=== PATIENT | male | born 2000 | race Two or more races ===

== ENCOUNTER 2023-05-09 08:25 | Emergency (ER) | payer OTHER, SELFPAY ==
[2023-05-09 08:31] VITALS: BP 172/80; PULSE 111; RESP 18; TEMP 36.6; O2SAT 99; BMI 26.9
--- NOTE | 2023-05-09 09:16 | ED_ITS ---
HPI - Epistaxis General Chief Complaint: Epistaxis Stated Complaint: FOREIGN OBJECT IN THROAT Time Seen by Provider: 05/09/23 08:55 Mode of arrival: walk-in History of Present Illness HPI Narrative: As the patient presenting to us with throat discomfort, the patient mentioned that he recently has been recovering from a flu symptoms, and he did have some epistaxis yesterday but today he was feeling some discomfort in his throat, the patient denies any difficulty swallowing or difficulty breathing No nausea no vomiting no other concerns Related Data Previous Rx's Medication Instructions Recorded amoxicillin 875 mg-potassium 1 tab PO Q12H #14 tabs 05/09/23 clavulanate 125 mg tablet prednisone 50 mg tablet 50 mg PO DAILY 5 days #5 tabs 05/09/23 Allergies Allergy/AdvReac Type Severity Reaction Status Date / Time nkda AdvReac Intermediate Uncoded 05/09/23 08:30 Review of Systems ROS Status of ROS 10 or more systems reviewed and unremark able except as noted in history and below PFSH PFSH Social History Smoking status: Never smoker Exam Narrative Exam Narrative: Nurses notes and vital signs reviewed and patient is not hypoxic. General: Well-appearing and in no apparent distress. Skin: Warm, dry, no pallor noted. No rash. Head: Normocephalic, atraumatic. Neck: Supple, non-tender. Eye: Pupils are equal, round and EOMI. No scleral icterus. Ears, Nose, Mouth, and Throat: TM are clear, no nasal mucosal hypertrophy. The patient have no active posterior bleeding at the moment or any blood clot that I can see but he did had the right tonsil is hypertrophied and the upper part of it is freely moving, there was no exudate that I could see, and the upper part is just moving freely to the front of the back, no compromise of the airway Cardiovascular: Regular Rate and Rhythm without murmur, gallop or rub. Respiratory: No accessory muscle use or respiratory distress. Lungs are clear to auscultation, no wheezing, rales or rhonchi Chest Wall: no tenderness Back: No midline thoracic or lumbar vertebral tenderness. No CVA tenderness Musculoskeletal: normal ROM, no calf or popliteal tenderness, no lower extremity edema/swelling GI: Abdomen is soft, non-distended. Normal bowel sounds. No masses appreciated. No tenderness to palpation. No rebound, guarding, or rigidity noted. Neurological: A&O x4. No cranial nerve dysfunction observed. No truncal ataxia. Moves all extremities. Sensation intact. Psychiatric: Cooperative and interactive. Normal mood and affect. Constitutional Vital Signs, click to edit/add: Last Vital Signs Temp 97.9 F 05/09/23 08:31 Pulse 111 H 05/09/23 08:31 Resp 18 05/09/23 08:31 BP 172/80 H 05/09/23 08:31 Pulse Ox 99 05/09/23 08:31 Course Vital Signs Vital signs: Vital Signs Temperature 97.9 F 05/09/23 08:31 Pulse Rate 111 H 05/09/23 08:31 Respiratory Rate 18 05/09/23 08:31 Blood Pressure 172/80 H 05/09/23 08:31 Pulse Oximetry 99 05/09/23 08:31 Temperature 97.9 F 05/09/23 08:31 Pulse Rate 111 H 05/09/23 08:31 Respiratory Rate 18 05/09/23 08:31 Blood Pressure 172/80 H 05/09/23 08:31 Pulse Oximetry 99 05/09/23 08:31 MDM - Epistaxis MDM Narrative Medical decision making narrative: Upon evaluation and while I am evaluating the patient his feeling was better after I pushed freely moving parts backward, Right now with this atypical tonsillitis the patient had a strep swab but he also was covered with Augmentin and prednisone to help with this increase in size to decrease for possible infection underlying The patient was referred to the ENT as outpatient he was instructed about the importance of follow-up and avoiding any supine sleeping at the moment he can sleep on his side to avoid any symptoms ,the patient also was instructed by drinking cold liquid that helped this swelling shrink it was noted that it does not have any narrow neck and it has a wide neck The patient is to follow up with primary care physician in next 2-3 days or to return to the emergency department should any of the signs or symptoms worsen or new symptoms develop. The patient agrees with the following Diagnosis and Treatment plan and the patient will be discharged home. Discharge Plan Discharge Chief Complaint: Epistaxis Clinical Impression: Tonsillar mass, Acute tonsillitis Patient Disposition: Home, Self-Care Time of Disposition Decision: 09:14 Condition: Good Prescriptions / Home Meds: New amoxicillin-pot clavulanate 875-125 mg tablet 1 tab PO Q12H Qty: 14 0RF prednisone 50 mg tablet 50 mg PO DAILY 5 Days Qty: 5 0RF Instructions: Tonsillitis (ED) Stand Alone Forms: Portal Instructions Referrals: [facility] [Primary Care Provider] - 1 week Daniella Linton MD [Physician] - As soon as possible
[2023-05-09 09:44] LABS: Internal Control Within Normal Limits; Strep A Antigen Screen Negative
== END 2023-05-09 09:36 | disposition home or self-care (01) ==
PROVIDERS: Emergency Provider Emergency Medicine
DX: J03.90 Acute tonsillitis, unspecified (principal); J35.8 Other chronic diseases of tonsils and adenoids
CPT/HCPCS: 87070; 87880; 99283

== ENCOUNTER 2023-05-14 16:02 | Emergency (ER) | payer OTHER, SELFPAY ==
[2023-05-14 16:08] VITALS: BP 110/83; PULSE 111; RESP 18; TEMP 37.2; O2SAT 98; BMI 33.8
--- OUTSIDE RECORDS SUMMARY | 2023-05-14 16:11 | XMS_ITS | CCD ---
Author Name Unknown Address [address] [facility] [address] [place] [address] Organization [facility] Care Team Providers Care Education Trainer Name Role Phone KIMBERLYN MELCHOR Consulting Unavailable [facility] Primary Care Unavaila ble HARJINDER, DR JIM De Dios Attending Unavailable HARJINDER, DR JIM De Dios Admitting Unavailable Benjamin, Alexis Consulting Unavailable HARJINDER, DR JIM De Dios Admitting Unavailable [facility] Unavaila ble HARJINDER, DR JIM De Dios Attending Unavailable HARJINDER, DR JIM De Dios Consulting Unavailable KASIA, NICOLASA Admitting Unavailable KASIA, NICOLASA Attending Unavailable KASIA, NICOLASA Consulting Unavailable [facility] Unavaila ble PAY, DR EDWARDS Attending Unavailable PAY, DR EDWARDS Consulting Unavailable [facility] Unavaila ble PAY, DR EDWARDS Admitting Unavailable Michelle, Chrissie Consulting Unavailable Problems Active Problems Problem Classification Problem Date Documented Da te Episodic/Chronic Chronic obstructive pulmonary disease and bronchiectasis (1 source) Bronchitis, not specified as acute or chronic; Translations: [BRONCHITIS NOT SPEC ACUTE/CHRON] Onset: 04-28-2021 Episodic Fluid and electrolyte disorders (1 source) Dehydration; Translations: [DEHYDRATION] Onset: 04-29-2021 Episodic Other connective tissue disease (1 source) Rhabdomyolysis; Translations: [RHABDOMYOLYSIS] Onset: 04-29-2021 Episodic Unclassified (3 sources) COUGH, UNSPECIFIED; Translations: [COUGH, UNSPECIFIED] Onset: 04-29-2021 Unclassified (2 sources) CONTACT W/AND (SUSP) EXPOS COVID-19; Translations: [CONTACT W/AND (SUSP) EXPOS COVID-19] Onset: 04-21-2021 Viral infection (1 source) COVID-19; Translations: [COVID-19] Onset: 04-29-2021 Past or Other Problems Problem Classification Problem Date Documented Da te Episodic/Chronic Abdominal pain (4 sources) Unspecified abdominal pain; Translations: [UNSPECIFIED ABDOMINAL PAIN] Onset: 10-11-2020 Episodic Spondylosis; intervertebral disc disorders; other back problems (1 source) Low back pain; Translations: [LOW BACK PAIN] Onset: 10-15-2020 Episodic Unclassified (1 source) COUGH, UNSPECIFIED; Translations: [COUGH, UNSPECIFIED] Onset: 04-25-2021 Unclassified (1 source) CONTACT W/AND (SUSP) EXPOS COVID-19; Translations: [CONTACT W/AND (SUSP) EXPOS COVID-19] Onset: 04-17-2021 Results Test Name Value Interpretation Reference Range Facility Coding Summary.on 05-06-2021 Coding Summary. [id number] h0bWw+PGhlYWQ+LO5WBNV bX58jzXZocW6RH6fTBQ7M HEPMFONFIN9WEH5ggPX1I IgrI9FndrBw UwhqnKMgMH52CLz9OBI1a HugUKgjcK0esIDgV4d2Xv BeFV64iM40BPogUIGgUvO 3LjZpbjsgbWFy Z8toDwQezIRqPkx+PHRhY mxlIHdpZHRoPScxMDAlJy NrtVfgAW8tVj6uJCRhVTM vbGxhcHNlOiBj l3qjPHXtWCmgLY0cfWxrF 4YriSP7UYGsq6j0Bu70nX I+HTKePFL5lOskUVtzo81 1LqOsz5tyHXL9 gVQxAVisNWT4C95uh0G3B IWeOPHuFGF1sKC5kX2agF hbobndV3JesWBeLlN7FUZ 6qNYbyF7hzDbj pyukhT3nTpu+D31VFL0XI KREBM3AZgk2X0FrYbjxxH I+BB00PIBkMO83xHYzgSQ th8zpaOe1YoIi OZXeWHI5aWnkTLmvc0WtX SYgD58piYMhn1M6PUCnhZ bklEDjOkAksXW8iH6uJQi iqoiek1ubziul Otklz6yaez77hY59Q50eF VhlPCTeCQW9NIVhNEBzcI unij4xpU3pBf9+LIjnw8j iq6eguPw3RlJm EGBoxwRjnDmiLUM8e8UfT z42G3RzsWjvt6ZsLkg8nj 87hPBgf9W3bUZ2KPavPAA mhZ5mVEzfEqF3 JIOdSaGjsA85eONpBQsmG p5kxBbvdAryMF3nJGOurn ulKBQheD2cHIVvgGRqkVi vEZ3bEPCkcdpw h172MhAxQFK9LAZnpHMnD 6FljS7gBkAgKUTdTAOgW7 NloVGwCEjeW558HLfeYgG 7VYJyupZkQ0Ar CIZpnIuqNdL8h3G3Eu7Ue 4AmzzkvVHM6JIwaGQLjKj R8AqZlCsZ2T1AqOxq3GUV xxMewXT5cN3Do LVGvvclictulwWT3QUDoW WVedD20cXFtBNyuWl3qy6 M6f239NRVcVFLvpM97Qe7 udDogMTBwdCBU xX9djjihf2cyqqesPpEfE ZJiFDf7FIi5ETIgjYmuVk PlJOI0MeY8FQN5cLSgbH9 gfDjykvdfhU7z Oyc+T11rdS1xRZP8IRU7d pjlEBFxuaEaLH21FI48Y3 RyPjwvdGFibGU+PGRpdiB ffMcwSE5pKoDm v6nrs0EsREysU4IcEWJiP WyqQdr4MYVpAWT9pKB4cY 9oFGYiFYawl9L1xFN8L7X tvnEwwc3tf9wm EVNzTMmqQ03grMQhw5S5U OHokXL5XGYmkXpbGnRpzZ 93Oyc+YYAubAruf6NqGrx lz9xbw0atpZm3 FxWoVPEwksFojUcvHJC2o 3ZnZk65R98cNYinSPYzAL MvYSDrCBLmwLxmks5peE3 wIi8+PGNvbCB3 iKZ4lL5eEAQoMqG8QZpkT 032VoJcsAEuUezhp3dwz7 qekHv6PtQeRPMmtxUdkXy yQBE0o5LbSy43 V14vQSqiCKSoMLTeQTSfD ZUwrDwpiw0dtS9jAn1+PC 3jx9nhol41xF50lGW+PHR qUUR0sUlbZPyj IBQquM1xSCboTaS1NCTqB uCewJ34gSKgAAuoHd5ckH zyvQqxBU8jBLFjomktl61 4RjDcx9kfOLBs vSRvKEkkZWH8S62ja2W6W FQbZQQzZTM9cPH9hU6heE lnbjogbGVmdDsgdmVydGl eJJesPTvwA068 IHRvcDsnPlBhdGllbnQgT sXtTVx3B6LsEru4SXCqvV lhMZ3gvXTgHJhxWo0rpBv mrZacJT9pRCPw jbyso091TrBkm7vdJCOta YZeLRxqZCZ1S64al5U7II UwXTQdUWQ3aQF3yS3fkHj nbjogbGVmdDsg bpQeuPcmPPhzJFupS485X HRvcDsnPkJpcnRoIERhdG F0TY44FL74cZWxx1I0kST 2H5MwAXQybqok cltzeVB0VRXzEQOdfD48J q3koSclRb0dIQFsKOB7PO NiwATuM9XbiI5yOiHfPKV cNCPqG4GwbYKz RAkgQ756YNnuAaB9IKWpq nTmE2HgTJDjzQfyTnY0v6 L2Kk8XA5S7SY67YT01pER or1V4hZA9C4Ty GSLqvtcmsdgloQR0GGAwH LGajO35Mz3zfJezPw9rUZ KnUVV9ZICndYNmT9LvgU9 yOiAjMDAwMDAw I8BikIRfCLptF750XYjhY eW7YXXwolJhS0OiXMMyxC lxOrJ1j3P2Cl2FRRv7RX0 9RH56zPFpx1M6 mDG4G0HgRKNbzwkqyuuus YU6HKGfAUOtmU58Yu3chZ jvXv9hLPQwEPT7CZNjpVT fM5JitI2wHpVw LRZuOUNcE4YvySEsULxfA 289MSlwQwJ7HUXnfpWoJ7 AwEBWblOjzTaK3k9V7Iq3 DZSZgDQ30VLZ6 kRK2VB78CD68Z3IzYvaxx GFibGU+PHRhYmxlIHdpZH RoPScxMDAlJyBzdHlsZT0 oMm7xKYYgLBXn vVarpFRhJlTvv3xfQYRpE LlaGJ1ofJdwI1OumMA5TB Oqk2h7Yt57X44kP3MnvUA +PWEfuSG4lGR6 dR1qGtQyZmH8MFzuY241I fCdxWGkSfrbl7jba7eahV p8DfW1CJKtvpKvhPjjSVT 1a3OwJh11W78w IHdpZHRoPSIxNSUiIHZhb Iiizs5tgY8kOi4+PGNvbC Y4oXF8eG3nKgXoZqF9ICl jF056EcAndDTj Hetin4qll3whwHi7BaHlB GUytlVmwNzxDPZ6u9CjWz 69S4IauHbuh4HxBos1md6 3dICat2K7cYV9 N2BvMQMkodypiXKryFpbC I0jIIUttqnqJPRnkV9mEK DaN5u7GbQyTsP2UKvzC2M vfyY6DDQigGVx PRpiZPT9M93qv7F6CIVdO IZmXEW3vPL5zI7kmLikrg ogbGVmdDsgdmVydGljYWw lYPtpL441RCIm aFbzQHEssL9kQPHqzITnm FrpYS7sPACchnvdVgXVSR 5PJvyrEk9LWCYCRLmWCC1 7WQ04gMMtj0S0 bTN8V1TxNRWnrwuwkulzw OF8YCGqYWJglU57pIRdVO prOc8mf2D1o710LSGiYIW krS00Mu9wyFor ACKxdTYTsM6oodlan2pmr ogxAcWrZJToUWb3TNi9IL HuhMlsFsEbRZM8KnB7DSF 4jTAgaW5zwZoq ryhlxR8bImc+MDYvMDUvM jAwMzwvdGQ+KHFjGSC2qF teMSnoHIXwiC2rVYObP0f 1ZdRvStC2NQxs A4TbRSRurrkzCy41aN5zY gNoCpB1CGlaO8GevkF2WX NikIMlTGzpOCW5E75jn3H 9YRDzZROxFRY9 sZD4oU2nlYvmatwkoLBpb DsgdmVydGljYWwtYWxpZ2 80OMXeiUpoGpO4QGldVZS lYC87MG09wBHb o0D5bMU4R0FiSFMucehyb jrmpBX0XXIfCJFadO19rI FwFZsgYv6dw0J2p099XVO xSUWqvC34Tk0v cTuaNWJfjDVVaN5nwyqgf 6elvdfcDeLmKUCfCNe5AA a7XEBujRstXeQyMTG5EhV 8UJU3lRHsxX2b hCodcaurgH8wVjz+TWFsZ TwvdGQ+DOWxAXE6gMuqFF tzKYQxxB0cZXPbO1q4TkR zXiL6VWsyV1Tg EFBhrnpaHm66iO1zCmDsM pX6EAlhF4WunrC0USYwiT KtIJamFDF7Z50nc6S0NLS qVWXaTZG6yUT8 nV2gmHtecevcjQMwfWpck iGkiBpzFMhnACfoT613IG VjeLlvTgrqiWW6oVVmpHf vdGQ+KF91qa87 M9ViCfxkZna7BKRwENZ6d QM2bS4dSMKeJNpra4U8dM B8R9UyxuSyev1ok1xeJSK pLPhbQ32bxBGa u0K3WOYglAB6MGTacOboI pUezG61Puk+PGNvbGdyb3 BqCcpuk0pwu2nwjMo8JwS wJSIgdmFsaWdu PYF3j3KqKp39U97eJKzkQ HRoPSIzMCUiIHZhbGlnbj 1xjU3sBj0+YLKfcAZ7nBE 7nH0wRcMjTyF2 ZUzyY819FoWyrJQnXqpnp 1nyk2lzxDe1KuZzFXEbio QilChjTUH8x2JrSe12F4F gwMiwj8SdZgi9 hm76xKBty9G9oNC0K8DrA KVghrvxpMKndCjyYQ1wMZ OjrqzbXCLnuP4rKYIeD4t 5JeJhDnI2IIli H9OxgaI9LEGnmFZfJKTwq EFDzM8eynbjp7ydyeibVy DaBRRhXFy5RGo2UGPwlJm eCzCoBCP9OmP0 OHH8oDDmmQ6jyVsbynqip G9wOyc+HAt6z3fxbHAeNZ 2mrVN2MU98HJ41uURyq5S 4sJX6M6MzFVFe hikczkzdeQX4RNQjSTTrb P63Aa1hcEerQv7iGANsPY F3LGQxyOTsQ7SiyQ0eSaR yIYFdXNCaB2So yRDfDEsoJ928POwgYyI7B AVhsiBrF5RmNYDsoQdgFg N0u4D6Ug9ETK94GL27BX1 0rQCem5W5oYS9 V7IjDARajnmmlocmaIO3G CBxQSEbwG70Mb3agMuiVx 1uXNYtFVO9ZDJyrHDeY3S uqX1mWePyASOv NVBsE1KzdMBuRRzmJ890C CvqSmL8KKXkjaAkT5DjXC UjmCivKpQ2u1A5Sv6ESq4 1II74LN55gNHf p0V0bDP1E4VeVNDuruait jlabCB8XIEbDHXooD00Ha 5ncCwpPa3xCAKmLXF4LZS vmOQeA1TeiR7r JbMoKFMuSPOuU3UjbMYyD FvfP922ETzwLhK4RTGvov LaK6ItUNBzpDmiQmH9d1Z 1Kx6HCMjycfj4 G4EuFbbhmIZ+KO83LQCgX Q41oJXgeKSti9iyrRb2Cw DxDGPwNCY0qVfyJOqgo3D mDKTrB69qqHAk c2U6 (more content not included)... Normal [facility] .Manual Abson 05-01-2021 Basophils/Leukocytes Manual cnt (Bld) [Pure # fraction] 0.0 E9/L Normal 0.0-0.2 [facility] Comment on above: Performed By: #### 2 872045, 8057432, 2383407, 7505957 #### [facility] [address] [place] [address] Eosinophils/Leukocyte s Manual cnt (Bld) [Pure # fraction] 0.1 E9/L Normal 0.0-0.5 [facility] Comment on above: Performed By: #### 2 210373, 8116953, 8833541, 4434356 #### [facility] [address] [place] [address] Lymphocytes/Leukocyte s Manual cnt (Bld) [Pure # fraction] 5.2 E9/L High 1.0-4.0 [facility] Comment on above: Performed By: #### 2 907942, 5824284, 8974199, 6105912 #### [facility] [address] [place] [address] Monocytes/Leukocytes Manual cnt (Bld) [Pure # fraction] 1.3 E9/L High 0.2-1.0 [facility] Comment on above: Performed By: #### 2 486512, 9537269, 0863860, 4267747 #### [facility] [address] [place] [address] Neutrophils/Leukocyte s Auto (Bld) [Pure # fraction] 7.4 E9/L Normal 2.0-7.5 [facility] Comment on above: Performed By: #### 2 283013, 1849993, 1065732, 7838963 #### [facility] [address] [place] [address] CBC w/ Auto Diffon Erythrocyte distribution width (RBC) [Ratio] 13.6 % Normal 10.9-14.2 [facility] Comment on above: Performed By: #### 2 288555, 8565487, 2846411, 7378445 #### [facility] [address] [place] [address] Hematocrit (Bld) [Volume fraction] 42.7 % Normal 37.7-49.0 [facility] Comment on above: Performed By: #### 2 651565, 6230383, 5310679, 7929452 #### [facility] [address] [place] [address] Hemoglobin (Bld) [Mass/Vol] 14.6 g/dL Normal 13.5-17.5 [facility] Comment on above: Performed By: #### 2 424355, 9651285, 1977367, 4346553 #### [facility] [address] [place] [address] MCH (RBC) [Entitic mass] 27.5 pg Normal 27.0-34.0 [facility] Comment on above: Performed By: #### 2 049227, 1075763, 7351102, 5809074 #### [facility] [address] [place] [address] MCHC (RBC) [Mass/Vol] 34.2 g/dL Normal 31.4-36.0 [facility] Comment on above: Performed By: #### 2 707520, 9145808, 3188195, 3676910 #### [facility] [address] [place] [address] MCV (RBC) [Entitic vol] 80.4 fL Normal 80.0-100.0 [facility] Comment on above: Performed By: #### 2 534272, 7142082, 3871403, 8003318 #### [facility] [address] [place] [address] Platelet mean volume (Bld) [Entitic vol] 7.0 fL Normal 6.4-10.8 [facility] Comment on above: Performed By: #### 2 667551, 7725518, 6352225, 6916601 #### [facility] [address] [place] [address] Platelets (Bld) [#/Vol] 371.0 E9/L Normal 150.0-500.0 [facility] Comment on above: Performed By: #### 2 523179, 0383561, 1998588, 9840693 #### [facility] [address] [place] [address] RBC (Bld) [#/Vol] 5.3 E12/L Normal 4.3-5.9 [facility] Comment on above: Performed By: #### 2 451959, 8849217, 8251982, 4891156 #### [facility] [address] [place] [address] WBC corrected for nucl RBC Auto (Bld) [#/Vol] 14.5 E9/L High 4.0-11.0 [facility] Comment on above: Performed By: #### 2 914572, 1511690, 1607392, 4914802 #### [facility] [address] [place] [address] CMPon 05-01-2021 Albumin/Globulin (S) [Mass conc ratio] 1.1 Normal 1.1-2.2 [facility] Comment on above: Performed By: #### 2 894273, 1545720, 3636215, 1313432 #### [facility] [address] [place] [address] Globulin (S) [Mass/Vol] 2.9 g/dL Normal 1.4-4.0 [facility] Comment on above: Performed By: #### 2 901443, 6978316, 2979538, 0233174 #### [facility] [address] [place] [address] Urea nitrogen/Creatinine [Mass ratio] 26 No Units High 10-20 [facility] Comment on above: Performed By: #### 2 680209, 9957604, 5524148, 3197324 #### [facility] [address] [place] [address] Albumin [Mass/Vol] 3.1 g/dL Low 3.3-5.0 [facility] Comment on above: Performed By: #### 2 582353, 4648591, 6088865, 6468540 #### [facility] [address] [place] [address] ALP [Catalytic activity/Vol] 88 Int._Unit/L Normal 21-98 [facility] Comment on above: Performed By: #### 2 578938, 7145562, 2758095, 9426683 #### [facility] [address] [place] [address] ALT No additional P-5'-P [Catalytic activity/Vol] 173 Int._Unit/L High 6-46 [facility] Comment on above: Performed By: #### 2 015360, 5817598, 9313830, 7147078 #### [facility] [address] [place] [address] Anion gap [Moles/Vol] 10 mmol/L Normal 6-16 [facility] Comment on above: Performed By: #### 2 249607, 7816508, 1975367, 4900494 #### [facility] [address] [place] [address] AST [Catalytic activity/Vol] 52 Int._Unit/L High 5-43 [facility] Comment on above: Performed By: #### 2 786853, 4521688, 3094312, 0799799 #### [facility] [address] [place] [address] Bilirubin [Mass/Vol] 0.4 mg/dL Normal 0.0-1.1 [facility] Comment on above: Performed By: #### 2 577906, 8441235, 2359786, 2687421 #### [facility] [address] [place] [address] Calcium [Mass/Vol] 8.4 mg/dL Low 8.9-11.1 [facility] Comment on above: Performed By: #### 2 094437, 3016550, 8018932, 7183700 #### [facility] [address] [place] [address] Chloride [Moles/Vol] 104 mmol/L Normal 101-111 [facility] Comment on above: Performed By: #### 2 855976, 2982621, 1431073, 2666761 #### [facility] [address] [place] [address] CO2 [Moles/Vol] 27 mmol/L Normal 21-31 [facility] Comment on above: Performed By: #### 2 513251, 2405287, 5019638, 3803013 #### [facility] [address] [place] [address] Creatinine [Mass/Vol] 0.7 mg/dL Normal 0.5-1.3 [facility] Comment on above: Performed By: #### 2 356884, 3342470, 5360615, 6301422 #### [facility] [address] [place] [address] Glucose [Mass/Vol] 127 mg/dL Normal 55-199 [facility] Comment on above: Result Comment: If t his glucose result represents a fasting glucose, interpretation should refer to the following reference range: 55-99 mg/dL Performed By: #### 2 991067, 8629393, 3239123, 3371499 #### [facility] [address] [place] [address] Potassium [Moles/Vol] 3.9 mmol/L Normal 3.5-5.3 [facility] Comment on above: Performed By: #### 2 094032, 3226514, 0473041, 2804642 #### [facility] [address] [place] [address] Protein [Mass/Vol] 6.0 g/dL Normal 6.0-7.8 [facility] Comment on above: Performed By: #### 2 288286, 8031053, 0932688, 4423929 #### [facility] [address] [place] [address] Sodium [Moles/Vol] 137 mmol/L Normal 135-145 [facility] Comment on above: Performed By: #### 2 452239, 9668312, 3368512, 8487836 #### [facility] [address] [place] [address] Urea nitrogen [Mass/Vol] 18 mg/dL Normal 5-21 [facility] Comment on above: Performed By: #### 2 459478, 3171042, 7525243, 0514362 #### [facility] [address] [place] [address] CRPon 05-01-2021 CRP [Mass/Vol] 1.3 mg/dL Normal <=1.9 [facility] Comment on above: Performed By: #### 2 746438, 9789725, 5603370, 0659294 #### [facility] [address] [place] [address] D-Dimeron 05-01-2021 Fibrin D-dimer FEU (PPP) [Mass/Vol] 403 [id number] Normal 215-500 [facility] Comment on above: Result Comment: This assay is intended for use as an aid in the diagnosis of DVT or PE. These conditions cannot be excluded with certainty solely on the basis of a D-dimer concentration being within the reference range This D-Dimer assay may be used in conjunction with a non-high clinical pretest probability assessment to exclude deep-vein thrombosis(DVT). For exclusion of venous thrombosis or pulmonary embolism the analyte D-Dimer should not be used as an aid in patients with: Therapeutic dose anticoagulant therapy for >24 hours Fibrinolytic therapy within previous 7 days Trauma or surgery within previous 4 weeks Disseminated malignacies Aortic aneurysm Sepsis, severe infections, pneumonia, severe skin infections Liver cirrhosis Performed By: #### 2 393787, 9447810, 2877978, 6698688 #### [facility] [address] [place] [address] Discharge Instructionson Discharge Instructions [id number]# 1.00CD:127 Normal [facility] Ferritinon 05-01-2021 Ferritin [Mass/Vol] 304 ng/mL Normal 24-336 [facility] Comment on above: Result Comment: NORM ALS MEN <30 YRS 16-132 ng/mL MEN >30 YRS 8-338 ng/mL WOMEN (PREMEN) 6-104 ng/mL WOMEN (POSTMEN) 12-210 ng/mL Performed By: #### 2 920176, 2002535, 4166273, 8404986 #### [facility] [address] [place] [address] Inpatient Clinical Summaryon 05-01-2021 Inpatient Clinical Summary [address] [address] Clinical Summary Person Information: Name: NAIDA CM Age: 20 Years : 2000 Sex: Male PCP: JAMES SUH CNP Marital Status: Single Phone: [phone] Race: White Ethnicity: Non- or Language: Greenlandic Visit Id: Visit Reason: Cough; Weakness or fatigue; Shortness of breath; acute respiratory failure with hypoxia due to COVID Speciality: Acuity: Enc Type: Inpatient Med Service: Medical Arrival: 04/26/2021 14:37:56 Discharge: Dispo Type: Admitted as IP to this Hosp Address: [address] [place] [id number] Provider Notes: Diagnosis: 1:Acute hypoxemic respiratory failure due to COVID-19; 2:Elevated transaminase level; 3:Weakness; 4:Dehydration; 5:Asthma; 6:Obesity; 7:DVT prophylaxis Problems No Problems Documented Smoking Status: Never Smoker Functional Status: Sensory Deficits: History of Falls: Mobility Assistance Prior to Admission: Independent ADLs: Independent Current Level of Assistance for Self-Care/Mobility: Cognitive Status: Oriented x 3 Allergies No Known Allergies Measurements: Height: 170.18 cm Weight: 100.2 kg Blood Pressure: 108 mmHg / 72 mmHg BMI: 34.84 kg/m2 Procedures No Procedures Documented Immunizations influenza virus vaccine, inactivated (Not Given) Final Med List: acetaminophen (acetaminophen 325 mg Tab) 2 Tablets By Mouth every 6 hours as needed Pain. albuterol (albuterol 0.083% Inh Rebeca 3 mL) 0.083% - 3mL dosing units Inhalation every 4 hours as needed as needed for wheezing for 30 Days. Refills: 0. albuterol (albuterol HFA 90 mcg/inh MDI) 2 Puffs Inhalation every 2 hours as needed Shortness of breath or wheezing for 30 Days. Refills: 2. dexamethasone (dexamethasone 4 mg Tab) 1 Tablets By Mouth every day for 4 Days. Refills: 0. guaifenesin (Mucinex 600 mg Tab-ER) 1 Tablets By Mouth 2 times a day for 5 Days. Refills: 0. Misc Prescription (Nebulizer) 0. 1 machine w/ approp. tubing/mask. Refills: 0. Care Team Members: Attending Physician: Volodymyr AMARO DO Consulting Physician: Referring Physician: Follow up: With: Address: When: JAMES SUH [address] [place] [address] 05/08/2021 1:15 PM Comments: Appointment will be with Jessica Leach, as James Suh is on maternity leave. Patient Education Information: Dehydration, Adult, Brrj-pb-Mqom; COVID-19: How to Protect Yourself and Others - CDC; COVID-19 Frequently Asked Questions; COVID-19 Albuterol (Eqv-Proventil HFA), dexamethasone 4 mg Tab, Mucinex Normal [facility] Inpatient Patient Summaryon 05-01-2021 Inpatient Patient Summary [address] [address] Patient Discharge Instructions PERSON INFORMATION Name: NAIDA CM Date of : 2000 Current Date: 05/01/2021 11:49:52 PHYSICIANS Admitting Physician: Volodymyr AMARO DO Primary Care Physician: JAMES SUH CNP PCP Phone Number: Comment: Discharge Diagnosis: 1:Acute hypoxemic respiratory failure due to COVID-19; 2:Elevated transaminase level; 3:Weakness; 4:Dehydration; 5:Asthma; 6:Obesity; 7:DVT prophylaxis Condition at Discharge: Improved NAIDA CM has been given the following list of follow-up instructions, prescriptions, and patient education materials: PATIENT FOLLOW-UP INFORMATION Diet: Regular Discharge Activity: Ambulate as tolerated, Activity as tolerated Discharge Restrictions: No restrictions Wound Care Instructions: Remove Your Dressing In Days Call Your Doctor For: IF UNABLE TO CONTACT YOUR PHYSICIAN AND YOU FEEL IT IS AN EMERGENCY, GO TO THE NEAREST EMERGENCY ROOM OR CALL 911 Home Treatment: Devices/Equipment: Special Services: Additional Instructions: Quarantine for a total of 10 days Continue all medications as written for Stay well-hydrated with water Continue to use incentive spirometry as instructed until you are back to your respiratory baseline Primary Care Physician to provide the following pending test results: Blood culture, Sputum culture Follow up: With: Address: When: JAMES SUH [address] [place] [address] 05/08/2021 1:15 PM Comments: Appointment will be with Jessica Leach, as James Vikash is on maternity leave. In the event that this physician does not participate in your insurance network, please consult with your insurance company to find a nearby participating provider. Comment: I NAIDA CM, have received the attached patient education materials/instruction s and have verbalized understanding: Patient Signature Date Clinican/Nurse Signature Date HERE ARE THE MEDICATION CHANGES THAT OCCURRED DURING YOUR HOSPITAL STAY New Medications Printed Prescriptions dexamethasone (dexamethasone 4 mg Tab) 1 Tablets By Mouth every day for 4 Days. Refills: 0. Last Dose: ____Next Dose: ____ guaifenesin (Mucinex 600 mg Tab-ER) 1 Tablets By Mouth 2 times a day for 5 Days. Refills: 0. Last Dose: ____Next Dose: ____ Misc Prescription (Nebulizer) 0. 1 machine w/ approp. tubing/mask. Refills: 0. Last Dose: ____Next Dose: ____ Other Medications acetaminophen (acetaminophen 325 mg Tab) 2 Tablets By Mouth every 6 hours as needed Pain. Last Dose: ____Next Dose: ____ Medications to Continue Taking That Have Changed Printed Prescriptions START: albuterol (albuterol 0.083% Inh Rebeca 3 mL) 0.083% - 3mL dosing units Inhalation every 4 hours as needed as needed for wheezing for 30 Days. Refills: 0. Last Dose: ____Next Dose: ____ START: albuterol (albuterol HFA 90 mcg/inh MDI) 2 Puffs Inhalation every 2 hours as needed Shortness of breath or wheezing for 30 Days. Refills: 2. Last Dose: ____Next Dose: ____ STOP: albuterol 2.5 Milligram Inhalation every 4 hours as needed as needed for shortness of breath or wheezing. STOP: albuterol 2.5 Milligram Nebulized inhalation (aerosol) every 4 hours as needed as needed for shortness of breath or wheezing. Comment: MEDICATION LIST PROVIDED FOR YOU IS A LIST OF YOUR CURRENT MEDICATIONS. PLEASE CARRY THIS WITH YOU AT ALL TIMES. acetaminophen (acetaminophen 325 mg Tab) 2 Tablets By Mouth every 6 hours as needed Pain. albuterol (albuterol 0.083% Inh Rebeca 3 mL) 0.083% - 3mL dosing units Inhalation every 4 hours as needed as needed for wheezing for 30 Days. Refills: 0. albuterol (albuterol HFA 90 mcg/inh MDI) 2 Puffs Inhalation every 2 hours as needed Shortness of breath or wheezing for 30 Days. Refills: 2. dexamethasone (dexamethasone 4 mg Tab) 1 Tablets By Mouth every day for 4 Days. Refills: 0. guaifenesin (Mucinex 600 mg Tab-ER) 1 Tablets By Mouth 2 times a day for 5 Days. Refills: 0. Misc Prescription (Nebulizer) 0. 1 machine w/ approp. tubing/mask. Refills: 0. Pharmacy Information: Other: [facility] [place] Comment: PATIENT EDUCATION INFORMATION Instructions: Dehydration, Adult Dehydration is when there is not enough fluid or water in your body. This happens when you lose more fluids than you take in. Dehydration can range from mild to very bad. It should be treated right away to keep it from getting very bad. Symptoms of mild dehydration may include: ? Thirst. ? Dry lips. ? Slightly dry mouth. ? (more content not included)... Normal [facility] Interdisciplinary Note - Vic e Manageron 05-01-2021 Interdisciplinary Note - Repairer Controller Tester CRM spoke with patient in room. Patient is alert and oriented and participates in discharge planning. No family in room. Patient white board updated, and CRM contact information provided. Patient is in isolation for COVID. Discussed CRM spoke with Steph WONG who saw patient earlier today and will stay today and shaq Albert tomorrow then dc home. Patient is on room air and desat study was negative. Patient aware will not need oxygen at discharge. he denies any questions and declines Par med visit. CRM has called to room and mother of patient on phone and states she was called and told patient will dc today. CRM called JUDITH Choi and verified and she now says will dc today after Remdesivir dose given. Patient and his mother updated. Normal [facility] Comment on above: Result Comment: Elec tronically Signed By: Med KIM, Yisel\.br\Date and Time Signed: 05/01/21 10:41 EST LDHon 05-01-2021 LDH [Catalytic activity/Vol] 195 Int._Unit/L Normal 93-218 [facility] Comment on above: Performed By: #### 2 990650, 4284072, 2592046, 9323731 #### [facility] [address] [place] [address] Manual Diffon 05-01-2021 Band form neutrophils/100 WBC (Bld) 6 % Normal 0-10 [facility] Comment on above: Order Comment: Order Added by Discern Expert. Performed By: #### 2 055534, 8813034, 1893620, 8757437 #### [facility] [address] [place] [address] Basophils/100 WBC (Bld) 0 % Normal 0-2 [facility] Comment on above: Order Comment: Order Added by Discern Expert. Performed By: #### 2 730494, 8120928, 8525538, 7236624 #### [facility] [address] [place] [address] Eosinophils/100 WBC (Bld) 1 % Normal 0-8 [facility] Comment on above: Order Comment: Order Added by Discern Expert. Performed By: #### 2 359099, 0688905, 9478070, 3312987 #### [facility] [address] [place] [address] Lymphocytes/100 WBC (Bld) 31 % Normal 14-50 [facility] Comment on above: Order Comment: Order Added by Discern Expert. Performed By: #### 2 255759, 4934878, 6881050, 6502346 #### [facility] [address] [place] [address] Metamyelocytes/Leukoc ytes Manual cnt (Bld) [Pure # fraction] 1 % High <=0 [facility] Comment on above: Order Comment: Order Added by Discern Expert. Performed By: #### 2 282641, 7321347, 8948786, 4914266 #### [facility] [address] [place] [address] Monocytes/100 WBC (Bld) 9 % Normal 4-14 [facility] Comment on above: Order Comment: Order Added by Discern Expert. Performed By: #### 2 980526, 3020611, 0925624, 5795120 #### [facility] [address] [place] [address] Myelocytes/100 WBC (Bld) 2 % High <=0 [facility] Comment on above: Order Comment: Order Added by Discern Expert. Performed By: #### 2 438779, 7697960, 8259165, 7201862 #### [facility] [address] [place] [address] Segmented neutrophils/100 WBC (Bld) 45 % Normal 36-75 [facility] Comment on above: Order Comment: Order Added by Discern Expert. Performed By: #### 2 187405, 4671818, 2476226, 8599662 #### [facility] [address] [place] [address] Variant lymphocytes LM Ql (Bld) 5 % Invalid Interpretation Code [facility] Comment on above: Order Comment: Order Added by Discern Expert. Performed By: #### 2 344569, 4328374, 4561455, 2753005 #### [facility] [address] [place] [address] Monitor Recordon 05-01-2021 Monitor Record [id number]# 1.00CD:127 Normal [facility] Monitor Record [id number]# 1.00CD:127 Normal [facility] Monitor Record [id number]# 1.00CD:127 Normal [facility] Monitor Record [id number]# 1.00CD:127 Normal [facility] Monitor Record [id number]# 1.00CD:127 Normal [facility] Progress Note-Physicianon Progress Note-Physician Subjective Patient an 20y M with a past medical history significant for asthma who presented to the ED on 04/27 for worsening SOB over the past week or so. Pt reports that about 10 days ago he was evaluated at [facility] for muscle aches, chills, headache, cough, and anosmia. He tested positive for COVID-19 at that time. He was given a pulse oximeter and sent home. Since then he has experienced worsening symptoms and developed SOB over the past week. On presentation to the ED he was found to be hypoxemic. He was admitted to [facility] for further management of his symptoms. Pulmonary was consulted to help manage his COVID symptoms. Pt currently complains of SOB which he states feels about the same as yesterday. He also complains of feeling fatigued. He denies any other complaints at this time. Of note, pt has a documented history of asthma as a child but reports that he does not use an inhaler. He denies any smoking or drug history. He reports that he is unvaccinated. Hospital course: 04/27: Admitted for acute hypoxemic respiratory failure 2/2 COVID PNA 04/28: No acute events o/n. Currently on 3L NC. Pt reports that he feels fatigued. He states his cough is nonproductive. I educated him on COVID. I also recommended to him that he self-prone as much as he can tolerate as well as get OOB. 04/29: No change in breathing status, unclear if proning. Oxygenation stable on 3L NC 04/30: No acute events overnight, oxygenation improving is currently on room air Objective Vitals & Measurements T: 36.6 ?C(Oral) TMIN: 36.6 ?C(Oral) TMAX: 36.8 ?C(Oral) HR: 86(Monitored) RR: 17 BP: 109/76 SpO2: 96% WT: 98.7 kg Intake & Output This visit (24 hour periods starting at 07:00 EST) 04/30/21 * 04/29/21 04/28/21 Total Summary Intake mL 1.5 1,431.5 251.5 Output mL -- 3,500 550 Fluid Balance 1.5 -2,068.5 -298.5 Intake (3) Oral Intake mL -- 1,430 -- Sodium Chloride 0.9%, remdesivir mL -- -- 250 dexamethasone mL 1.5 1.5 1.5 Total 1.5 1,431.5 251.5 Output (1) Urine Voided mL -- 3,500 550 Total -- 3,500 550 Counts (0) * This column has not completed the indicated time period. Physical Exam General: alert, no acute distress Skin: warm, dry Head: no trauma, normocephalic Neck: Trachea midline, no adenopathy Eye: normal conjunctiva, sclera clear ENMT: oral mucosa moist, yes Cardiovascular: regular rate and rhythm, normal Respiratory: respirations non labored. Diminished bilaterally. No wheezing, rhonchi, or crackles. Chest wall: no deformity. Gastrointestinal: soft, non distended, no tenderness Extremities: no edema, no wound Neurological: awake, alert, oriented, speech normal Psychiatric: cooperative, affect appropriate for age Lab Results WBC: 11.8 E9/L High (04/30/21 08:04:00) RBC: 5.2 E12/L (04/30/21 08:04:00) HGB: 14 gm/dL (04/30/21 08:04:00) Hct: 41.5 % (04/30/21 08:04:00) MCV: 79.6 fL Low (04/30/21 08:04:00) MCH: 26.9 pg Low (04/30/21 08:04:00) MCHC: 33.8 gm/dL (04/30/21 08:04:00) RDW: 13.6 % (04/30/21 08:04:00) Platelet: 343 E9/L (04/30/21 08:04:00) MPV: 6.8 fL (04/30/21 08:04:00) D-Dimer: 381 ng/mL FEU (04/30/21 08:04:00) Glucose Lvl: 164 mg/dL (04/30/21 08:04:00) BUN: 18 mg/dL (04/30/21 08:04:00) Creatinine: 0.6 mg/dL (04/30/21 08:04:00) eGFR: >60 (04/30/21 08:04:00) eGFR AA: >60 (04/30/21 08:04:00) BUN/Creat Ratio: 30 High (04/30/21 08:04:00) Sodium Lvl: 136 mmol/L (04/30/21 08:04:00) Potassium Lvl: 3.8 mmol/L (04/30/21 08:04:00) Chloride: 101 mmol/L (04/30/21 08:04:00) CO2: 25 mmol/L (04/30/21 08:04:00) AGAP: 14 mEq/L (04/30/21 08:04:00) Calcium Lvl: 8.2 mg/dL Low (04/30/21 08:04:00) Alk Phos: 78 Int._Unit/L (04/30/21 08:04:00) ALT: 161 Int._Unit/L High (04/30/21 08:04:00) AST: 50 Int._Unit/L High (04/30/21 08:04:00) Total Protein: 5.8 gm/dL Low (04/30/21 08:04:00) Albumin Lvl: 3 gm/dL Low (04/30/21 08:04:00) Globulin: 2.8 gm/dL (04/30/21 08:04:00) A/G Ratio: 1.1 (04/30/21 08:04:00) Bili Total: 0.5 mg/dL (04/30/21 08:04:00) CRP: 1.3 mg/dL (04/30/21 08:04:00) LDH: 190 Int._Unit/L (04/30/21 08:04:00) Ferritin Lvl: 283 ng/mL (04/30/21 08:04:00) Assessment/Plan 1. Acute hypoxemic respiratory failure due to COVID-19 (U07.1: COVID-19) 2/2 COVID PNA Unvaccinated H/o Asthma Plan: - COVID precautions - Serial COVID labs - Currently on 3L NC - Titrate O2 for sats 88-92% - Continue remdesivir x5d, dexamethasone x10d - Continue bronchodilators PRN - Encourage positional therapy and IS 04/29: -Will add Mucinex and flutter valve to assist with expectoration, does have significantly diminished breath sounds -Re-encouraged positional therapy and ambulation as tolerated 04/30: Maintain Covid precautions Serial inflammatory markers Appears to be tolerating remdesivir, dexamethasone, Mucinex -Currently is on room air and saturating mid to high 90s Please complete desaturation study in a. (more content not included)... Normal [facility] Comment on above: Result Comment: Elec tronically Signed By: Rozina ROWE, Isabel X\.br\Date and Time Signed: 04/30/21 23:56 EST eGFRon 05-01-2021 GFR/1.73 sq M.predicted among blacks MDRD (S/P/Bld) [Vol rate/Area] mL/min/{1.73_m2} Normal >=59 [facility] Comment on above: Order Comment: Order added by Discern Expert. Result Comment: eGFR is race adjusted. AA=. Performed By: #### 2 518299, 6147840, 4885216, 9735223 #### [facility] [address] [place] [address] GFR/1.73 sq M.predicted among non-blacks MDRD (S/P/Bld) [Vol rate/Area] mL/min/{1.73_m2} Normal >=59 [facility] Comment on above: Order Comment: Order added by Discern Expert. Result Comment: Ornament Setter jaspreet kidney disease could be indicated at eGFR's of less than 60 mL/min/1.73m2. Kidney failure is indicated at less than 15 mL/min/1.73m2. Performed By: #### 2 687145, 5894517, 3762818, 2471648 #### [facility] [address] [place] [address] CBC w/Indiceson 04-30-2021 Erythrocyte distribution width (RBC) [Ratio] 13.6 % Normal 10.9-14.2 [facility] Comment on above: Performed By: #### 2 024754, 5491837, 4340494, 4713779 #### [facility] [address] [place] [address] Hematocrit (Bld) [Volume fraction] 41.5 % Normal 37.7-49.0 [facility] Comment on above: Performed By: #### 2 792124, 7991718, 6233839, 0350751 #### [facility] [address] [place] [address] Hemoglobin (Bld) [Mass/Vol] 14.0 g/dL Normal 13.5-17.5 [facility] Comment on above: Performed By: #### 2 674070, 8072013, 6420144, 3879387 #### [facility] [address] [place] [address] MCH (RBC) [Entitic mass] 26.9 pg Low 27.0-34.0 [facility] Comment on above: Performed By: #### 2 760213, 4094524, 7463367, 1954185 #### [facility] [address] [place] [address] MCHC (RBC) [Mass/Vol] 33.8 g/dL Normal 31.4-36.0 [facility] Comment on above: Performed By: #### 2 028619, 9299230, 9354611, 0830346 #### [facility] [address] [place] [address] MCV (RBC) [Entitic vol] 79.6 fL Low 80.0-100.0 [facility] Comment on above: Performed By: #### 2 234045, 3580404, 0175467, 2896777 #### [facility] [address] [place] [address] Platelet mean volume (Bld) [Entitic vol] 6.8 fL Normal 6.4-10.8 [facility] Comment on above: Performed By: #### 2 737032, 9172069, 5210386, 7857199 #### [facility] [address] [place] [address] Platelets (Bld) [#/Vol] 343.0 E9/L Normal 150.0-500.0 [facility] Comment on above: Performed By: #### 2 117175, 9202870, 3906255, 5176003 #### [facility] [address] [place] [address] RBC (Bld) [#/Vol] 5.2 E12/L Normal 4.3-5.9 [facility] Comment on above: Performed By: #### 2 637963, 0359237, 8185827, 6107356 #### [facility] [address] [place] [address] WBC corrected for nucl RBC Auto (Bld) [#/Vol] 11.8 E9/L High 4.0-11.0 [facility] Comment on above: Performed By: #### 2 443893, 1722593, 1289521, 7986671 #### [facility] [address] [place] [address] CMPon 04-30-2021 Albumin [Mass/Vol] 3.0 g/dL Low 3.3-5.0 [facility] Comment on above: Performed By: #### 2 374124, 8039928, 98700624, 2841349, 8943276, 9043172, 1271532, 9497304, 6243416212, 23668217, 03524187, 25927085 #### [facility] [address] [place] [address] Albumin/Globulin (S) [Mass conc ratio] 1.1 Normal 1.1-2.2 [facility] Comment on above: Performed By: #### 2 344185, 4932903, 74959339, 3258505, 5584833, 5987050, 3710532, 8932302, 8896059438, 66266943, 30011295, 98382270 #### [facility] [address] [place] [address] ALP [Catalytic activity/Vol] 78 Int._Unit/L Normal 21-98 [facility] Comment on above: Performed By: #### 2 454237, 2381504, 75288411, 6453309, 2506390, 5611939, 1672670, 5381384, 2779474183, 09822852, 07283491, 90898926 #### [facility] [address] [place] [address] ALT No additional P-5'-P [Catalytic activity/Vol] 161 Int._Unit/L High 6-46 [facility] Comment on above: Performed By: #### 2 346396, 1656236, 46672428, 4395495, 9158999, 5579373, 9615646, 2845073, 6686931027, 27846286, 99385001, 86080397 #### [facility] [address] [place] [address] Anion gap [Moles/Vol] 14 mmol/L Normal 6-16 [facility] Comment on above: Performed By: #### 2 323005, 9110316, 81734936, 9517720, 8226820, 8657884, 0135012, 5389951, 3751330009, 74125767, 91070380, 47702010 #### [facility] [address] [place] [address] AST [Catalytic activity/Vol] 50 Int._Unit/L [facility] 5-43 [facility] Comment on above: Performed By: #### 2 460241, 4007439, 08576918, 1207163, 6242756, 0097901, 1721453, 1837674, 3447716798, 14860592, 76360767, 75995629 #### [facility] [address] [place] [address] Bilirubin [Mass/Vol] 0.5 mg/dL Normal 0.0-1.1 [facility] Comment on above: Performed By: #### 2 504102, 9070708, 31713092, 8154469, 8841457, 5175635, 8084228, 0084769, 7150337583, 17482748, 28775130, 84607534 #### [facility] [address] [place] [address] Calcium [Mass/Vol] 8.2 mg/dL Low 8.9-11.1 [facility] Comment on above: Performed By: #### 2 870537, 7687721, 77832794, 9836406, 2168352, 9609706, 5190079, 7880206, 0334285588, 65459101, 26512708, 01410725 #### [facility] [address] [place] [address] Chloride [Moles/Vol] 101 mmol/L Normal 101-111 [facility] Comment on above: Performed By: #### 2 186197, 5537855, 50074530, 2643327, 1333105, 1388214, 3846801, 0284391, 0606528441, 59214549, 24182473, 54604195 #### [facility] [address] [place] [address] CO2 [Moles/Vol] 25 mmol/L Normal 21-31 [facility] Comment on above: Performed By: #### 2 133681, 9619577, 69957298, 3750330, 5294057, 6861065, 1427120, 4946612, 9745705935, 00262789, 75539284, 35317494 #### [facility] [address] [place] [address] Creatinine [Mass/Vol] 0.6 mg/dL Normal 0.5-1.3 [facility] Comment on above: Performed By: #### 2 646002, 2748006, 09950340, 7608977, 1398086, 4766488, 7895536, 5766171, 6554047237, 90456883, 98121728, 38010716 #### [facility] [address] [place] [address] Globulin (S) [Mass/Vol] 2.8 g/dL Normal 1.4-4.0 [facility] Comment on above: Performed By: #### 2 394398, 3282317, 58317745, 1810950, 2544097, 6701944, 0303594, 1159139, 2647076811, 15081385, 00345388, 65202989 #### [facility] [address] [place] [address] Glucose [Mass/Vol] 164 mg/dL Normal 55-199 [facility] Comment on above: Result Comment: If t his glucose result represents a fasting glucose, interpretation should refer to the following reference range: 55-99 mg/dL Performed By: #### 2 361336, 3186174, 02512125, 4923687, 8751354, 2091819, 6139012, 7205687, 4968291229, 97905621, 27825763, 65627011 #### [facility] [address] [place] [address] Potassium [Moles/Vol] 3.8 mmol/L Normal 3.5-5.3 [facility] Comment on above: Performed By: #### 2 011819, 0894581, 78582237, 6405001, 1404254, 8868575, 0030706, 7257409, 0127428612, 59462564, 75367486, 67223360 #### [facility] [address] [place] [address] Protein [Mass/Vol] 5.8 g/dL Low 6.0-7.8 [facility] Comment on above: Performed By: #### 2 324744, 9840213, 85812718, 7727709, 7273169, 8517159, 4318752, 6843249, 5428821346, 99946359, 49997768, 77849950 #### [facility] [address] [place] [address] Sodium [Moles/Vol] 136 mmol/L Normal 135-145 [facility] Comment on above: Performed By: #### 2 788956, 4943874, 30004258, 7716842, 9457479, 9851695, 5461716, 1442801, 4716302978, 50031218, 65675644, 89064008 #### [facility] [address] [place] [address] Urea nitrogen [Mass/Vol] 18 mg/dL Normal 5-21 [facility] Comment on above: Performed By: #### 2 141523, 8676100, 95893400, 5193381, 8485088, 8231138, 0837101, 5139073, 0431217873, 55874340, 09389979, 82703139 #### [facility] [address] [place] [address] Urea nitrogen/Creatinine [Mass ratio] 30 No Units High 10-20 [facility] Comment on above: Performed By: #### 2 510278, 3684674, 24104790, 5478631, 1839585, 3322672, 8393929, 5454535, 8702114754, 97543666, 25158741, 96041021 #### [facility] [address] [place] [address] CRPon 04-30-2021 CRP [Mass/Vol] 1.3 mg/dL Normal <=1.9 [facility] Comment on above: Performed By: #### 2 600350, 9828282, 1768468, 6386863 #### [facility] [address] [place] [address] Consultation Noteon 04-30-20 21 Consultation Note Chief Complaint sob, weakness History of Present Illness Patient an 20y M with a past medical history significant for asthma who presented to the ED on 04/27 for worsening SOB over the past week or so. Pt reports that about 10 days ago he was evaluated at [facility] for muscle aches, chills, headache, cough, and anosmia. He tested positive for COVID-19 at that time. He was given a pulse oximeter and sent home. Since then he has experienced worsening symptoms and developed SOB over the past week. On presentation to the ED he was found to be hypoxemic. He was admitted to [facility] for further management of his symptoms. Pulmonary was consulted to help manage his COVID symptoms. Pt currently complains of SOB which he states feels about the same as yesterday. He also complains of feeling fatigued. He denies any other complaints at this time. Of note, pt has a documented history of asthma as a child but reports that he does not use an inhaler. He denies any smoking or drug history. He reports that he is unvaccinated. Hospital course: 04/27: Admitted for acute hypoxemic respiratory failure 2/2 COVID PNA 04/28: No acute events o/n. Currently on 3L NC. Pt reports that he feels fatigued. He states his cough is nonproductive. I educated him on COVID. I also recommended to him that he self-prone as much as he can tolerate as well as get OOB. Review of Systems 12 point review of systems performed with patient, pertinent positives and negatives stated in HPI. Physical Exam Vitals & Measurements T: 36.4 ?C(Oral) TMIN: 36.3 ?C(Oral) TMAX: 36.8 ?C(Oral) HR: 78(Monitored) RR: 20 BP: 122/83 SpO2: 96% WT: 99.2 kg WT: 99.2 kg General: alert, no acute distress Skin: warm, dry Head: no trauma, normocephalic Neck: Trachea midline, no adenopathy Eye: normal conjunctiva, sclera clear ENMT: oral mucosa moist, yes Cardiovascular: regular rate and rhythm, normal Respiratory: respirations non labored. Diminished bilaterally. No wheezing, rhonchi, or crackles. Chest wall: no deformity. Gastrointestinal: soft, non distended, no tenderness Extremities: no edema, no wound Neurological: awake, alert, oriented, speech normal Psychiatric: cooperative, affect appropriate for age Assessment/Plan 1. Acute hypoxemic respiratory failure due to COVID-19 (U07.1: COVID-19) 2/2 COVID PNA Unvaccinated H/o Asthma Plan: - COVID precautions - Serial COVID labs - Currently on 3L NC - Titrate O2 for sats 88-92% - Continue remdesivir x5d, dexamethasone x10d - Continue bronchodilators PRN - Encourage positional therapy and IS 2. Asthma (J45.909: Unspecified asthma, uncomplicated) As above 6. DVT prophylaxis (Z29.9: Encounter for prophylactic measures, unspecified) Lovenox 40mg qd Problem List/Past Medical History Ongoing No qualifying data Historical No qualifying data Medications Inpatient acetaminophen 325 mg Tab, 650 mg= 2 tab(s), Oral, q6hr, PRN albuterol HFA 90 mcg/inh MDI, 180 mcg= 2 puff(s), Inhalation, q4hr, PRN albuterol HFA 90 mcg/inh MDI, 180 mcg= 2 puff(s), Inhalation, q2hr, PRN dexamethasone 4 mg/mL Inj 1 mL, 6 mg= 1.5 mL, IV Push, Daily enoxaparin 40 mg/0.4 mL SC Rebeca, 40 mg= 0.4 mL, SubCutaneous, Daily influenza virus vaccine IM Rebeca FT Rule, 0.5 mL, IntraMuscular, Once ondansetron 4 mg/2 mL Inj, 4 mg= 2 mL, IV Push, q6hr, PRN remdesivir additive + Sodium Chloride 0.9% intravenous solution 250 mL Sodium Chloride 0.9% IV Rebeca 1000 mL 1,000 mL, 1000 mL, IV Sodium Chloride 0.9% IV Rebeca 1000 mL 1,000 mL, 1000 mL, IV Home No active home medications Allergies No Known Allergies Social History Alcohol - Denies Alcohol Use, 04/26/2021 Substance Abuse - Denies Substance Abuse, 04/26/2021 Tobacco - Denies Tobacco Use, 04/26/2021 I have seen and examined the patient with the nurse practitioner and agree with the documentation and plan. Normal [facility] Comment on above: Result Comment: Elec tronically Signed By: Rozina ROWE, Isabel Hughes\.br\Date and Time Signed: 04/29/21 23:30 EST D-Dimeron 04-30-2021 Fibrin D-dimer FEU (PPP) [Mass/Vol] 381 [id number] Normal 215-500 [facility] Comment on above: Result Comment: This assay is intended for use as an aid in the diagnosis of DVT or PE. These conditions cannot be excluded with certainty solely on the basis of a D-dimer concentration being within the reference range This D-Dimer assay may be used in conjunction with a non-high clinical pretest probability assessment to exclude deep-vein thrombosis(DVT). For exclusion of venous thrombosis or pulmonary embolism the analyte D-Dimer should not be used as an aid in patients with: Therapeutic dose anticoagulant therapy for >24 hours Fibrinolytic therapy within previous 7 days Trauma or surgery within previous 4 weeks Disseminated malignacies Aortic aneurysm Sepsis, severe infections, pneumonia, severe skin infections Liver cirrhosis Performed By: #### 2 541985, 5647927, 1334775, 8257425 #### [facility] [address] [place] [address] Ferritinon 04-30-2021 Ferritin [Mass/Vol] 283 ng/mL Normal 24-336 [facility] Comment on above: Result Comment: NORM ALS MEN <30 YRS 16-132 ng/mL MEN >30 YRS 8-338 ng/mL WOMEN (PREMEN) 6-104 ng/mL WOMEN (POSTMEN) 12-210 ng/mL Performed By: #### 2 607721, 2959476, 8609020, 5963719 #### [facility] [address] [place] [address] Interdisciplinary Note - Vic e Manageron 04-30-2021 Interdisciplinary Note - Repairer Controller Tester CRM spoke with patient in room. Patient is alert and oriented and participates in discharge planning. No family in room. Patient white board updated, and CRM contact information provided. Patient is in isolation for COVID. Discussed CRM spoke with [facility] who saw patient earlier today and possible discharge home tomorrow. patient is on room air today. Patient denies any needs at discharge and he will update his mother. Normal [facility] Comment on above: Result Comment: Elec tronically Signed By: Med KIM, Yisel\.br\Date and Time Signed: 04/30/21 13:10 EST LDHon 04-30-2021 LDH [Catalytic activity/Vol] 190 Int._Unit/L Normal 93-218 [facility] Comment on above: Performed By: #### 2 869105, 0648724, 1239559, 8666899 #### [facility] [address] [place] [address] Monitor Recordon 04-30-2021 Monitor Record [id number]# 1.00CD:127 Normal [facility] Monitor Record [id number]# 1.00CD:127 Normal [facility] Progress Note-Physicianon Progress Note-Physician Assessment/Plan PLAN: 1. Acute hypoxemic respiratory failure due to COVID-19 (U07.1: COVID-19) -Symptoms started 9 days ago. Covid + at [facility] at that time. -SPO2 74% at home. 86% on arrival to ED. -Unvaccinated. -ABGs show PaO2 73mmHg. Requires Oxygen 2l/min per cannula to maintain SPO2 >88%. -Sputum, blood cultures pending. -Dexamethasone, Remdesvir. -Chest x-ray shows: bilateral pulm infiltrates -Procal negative -Trend inflamm markers. -Add Barcitanib if worsens. -Breathing tx, flutter, IS., self pronation. -Consult pulm- appreciated agree with plan -Jump in LFTs today. will monitor. if continues to increase may need to dc or change med dosing. 2. Asthma (J45.909: Unspecified asthma, uncomplicated) -Pt with hx asthma does not appear to be exacerbation. -See #1 3. Weakness (R53.1: Weakness) -Secondary to #1,4 -Associated with lightheadedness. -UA negative. 4. Dehydration (E86.0: Dehydration) -Poor oral intake has anosmia and ageusia -IVF 5. Obesity (E66.9: Obesity, unspecified) -BMI 37.33 -We will benefits counselor on diet, exercise, weight loss and lifestyle modifications 6. DVT prophylaxis (Z29.9: Encounter for prophylactic measures, unspecified) Lovenox sq Subjective Feeling a little better today. Has been able to roll side to side in bed and get up intermittently without feeling like he is suffocating . Still on oxygen. Did sleep intermittently last night. Intermittent cough still. Appetite still poor. Objective Vitals & Measurements T: 36.6 ?C(Oral) TMIN: 36.3 ?C(Oral) TMAX: 36.9 ?C(Oral) HR: 70(Monitored) RR: 18 BP: 117/73 SpO2: 98% WT: 99.7 kg Intake & Output This visit (24 hour periods starting at 07:00 EST) 12/21/21 * 04/28/21 04/27/21 Total Summary Intake mL 1.5 251.5 1,129.5 Output mL 850 550 1,600 Fluid Balance -848.5 -298.5 -470.5 Intake (4) Generic Diluent, magnesium sulfate mL -- -- 50 Oral Intake mL -- -- 1,078 Sodium Chloride 0.9%, remdesivir mL -- 250 -- dexamethasone mL 1.5 1.5 1.5 Total 1.5 251.5 1,129.5 Output (1) Urine Voided mL 850 550 1,600 Total 850 550 1,600 Counts (0) * This column has not completed the indicated time period. Physical Exam General: Awakens easily to name oriented, No acute distress. Eye: Pupils are equal, round and reactive to light. HENT: Normocephalic, Normal hearing, No pharyngeal erythema. dry oral mucosa Neck: Supple, Non-tender, No lymphadenopathy. Respiratory: Tachypneic. Shallow respirations with speech. Intermittent cough. Diminished throughout. No rales or rhonchi noted. SPO2 drops into high 80s with any speech. Cardiovascular: Tachy rate, Regular rhythm, Good pulses equal in all extremities, Normal peripheral perfusion, No edema. Gastrointestinal: Soft, Non-tender, Non-distended, Normal bowel sounds. Musculoskeletal Normal range of motion. Normal strength. Integumentary: Warm, Dry, Intact. Neurologic: Alert, Oriented, No focal deficits. Psychiatric: Cooperative, Appropriate mood & affect, Normal judgment. Lab Results WBC: 11.2 E9/L High (04/29/21 06:07:00) RBC: 5.4 E12/L (04/29/21 06:07:00) HGB: 14.7 gm/dL (04/29/21 06:07:00) Hct: 43.8 % (04/29/21 06:07:00) MCV: 81.3 fL (04/29/21 06:07:00) MCH: 27.3 pg (04/29/21 06:07:00) MCHC: 33.5 gm/dL (04/29/21 06:07:00) RDW: 13.9 % (04/29/21 06:07:00) Platelet: 369 E9/L (04/29/21 06:07:00) MPV: 7.1 fL (04/29/21 06:07:00) D-Dimer: 407 ng/mL FEU (04/29/21 06:07:00) Glucose Lvl: 106 mg/dL (04/29/21 06:07:00) BUN: 21 mg/dL (04/29/21 06:07:00) Creatinine: 0.8 mg/dL (04/29/21 06:07:00) eGFR: >60 (04/29/21 06:07:00) eGFR AA: >60 (04/29/21 06:07:00) BUN/Creat Ratio: 26 High (04/29/21 06:07:00) Sodium Lvl: 139 mmol/L (04/29/21 06:07:00) Potassium Lvl: 4.2 mmol/L (04/29/21 06:07:00) Chloride: 103 mmol/L (04/29/21 06:07:00) CO2: 29 mmol/L (04/29/21 06:07:00) AGAP: 11 mEq/L (04/29/21 06:07:00) Calcium Lvl: 8.5 mg/dL Low (04/29/21 06:07:00) Alk Phos: 72 Int._Unit/L (04/29/21 06:07:00) ALT: 185 Int._Unit/L High (04/29/21 06:07:00) AST: 92 Int._Unit/L High (04/29/21 06:07:00) Total Protein: 6.3 gm/dL (04/29/21 06:07:00) Albumin Lvl: 3.1 gm/dL Low (04/29/21 06:07:00) Globulin: 3.2 gm/dL (04/29/21 06:07:00) A/G Ratio: 1 Low (04/29/21 06:07:00) Bili Total: 0.5 mg/dL (04/29/21 06:07:00) CRP: 2.7 mg/dL High (04/29/21 06:07:00) LDH: 261 Int._Unit/L High (04/29/21 06:07:00) Glucose Cap: 130 mg/dL High (04/28/21 16:06:00) POC Device SN: [id number] (04/28/21 16:06:00) POC User ID: [id number] (04/28/21 16:06:00) POC Username: RONNIE VELASCO (04/28/21 16:06:00) Problem List/Past Medical History Ongoing No qualifying data Historical No qualifying data Medications Inpatient acetaminophen 325 mg Tab, 650 mg= 2 tab(s), Oral, q6hr, PRN albuterol HFA 90 mcg/inh MDI, 180 mcg= 2 puff(s), Inhalation, q4hr, PRN albuterol HFA 90 mcg/inh MDI, 180 m (more content not included)... Normal [facility] Comment on above: Result Comment: Elec tronically Signed By: Tamara GRAY\.br\Date and Time Signed: 04/29/21 10:52 EST\.br\Electronically Co-Signed By: Adalberto NICHOLAS MD\.br\Date and Time Co-Signed: 04/30/21 07:41 EST eGFRon 04-30-2021 GFR/1.73 sq M.predicted among blacks MDRD (S/P/Bld) [Vol rate/Area] mL/min/{1.73_m2} Normal >=59 [facility] Comment on above: Order Comment: Order added by Discern Expert. Result Comment: eGFR is race adjusted. AA=. Performed By: #### 2 [id number], 7089709, 22645757, 7385885, 4907252, 8634048, 2665570, 8352971, [id number], 93011358, 36509720, 91665239 #### [facility] [address] [place] [address] GFR/1.73 sq M.predicted among non-blacks MDRD (S/P/Bld) [Vol rate/Area] mL/min/{1.73_m2} Normal >=59 [facility] Comment on above: Order Comment: Order added by Discern Expert. Result Comment: Ornament Setter jaspreet kidney disease could be indicated at eGFR's of less than 60 mL/min/1.73m2. Kidney failure is indicated at less than 15 mL/min/1.73m2. Performed By: #### 2 592744, 1819995, 15032132, 7719093, 6279763, 6356917, 0554050, 2233461, [id number], 09203805, 81946950, 01189468 #### [facility] [address] [place] [address] CBC w/Indiceson 04-29-2021 Erythrocyte distribution width (RBC) [Ratio] 13.9 % Normal 10.9-14.2 [facility] Comment on above: Performed By: #### 2 583369, 8850223, 2675106, 4773143 #### [facility] [address] [place] [address] Hematocrit (Bld) [Volume fraction] 43.8 % Normal 37.7-49.0 [facility] Comment on above: Performed By: #### 2 621910, 8945328, 7212754, 9154735 #### [facility] [address] [place] [address] Hemoglobin (Bld) [Mass/Vol] 14.7 g/dL Normal 13.5-17.5 [facility] Comment on above: Performed By: #### 2 032182, 1548330, 4546902, 2817020 #### [facility] [address] [place] [address] MCH (RBC) [Entitic mass] 27.3 pg Normal 27.0-34.0 [facility] Comment on above: Performed By: #### 2 827785, 7551413, 3186713, 6454344 #### [facility] [address] [place] [address] MCHC (RBC) [Mass/Vol] 33.5 g/dL Normal 31.4-36.0 [facility] Comment on above: Performed By: #### 2 775199, 1105543, 7427778, 3448163 #### [facility] [address] [place] [address] MCV (RBC) [Entitic vol] 81.3 fL Normal 80.0-100.0 [facility] Comment on above: Performed By: #### 2 677459, 2332821, 0844966, 0287408 #### [facility] [address] [place] [address] Platelet mean volume (Bld) [Entitic vol] 7.1 fL Normal 6.4-10.8 [facility] Comment on above: Performed By: #### 2 090171, 1472125, 6151430, 7164565 #### [facility] [address] [place] [address] Platelets (Bld) [#/Vol] 369.0 E9/L Normal 150.0-500.0 [facility] Comment on above: Performed By: #### 2 485868, 1198193, 1820593, 2758101 #### [facility] [address] [place] [address] RBC (Bld) [#/Vol] 5.4 E12/L Normal 4.3-5.9 [facility] Comment on above: Performed By: #### 2 693023, 1488340, 2633984, 2572269 #### [facility] [address] [place] [address] WBC corrected for nucl RBC Auto (Bld) [#/Vol] 11.2 E9/L High 4.0-11.0 [facility] Comment on above: Performed By: #### 2 116395, 9537224, 9408213, 0031251 #### [facility] [address] [place] [address] CMPon 04-29-2021 Albumin [Mass/Vol] 3.1 g/dL Low 3.3-5.0 [facility] Comment on above: Performed By: #### 2 361660, 8682048, 3745066, 5175034 #### [facility] [address] [place] [address] Albumin/Globulin (S) [Mass conc ratio] 1.0 Low 1.1-2.2 [facility] Comment on above: Performed By: #### 2 370953, 3029197, 0723056, 4745227 #### [facility] [address] [place] [address] ALP [Catalytic activity/Vol] 72 Int._Unit/L Normal 21-98 [facility] Comment on above: Performed By: #### 2 987806, 0757862, 6853682, 9167186 #### [facility] [address] [place] [address] ALT No additional P-5'-P [Catalytic activity/Vol] 185 Int._Unit/L High 6-46 [facility] Comment on above: Performed By: #### 2 343915, 5346406, 9810344, 0264942 #### [facility] [address] [place] [address] Anion gap [Moles/Vol] 11 mmol/L Normal 6-16 [facility] Comment on above: Performed By: #### 2 118291, 1513867, 6529557, 1263692 #### [facility] [address] [place] [address] AST [Catalytic activity/Vol] 92 Int._Unit/L [facility] 5-43 [facility] Comment on above: Performed By: #### 2 189877, 3201108, 3467816, 8302568 #### [facility] [address] [place] [address] Bilirubin [Mass/Vol] 0.5 mg/dL Normal 0.0-1.1 [facility] Comment on above: Performed By: #### 2 676271, 9228902, 3077981, 7719972 #### [facility] [address] [place] [address] Calcium [Mass/Vol] 8.5 mg/dL Low 8.9-11.1 [facility] Comment on above: Performed By: #### 2 402236, 5528537, 2885238, 8204776 #### [facility] [address] [place] [address] Chloride [Moles/Vol] 103 mmol/L Normal 101-111 [facility] Comment on above: Performed By: #### 2 266613, 0181033, 0386824, 3629982 #### [facility] [address] [place] [address] CO2 [Moles/Vol] 29 mmol/L Normal 21-31 [facility] Comment on above: Performed By: #### 2 742717, 6697107, 7065916, 7933533 #### [facility] [address] [place] [address] Creatinine [Mass/Vol] 0.8 mg/dL Normal 0.5-1.3 [facility] Comment on above: Performed By: #### 2 206151, 5884717, 8101950, 5582944 #### [facility] [address] [place] [address] Globulin (S) [Mass/Vol] 3.2 g/dL Normal 1.4-4.0 [facility] Comment on above: Performed By: #### 2 047792, 8799154, 8430749, 7507870 #### [facility] [address] [place] [address] Glucose [Mass/Vol] 106 mg/dL Normal 55-199 [facility] Comment on above: Result Comment: If t his glucose result represents a fasting glucose, interpretation should refer to the following reference range: 55-99 mg/dL Performed By: #### 2 463271, 4737325, 5861970, 2670187 #### [facility] [address] [place] [address] Potassium [Moles/Vol] 4.2 mmol/L Normal 3.5-5.3 [facility] Comment on above: Performed By: #### 2 004753, 3366348, 6773460, 7928048 #### [facility] [address] [place] [address] Protein [Mass/Vol] 6.3 g/dL Normal 6.0-7.8 [facility] Comment on above: Performed By: #### 2 076970, 3720368, 6027048, 7655934 #### [facility] [address] [place] [address] Sodium [Moles/Vol] 139 mmol/L Normal 135-145 [facility] Comment on above: Performed By: #### 2 123530, 5366772, 4468881, 8755709 #### [facility] [address] [place] [address] Urea nitrogen [Mass/Vol] 21 mg/dL Normal 5-21 [facility] Comment on above: Performed By: #### 2 462416, 5521162, 6696032, 4109214 #### [facility] [address] [place] [address] Urea nitrogen/Creatinine [Mass ratio] 26 No Units High 10-20 [facility] Comment on above: Performed By: #### 2 813726, 2065440, 8300534, 9787100 #### [facility] [address] [place] [address] CRPon 04-29-2021 CRP [Mass/Vol] 2.7 mg/dL High <=1.9 [facility] Comment on above: Performed By: #### 2 263437, 3797062, 3693655, 1059127 #### [facility] [address] [place] [address] Coding Queryon 04-29-2021 Coding Query - From: Kurt KIM, Va To: Tamara GRAY; Sent: 04/28/2021 08:35:34 EST ! Subject: Coding Query Due Date/Time: 04/29/2021 08:35:00 EST Documentation in the medical record indicates this patient has been admitted with or diagnosed as having:Per H&P pneumonia due to coronavirus disease 2019 The following is also documented in the medical record: Assessment/Plan 1. Acute hypoxemic respiratory failure due to COVID-19, (U07.1: COVID-19)Pneumonia due to COVID-19 virus Pneumonia due to coronavirus disease 2019 (J12.82: Pneumonia due to coronavirus disease 2019) See above 04/26 chest xray-IMPRESSION: MILD TO MODERATE PULMONARY INFILTRATES LIKELY BRONCHOPNEUMONIA. Throughout the course of the admission, documentation of this diagnosis has discontinued. Based on your medical judgment, please clarify the diagnosis and document any applicable treatment plan. The diagnosis: [___]Is a current diagnosis [___]Is a suspected diagnosis [___]Has been ruled out [___]Has been resolved [___]Per incident response consultant/other treating provider documentation [___]Other: Treatment plan: Present on Admission [___]Yes[___]No[___]C linically unable to determine[___]Documen tation insufficient to determine Additional comments: In responding to this request, please exercise your independent professional judgement. The fact that a question is asked does not imply that any particular answer is desired or expected. Thank you! Va [phone] From: Tamara GRAY To: Va Hicks RN; Sent: 04/29/2021 12:17:32 EST Subject: RE: Coding Query Procal negative -- covid viral pneu not bacterial. so ruled out. From: Tamara GRAY To: Va Hicks RN; Sent: 04/29/2021 12:17:47 EST Subject: RE: Coding Query Normal [facility] D-Dimeron 04-29-2021 Fibrin D-dimer FEU (PPP) [Mass/Vol] 407 [id number] Normal 215-500 [facility] Comment on above: Result Comment: This assay is intended for use as an aid in the diagnosis of DVT or PE. These conditions cannot be excluded with certainty solely on the basis of a D-dimer concentration being within the reference range This D-Dimer assay may be used in conjunction with a non-high clinical pretest probability assessment to exclude deep-vein thrombosis(DVT). For exclusion of venous thrombosis or pulmonary embolism the analyte D-Dimer should not be used as an aid in patients with: Therapeutic dose anticoagulant therapy for >24 hours Fibrinolytic therapy within previous 7 days Trauma or surgery within previous 4 weeks Disseminated malignacies Aortic aneurysm Sepsis, severe infections, pneumonia, severe skin infections Liver cirrhosis Performed By: #### 2 308821, 5046480, 0251044, 9538660 #### [facility] [address] [place] [address] Ferritinon 04-29-2021 Ferritin [Mass/Vol] 397 ng/mL High 24-336 [facility] Comment on above: Result Comment: NORM ALS MEN <30 YRS 16-132 ng/mL MEN >30 YRS 8-338 ng/mL WOMEN (PREMEN) 6-104 ng/mL WOMEN (POSTMEN) 12-210 ng/mL Performed By: #### 2 732243, 0783454, 4428833, 1833859 #### [facility] [address] [place] [address] Interdisciplinary Note - Vic e Manageron 04-29-2021 Interdisciplinary Note - Repairer Controller Tester CRM spoke with patient in room. Patient is alert and oriented and participates in discharge planning. No family in room. Patient white board updated, and CRM contact information provided. Patient is in isolation for COVID. Discussed CRM spoke with [facility] who saw patient earlier today and will be a couple days yet. will need to wean oxygen and may need desat prior to discharge. Pulmonology to see also. Patient denies any needs at discharge. he will update his mother. Normal [facility] Comment on above: Result Comment: Elec tronically Signed By: Med KIM, Yisel\.br\Date and Time Signed: 04/29/21 09:57 EST LDHon 04-29-2021 LDH [Catalytic activity/Vol] 261 Int._Unit/L High 93-218 [facility] Comment on above: Performed By: #### 2 037816, 5351003, 7838988, 9937375 #### [facility] [address] [place] [address] Monitor Recordon 04-29-2021 Monitor Record [id number]# 1.00CD:127 Normal [facility] Progress Note-Physicianon Progress Note-Physician Subjective Patient an 20y M with a past medical history significant for asthma who presented to the ED on 04/27 for worsening SOB over the past week or so. Pt reports that about 10 days ago he was evaluated at [facility] for muscle aches, chills, headache, cough, and anosmia. He tested positive for COVID-19 at that time. He was given a pulse oximeter and sent home. Since then he has experienced worsening symptoms and developed SOB over the past week. On presentation to the ED he was found to be hypoxemic. He was admitted to [facility] for further management of his symptoms. Pulmonary was consulted to help manage his COVID symptoms. Pt currently complains of SOB which he states feels about the same as yesterday. He also complains of feeling fatigued. He denies any other complaints at this time. Of note, pt has a documented history of asthma as a child but reports that he does not use an inhaler. He denies any smoking or drug history. He reports that he is unvaccinated. Hospital course: 04/27: Admitted for acute hypoxemic respiratory failure 2/2 COVID PNA 04/28: No acute events o/n. Currently on 3L NC. Pt reports that he feels fatigued. He states his cough is nonproductive. I educated him on COVID. I also recommended to him that he self-prone as much as he can tolerate as well as get OOB. 04/29: No change in breathing status, unclear if proning. Oxygenation stable on 3L NC Objective Vitals & Measurements T: 36.8 ?C(Oral) TMIN: 36.6 ?C(Oral) TMAX: 36.9 ?C(Oral) HR: 75(Monitored) RR: 18 BP: 112/75 SpO2: 97% WT: 99.7 kg Intake & Output This visit (24 hour periods starting at 07:00 EST) 04/29/21 * 04/28/21 04/27/21 Total Summary Intake mL 981.5 251.5 1,129.5 Output mL 2,700 550 1,600 Fluid Balance -1,718.5 -298.5 -470.5 Intake (4) Generic Diluent, magnesium sulfate mL -- -- 50 Oral Intake mL 980 -- 1,078 Sodium Chloride 0.9%, remdesivir mL -- 250 -- dexamethasone mL 1.5 1.5 1.5 Total 981.5 251.5 1,129.5 Output (1) Urine Voided mL 2,700 550 1,600 Total 2,700 550 1,600 Counts (0) * This column has not completed the indicated time period. Physical Exam General: alert, no acute distress Skin: warm, dry Head: no trauma, normocephalic Neck: Trachea midline, no adenopathy Eye: normal conjunctiva, sclera clear ENMT: oral mucosa moist, yes Cardiovascular: regular rate and rhythm, normal Respiratory: respirations non labored. Diminished bilaterally. No wheezing, rhonchi, or crackles. Chest wall: no deformity. Gastrointestinal: soft, non distended, no tenderness Extremities: no edema, no wound Neurological: awake, alert, oriented, speech normal Psychiatric: cooperative, affect appropriate for age Lab Results WBC: 11.2 E9/L High (04/29/21 06:07:00) RBC: 5.4 E12/L (04/29/21 06:07:00) HGB: 14.7 gm/dL (04/29/21 06:07:00) Hct: 43.8 % (04/29/21 06:07:00) MCV: 81.3 fL (04/29/21 06:07:00) MCH: 27.3 pg (04/29/21 06:07:00) MCHC: 33.5 gm/dL (04/29/21 06:07:00) RDW: 13.9 % (04/29/21 06:07:00) Platelet: 369 E9/L (04/29/21 06:07:00) MPV: 7.1 fL (04/29/21 06:07:00) D-Dimer: 407 ng/mL FEU (04/29/21 06:07:00) Glucose Lvl: 106 mg/dL (04/29/21 06:07:00) BUN: 21 mg/dL (04/29/21 06:07:00) Creatinine: 0.8 mg/dL (04/29/21 06:07:00) eGFR: >60 (04/29/21 06:07:00) eGFR AA: >60 (04/29/21 06:07:00) BUN/Creat Ratio: 26 High (04/29/21 06:07:00) Sodium Lvl: 139 mmol/L (04/29/21 06:07:00) Potassium Lvl: 4.2 mmol/L (04/29/21 06:07:00) Chloride: 103 mmol/L (04/29/21 06:07:00) CO2: 29 mmol/L (04/29/21 06:07:00) AGAP: 11 mEq/L (04/29/21 06:07:00) Calcium Lvl: 8.5 mg/dL Low (04/29/21 06:07:00) Alk Phos: 72 Int._Unit/L (04/29/21 06:07:00) ALT: 185 Int._Unit/L High (04/29/21 06:07:00) AST: 92 Int._Unit/L High (04/29/21 06:07:00) Total Protein: 6.3 gm/dL (04/29/21 06:07:00) Albumin Lvl: 3.1 gm/dL Low (04/29/21 06:07:00) Globulin: 3.2 gm/dL (04/29/21 06:07:00) A/G Ratio: 1 Low (04/29/21 06:07:00) Bili Total: 0.5 mg/dL (04/29/21 06:07:00) CRP: 2.7 mg/dL High (04/29/21 06:07:00) LDH: 261 Int._Unit/L High (04/29/21 06:07:00) Ferritin Lvl: 397 ng/mL High (04/29/21 06:07:00) Assessment/Plan 1. Acute hypoxemic respiratory failure due to COVID-19 (U07.1: COVID-19) 2/2 COVID PNA Unvaccinated H/o Asthma Plan: - COVID precautions - Serial COVID labs - Currently on 3L NC - Titrate O2 for sats 88-92% - Continue remdesivir x5d, dexamethasone x10d - Continue bronchodilators PRN - Encourage positional therapy and IS 04/29: -Will add Mucinex and flutter valve to assist with expectoration, does have significantly diminished breath sounds -Re-encouraged positional therapy and ambulation as tolerated 2. Asthma (J45.909: Unspecified asthma, uncomplicated) 3. Weakness (R53.1: Weakness) 4. Dehydration (E86.0: Dehydration) 5. Obesity (E66.9: Obesity, unspecified) 6. DVT prophylaxis (Z29.9: Encounter for prophylactic measure (more content not included)... Normal [facility] Comment on above: Result Comment: Elec tronically Signed By: Celsa Olivares\.br\Date and Time Signed: 04/29/21 20:19 EST eGFRon 04-29-2021 GFR/1.73 sq M.predicted among blacks MDRD (S/P/Bld) [Vol rate/Area] mL/min/{1.73_m2} Normal >=59 [facility] Comment on above: Order Comment: Order added by Discern Expert. Result Comment: eGFR is race adjusted. AA=. Performed By: #### 2 973099, 0003868, 1538683, 0939177 #### [facility] [address] [place] [address] GFR/1.73 sq M.predicted among non-blacks MDRD (S/P/Bld) [Vol rate/Area] mL/min/{1.73_m2} Normal >=59 [facility] Comment on above: Order Comment: Order added by Discern Expert. Result Comment: Ornament Setter jaspreet kidney disease could be indicated at eGFR's of less than 60 mL/min/1.73m2. Kidney failure is indicated at less than 15 mL/min/1.73m2. Performed By: #### 2 733126, 4188961, 4457871, 7754854 #### [facility] [address] [place] [address] CRPon 04-28-2021 CRP [Mass/Vol] 7.1 mg/dL High <=1.9 [facility] Comment on above: Performed By: #### 2 247836, 6543944, 7206927, 9801281 #### [facility] [address] [place] [address] Capillary Glucose POCon 12-2 Glucose [Mass/Vol] 130 mg/dL High 55-99 [facility] Comment on above: Result Comment: Sara jose Meter Performed By: #### 2 [id number] ####[facility] [address] [place] [address] Glucose [Mass/Vol] 109 mg/dL High 55-99 [facility] Comment on above: Result Comment: Bessie fallon RN/ Cleaned Meter Performed By: #### 2 [id number] #### [facility] [address] [place] [address] Glucose [Mass/Vol] 116 mg/dL High 55-99 [facility] Comment on above: Result Comment: Sara jose Meter Performed By: #### 2 [id number] ####[facility] [address] [place] [address] D-Dimeron 04-28-2021 Fibrin D-dimer FEU (PPP) [Mass/Vol] 424 [id number] Normal 215-500 [facility] Comment on above: Result Comment: This assay is intended for use as an aid in the diagnosis of DVT or PE. These conditions cannot be excluded with certainty solely on the basis of a D-dimer concentration being within the reference range This D-Dimer assay may be used in conjunction with a non-high clinical pretest probability assessment to exclude deep-vein thrombosis(DVT). For exclusion of venous thrombosis or pulmonary embolism the analyte D-Dimer should not be used as an aid in patients with: Therapeutic dose anticoagulant therapy for >24 hours Fibrinolytic therapy within previous 7 days Trauma or surgery within previous 4 weeks Disseminated malignacies Aortic aneurysm Sepsis, severe infections, pneumonia, severe skin infections Liver cirrhosis Performed By: #### 2 201503, 2329313, 3414042, 0091899 #### [facility] [address] [place] [address] ECG Pediatricon 04-28-2021 ECG Pediatric The following ED Review was created for NAIDA CM: SINUS TACHYCARDIA NO STEMI NORMAL QTC ABNORMAL RHYTHM ECG Preliminary By: Donovan Moyer DO 04/26/2021 14:58:49 Customer Service Leader has Agreed this ED Review Normal [facility] Ferritinon 04-28-2021 Ferritin [Mass/Vol] 324 ng/mL Normal 24-336 [facility] Comment on above: Result Comment: NORM ALS MEN <30 YRS 16-132 ng/mL MEN >30 YRS 8-338 ng/mL WOMEN (PREMEN) 6-104 ng/mL WOMEN (POSTMEN) 12-210 ng/mL Performed By: #### 2 070460, 4404504, 2453159, 8689494 #### [facility] [address] [place] [address] LDHon 04-28-2021 LDH [Catalytic activity/Vol] 212 Int._Unit/L Normal 93-218 [facility] Comment on above: Performed By: #### 2 246899, 7943714, 1279539, 3879900 #### [facility] [address] [place] [address] Monitor Recordon 04-28-2021 Monitor Record [id number]# 1.00CD:127 Normal [facility] Monitor Record [id number]# 1.00CD:127 Normal [facility] Monitor Record [id number]# 1.00CD:127 Normal [facility] Progress Note-Physicianon Progress Note-Physician Assessment/Plan PLAN: 1. Acute hypoxemic respiratory failure due to COVID-19 (U07.1: COVID-19) -Symptoms started 9 days ago. Covid + at [facility] at that time. -SPO2 74% at home. 86% on arrival to ED. -Unvaccinated. -ABGs show PaO2 73mmHg. Requires Oxygen 2l/min per cannula to maintain SPO2 >88%. -Sputum, blood cultures pending. -Dexamethasone, Remdesvir. -Chest x-ray shows: bilateral pulm infiltrates -Procal negative -Trend inflamm markers. -Add Barcitanib if worsens. -Breathing tx, flutter, IS., self pronation. -Consult pulm- appreciated agree with plan 2. Asthma (J45.909: Unspecified asthma, uncomplicated) -Pt with hx asthma does not appear to be exacerbation. -See #1 3. Weakness (R53.1: Weakness) -Secondary to #1,4 -Associated with lightheadedness. -UA negative. 4. Dehydration (E86.0: Dehydration) -Poor oral intake has anosmia and ageusia -IVF 5. Obesity (E66.9: Obesity, unspecified) -BMI 37.33 -We will benefits counselor on diet, exercise, weight loss and lifestyle modifications 6. DVT prophylaxis (Z29.9: Encounter for prophylactic measures, unspecified) Lovenox sq Subjective Patient lying in bed upon assessment. Moaning groaning stating he does not have much energy. When rolled to the side to listen to his back patient became tachypneic stated that it was difficult for him to breathe. States he has not much appetite does not want to do anything. Encourage proning states that this is difficult for him to do. States no matter what he does he become short of breath. Objective Vitals & Measurements T: 36.9 ?C(Oral) TMIN: 36.4 ?C(Oral) TMAX: 36.9 ?C(Oral) HR: 86(Monitored) RR: 20 BP: 116/78 SpO2: 94% WT: 99.2 kg WT: 99.2 kg Intake & Output This visit (24 hour periods starting at 07:00 EST) 04/28/21 * 04/27/21 04/26/21 Total Summary Intake mL 251.5 1,129.5 1,251.5 Output mL 550 1,600 -- Fluid Balance -298.5 -470.5 1,251.5 Intake (5) Generic Diluent, magnesium sulfate mL -- 50 -- Oral Intake mL -- 1,078 -- Sodium Chloride 0.9% mL -- -- 1,000 Sodium Chloride 0.9%, remdesivir mL 250 -- 250 dexamethasone mL 1.5 1.5 1.5 Total 251.5 1,129.5 1,251.5 Output (1) Urine Voided mL 550 1,600 -- Total 550 1,600 -- Counts (0) * This column has not completed the indicated time period. Physical Exam General: Awakens easily to name oriented, No acute distress. Eye: Pupils are equal, round and reactive to light. HENT: Normocephalic, Normal hearing, No pharyngeal erythema. dry oral mucosa Neck: Supple, Non-tender, No lymphadenopathy. Respiratory: Tachypneic. Shallow respirations with speech. Intermittent cough. Diminished throughout. No rales or rhonchi noted. SPO2 drops into high 80s with any speech. Cardiovascular: Tachy rate, Regular rhythm, Good pulses equal in all extremities, Normal peripheral perfusion, No edema. Gastrointestinal: Soft, Non-tender, Non-distended, Normal bowel sounds. Musculoskeletal Normal range of motion. Normal strength. Integumentary: Warm, Dry, Intact. Neurologic: Alert, Oriented, No focal deficits. Psychiatric: Cooperative, Appropriate mood & affect, Normal judgment. Lab Results D-Dimer: 424 ng/mL FEU (04/28/21 05:48:00) CRP: 7.1 mg/dL High (04/28/21 05:48:00) LDH: 212 Int._Unit/L (04/28/21 05:48:00) Ferritin Lvl: 324 ng/mL (04/28/21 05:48:00) Glucose Cap: 130 mg/dL High (04/28/21 16:06:00) POC Device SN: [id number] (04/28/21 16:06:00) POC User ID: [id number] (04/28/21 16:06:00) POC Username: RONNIE VELASCO (04/28/21 16:06:00) Problem List/Past Medical History Ongoing No qualifying data Historical No qualifying data Medications Inpatient acetaminophen 325 mg Tab, 650 mg= 2 tab(s), Oral, q6hr, PRN albuterol HFA 90 mcg/inh MDI, 180 mcg= 2 puff(s), Inhalation, q4hr, PRN albuterol HFA 90 mcg/inh MDI, 180 mcg= 2 puff(s), Inhalation, q2hr, PRN dexamethasone 4 mg/mL Inj 1 mL, 6 mg= 1.5 mL, IV Push, Daily enoxaparin 40 mg/0.4 mL SC Rebeca, 40 mg= 0.4 mL, SubCutaneous, Daily influenza virus vaccine IM Rebeca FT Rule, 0.5 mL, IntraMuscular, Once ondansetron 4 mg/2 mL Inj, 4 mg= 2 mL, IV Push, q6hr, PRN remdesivir additive + Sodium Chloride 0.9% intravenous solution 250 mL Sodium Chloride 0.9% IV Rebeca 1000 mL 1,000 mL, 1000 mL, IV Sodium Chloride 0.9% IV Rebeca 1000 mL 1,000 mL, 1000 mL, IV Home No active home medications Normal [facility] Comment on above: Result Comment: Elec tronically Signed By: Tamara GRAY\.br\Date and Time Signed: 04/28/21 18:35 EST\.br\Electronically Co-Signed By: JOSE JUAN ROWE, Adalberto\.br\Date and Time Co-Signed: 04/28/21 18:57 EST Auto Diffon 04-27-2021 Basophils/100 WBC (Bld) 0.2 % Normal 0.0-2.0 [facility] Comment on above: Order Comment: Order Added by Discern Expert. Performed By: #### 2 412361, 9076138, 6458251, 8337055 #### [facility] [address] [place] [address] Basophils/Leukocytes Auto (Bld) [Pure # fraction] 0.0 E9/L Normal 0.0-0.2 [facility] Comment on above: Order Comment: Order Added by Discern Expert. Performed By: #### 2 961566, 7259983, 4218575, 3993308 #### [facility] [address] [place] [address] Eosinophils/100 WBC (Bld) 0.0 % Normal 0.0-8.0 [facility] Comment on above: Order Comment: Order Added by Discern Expert. Performed By: #### 2 170348, 1484877, 4174244, 1386954 #### [facility] [address] [place] [address] Eosinophils/Leukocyte s Auto (Bld) [Pure # fraction] 0.0 E9/L Normal 0.0-0.5 [facility] Comment on above: Order Comment: Order Added by Discern Expert. Performed By: #### 2 391526, 5533279, 5211713, 5436276 #### [facility] [address] [place] [address] Lymphocytes/100 WBC (Bld) 9.0 % Low 14.0-50.0 [facility] Comment on above: Order Comment: Order Added by Discern Expert. Performed By: #### 2 918249, 4566969, 3553923, 3162640 #### [facility] [address] [place] [address] Lymphocytes/Leukocyte s Auto (Bld) [Pure # fraction] 0.7 E9/L Low 1.0-4.0 [facility] Comment on above: Order Comment: Order Added by Discern Expert. Performed By: #### 2 854738, 0112297, 1418203, 5239653 #### [facility] [address] [place] [address] Monocytes/100 WBC (Bld) 4.4 % Normal 4.0-14.0 [facility] Comment on above: Order Comment: Order Added by Discern Expert. Performed By: #### 2 165510, 7117497, 3831342, 3969445 #### [facility] [address] [place] [address] Monocytes/Leukocytes Auto (Bld) [Pure # fraction] 0.3 E9/L Normal 0.2-1.0 [facility] Comment on above: Order Comment: Order Added by Discern Expert. Performed By: #### 2 356692, 2451954, 3126869, 2579926 #### [facility] [address] [place] [address] Neutrophils/100 WBC (Bld) 86.4 % High 36.0-75.0 [facility] Comment on above: Order Comment: Order Added by Discern Expert. Performed By: #### 2 113985, 7286139, 5833454, 4343055 #### [facility] [address] [place] [address] Neutrophils/Leukocyte s Auto (Bld) [Pure # fraction] 6.6 E9/L Normal 2.0-7.5 [facility] Comment on above: Order Comment: Order Added by Discern Expert. Performed By: #### 2 583358, 7395061, 5113583, 9422979 #### [facility] [address] [place] [address] CBC w/ Auto Diffon Erythrocyte distribution width (RBC) [Ratio] 14.1 % Normal 10.9-14.2 [facility] Comment on above: Performed By: #### 2 395645, 6908335, 3590253, 9744855 #### [facility] [address] [place] [address] Hematocrit (Bld) [Volume fraction] 42.2 % Normal 37.7-49.0 [facility] Comment on above: Performed By: #### 2 816853, 1530437, 3839727, 7794722 #### [facility] [address] [place] [address] Hemoglobin (Bld) [Mass/Vol] 13.8 g/dL Normal 13.5-17.5 [facility] Comment on above: Performed By: #### 2 507473, 6565380, 8757715, 1274368 #### [facility] [address] [place] [address] MCH (RBC) [Entitic mass] 27.0 pg Normal 27.0-34.0 [facility] Comment on above: Performed By: #### 2 803481, 8130804, 1087603, 2584572 #### [facility] [address] [place] [address] MCHC (RBC) [Mass/Vol] 32.7 g/dL Normal 31.4-36.0 [facility] Comment on above: Performed By: #### 2 045635, 0047479, 3483264, 4407615 #### [facility] [address] [place] [address] MCV (RBC) [Entitic vol] 82.3 fL Normal 80.0-100.0 [facility] Comment on above: Performed By: #### 2 386199, 0799569, 8915122, 3748460 #### [facility] [address] [place] [address] Platelet mean volume (Bld) [Entitic vol] 6.8 fL Normal 6.4-10.8 [facility] Comment on above: Performed By: #### 2 980219, 2493055, 9997119, 8259978 #### [facility] [address] [place] [address] Platelets (Bld) [#/Vol] 242.0 E9/L Normal 150.0-500.0 [facility] Comment on above: Performed By: #### 2 834273, 1340796, 1595917, 2018504 #### [facility] [address] [place] [address] RBC (Bld) [#/Vol] 5.1 E12/L Normal 4.3-5.9 [facility] Comment on above: Performed By: #### 2 589698, 8453292, 4809063, 1132057 #### [facility] [address] [place] [address] WBC corrected for nucl RBC Auto (Bld) [#/Vol] 7.7 E9/L Normal 4.0-11.0 [facility] Comment on above: Performed By: #### 2 070513, 6082930, 4776262, 6425256 #### [facility] [address] [place] [address] CKon 04-27-2021 CK [Catalytic activity/Vol] 458 Int._Unit/L Abnormal 14-261 [facility] Comment on above: Result Comment: Crit ical Result S_CK:458 Called to DOROTEO SHARMA AT by ERIN DOTSON and read back for confirmation at 04/27/2021 10:26:57\Critical Result verified by repeat analysis Performed By: #### 2 278531, 6416112, 1976878, 9468113 #### [facility] [address] [place] [address] CMPon 04-27-2021 Albumin/Globulin (S) [Mass conc ratio] 0.9 Low 1.1-2.2 [facility] Comment on above: Performed By: #### 2 905003, 1922142, 9205969, 1389233 #### [facility] [address] [place] [address] Anion gap [Moles/Vol] 13 mmol/L Normal 6-16 [facility] Comment on above: Performed By: #### 2 052022, 8968901, 1829438, 4913957 #### [facility] [address] [place] [address] Globulin (S) [Mass/Vol] 3.7 g/dL Normal 1.4-4.0 [facility] Comment on above: Performed By: #### 2 281579, 9342175, 2292936, 3940408 #### [facility] [address] [place] [address] Urea nitrogen/Creatinine [Mass ratio] 19 No Units Normal 10-20 [facility] Comment on above: Performed By: #### 2 300812, 7411445, 5174205, 1546300 #### [facility] [address] [place] [address] Albumin [Mass/Vol] 3.3 g/dL Normal 3.3-5.0 [facility] Comment on above: Performed By: #### 2 575312, 8395867, 6281430, 8461118 #### [facility] [address] [place] [address] ALP [Catalytic activity/Vol] 72 Int._Unit/L Normal 21-98 [facility] Comment on above: Performed By: #### 2 118108, 3578176, 8107437, 9751949 #### [facility] [address] [place] [address] ALT No additional P-5'-P [Catalytic activity/Vol] 73 Int._Unit/L High 6-46 [facility] Comment on above: Performed By: #### 2 487551, 1332021, 8712501, 6022272 #### [facility] [address] [place] [address] AST [Catalytic activity/Vol] 49 Int._Unit/L High 5-43 [facility] Comment on above: Performed By: #### 2 873835, 4975711, 9352537, 5155858 #### [facility] [address] [place] [address] Bilirubin [Mass/Vol] 0.8 mg/dL Normal 0.0-1.1 [facility] Comment on above: Performed By: #### 2 955616, 8661674, 7505218, 2548667 #### [facility] [address] [place] [address] Calcium [Mass/Vol] 8.4 mg/dL Low 8.9-11.1 [facility] Comment on above: Performed By: #### 2 266571, 4664688, 4732310, 8451622 #### [facility] [address] [place] [address] Chloride [Moles/Vol] 102 mmol/L Normal 101-111 [facility] Comment on above: Performed By: #### 2 618080, 0549934, 7726879, 2819353 #### [facility] [address] [place] [address] CO2 [Moles/Vol] 24 mmol/L Normal 21-31 [facility] Comment on above: Performed By: #### 2 245583, 2076556, 6190480, 8256412 #### [facility] [address] [place] [address] Creatinine [Mass/Vol] 0.7 mg/dL Normal 0.5-1.3 [facility] Comment on above: Performed By: #### 2 642050, 7924739, 0891776, 2360405 #### [facility] [address] [place] [address] Glucose [Mass/Vol] 122 mg/dL Normal 55-199 [facility] Comment on above: Result Comment: If t his glucose result represents a fasting glucose, interpretation should refer to the following reference range: 55-99 mg/dL Performed By: #### 2 773544, 8943211, 0062069, 1974653 #### [facility] [address] [place] [address] Potassium [Moles/Vol] 4.4 mmol/L Normal 3.5-5.3 [facility] Comment on above: Performed By: #### 2 913244, 5594014, 0333500, 5094546 #### [facility] [address] [place] [address] Protein [Mass/Vol] 7.0 g/dL Normal 6.0-7.8 [facility] Comment on above: Performed By: #### 2 813786, 7868967, 2633032, 4751056 #### [facility] [address] [place] [address] Sodium [Moles/Vol] 135 mmol/L Normal 135-145 [facility] Comment on above: Performed By: #### 2 137006, 8749928, 3103180, 1977389 #### [facility] [address] [place] [address] Urea nitrogen [Mass/Vol] 13 mg/dL Normal 5-21 [facility] Comment on above: Performed By: #### 2 962471, 1165226, 8371990, 4388293 #### [facility] [address] [place] [address] CRPon 04-27-2021 CRP [Mass/Vol] 18.1 mg/dL High <=1.9 [facility] Comment on above: Performed By: #### 2 781891, 8925009, 3132757, 8319765 #### [facility] [address] [place] [address] Capillary Glucose POCon 04-09 Glucose [Mass/Vol] 140 mg/dL High 55-99 [facility] Comment on above: Result Comment: Bessie fallon RN/ Performed By: #### 2 [id number] ####[facility] [id number] [place] [address] D-Dimeron 04-27-2021 Fibrin D-dimer FEU (PPP) [Mass/Vol] 517 [id number] Abnormal 215-500 [facility] Comment on above: Result Comment: Resu lts Verified By Repeat Analysis Results Called To ER/Pau Lucas By LW And Read Back For Confirmation On 04/27/2021 06:58:15 EST. This assay is intended for use as an aid in the diagnosis of DVT or PE. These conditions cannot be excluded with certainty solely on the basis of a D-dimer concentration being within the reference range This D-Dimer assay may be used in conjunction with a non-high clinical pretest probability assessment to exclude deep-vein thrombosis(DVT). For exclusion of venous thrombosis or pulmonary embolism the analyte D-Dimer should not be used as an aid in patients with: Therapeutic dose anticoagulant therapy for >24 hours Fibrinolytic therapy within previous 7 days Trauma or surgery within previous 4 weeks Disseminated malignacies Aortic aneurysm Sepsis, severe infections, pneumonia, severe skin infections Liver cirrhosis Performed By: #### 2 392502, 1069505, 2521226, 4715394 #### [facility] [address] [place] [address] ED Clinical Summaryon 2020 ED Clinical Summary [address] [address] ED Clinical Summary Person Information Name: NAIDA CM/[facility] Age: 20 Years : 2000 Sex: Male Language: Greenlandic PCP: JAMES SUH CNP Marital Status: Single Phone: [phone] Visit Id: Visit Reason: Cough; Weakness or fatigue; Shortness of breath; COVID+, SOB, WEAKNESS, Speciality: Acuity: 1 Enc Type: Emergency Med Service: Emergency Arrival: 04/26/2021 14:37:56 Discharge: LOS: 000 24:02 Checkin: 04/26/2021 14:37:56 Checkout: 04/27/2021 14:39:39 Dispo Type: Admitted as IP to this [facility] EVENTS: Event Name Event Status Request Date/Time Start Date/Time Complete Date/Time Arrive Complete 04/26/2021 14:37:56 04/26/2021 14:37:56 04/26/2021 14:37:56 Document Home Meds Request 04/26/2021 14:37:56 Triage Complete 04/26/2021 14:37:56 04/26/2021 14:55:47 04/26/2021 14:55:47 EKG Complete 04/26/2021 14:45:20 04/26/2021 14:49:22 Bed Assign Complete 04/26/2021 14:46:52 04/26/2021 14:46:52 04/26/2021 14:46:52 Dr Exam Complete 04/26/2021 14:46:52 04/26/2021 14:47:55 04/26/2021 14:47:55 RN Exam Complete 04/26/2021 14:46:52 04/26/2021 15:14:29 04/26/2021 15:14:29 Registration Complete 04/26/2021 14:47:55 04/26/2021 15:27:02 04/26/2021 15:27:02 EKG Cancel 04/26/2021 14:49:25 04/26/2021 16:51:11 Meds Admin Complete 04/26/2021 14:49:25 04/26/2021 15:08:59 Pending Labs Inlab 04/26/2021 14:49:25 RT Tx/ABG Request 04/26/2021 14:49:25 Lab Inlab 04/26/2021 14:49:25 Urine Collect Complete 04/26/2021 14:49:25 04/26/2021 19:30:23 Patient Care Complete 04/26/2021 14:49:25 04/26/2021 15:15:55 X-Ray Complete 04/26/2021 14:49:25 04/26/2021 15:23:46 04/26/2021 15:25:24 RT Request 04/26/2021 14:49:25 Dr Exam Complete 04/26/2021 14:51:49 04/26/2021 14:51:49 04/26/2021 14:51:49 Patient Care Request 04/26/2021 14:55:48 Patient Isolation Request 04/26/2021 14:55:48 Meds Admin Request 04/26/2021 15:07:19 Meds Admin Request 04/26/2021 15:08:09 Fall Risk Request 04/26/2021 15:14:29 Pending Labs Complete 04/26/2021 15:19:14 04/26/2021 15:19:14 04/26/2021 15:47:09 Lab Complete 04/26/2021 15:19:14 04/26/2021 15:19:14 04/26/2021 15:47:09 Pending Labs Complete 04/26/2021 15:24:33 04/26/2021 15:24:33 04/26/2021 15:24:43 Lab Complete 04/26/2021 15:24:33 04/26/2021 15:24:33 04/26/2021 15:24:43 Wet Read Request 04/26/2021 15:25:24 Reg Complete Request 04/26/2021 15:27:02 Meds Admin Request 04/26/2021 16:05:45 RT Tx/ABG Request 04/26/2021 16:05:45 RT Tx/ABG Request 04/26/2021 16:05:46 RT Tx/ABG Request 04/26/2021 16:05:46 Meds Admin Complete 04/26/2021 16:06:50 04/26/2021 16:24:49 Pending Labs Complete 04/26/2021 17:52:19 04/26/2021 17:52:19 04/26/2021 17:52:20 Meds Admin Complete 04/26/2021 18:28:05 04/26/2021 18:33:22 Consult Request 04/26/2021 21:28:20 Hospitalist Consult Request 04/26/2021 21:28:20 Bed Request Cancel 04/26/2021 23:30:48 04/27/2021 02:41:46 Reg Bed Request Cancel 04/26/2021 23:30:48 04/27/2021 02:41:46 Admit Request 04/26/2021 23:30:48 Meds Admin Request 04/27/2021 02:47:19 Pending Labs Complete 04/27/2021 02:47:19 04/27/2021 09:46:47 Lab Complete 04/27/2021 02:47:19 04/27/2021 09:46:47 Patient Care Request 04/27/2021 02:47:19 Patient Isolation Request 04/27/2021 02:47:19 RT Request 04/27/2021 02:47:19 Bed Request Request 04/27/2021 02:47:19 Reg Bed Request Request 04/27/2021 02:47:19 Admit Request 04/27/2021 02:47:19 RT Tx/ABG Request 04/27/2021 02:47:21 RT Tx/ABG Request 04/27/2021 02:47:21 Pending Labs Complete 04/27/2021 02:49:42 04/27/2021 10:27:06 Lab Complete 04/27/2021 02:49:42 04/27/2021 10:27:06 Pending Labs Complete 04/27/2021 05:17:44 04/27/2021 05:17:44 04/27/2021 07:08:13 Lab Complete 04/27/2021 05:17:44 04/27/2021 05:17:44 04/27/2021 07:08:13 Pending Labs Complete 04/27/2021 05:25:33 04/27/2021 05:25:33 04/27/2021 05:25:42 Lab Complete 04/27/2021 05:25:33 04/27/2021 05:25:33 04/27/2021 05:25:42 Consult Request 04/27/2021 12:40:08 Pending Labs Request 04/27/2021 12:44:31 Lab Request 04/27/2021 12:44:31 Meds Admin Request 04/27/2021 12:48:09 Inpatient Bed Ready Complete 04/27/2021 14:39:39 04/27/2021 14:39:39 04/27/2021 14:39:39 ADDRESS: [address] [place] [phone] PHYS DOC NOTES: MEDICAL INFORMATION: Prescriptions Given: PATIENT EDUCATION INFORMATION: Instructions: Follow up: DIAGNOSIS: 1:Acute hypoxemic respiratory failure due to COVID-19; 2:Asthma; 3:Weakness; 4:Dehydration; 5:Obesity; 6:DVT prophylaxis Normal [facility] ED Note-Physicianon 04-27-20 ED Note-Physician Basic Information Time Seen: Wisam SCHWARTZEvie 04/26/2021 14:47 Chief Complaint mother states that the patient was dx with COVID and is now experienced extreme fatigue, generalized weakness and difficulty breathing. History of Present Illness This patient is brought to the emergency department by his mom with chief complaint of complications of COVID-19. The mom states that the patient is too weak to even ambulate himself to the restroom. She states he tested positive for COVID-19. He is unvaccinated. He does have severe asthma. She states as a he required intubation. The patient is very weak and fatigued. The mom denies fevers, chills, sweats. No nausea or vomiting. No diarrhea. No urinary complaints. The patient is a non-smoker. Review of Systems Constitutional: Denies weight loss, fevers, chills, sweats. + malaise, fatigue Eyes: Denies visual changes, eye pain, double vision, scotomas, floaters ENT: Denies runny nose, epistaxis, sinus pain, ear pain, ringing in ears, tooth ache, sore throat, pain with swallowing Cardiovascular: Denies chest pain, shortness of breath, orthopnea, edema, palpitations, loss of consciousness, claudication Respiratory: Denies sputum production, wheezing, hemoptysis. + shortness of breath, dyspnea on exertion, cough Gastrointestinal: Denies abdominal pain, unintentional weight loss, difficulty swallowing, indigestion, bloating, cramping, loss of appetite, nausea, vomiting, diarrhea, constipation, hematochezia, melena Genitourinary: Denies any incontinence of urine, dysuria, hematuria, nocturia, polyuria, hesitancy, frequency, urgency, burning Musculoskeletal: Denies joint pain, morning stiffness, joint swelling, decreased range of motion, crepitus Integumentary: Denies any pruritus, rashes, lesions, wounds, petechiae Neurologic: Denies any changes in sight, smell, hearing, taste, seizures, headache, paresthesia, numbness, weakness, balance disturbance Psychiatric denies any depression, change in sleep patterns, anxiety, difficulty concentrating, paranoia, anhedonia, lack of energy, sherice Hematologic/lymphatic : Denies any purpura, petechiae, excessive bleeding, bruising Physical Exam Vitals & Measurements T: 37.1 ?C(Oral) HR: 91(Monitored) RR: 20 BP: 90/57 SpO2: 96% HT: 167 cm HT: 167.0 cm WT: 104.1 kg WT: 104.1 kg BMI: 37.33 Vital signs and nursing notes reviewed. General: Awake, alert, mild to moderate distress. HEENT: Head is normocephalic, atraumatic. PERRL. EOMI. Sclerae are anicteric. External ears are normal. TMs are intact bilaterally. Canals are clear bilaterally. Nares are patent bilaterally. Oral mucosa is pink and moist. No lesions noted. Tongue protrudes in midline. Uvula rises with phonation. Neck is supple, no no palpable adenopathy. No JVD. Trachea is midline. Thorax: Symmetrical rise and fall Lungs: Wheezing and crackles throughout all [place]. Heart: Regular rate and rhythm. No murmur, gallop, or rub Abdomen: No tenderness on palpation. Bowel sounds are present active and normal. No organomegaly. No palpable masses. No CVA tenderness. Extremities: Motor sensory pulses intact x4 extremities. No lower extremity edema. Skin: No lesions, rashes, ulcerations. No bruising or petechiae. Color appropriate, warm and dry Neuro: No oriented x3, no focal neuro deficits Psych: Mood and affect are normal Procedure Critical care time 48 minutes Medical Decision Making COVID-19 infection, pneumonia, pulmonary embolism, dehydration, electrolyte imbalance, CLEO Assessment/Plan 1. Acute hypoxemic respiratory failure due to COVID-19 (U07.1: COVID-19) Acute respiratory failure with hypoxia (J96.01: Acute respiratory failure with hypoxia) Orders: acetaminophen, 975 mg = 3 tab(s), Tab, Oral, Once, Stop date 04/26/21 16:06:00 EST, STAT, Start date 04/26/21 16:06:00 EST, 04/26/21 16:06:00 EST albuterol, 180 mcg, 2 puff(s), Aerosol, Inhalation, q4hr PRN Shortness of breath or wheezing, STAT, Start date 04/26/21 16:05:00 EST, COVID PATIENTS ONLY dexamethasone, 6 mg = 1.5 mL, Injection, IV Push, Once, Stop date 04/26/21 18:27:00 EST, STAT, Start date 04/26/21 18:27:00 EST, 04/26/21 18:27:00 EST ibuprofen, 600 mg = 1 tab(s), Tab, Oral, Once, Stop date 04/26/21 16:06:00 EST, STAT, Start date 04/26/21 16:06:00 EST, 04/26/21 16:06:00 EST Sodium Chloride 0.9% intravenous solution, 1,000 mL, Soln-IV, IV, Once, Stop date 04/26/21 14:48:00 EST, STAT, Start date 04/26/21 14:48:00 EST, Infuse over 61, minute(s) Sodium Chloride 0.9% intravenous solution 1,000 mL, 1,000 mL, IV, 1,000 mL/hr, STAT, Start date 04/26/21 15:07:00 EST, 1 hour(s), Total volume (mL): 1,000, 104.1 kg, 2.2, m2 Sodium Chloride 0.9% intravenous solution 1,000 mL, 1,000 mL, IV, 1,000 mL/hr, STAT, Start date 04/26/21 15:06:00 EST, 1 hour(s), Total volume (mL): 1,000, 104.1 kg, 2.2, m2 Automated Diff B-Type Natriuretic Peptide Basic Metabolic Panel Blood Culture Charcoal Blood Culture Charcoal Blood Gas Art, w (more content not included)... Normal [facility] Comment on above: Result Comment: Elec tronically Signed By: Evie Joel PA-C\.br\Date and Time Signed: 04/26/21 22:06 EST\.br\Electronically Co-Signed By: Donovan Moyer DO\.br\Date and Time Co-Signed: 04/27/21 00:10 EST ED Patient Education Noteon 04-27-2021 ED Patient Education Note Normal [facility] ED Patient Summaryon ED Patient Summary [place] [id number] Patient Discharge Instructions Person Information Name: NAIDA CM Age: 20 Years Arrival Date: 04/26/2021 14:37:56 Discharge Diagnosis: 1:Acute hypoxemic respiratory failure due to COVID-19; 2:Asthma; 3:Weakness; 4:Dehydration; 5:Obesity; 6:DVT prophylaxis Primary Care Physician: JAMES SUH CNP Provider Information Primary Provider: Donovan Moyer DO Advanced Funeral Director/Embalmer:None The exam and treatment you received in the Emergency Department were for an urgent problem and are not intended as complete care. It is important that you follow up with a doctor, nurse practitioner, or physician?s oceanographer assistant for ongoing care. If your symptoms become worse or you do not improve as expected and you are unable to reach your usual health care provider, you should return to the Emergency Department. We are available 24 hours a day. NAIDA CM has been given the following list of patient education materials, prescriptions and follow-up instructions: Follow-up Instructions: In the event that this physician does not participate in your insurance network, please consult with your insurance company to find a nearby participating provider. Patient Education Materials: A MESSAGE TO ALL PATIENTS REGARDING OPIOIDS PRESCRIPTION OPIOIDS: WHAT YOU NEED TO KNOW Prescription opioids can be used to help relieve exflyoxb-gf-rpinhe pain and are often prescribed following a surgery or injury, or for certain health conditions. These medications can be an important part of the treatment but also come with serious risks. It is important to work with your healthcare provider to make sure you are getting the safest, most effective care. WHAT ARE THE RISKS AND SIDE EFFECTS OF OPIOID USE? Prescription opioids carry serious risks of addiction and overdose, especially with prolonged use. An opioid overdose, often marked by slowed breathing, can cause sudden . The use of prescription opioids can have a number of side effects as well, even when taken as directed: ? Tolerance?meaning you might need to take more of the medication for the same pain relief ? Physical dependence?meaning you have symptoms of withdrawal when a medication is stopped ? Increased sensitivity to pain ? Constipation ? Nausea, vomiting, and dry mouth ? Sleepiness and dizziness ? Confusion ? Depression ? Low levels of testosterone that can result in lower sex drive, energy, and strength ? Itching and sweating RISKS ARE GREATER WITH: ? History of drug misuse, substance use disorder, or overdose ? Mental health conditions (such as depression or anxiety) ? Sleep apnea ? Older age (65 years and older) ? Avoid alcohol while taking prescription opioids. Also, unless specifically advised by your health care provider, medications to avoid include: ? Benzodiazepines (such as Xanax or Valium) ? Muscle relaxants (such as Soma or Flexeril) ? Hypnotics (such as Ambien or Lunesta) ? Other prescription opioids KNOW YOUR OPTIONS Talk to your health care provider about ways to manage your pain that don?t involve prescription opioids. Some of these options may actually work better and have fewer risks and side effects. Options may include: ? Pain relievers such as acetaminophen, ibuprofen, and naproxen ? Some medication that are also used for depression or seizures ? Physical therapy and exercise ? Cognitive behavioral therapy, a psychological, goal-directed approach, in which patients learn how to modify physical, behavioral, and emotional triggers of pain and stress. IF YOU ARE PRESCRIBED OPIOIDS FOR PAIN: ? Never take opioids in greater amounts or more often than prescribed. ? Follow up with your primary health care provider. o Work together to create a plan on how to manage your pain. o Talk about ways to help manage your pain that don?t involve prescription opioids. o Talk about any and all concerns and side effects. ? Help prevent misuse and abuse o Never sell or share prescription opioids. o Never use another person?s prescription opioids. ? Store prescription opioids in a secure place and out of reach of others (this may include visitors, children, friends, and family). ? Safely dispose of unused prescription opioids: Find your community drug take-back program or your pharmacy mail-back program, or flush them down the toilet, following guidance from the Food and Drug Administration (www.fda.gov/Drugs/Re sourcesForYou). ? Visit www.cdc.gov/drugoverd ose to learn about the risks of opioids abuse and overdose. ? If you believe you may be struggling with addiction, tell your health managed care nurse and ask for guidance or call SAMHSA?S National Helpline at 3-224-145-HELP. v Source: [place] Department of Health and Human Services/Center for Disease Control (more content not included)... Normal [facility] Ferritinon 04-27-2021 Ferritin [Mass/Vol] 299 ng/mL Normal 24-336 [facility] magaly [facility] Comment on above: Result Comment: NORM ALS MEN <30 YRS 16-132 ng/mL MEN >30 YRS 8-338 ng/mL WOMEN (PREMEN) 6-104 ng/mL WOMEN (POSTMEN) 12-210 ng/mL Performed By: #### 2 847001, 3284753, 9920164, 3877616 #### [facility] [address] [place] [address] LDHon 04-27-2021 LDH [Catalytic activity/Vol] 247 Int._Unit/L High 93-218 [facility] Comment on above: Performed By: #### 2 957621, 1195832, 9072229, 1319411 #### [facility] [address] [place] [address] Lactic Acidon 04-27-2021 Lactate [Mass/Vol] 1.2 mmol/L Normal 0.5-2.2 [facility] Comment on above: Performed By: #### 2 857147, 9459027, 8445852, 5911763 #### [facility] [address] [place] [address] Monitor Recordon 04-27-2021 Monitor Record [id number]# 1.00CD:127 Normal [facility] Procalcitoninon 04-27-2021 Procalcitonin <.05 Normal .00-.50 [facility] Comment on above: Result Comment: <0.5 ng/mL Low risk of severe sepsis and/or shock >2.0 ng/mL High risk of severe sepsis and/or shock Concentrations under 0.5 ng/mL do not exclude local infections or systemic infections in their initial stages (e.g.. under six hours from onset of illness). PCT concentrations between 0.5 and 2.0 ng/mL should be interpreted with consideration of the patient's history. In this range, it is recommended to retest PCT within 6 to 24 hours. Performed By: #### 2 479621, 0723163, 6163462, 7286629 #### [facility] [address] [place] [address] Progress Note-Nurseon 2020 Progress Note-Nurse Called nursing wet room supervisor for Remdesivir. Normal [facility] Progress Note-Physicianon Progress Note-Physician Assessment/Plan PLAN: 1. Acute hypoxemic respiratory failure due to COVID-19 (U07.1: COVID-19) -Symptoms started 9 days ago. Covid + at [facility] at that time. -SPO2 74% at home. 86% on arrival to ED. -ABGs show PaO2 73mmHg. Requires Oxygen 2l/min per cannula to maintain SPO2 >88%. -Sputum, blood cultures pending. -Dexamethasone, Remdesvir. -Chest x-ray shows: bilateral pulm infiltrates -Procal negative -Trend inflamm markers. -Add Barcitanib if worsens. -Breathing tx, flutter, IS., self pronation. -Consult pulm-pending. 2. Asthma (J45.909: Unspecified asthma, uncomplicated) -Pt with hx asthma does not appear to be exacerbation. -See #1 3. Weakness (R53.1: Weakness) -Secondary to #1,4 -Associated with lightheadedness. -UA negative. 4. Dehydration (E86.0: Dehydration) -Poor oral intake has anosmia and ageusia -IVF 5. Obesity (E66.9: Obesity, unspecified) -BMI 37.33 -We will benefits counselor on diet, exercise, weight loss and lifestyle modifications 6. DVT prophylaxis (Z29.9: Encounter for prophylactic measures, unspecified) Lovenox sq Orders: C-Reactive Protein Consult to Pulmonology D-Dimer Ferritin Lactate Dehydrogenase Subjective Exam performed in ED while patient is pending bed placement upstairs. Patient sleeping awakens easily to name. Becomes tachypneic with speech and notably dyspneic with speech. Dates he becomes increasingly short of breath with any activity. States he is not able to lie prone or even on his side as he becomes short of breath and tachypneic. States his SPO2 drops. Encouraged to prone, take deep breaths, use I-S and flutter. Appetite has been poor. Currently on oxygen at 2 L a minute per cannula with SPO2 of 93%. Objective Vitals & Measurements T: 37.1 ?C(Oral) HR: 74(Monitored) RR: 22 BP: 114/75 SpO2: 93% WT: 104.1 kg WT: 104.1 kg Intake & Output This visit (24 hour periods starting at 07:00 EST) 04/27/21 * 04/26/21 04/25/21 Total Summary Intake mL -- 1,251.5 -- Output mL -- -- -- Fluid Balance -- 1,251.5 -- Intake (3) Sodium Chloride 0.9% mL -- 1,000 -- Sodium Chloride 0.9%, remdesivir mL -- 250 -- dexamethasone mL -- 1.5 -- Total -- 1,251.5 -- Output (0) Counts (0) * This column has not completed the indicated time period. Physical Exam General: Awakens easily to name oriented, No acute distress. Eye: Pupils are equal, round and reactive to light. HENT: Normocephalic, Normal hearing, No pharyngeal erythema. dry oral mucosa Neck: Supple, Non-tender, No lymphadenopathy. Respiratory: Tachypneic. Shallow respirations with speech. Intermittent cough. Diminished throughout. No rales or rhonchi noted. SPO2 drops into high 80s with any speech. Cardiovascular: Tachy rate, Regular rhythm, Good pulses equal in all extremities, Normal peripheral perfusion, No edema. Gastrointestinal: Soft, Non-tender, Non-distended, Normal bowel sounds. Musculoskeletal Normal range of motion. Normal strength. Integumentary: Warm, Dry, Intact. Neurologic: Alert, Oriented, No focal deficits. Psychiatric: Cooperative, Appropriate mood & affect, Normal judgment. Lab Results WBC: 7.7 E9/L (04/27/21 05:11:00) RBC: 5.1 E12/L (04/27/21 05:11:00) HGB: 13.8 gm/dL (04/27/21 05:11:00) Hct: 42.2 % (04/27/21 05:11:00) MCV: 82.3 fL (04/27/21 05:11:00) MCH: 27 pg (04/27/21 05:11:00) MCHC: 32.7 gm/dL (04/27/21 05:11:00) RDW: 14.1 % (04/27/21 05:11:00) Platelet: 242 E9/L (04/27/21 05:11:00) MPV: 6.8 fL (04/27/21 05:11:00) Neutro Auto: 86.4 % High (04/27/21 05:11:00) Lymph Auto: 9 % Low (04/27/21 05:11:00) [place] Auto: 4.4 % (04/27/21 05:11:00) Eos Auto: 0 % (04/27/21 05:11:00) Basophil Auto: 0.2 % (04/27/21 05:11:00) Neutro Absolute: 6.6 E9/L (04/27/21 05:11:00) Lymph Absolute: 0.7 E9/L Low (04/27/21 05:11:00) [place] Absolute: 0.3 E9/L (04/27/21 05:11:00) Eos Absolute: 0 E9/L (04/27/21 05:11:00) Basophil Absolute: 0 E9/L (04/27/21 05:11:00) PT: 14.1 second(s) High (04/26/21 15:05:00) INR: 1.2 (04/26/21 15:05:00) PTT: 30.6 second(s) (04/26/21 15:05:00) D-Dimer: 517 ng/mL FEU Critical (04/27/21 05:11:00) Glucose Lvl: 122 mg/dL (04/27/21 05:11:00) BUN: 13 mg/dL (04/27/21 05:11:00) Creatinine: 0.7 mg/dL (04/27/21 05:11:00) eGFR: >60 (04/27/21 05:11:00) eGFR AA: >60 (04/27/21 05:11:00) BUN/Creat Ratio: 19 (04/27/21 05:11:00) Sodium Lvl: 135 mmol/L (04/27/21 05:11:00) Potassium Lvl: 4.4 mmol/L (04/27/21 05:11:00) Chloride: 102 mmol/L (04/27/21 05:11:00) CO2: 24 mmol/L (04/27/21 05:11:00) AGAP: 13 mEq/L (04/27/21 05:11:00) Calcium Lvl: 8.4 mg/dL Low (04/27/21 05:11:00) Alk Phos: 72 Int._Unit/L (04/27/21 05:11:00) ALT: 73 Int._Unit/L High (04/27/21 05:11:00) AST: 49 Int._Unit/L High (04/27/21 05:11:00) Total Protein: 7 gm/dL (04/27/21 05:11:00) Albumin Lvl: 3.3 gm/dL (04/27/21 05:11:00) Globulin: 3.7 gm/dL (04/27/21 05:11:00) A/G Ratio: 0.9 Low (04/27/21 05:11:00) (more content not included)... Normal [facility] Comment on above: Result Comment: Elec tronically Signed By: Tamara GRAY\.br\Date and Time Signed: 04/27/21 12:45 EST\.br\Electronically Co-Signed By: Man ROWE, Jens Mixon\.br\Date and Time Co-Signed: 04/27/21 14:34 EST TSH With T4fr Reflexon 04-27 TSH Qn 0.73 m[IU]/L Normal 0.34-5.60 [facility] Comment on above: Performed By: #### 2 006397, 3031881, 5235512, 9831325 #### [facility] [address] [id number] Troponin 9 Hr.on 04-27-2021 Troponin I.cardiac [Mass/Vol] 5.20 pg/mL Low 15.90-38.40 [facility] Comment on above: Result Comment: The 95% CI (Confidence Interval) PPV (Positive Predictive Value) for myocardial infarction in females is 38 pg/mL, in males 51 pg/mL. The results should be used in conjunction with clinical conditions of myocardial infarction. (Access High Sensitivity Troponin I Instructions For Use, Marta Trumbull, December 2017) Performed By: #### 2 532568, 7764542, 1483862, 5814075 #### [facility] [address] [place] [address] eGFRon 04-27-2021 GFR/1.73 sq M.predicted among blacks MDRD (S/P/Bld) [Vol rate/Area] mL/min/{1.73_m2} Normal >=59 [facility] Comment on above: Order Comment: Order added by Discern Expert. Result Comment: eGFR is race adjusted. AA=. Performed By: #### 2 751412, 8942005, 6780415, 7704227 #### [facility] [address] [place] [address] GFR/1.73 sq M.predicted among non-blacks MDRD (S/P/Bld) [Vol rate/Area] mL/min/{1.73_m2} Normal >=59 [facility] Comment on above: Order Comment: Order added by Discern Expert. Result Comment: Ornament Setter jaspreet kidney disease could be indicated at eGFR's of less than 60 mL/min/1.73m2. Kidney failure is indicated at less than 15 mL/min/1.73m2. Performed By: #### 2 323547, 9387260, 2072400, 6243391 #### [facility] [address] [place] [address] Auto Diffon 04-26-2021 Basophils/100 WBC (Bld) 0.5 % Normal 0.0-2.0 [facility] Comment on above: Order Comment: Order Added by Discern Expert. Performed By: #### 2 563928, 0041003, 88332432, 4724531, 8589561, 2152851, 7940694, 1720600, 2018903194, 10657892, 96685916, 58355880 #### [facility] [address] [place] [address] Basophils/Leukocytes Auto (Bld) [Pure # fraction] 0.0 E9/L Normal 0.0-0.2 [facility] Comment on above: Order Comment: Order Added by Discern Expert. Performed By: #### 2 110919, 7658945, 43515587, 5426737, 7226618, 4641295, 3000967, 7422627, 3182992088, 65044502, 62097568, 98044964 #### [facility] [address] [place] [address] Eosinophils/100 WBC (Bld) 0.0 % Normal 0.0-8.0 [facility] Comment on above: Order Comment: Order Added by Discern Expert. Performed By: #### 2 047838, 4463077, 42237161, 3195186, 9819252, 3752524, 0410443, 8359703, 1395015739, 90742020, 84804478, 70265977 #### [facility] [address] [place] [address] Eosinophils/Leukocyte s Auto (Bld) [Pure # fraction] 0.0 E9/L Normal 0.0-0.5 [facility] Comment on above: Order Comment: Order Added by Discern Expert. Performed By: #### 2 817648, 3749913, 16773846, 0375377, 0853667, 5639640, 9386127, 9469686, 0400294296, 85096197, 06220725, 39008232 #### [facility] [address] [place] [address] Lymphocytes/100 WBC (Bld) 8.6 % Low 14.0-50.0 [facility] Comment on above: Order Comment: Order Added by Discern Expert. Performed By: #### 2 045689, 9458627, 58857470, 7402959, 9072253, 7462593, 1387032, 9275592, 6626216689, 81145143, 15422625, 04033780 #### [facility] [address] [place] [address] Lymphocytes/Leukocyte s Auto (Bld) [Pure # fraction] 0.9 E9/L Low 1.0-4.0 [facility] Comment on above: Order Comment: Order Added by Discern Expert. Performed By: #### 2 669165, 1773666, 95956591, 2328873, 5993327, 5597114, 8342917, 9757205, 3261939012, 34473960, 84677719, 68653775 #### [facility] [address] [place] [address] Monocytes/100 WBC (Bld) 5.1 % Normal 4.0-14.0 [facility] Comment on above: Order Comment: Order Added by Discern Expert. Performed By: #### 2 820173, 2925831, 28249327, 7924644, 4221252, 2948423, 5430980, 5534488, 8711788723, 78470267, 90998445, 55040183 #### [facility] [address] [place] [address] Monocytes/Leukocytes Auto (Bld) [Pure # fraction] 0.5 E9/L Normal 0.2-1.0 [facility] Comment on above: Order Comment: Order Added by Discern Expert. Performed By: #### 2 858614, 7314222, 16152169, 7789872, 5533391, 0057535, 6757009, 2082571, 9741607591, 88479173, 38594225, 89748117 #### [facility] [address] [place] [address] Neutrophils/100 WBC (Bld) 85.8 % High 36.0-75.0 [facility] Comment on above: Order Comment: Order Added by Discern Expert. Performed By: #### 2 905387, 9364235, 73454218, 1572647, 7694502, 1059434, 6155658, 9126831, 9844090249, 19254864, 29402740, 82197841 #### [facility] [address] [place] [address] Neutrophils/Leukocyte s Auto (Bld) [Pure # fraction] 8.5 E9/L High 2.0-7.5 [facility] Comment on above: Order Comment: Order Added by Discern Expert. Performed By: #### 2 807189, 7796885, 58039784, 6190975, 8128163, 0949505, 6953590, 9348155, 4116454618, 61555714, 82304545, 13943523 #### [facility] [address] [place] [address] BMPon 04-26-2021 Creatinine [Mass/Vol] 0.8 mg/dL Normal 0.5-1.3 [facility] Comment on above: Performed By: #### 2 011828, 9393910, 26960209, 6283341, 2089167, 2953215, 8416340, 4093070, 3910799709, 33156854, 81948288, 06843820 ####[facility] [address] [place] [address] Urea nitrogen [Mass/Vol] 13 mg/dL Normal 5-21 [facility] Comment on above: Performed By: #### 2 725824, 8579532, 46016929, 9506835, 1006016, 8819804, 2078811, 8013611, 2072378196, 03469837, 13236461, 18424941 ####[facility] [address] [place] [address] Urea nitrogen/Creatinine [Mass ratio] 16 No Units Normal 10-20 [facility] Comment on above: Performed By: #### 2 255489, 5065908, 71856019, 7142305, 6469531, 8296380, 7669483, 8258106, 9166173004, 60570450, 06648784, 66119366 ####[facility] [address] [place] [address] Anion gap [Moles/Vol] 14 mmol/L Normal 6-16 [facility] Comment on above: Performed By: #### 2 484843, 3811158, 13657886, 7240106, 5535591, 0926055, 4697563, 8029524, 4892770782, 92928241, 64833760, 18516885 ####[facility] [address] [place] [address] Calcium [Mass/Vol] 8.4 mg/dL Low 8.9-11.1 [facility] Comment on above: Performed By: #### 2 196061, 2077369, 79082402, 7851375, 5314703, 1804970, 9109269, 2929350, 5906681779, 27470649, 29367947, 59092365 ####[facility] [address] [place] [address] Chloride [Moles/Vol] 99 mmol/L Low 101-111 [facility] Comment on above: Performed By: #### 2 913471, 7684406, 37552896, 8005194, 5209000, 5428873, 5350500, 5285037, 4425400364, 17125682, 55807516, 38894919 ####[facility] [address] [place] [address] CO2 [Moles/Vol] 26 mmol/L Normal 21-31 [facility] Comment on above: Performed By: #### 2 300379, 4524426, 23587146, 3767312, 5169898, 3282168, 3536207, 3529182, 3000563385, 32873107, 30392386, 55920878 ####[facility] [address] [place] [address] Glucose [Mass/Vol] 130 mg/dL Normal 55-199 [facility] Comment on above: Result Comment: If t his glucose result represents a fasting glucose, interpretation should refer to the following reference range: 55-99 mg/dL Performed By: #### 2 200082, 0497751, 79384968, 8125997, 8525013, 4931694, 7822375, 7533548, 0707402395, 17226554, 99417322, 21104365 ####[facility] [address] [place] [address] Potassium [Moles/Vol] 3.8 mmol/L Normal 3.5-5.3 [facility] Comment on above: Performed By: #### 2 255645, 0916029, 48219541, 3144156, 2823977, 0523023, 7840396, 5630123, 8074910872, 53339792, 75018899, 43342895 ####[facility] [address] [place] [address] Sodium [Moles/Vol] 135 mmol/L Normal 135-145 [facility] Comment on above: Performed By: #### 2 306386, 1528748, 27045976, 5158990, 2718530, 6603045, 2603332, 4967511, 5517347942, 11772462, 69771111, 65456212 ####[facility] [address] [place] [address] BNPon 04-26-2021 Int Ctr BNP Pass Normal [facility] Comment on above: Performed By: #### 2 785557, 1532972, 51600290, 8205010, 8362638, 1435194, 6715370, 0286768, 9849224202, 38164837, 57251410, 38972797 ####[address] [place] [address] Natriuretic peptide B (Bld) [Mass/Vol] 17 pg/mL Normal 5-80 [facility] Comment on above: Performed By: #### 2 545153, 5248266, 31448794, 7210595, 2026730, 4795054, 8692670, 1607180, 6773866726, 89342043, 24315478, 31943614 ####[facility] [address] [place] [address] Blood Gas Art, with Lytes, G jm, [place] 04-26-2021 a/A Ratio Art 49.50 % Normal >=0.80 [facility] Comment on above: Performed By: #### 4 [id number] ####[facility] [address] [place] [address] AaDO2 Art 73.7 mmHg High 5.0-15.0 [facility] [facility] Comment on above: Performed By: #### 4 [id number] ####[facility] Hxlqbq[address]028 [place] [address] Allens Test Positive Normal [facility] Comment on above: Performed By: #### 4 [id number] ####[facility] Ffljl[address]182 [place] [address] Base Excess Arterial 4.1 mmol/L Normal >=2.8 [facility] Comment on above: Performed By: #### 4 [id number] ####[facility] [address] [place] [address] cCa2+ Art 4.59 mg/dL Normal 4.40-5.30 [facility] Comment on above: Performed By: #### 4 [id number] ####[place] [address] [place] [address] cCl- Art 104.0 mmol/L Normal 101.0-111.0 [facility] Comment on above: Performed By: #### 4 [id number] ####[facility] Bczep[address]109 [place] [address] cGlu Art 126 mg/dL High 55-99 [facility] Comment on above: Performed By: #### 4 [id number] ####[facility] [address]86 [place] [address] cK+ Art 4.1 mmol/L Normal 3.5-5.3 [facility] Comment on above: Performed By: #### 4 [id number] ####[facility] Igyywf[address]iz581 [place] [address] cLac Art .7 mmol/L Normal .5-2.2 [facility] Comment on above: Performed By: #### 4 [id number] ####[facility] Vmzylpnsas744 [place] [address] parts sales counterperson+ Art 141.0 mmol/L Normal 135.0-145.0 [facility] Comment on above: Performed By: #### 4 [id number] ####[facility] [address] [place] [address] Drawn by ss Invalid Interpretation Code [facility] Comment on above: Performed By: #### 4 [id number] ####[facility] [address] [place] [address] FCOHb Art 1.2 % Low 1.5-4.9 [facility] Comment on above: Result Comment: Refe rence range Nonsmoker <1.5% Smoker <5.0% Heavy Smoker <9.0% Performed By: #### 4 [id number] ####[address] [place] [address] FIO2 BG 21 Invalid Interpretation Code [facility] Comment on above: Performed By: #### 4 [id number] ####[address] [address] FMetHb Art 0.2 % Normal 0.0-1.9 [facility] Comment on above: Performed By: #### 4 [id number] ####[address] [address] FO2Hb Art 94.0 % Normal 93.0-100.0 [facility] Comment on above: Performed By: #### 4 [id number] ####[address] [address] HCO3 (Bld) [Moles/Vol] 28.0 mmol/L High 22.0-26.0 [facility] Comment on above: Performed By: #### 4 [id number] ####[address] [place] [address] Hemoglobin (Bld) [Mass/Vol] 14.7 g/dL Normal 12.0-17.0 [facility] Comment on above: Performed By: #### 4 [id number] ####[address] [place] [address] Oxygen saturation in Blood 95.4 % Normal 95.0-100.0 [facility] Comment on above: Performed By: #### 4 [id number] ####[address] [place] [address] P CO2 Arterial 42.1 mmHg Normal 35.0-45.0 [facility] Comment on above: Performed By: #### 4 [id number] ####[address] [place] [address] P O2 Arterial 72.2 mmHg Low 80.0-100.0 [facility] Comment on above: Performed By: #### 4 [id number] ####[address] [place] [address] pH Arterial 7.443 Normal 7.350-7.450 [facility] Comment on above: Performed By: #### 4 [id number] ####[place] [address] Sample Site R Radial Normal [facility] Comment on above: Performed By: #### 4 [id number] ####[place] [address] Sample Type Arterial Draw Normal [facility] Comment on above: Performed By: #### 4 [id number] ####[address] [place] [address] CBC w/ Auto Diffon Erythrocyte distribution width (RBC) [Ratio] 13.9 % Normal 10.9-14.2 [facility] Comment on above: Performed By: #### 2 299731, 5607549, 75507289, 3844557, 0299234, 2775874, 1410763, 6448709, 0654116390, 14106559, 55337505, 62033091 #### [facility] [address] [place] [address] Hematocrit (Bld) [Volume fraction] 42.3 % Normal 37.7-49.0 [facility] Comment on above: Performed By: #### 2 323139, 9226594, 70777748, 8847418, 9882414, 5697662, 8233535, 8307549, 0037785814, 33489633, 91102912, 52994615 #### [facility] [address] [place] [address] Hemoglobin (Bld) [Mass/Vol] 14.6 g/dL Normal 13.5-17.5 [facility] Comment on above: Performed By: #### 2 920941, 3509687, 08494066, 8578028, 1946895, 2904113, 7409078, 8154614, 7024863980, 24286990, 75536467, 82146775 #### [facility] [address] [place] [address] MCH (RBC) [Entitic mass] 27.4 pg Normal 27.0-34.0 [facility] Comment on above: Performed By: #### 2 876177, 0996026, 71796236, 3467896, 1904716, 1252725, 3613854, 3731376, 3677900569, 96069618, 72646218, 76050545 #### [facility] [address] [place] [address] MCHC (RBC) [Mass/Vol] 34.5 g/dL Normal 31.4-36.0 [facility] Comment on above: Performed By: #### 2 099842, 0761181, 09394284, 6006226, 6783997, 3328532, 0900277, 9415267, 8544548254, 61818076, 65813420, 13630408 #### [facility] [address] [place] [address] MCV (RBC) [Entitic vol] 79.4 fL Low 80.0-100.0 [facility] Comment on above: Performed By: #### 2 598898, 5398081, 00159238, 6199907, 4010115, 6513250, 2385748, 6520450, 0458594215, 47287087, 54519073, 50198207 #### [facility] [address] [place] [address] Platelet mean volume (Bld) [Entitic vol] 6.9 fL Normal 6.4-10.8 [facility] Comment on above: Performed By: #### 2 584699, 9669783, 67764143, 7157365, 9868117, 0681353, 1717767, 8069853, 8780573996, 98396636, 88422981, 75347854 #### [facility] [address] [place] [address] Platelets (Bld) [#/Vol] 220.0 E9/L Normal 150.0-500.0 [facility] Comment on above: Performed By: #### 2 427746, 9352964, 65314046, 1134909, 4087670, 5313021, 6565907, 9836694, 2840927749, 14426046, 92033894, 52731842 #### [facility] [address] [place] [address] RBC (Bld) [#/Vol] 5.3 E12/L Normal 4.3-5.9 [facility] Comment on above: Performed By: #### 2 833417, 1032672, 63529770, 6693278, 4452021, 5852422, 1339482, 3163365, 8392254845, 98844928, 99462852, 13136315 #### [facility] [address] [place] [address] WBC corrected for nucl RBC Auto (Bld) [#/Vol] 9.9 E9/L Normal 4.0-11.0 [facility] Comment on above: Performed By: #### 2 281705, 4928871, 63832277, 6410858, 5134488, 8027839, 4516731, 6166777, 1561589435, 49709745, 27400461, 44370562 #### [facility] [address] [place] [address] CRPon 04-26-2021 CRP [Mass/Vol] 16.8 mg/dL High <=1.9 [facility] Comment on above: Performed By: #### 2 665730, 6298118, 49183033, 6748670, 6838513, 3887850, 5392677, 9948488, 2857426521, 64999885, 01798223, 29613923 ####[facility] [address] [place] [address] Consent for Treatmenton 04-09 Consent for Treatment [id number] 112 [id number] .[id number]:127 Normal [facility] D-Dimeron 04-26-2021 Fibrin D-dimer FEU (PPP) [Mass/Vol] 437 [id number] Normal 215-500 [facility] Comment on above: Result Comment: This assay is intended for use as an aid in the diagnosis of DVT or PE. These conditions cannot be excluded with certainty solely on the basis of a D-dimer concentration being within the reference range This D-Dimer assay may be used in conjunction with a non-high clinical pretest probability assessment to exclude deep-vein thrombosis(DVT). For exclusion of venous thrombosis or pulmonary embolism the analyte D-Dimer should not be used as an aid in patients with: Therapeutic dose anticoagulant therapy for >24 hours Fibrinolytic therapy within previous 7 days Trauma or surgery within previous 4 weeks Disseminated malignacies Aortic aneurysm Sepsis, severe infections, pneumonia, severe skin infections Liver cirrhosis Performed By: #### 2 455200, 5806822, 29482762, 6136910, 0904866, 7484292, 2121548, 4018113, 1365810747, 22130052, 28851502, 62131087 ####[facility] [address] [place] [address] ED Note-Nursingon 04-26-2021 ED Note-Nursing road test completed at this time. pt pulse gibson gracia MD at bedside and is aware. pt very anxious to ambulate. pt states SOB with ambulation. denies CP. denies needs. pt TBA and is aware. denies needs at this time. Normal [facility] LDHon 04-26-2021 LDH [Catalytic activity/Vol] 278 Int._Unit/L High 93-218 [facility] Comment on above: Performed By: #### 2 659627, 2365731, 12463495, 6286238, 1234552, 9016409, 0465083, 4573234, 1092672314, 04322490, 92166350, 44612993 ####[facility] [address] [place] [address] Lactic Acidon 04-26-2021 Lactate [Mass/Vol] 1.1 mmol/L Normal 0.5-2.2 [facility] Comment on above: Performed By: #### 2 702044, 2717365, 09595829, 0445986, 8709864, 4537082, 9739140, 3686377, 0819979448, 73067162, 99264928, 57449903 ####[facility] [address] [place] [address] PT & PTTon 04-26-2021 aPTT Coag (PPP) [Time] 30.6 second(s) Normal 25.1-36.5 [facility] Comment on above: Result Comment: Hepa rin therapeutic range (represented by Anti-Factor Xa activity of 0.2 - 0.4 U/mL) corresponds to PTT of 56.6 - 109.0 sec. Performed By: #### 2 270340, 0298133, 13001175, 3513705, 8939543, 9939286, 3244880, 3235248, 0765580379, 12664252, 23585099, 30267073 ####[facility] [address] [place] [address] INR Coag (PPP) [Relative time] 1.2 {INR} Invalid Interpretation Code [facility] Comment on above: Result Comment: INR results are specifically intended to assess patients stabilized on long-term Anticoagulation therapy suggested INR?s ?Less Intensive Anticoagulation? 2.0 ? 3.0 Conventional Range 3.0 ? 4.5 Performed By: #### 2 090988, 7017460, 09750577, 2499105, 8660616, 0085693, 2983290, 9078322, 1724778527, 68022264, 56167799, 74870321 ####[facility] [address] [place] [address] PT Coag (PPP) [Time] 14.1 second(s) High 10.2-12.9 [facility] Comment on above: Performed By: #### 2 875677, 5630425, 51153663, 9535243, 6926715, 0173139, 0124099, 1055689, 7946753003, 16161339, 33820991, 86173641 ####[facility] [address] [place] [address] Procalcitoninon 04-26-2021 Procalcitonin .09 ng/mL Normal .00-.50 [facility] Comment on above: Result Comment: <0.5 ng/mL Low risk of severe sepsis and/or shock >2.0 ng/mL High risk of severe sepsis and/or shock Concentrations under 0.5 ng/mL do not exclude local infections or systemic infections in their initial stages (e.g.. under six hours from onset of illness). PCT concentrations between 0.5 and 2.0 ng/mL should be interpreted with consideration of the patient's history. In this range, it is recommended to retest PCT within 6 to 24 hours. Performed By: #### 2 738675, 2808676, 99055379, 7763501, 8902545, 8606325, 3245817, 0419540, 8579905510, 24142087, 21173772, 44125820 ####[facility] [address] [place] [address] Troponin 0 Hr.on 04-26-2021 Troponin I.cardiac [Mass/Vol] 6.70 pg/mL Low 15.90-38.40 [facility] Comment on above: Result Comment: The 95% CI (Confidence Interval) PPV (Positive Predictive Value) for myocardial infarction in females is 38 pg/mL, in males 51 pg/mL. The results should be used in conjunction with clinical conditions of myocardial infarction. (Access High Sensitivity Troponin I Instructions For Use, Marta [employer], December 2017) Performed By: #### 2 873224, 2482857, 31777738, 7971982, 6815715, 3008320, 4822729, 4285649, 5871623073, 56776167, 36735752, 61761760 ####[facility] [address] [place] [address] Troponin 3 Hr.on 04-26-2021 Troponin I.cardiac [Mass/Vol] 6.40 pg/mL Low 15.90-38.40 [facility] Comment on above: Result Comment: The 95% CI (Confidence Interval) PPV (Positive Predictive Value) for myocardial infarction in females is 38 pg/mL, in males 51 pg/mL. The results should be used in conjunction with clinical conditions of myocardial infarction. (Access High Sensitivity Troponin I Instructions For Use, [employer], December 2017) Performed By: #### 1 8896414 ####[facility] [address] [place] [address] Troponin 6 Hr.on 04-26-2021 Troponin I.cardiac [Mass/Vol] 5.50 pg/mL Low 15.90-38.40 [facility] Comment on above: Result Comment: The 95% CI (Confidence Interval) PPV (Positive Predictive Value) for myocardial infarction in females is 38 pg/mL, in males 51 pg/mL. The results should be used in conjunction with clinical conditions of myocardial infarction. (Access High Sensitivity Troponin I Instructions For Use, [employer], December 2017) Performed By: #### 2 146869, 3457029, 7689697, 4485010 #### [facility] [address] [place] [address] UA With Cult Reflexon 2020 Bacteria LM Ql (Urine sed) TRACE Normal Trace [facility] Comment on above: Performed By: #### 2 932945, 8152658, 8184482, 0235029 #### [facility] [address] [place] [address] Bilirubin Ql (U) Negative Normal Negative [facility] Comment on above: Performed By: #### 2 189348, 1287913, 5516723, 3366503 #### [facility] [address] [place] [address] Clarity (U) CLEAR Normal Clear [facility] Comment on above: Performed By: #### 2 821715, 5950842, 7326518, 7039773 #### [facility] [address] [place] [address] Color (U) YELLOW Normal Yellow [facility] Comment on above: Performed By: #### 2 693058, 2938867, 8949870, 9012156 #### [facility] [address] [place] [address] Epithelial cells.squamous LM.HPF (Urine sed) [#/Area] 0-2 Normal 0-2 [facility] Comment on above: Performed By: #### 2 510796, 6294225, 3010714, 5241565 #### [facility] [address] [place] [address] Glucose Test strip (U) [Mass/Vol] Negative Normal Negative [facility] Comment on above: Performed By: #### 2 085201, 6374333, 5389419, 6792835 #### [facility] [address] [place] [address] Hemoglobin Ql (U) TRACE Abnormal Negative [facility] Comment on above: Performed By: #### 2 691039, 3391187, 1730761, 7472642 #### [facility] [address] [place] [address] Ketones (U) [Mass/Vol] Negative Normal Negative [facility] Comment on above: Performed By: #### 2 577335, 5739817, 0234176, 6535527 #### [facility] [address] [place] [address] [place].plasma/Lithiu m.RBC (Bld) [Mass ratio] 0-3 Normal 0-3 [facility] Comment on above: Performed By: #### 2 550345, 1786485, 8504975, 9726708 #### [facility] [address] [place] [address] Nitrite Ql (U) Negative Normal Negative [facility] Comment on above: Performed By: #### 2 056029, 8758533, 2140274, 2689724 #### [facility] [address] [place] [address] pH (U) 6.5 [pH] Invalid Interpretation Code 5.0-9.0 [facility] Comment on above: Performed By: #### 2 747786, 4746860, 0652187, 5046469 #### [facility] [address] [place] [address] Protein (U) [Mass/Vol] TRACE Abnormal Negative [facility] Comment on above: Performed By: #### 2 769743, 8093026, 9036067, 7223276 #### [facility] [address] [place] [address] Specific gravity (U) [Rel density] 1.020 Invalid Interpretation Code 1.005-1.030 [facility] Comment on above: Performed By: #### 2 825147, 0941474, 0789765, 7719993 #### [facility] [address] [place] [address] Type of Urine collection method Clean Catch Normal [facility] Comment on above: Performed By: #### 2 276223, 6425728, 1012551, 9607749 #### [facility] [address] [place] [address] Urobilinogen Qn (U) 1.0 {Kathy'U}/dL Normal 0.0-1.0 [facility] Comment on above: Performed By: #### 2 412594, 2960128, 8860030, 2735647 #### [facility] [address] [place] [address] WBC Auto Ql (U) Negative Normal Negative [facility] Comment on above: Performed By: #### 2 978531, 2020443, 9758018, 0700134 #### [facility] [address] [place] [address] WBC LM.HPF (Urine sed) [#/Area] 0-5 Normal 0-5 [facility] Comment on above: Performed By: #### 2 715340, 6155501, 4322397, 7550234 #### [facility] [address] [place] [address] XR Chest Single Viewon 04-26 XR Chest Single View Exam Date/Time: 04/26/2021 15:25 EST Reason for Exam: Difficulty breathing Report IMPRESSION: MILD TO MODERATE PULMONARY INFILTRATES LIKELY BRONCHOPNEUMONIA. EXAM: XR Chest Single View DATE: 04/26/2021 CLINICAL HISTORY: Difficulty breathing. COMPARISON: None available. TECHNIQUE: An upright portable AP radiograph of the chest was obtained. FINDINGS: Shallow inspiratory volumes are present with mild to moderate predominantly mid to lower lung field infiltrates suspicious for bronchopneumonia. There is no cardiomegaly, vascular congestion, pleural effusion, pneumothorax, or displaced fractures identified. FINAL REPORT Dictated: 04/26/2021 4:03 pm Brad Fragoso MD Signed (Electronic Signature): 04/26/2021 4:03 pm Signed by: Brad Fragoso MD Transcribed by: KATHI Technologist: MICHEAL Normal [facility] eGFRon 04-26-2021 GFR/1.73 sq M.predicted among blacks MDRD (S/P/Bld) [Vol rate/Area] mL/min/{1.73_m2} Normal >=59 [facility] Comment on above: Order Comment: Order added by Discern Expert. Result Comment: eGFR is race adjusted. AA=. Performed By: #### 2 775886, 8316888, 81264125, 4258671, 9481572, 9897776, 2729879, 0613911, 6876938762, 54925485, 82351253, 79100664 ####[facility] [address] [place] [address] GFR/1.73 sq M.predicted among non-blacks MDRD (S/P/Bld) [Vol rate/Area] mL/min/{1.73_m2} Normal >=59 [facility] Comment on above: Order Comment: Order added by Discern Expert. Result Comment: Ornament Setter jaspreet kidney disease could be indicated at eGFR's of less than 60 mL/min/1.73m2. Kidney failure is indicated at less than 15 mL/min/1.73m2. Performed By: #### 2 590443, 9418057, 41607820, 4088574, 9938742, 2104949, 7553173, 1159570, 9731211629, 06123958, 73031576, 43223826 ####[facility] [address] [place] [address] CARDIAC JIM ADMITon 021 CK >1600 Critically high 55-170 [facility] Comment on above: Result Comment: test repeated, critical value verified Performed By: #### L IPA, CMP, TSH, CMADM #### [facility] [address] [place], [place] [address] Dr. Darrius Lindsey CK.MB [Mass/Vol] 6.32 ng/mL Critically high <=2.37 [facility] Comment on above: Performed By: #### L IPA, CMP, TSH, CMADM #### [facility] [address] [place] [address] [address] Darrius Lindsey HSTROP 20.3 pg/mL Normal 4.0-42.2 [facility] Comment on above: Result Comment: CUT- OFF POINTS HAVE BEEN ESTABLISHED BASED ON THE FOURTH UNIVERSAL DEFINITIONS OF MYOCARDIAL INFARCTION. THE UPPER REFERENCE LIMIT (URL) OF TROPONIN, DEFINED THE 99TH PERCENTILE OF cTnI DISTRIBUTION IN A REFERENCE POPULATION, HAS BEEN CONFIRMED THE DECISION THRESHOLD FOR CT DIAGNOSIS. Performed By: #### L IPA, CMP, TSH, CMADM #### [facility] [address] [place] [address] [address] Darrius Lindsey REY 710.0 ng/mL Critically high <=121.0 [facility] Comment on above: Performed By: #### L IPA, CMP, TSH, CMADM #### [facility] [address] [place], [place] [address] Dr. Darrius Lindsey CBC AUTO DIFFon 04-25-2021 BASO # 0.0 103/ul Normal 0.0-0.1 [facility] Comment on above: Performed By: #### C BC ####[facility] [address] [place], [place] [address]ZuDr. Darrius Lindsey Basophils/100 WBC (Bld) 0.1 % Critically low 0.2-2.0 [facility] Comment on above: Performed By: #### C BC ####[facility] [address] [place], [place] [address]Dr. Darrius Lindsey EO # 0.0 103/ul Normal 0.0-0.7 [facility] Comment on above: Performed By: #### C BC ####[facility] [address] [place], [place] [address]Dr. Darrius Lindsey Eosinophils/100 WBC (Bld) 0.0 % Critically low 0.9-7.0 [facility] Comment on above: Performed By: #### C BC ####[facility] [address] [place], [place] [address]Dr. Darrius Lindsey Erythrocyte distribution width (RBC) [Ratio] 13.2 % Normal 11.0-15.0 [facility] Comment on above: Performed By: #### C BC ####[facility] [address] [place], [place] [address]DrMandy Lindsey Hematocrit (Bld) [Volume fraction] 47.4 % Normal 42.0-54.0 [facility] Comment on above: Performed By: #### C BC ####[facility] [address] [place], [place] [address]DrMandy Lindsey Hemoglobin (Bld) [Mass/Vol] 15.5 g/dL Normal 14.0-18.0 [facility] Comment on above: Performed By: #### C BC ####[facility] [address] [place], [place] [address]DrMandy Lindsey IG # 0.04 10e3/ul Critically high 0.00-0.03 [facility] Comment on above: Performed By: #### C BC ####[facility] [address] [place], [place] [address]DrMandy Lindsey IG % 0.5 % Normal 0.0-0.5 [facility] Comment on above: Performed By: #### C BC ####[facility] [address] [place], [place] [address]DrMandy Lindsey LYMPH # 0.7 103/ul Critically low 1.2-3.8 [facility] Comment on above: Performed By: #### C BC ####[facility] [address] [place] [address]DrMandy Lindsey Lymphocytes/100 WBC (Bld) 8.8 % Critically low 20.5-60.0 [facility] Comment on above: Performed By: #### C BC ####[facility] [address] [place] [address]DrMandy Lindsey MANUAL DIFF REQ NO Normal [facility] Comment on above: Performed By: #### C BC ####[facility] [address] [place] [address]Dr. Darrius Lindsey MCH (RBC) [Entitic mass] 27.1 pg Normal 25.9-34.0 [facility] Comment on above: Performed By: #### C BC ####[facility] [address] [place], [place] [address]Dr. Darrius Lindsey MCHC (RBC) [Mass/Vol] 32.7 g/dL Normal 29.9-35.2 [facility] Comment on above: Performed By: #### C BC ####[facility] [address] [place], [place] [address]DrMandy Lindsey MCV (RBC) [Entitic vol] 83.0 fL Normal 80.0-94.0 [facility] Comment on above: Performed By: #### C BC ####[facility] [address] [place], [place] [address]DrMandy Lindsey MONO # 0.5 103/ul Normal 0.3-0.8 [facility] Comment on above: Performed By: #### C BC ####[facility] [address] [place], [place] [address]DrMandy Lindsey Monocytes/100 WBC (Bld) 5.8 % Normal 1.7-12.0 [facility] Comment on above: Performed By: #### C BC ####[facility] [address] [place], [place] [address]DrMandy Lindsey NEUT # 6.8 103/ul Critically high 1.4-6.5 [facility] Comment on above: Performed By: #### C BC ####[facility] [address] [place] [address]Dr. Darrius César Neutrophils/100 WBC (Bld) 84.8 % Critically high 43.0-75.0 The [facility] Comment on above: Performed By: #### C BC ####[facility] [id number] [id number]. Paolanatalee César Platelet mean volume (Bld) [Entitic vol] 8.8 fL Critically low 9.5-13.5 [facility] Comment on above: Performed By: #### C BC ####[facility] [id number] [address]Dr. Paolanatalee César PLT 197 103/ul Normal 150-450 [facility] Comment on above: Performed By: #### C BC ####[facility] [address] [id number]. Darrius Lindsey RBC 5.71 106/ul Normal 4.70-6.10 [facility] Comment on above: Performed By: #### C BC ####[facility] [address] [id number]. Darrius César WBC 8.0 103/ul Normal 4.0-11.0 [facility] Comment on above: Performed By: #### C BC ####[facility] [address] [id number] Lindsey LIPASEon 04-25-2021 Lipase [Catalytic activity/Vol] 75.0 U/L Normal 23.0-300.0 [facility] Comment on above: Performed By: #### L IPA, CMP, TSH, CMADM #### [facility] [id number] Darrius Lindsey PROF 14(COMP METB)on 021 Albumin [Mass/Vol] 3.5 g/dL Normal 3.5-5.0 [facility] Comment on above: Performed By: #### L IPA, CMP, TSH, CMADM #### [facility] [address] [address] [address] Darrius Lindsey Albumin/Globulin [Mass ratio] 0.8 {ratio} Normal [facility] Comment on above: Performed By: #### L IPA, CMP, TSH, CMADM #### [facility] [address] [address] [address] Darrius Lindsey ALP [Catalytic activity/Vol] 103 U/L Normal 38-126 [facility] Comment on above: Performed By: #### L IPA, CMP, TSH, CMADM #### [facility] [address] [address] [address] Darrius Lindsey ALT [Catalytic activity/Vol] 62 U/L Normal 21-72 [facility] Comment on above: Performed By: #### L IPA, CMP, TSH, CMADM #### [facility] [address] [address] [address] Darrius Lindsey Anion gap [Moles/Vol] 14.8 mmol/L Normal [facility] Comment on above: Performed By: #### L IPA, CMP, TSH, CMADM #### [facility] [address] [address] [address] Darrius Lindsey AST [Catalytic activity/Vol] 87 U/L Critically high 17-59 [facility] Comment on above: Performed By: #### L IPA, CMP, TSH, CMADM #### [facility] [address] [address] [address] Darrius Lindsey Bilirubin [Mass/Vol] 0.6 mg/dL Normal 0.2-1.3 [facility] Comment on above: Performed By: #### L IPA, CMP, TSH, CMADM #### [facility] [address] [address] [address] Darrius Lindsey Calcium [Mass/Vol] 9.3 mg/dL Normal 8.4-10.2 [facility] Comment on above: Performed By: #### L IPA, CMP, TSH, CMADM #### [facility] [address] [address] [address] Darrius Lindsey Chloride [Moles/Vol] 101 mmol/L Normal 98-107 [facility] Comment on above: Performed By: #### L IPA, CMP, TSH, CMADM #### [facility] [address] [place] [address] Dr. Darrius Lindsey CO2 [Moles/Vol] 28.8 mmol/L Normal 22.0-30.0 [facility] Comment on above: Performed By: #### L IPA, CMP, TSH, CMADM #### [facility] [address] [place] [address] Dr. Darrius Lindsey Creatinine [Mass/Vol] 0.99 mg/dL Normal 0.66-1.25 [facility] Comment on above: Performed By: #### L IPA, CMP, TSH, CMADM #### [facility] [address] [place] [address] Dr. Darrius Lindsey EGFR-AF KENYAN >60 Normal >=60 [facility] Comment on above: Performed By: #### L IPA, CMP, TSH, CMADM #### [facility] [address] [place] [address] Dr. Darrius Lindsey EGFR-NON AF KENYAN >60 Normal >=60 [facility] Comment on above: Performed By: #### L IPA, CMP, TSH, CMADM #### [facility] [address] [place] [address] Dr. Darrius Lindsey Globulin (S) [Mass/Vol] 4.5 g/dL Normal [facility] Comment on above: Performed By: #### L IPA, CMP, TSH, CMADM #### [facility] [address] [place] [address] Dr. Darrius Lindsey Glucose [Mass/Vol] 128 mg/dL Critically high 74-106 T [facility] Comment on above: Performed By: #### L IPA, CMP, TSH, CMADM #### [facility] [address] [place] [address] Dr. Darrius Lindsey Potassium [Moles/Vol] 4.6 mmol/L Normal 3.4-5.0 [facility] Comment on above: Performed By: #### L IPA, CMP, TSH, CMADM #### [facility] [address] [address] [address] Darrius Lindsey Protein [Mass/Vol] 8.0 g/dL Normal 6.1-8.2 [facility] Comment on above: Performed By: #### L IPA, CMP, TSH, CMADM #### [facility] [address] [place] [address] Dr. Darrius Lindsey Sodium [Moles/Vol] 140 mmol/L Normal 137-145 [facility] Comment on above: Performed By: #### L IPA, CMP, TSH, CMADM #### [facility] [address] [place] [address] Dr. Darrius Lindsey Urea nitrogen [Mass/Vol] 16.0 mg/dL Normal 6.4-19.3 [facility] Comment on above: Performed By: #### L IPA, CMP, TSH, CMADM #### [facility] [address] [place] [address] Dr. Darrius Lindsey Urea nitrogen/Creatinine [Mass ratio] 16.2 mg/mg Normal [facility] Comment on above: Performed By: #### L IPA, CMP, TSH, CMADM #### [facility] [address] [place] [address] Dr. Darrius Lindsey TSHon 04-25-2021 TSH 1.381 uIU/mL Normal 0.430-3.750 [facility] Comment on above: Performed By: #### L IPA, CMP, TSH, CMADM #### [facility] [address] [place] [address] Dr. Darrius Lindsey TSH RANGE SEE BELOW Normal [facility] Comment on above: Result Comment: <0.3 4 UIU/ml HYPERTHYROID 0.34-5.60 UIU/ml EUTHYROID >5.60 UIU/ml HYPOTHYROID Performed By: #### L IPA, CMP, TSH, CMADM #### [facility] [address] [place] [address] Dr. Darrius Lindsey XR CHEST 1 Von 04-25-2021 XR CHEST 1 V EXAM: Portable chest REASON FOR EXAM: Shortness of breath. TECHNIQUE: A portable frontal view of the chest was obtained. COMPARISON: 10/11/2020. FINDINGS: The lungs are hypoinflated. There are scattered areas of patchy opacity in the right lung. The left lung is grossly clear. No pleural effusions are clearly seen. The heart and mediastinum are normal. There is no mass or pathologic adenopathy. Osseous structures are normal. IMPRESSION: Limited exam showing probable right-sided pneumonia. Consider further evaluation with CT given the limitations of this study. Electronically authenticated by: CHRISSIE MARRERO Date: 2021-04-25 11:30 Normal [facility] Covid-19 PCR (CVDTB)on SARS-CoV-2 (COVID-19) RNA ROSIE+probe Ql (Unsp spec) Detected Critically abnormal NOT DETECTED [facility] Comment on above: Result Comment: This test is not yet approved or cleared by the [place] FDA. When there are no FDA-approved or cleared tests available, and other criteria are met, FDA can make tests available under an emergency access mechanism called an Emergency Use Authorization (EUA). The EUA for this test is supported by the Picker of Health and Human Service's (HHS's) declaration that circumstances exist to justify the emergency use of in vitro diagnostics for the detection and/or diagnosis of the virus that causes COVID-19. This EUA will remain in effect (meaning this test can be used) for the duration of the COVID-19 declaration justifying emergency of IVDs, unless it is terminated or revoked by FDA (after which the test may no longer be used). Performed By: #### C [facility] #### [facility] [address] [place] [address] Dr. Darrius Lindsey XR ABD FLAT UP_PA Kash 10-12 XR ABD FLAT UP_PA CH EXAM: XR ABD FLAT UP_PA CH 10/11/2020. COMPARISON STUDY: PA and lateral chest 06/23/2019. HISTORY: UNSPECIFIED ABDOMINAL PAIN FINDINGS: A total of 4 images were obtained. Cardiomediastinal contours are stable and within normal limits. No dense consolidation, effusion, edema, failure, pneumothorax or acute osseous abnormality identified. Negative for free air on the upright abdominal image. Bowel pattern appears within normal limits. No pathologic calcification or radiopaque foreign body suspected. IMPRESSION: 1. No acute cardiopulmonary process. 2. Bowel pattern appears within normal limits. No abnormal pathologic calcifications suspected. Electronically authenticated by: ALEXIS GOMEZ Date: 2020-10-11 22:21 Normal [facility] CBC AUTO DIFFon 10-11-2020 BASO # 0.1 103/ul Normal 0.0-0.1 [facility] Comment on above: Performed By: #### C BC #### [facility] [address] [place], [place] [id number] Mary Kay Suzie Basophils/100 WBC (Bld) 0.8 % Normal 0.2-2.0 [facility] Comment on above: Performed By: #### C BC #### [facility] [address] [place], [place] [id number] Mary Kay Suzie EO # 0.3 103/ul Normal 0.0-0.7 [facility] Comment on above: Performed By: #### C BC #### [facility] [address] [place], [place] [id number] Mary Kay Suzie Eosinophils/100 WBC (Bld) 3.1 % Normal 0.9-7.0 [facility] Comment on above: Performed By: #### C BC #### [facility] [address] [place], [place] [id number] Mary Kay Suzie Erythrocyte distribution width (RBC) [Ratio] 13.2 % Normal 11.0-15.0 [facility] Comment on above: Performed By: #### C BC #### [facility] [address] [place], [place] [id number] Mary Kay Suzie Hematocrit (Bld) [Volume fraction] 42.1 % Normal 42.0-54.0 [facility] Comment on above: Performed By: #### C BC #### [facility] [address] [place], [place] [id number] Mary Kay Suzie Hemoglobin (Bld) [Mass/Vol] 14.1 g/dL Normal 14.0-18.0 [facility] Comment on above: Performed By: #### C BC #### [facility] [address] [place], [place] [id number] Mary Kay Suzie IG # 0.03 10e3/ul Normal 0.00-0.03 [facility] Comment on above: Performed By: #### C BC #### [facility] [address] [place], [place] [id number] Mary Kay Suzie IG % 0.3 % Normal 0.0-0.5 [facility] Comment on above: Performed By: #### C BC #### [facility] [address] [place], [place] [id number] Mary Kay Suzie LYMPH # 3.2 103/ul Normal 1.2-3.8 [facility] Comment on above: Performed By: #### C BC #### [facility] [address] [place], [place] [id number] Mary Kaymolly Larsen Lymphocytes/100 WBC (Bld) 30.5 % Normal 20.5-60.0 [facility] Comment on above: Performed By: #### C BC #### [facility] [address] [place], [place] [id number] Mary Kay Suzie MANUAL DIFF REQ NO Normal [facility] Comment on above: Performed By: #### C BC #### [facility] [address] [place], [place] [id number] Mary Kaymolly Larsen MCH (RBC) [Entitic mass] 26.9 pg Normal 25.9-34.0 [facility] Comment on above: Performed By: #### C BC #### [facility] [address] [place], [place] [id number] Mary Kaymolly Larsen MCHC (RBC) [Mass/Vol] 33.5 g/dL Normal 29.9-35.2 [facility] Comment on above: Performed By: #### C BC #### [facility] [address] [place] [address] Mary Kay Suzie MCV (RBC) [Entitic vol] 80.3 fL Normal 76.3-90.1 [facility] Comment on above: Performed By: #### C BC #### [facility] [address] [place], [place] [id number] Mary Kay Suzie MONO # 0.6 103/ul Normal 0.3-0.8 [facility] Comment on above: Performed By: #### C BC #### [facility] [address] [place] [address] Mary Kay Suzie Monocytes/100 WBC (Bld) 6.0 % Normal 1.7-12.0 [facility] Comment on above: Performed By: #### C BC #### [facility] [address] [place], [place] [address] Mary Kay Suzie NEUT # 6.1 103/ul Normal 1.4-6.5 [facility] Comment on above: Performed By: #### C BC #### [facility] [address] [place], [place] [address] Mary Kay Suzie Neutrophils/100 WBC (Bld) 59.3 % Normal 43.0-75.0 [facility] Comment on above: Performed By: #### C BC #### [facility] [address] [place], [place] [id number] Mary Kay Suzie Platelet mean volume (Bld) [Entitic vol] 9.2 fL Critically low 9.5-13.5 [facility] Comment on above: Performed By: #### C BC #### [facility] [address] [place], [place] [address] Mary Kay Suzie PLT 259 103/ul Normal 150-450 [facility] Comment on above: Performed By: #### C BC #### [facility] [address] [place], [place] [address] Mary Kay Suzie RBC 5.24 106/ul Normal 3.30-5.40 [facility] Comment on above: Performed By: #### C BC #### [facility] [address] [place], [place] [id number] Mary Kay Suzie WBC 10.3 103/ul Normal 4.0-11.0 [facility] Comment on above: Performed By: #### C BC #### [facility] [address] [place], [place] [id number] Mary Kay Suzie ER URINE PROFILEon 1 Bilirubin Ql (U) Negative Normal NEGATIVE [facility] Comment on above: Performed By: #### E RUR #### [facility] [address] [place], [place] [id number] Mary Kay Suzie Clarity (U) CLOUDY Abnormal CLEAR [facility] Comment on above: Performed By: #### E RUR #### [facility] [address] [place] [address] Mary Kay Suzie Color (U) LT. YELLOW Normal YELLOW [facility] Comment on above: Performed By: #### E RUR #### [facility] [address] [place], [place] [id number] Mary Kay Suzie ERUAHD A micrscopic examination will be performed if indicated. Normal [facility] Comment on above: Performed By: #### E RUR #### [facility] [address] [place] [address] Mary Kay Suzie Glucose Ql (U) Negative Normal NEGATIVE [facility] Comment on above: Performed By: #### E RUR #### [facility] [address] [place] [address] Mary Kay Suzie Hemoglobin Ql (U) Negative Normal NEGATIVE [facility] Comment on above: Performed By: #### E RUR #### [facility] [address] [place] [address] Mary Kay Suzie Ketones Ql (U) Negative Normal NEGATIVE [facility] Comment on above: Performed By: #### E RUR #### [facility] [address] [place] [address] Mary Kay Suzie LEUKOCYTES Negative Normal NEGATIVE [facility] Comment on above: Performed By: #### E RUR #### [facility] [address] [place] [address] Mary Kay Suzie Nitrite Ql (U) Negative Normal NEGATIVE [facility] Comment on above: Performed By: #### E RUR #### [facility] [address] [place] [address] Mary Kay Suzie pH (U) 7.5 [pH] Normal 5-9 [facility] Comment on above: Performed By: #### E RUR #### [facility] [address] [place] [address] Mary Kay Suzie SPEC GRAVITY 1.020 Normal 1.005-<=1.025 [facility] Comment on above: Performed By: #### E RUR #### [facility] [address] [place], [place] [id number] Mary Kay Suzie UA PROTEIN Negative Normal NEGATIVE/ TRACE [facility] Comment on above: Performed By: #### E RUR #### [facility] [address] [place], [place] [address] Mary Kaymolly Larsen UR MICRO IND NOT INDICATED Normal [facility] Comment on above: Performed By: #### E RUR #### [facility] [address] [place], [place] [address] Mary Kaymolly Troncosoen Urobilinogen Qn (U) 2.0 {Kathy'U}/dL Abnormal 0.2 - 1. 0 [facility] Comment on above: Performed By: #### E RUR #### [facility] [address] [place] [address] Mary Kay Larsen PROF 14(COMP METB)on 021 Albumin [Mass/Vol] 4.0 g/dL Normal 3.5-5.0 [facility] Comment on above: Performed By: #### C MP #### [facility] [address] [place], [place] [address] Mary Kaymolly Larsen Albumin/Globulin [Mass ratio] 1.2 {ratio} Normal [facility] Comment on above: Performed By: #### C MP #### [facility] [address] [place], [place] [address] Mary Kay Suzie ALP [Catalytic activity/Vol] 159 U/L Normal 65-260 [facility] Comment on above: Performed By: #### C MP #### [facility] [address] [place] [address] Mary Kay Suzie ALT [Catalytic activity/Vol] 47 U/L Normal 21-72 [facility] Comment on above: Performed By: #### C MP #### [facility] [address] [place], [place] [id number] Mary Kaymolly Larsen Anion gap [Moles/Vol] 13.4 mmol/L Normal [facility] Comment on above: Performed By: #### C MP #### [facility] [address] [place] [address] Mary Kay Suzie AST [Catalytic activity/Vol] 26 U/L Normal 17-59 [facility] Comment on above: Performed By: #### C MP #### [facility] [address] [id number] Mary Kay Suzie Bilirubin [Mass/Vol] 0.5 mg/dL Normal 0.2-1.3 [facility] Comment on above: Performed By: #### C MP #### [facility] [address] [address] Mary Kay Suzie Calcium [Mass/Vol] 9.0 mg/dL Normal 8.4-10.2 [facility] Comment on above: Performed By: #### C MP #### [facility] [address] [address] Mary Kay Suzie Chloride [Moles/Vol] 107 mmol/L Normal 98-107 [facility] Comment on above: Performed By: #### C MP #### [facility] [address] [address] Mary Kay Suzie CO2 [Moles/Vol] 29.7 mmol/L Normal 22.0-30.0 [facility] Comment on above: Performed By: #### C MP #### [facility] [address] [address] Mary Kay Suzie Creatinine [Mass/Vol] 0.97 mg/dL Normal 0.66-1.25 [facility] Comment on above: Performed By: #### C MP #### [facility] [address] [id number] Mary Kay Suzie Globulin (S) [Mass/Vol] 3.4 g/dL Normal [facility] Comment on above: Performed By: #### C MP #### [facility] [address] [id number] Mary Kay Suzie Glucose [Mass/Vol] 99 mg/dL Normal 74-106 [facility] Comment on above: Performed By: #### C MP #### [facility] [address] [address] Mary Kay Suzie Potassium [Moles/Vol] 4.1 mmol/L Normal 3.4-5.0 [facility] Comment on above: Performed By: #### C MP #### [facility] [address] [place], [place] [address] Mary Kay Suzie Protein [Mass/Vol] 7.4 g/dL Normal 6.1-8.2 [facility] Comment on above: Performed By: #### C MP #### [facility] [address] [place], [place] [address] Mary Kay Suzie Sodium [Moles/Vol] 146 mmol/L Critically high 137-145 T [facility] Comment on above: Performed By: #### C MP #### [facility] [address] [place], [place] [address] Mary Kay Suzie Urea nitrogen [Mass/Vol] 15.0 mg/dL Normal 6.4-19.3 [facility] Comment on above: Performed By: #### C MP #### [facility] [address] [place], [place] [address] Mary Kay Suzie Urea nitrogen/Creatinine [Mass ratio] 15.5 mg/mg Normal [facility] Comment on above: Performed By: #### C MP #### [facility] [address] [place], [place] [address] Mary Kay Larsen Encounters Encounter Date Encounter Type Care Provider Facility Start: 04-25-2021 End: 04-25-[address] JERRY PETERSEN Facility:[facility] Start: 04-23-2021 End: 04-23-2021 ambulatory NICOLASA PEDROZA Facility:[facility] Start: 04-17-2021 End: 04-17-[address] JIM GRANDE Facility:[facility] Start: 10-11-2020 End: 2020 ambulatory KIMBERLYN MELCHOR Facility:[facility] Payers Date Payer Category Payer Unknown [id number] 2.16.84 [id number] 1979 Unknown [id number] 2.16.84 [id number] 1981 Unknown [id number] 2.16.84 [id number] 1981 Unknown [id number] 2.16.84 [id number] 1959 Unknown [id number] Clinical Note 05-03-2021 Note Date & Type Note Facility 05-03-2021 Note Microbiology PROCEDURE: Blood Culture Charcoal [R1] SOURCE: Blood BODY SITE: Arm R COLLECTED DATE/TIME: 04/26/2021 15:13 EST RECEIVED DATE/TIME: 04/26/2021 15:35 EST START DATE/TIME: 04/26/2021 15:35 EST FREE TEXT SOURCE: MARV Joel PA-C, Evie Joel PA-C, Evie Astudillo FINAL REPORTS Final Report [] Verified Date/Time: 05/03/2021 18:00 EST No growth at 7 days. Performing Locations R1: This test was performed at: [facility], [address] [place], [place] [id number] [address] Comment on above: Performed By: #### 1 [id number] ####[place] [address] Clinical Note 05-03-2021 Note Date & Type Note Facility 05-03-2021 Note Microbiology PROCEDURE: Blood Culture Charcoal [R1] SOURCE: Blood BODY SITE: Arm L COLLECTED DATE/TIME: 04/26/2021 15:05 EST RECEIVED DATE/TIME: 04/26/2021 15:35 EST START DATE/TIME: 04/26/2021 15:35 EST FREE TEXT SOURCE: marisela Joel PA-C, Evie Joel PA-C, Evie Baez. FINAL REPORTS Final Report [] Verified Date/Time: 05/03/2021 18:00 EST No growth at 7 days. Performing Locations R1: This test was performed at: [facility], [address] [place], [place] [id number] Comment on above: Performed By: #### 2 [id number], [id number] #### [facility] [address] [place] [address] Discharge summary note 05-02-2021 Note Date & Type Note Facility 05-02-2021 Note Admission Informatio n Admit Date/Time:04/27/2021 02:44 Admitting Physician - Volodymyr AMARO DO Hospital Course 20-year-old male with PMH of asthma. Patient presented to the ED secondary to known Covid, generalized weakness, fatigue and SOB. -Patient was treated for acute hypoxic respiratory failure in the setting of COVID-19 pneumonia with dexamethasone, remdesivir and supplemental oxygen with improvement and desaturation study done this a.m. showing no home-going oxygen needs. Sputum culture was not obtained, preliminary blood cultures are negative and will be followed by PCP. Patient will continue on dexamethasone for a total of 10 days of therapy and follow-up with his PCP with a telehealth visit. Patient has had no asthma exacerbation during this hospitalization. Patient will be provided a prescription for a new nebulizer, tubing and mask as he states his is nonoperable and will be provided prescription for albuterol inhaler in addition to albuterol nebulizer medications. -Patient had elevated transaminase levels in the setting of remdesivir use, levels have been stable, patient denies abdominal pain and these levels will likely normalize as remdesivir has been completed. -Patient has had full recovery of his generalized weakness. -Patient is ambulating in room without difficulty, states that all admitting symptoms have significantly improved and/or resolved. Patient is eating and drinking without complaints, denies being SOB, chest pain, pressure, palpitations or difficulty with voiding. Patient is eager to be discharged to home. --Other chronic medical conditions as outlined in note. Refer to d/c plan below: -Case reviewed and discussed with Dr. Nicholas who is in agreement with current d/c plan. Case will be reviewed and discussed with PCP or arch cushion skiving machine operator MD once the hospital chief lock operator is able to reach him/her. I spent a lengthy amount of time with the patient and/or family reviewing discharge instructions, medications, medication use. Patient to follow-up with PCP and specialty providers as scheduled on discharge. Patient being discharged medically and hemodynamically stable with instructions to return to the hospital if symptoms worsen or recur. This report was transcribed using voice recognition software. Every effort was made to ensure accuracy, however, inadvertently computerized mounter flutes and piccolos mistakes may be present. Significant Findings No qualifying data available. Physical Exam Vitals & Measurements T: 36.8 ?C(Oral) TMIN: 36.5 ?C(Oral) TMAX: 36.9 ?C(Oral) HR: 79(Monitored) RR: 19 BP: 108/72 SpO2: 95% WT: 100.2 kg General: A&O x 4, No acute distress. Eye: Pupils are equal, round and reactive to light. HENT: Normocephalic, Normal hearing, No pharyngeal erythema. dry oral mucosa Neck: Supple, Non-tender, No lymphadenopathy. Respiratory: On room air, no conversational dyspnea, states that he is ambulating back and forth to the bathroom without SOB or OJEDA Cardiovascular: Regular rhythm, Good pulses equal in all extremities, Normal peripheral perfusion, No edema. Gastrointestinal: Soft, Non-tender, Non-distended, Normal bowel sounds. Musculoskeletal Normal range of motion. Normal strength. Integumentary: Warm, Dry, Intact. Neurologic: Alert, Oriented, No focal deficits. Psychiatric: Cooperative, Appropriate mood & affect, Normal judgment. Discharge Plan 1. Acute hypoxemic respiratory failure due to COVID-19 (U07.1: COVID-19) + COVID 19 at [facility] -> Unvaccinated -CXR: COVID 19 PNA -Initial AB.44, PaCO2 42.1, PaO2 72.2, HCO3 28.0 on room air -Procal level - neg -Consult pulm - plan apprec. -04/27: Dexamethasone, Remdesivir x 5 days -> monitor hepatic panel/Cr. daily -Add barcinitib if pt. placed on increased 02 -Vt. D 5,000 IU daily, C 500mg daily, melatonin 6mg HS, -Discussed treatments as above: risks/benefits/complications with patient -> is agreeable -Lovenox -> if Ddimer > 3,000 will uptitrate dosing -Supplemental 02, med nebs, IS/flutter, mucinex -Self pronation as tolerated -> pt. instructed, nrsng to monitor,,,, -Trend LDH, Ddimer, ferriitin, CRP, procalcitonin -Sputum cx - not obtained -Bl. cx. - prelim - neg -Desat prior to d/c - no home going needs -Isolation precautions Appropriate healthcare PPE was used in evaluating this patient. The patient was placed in a mask. The healthcare provider was wearing mask, gloves, googles and utilizing proper hand hygiene. All equipment was properly cleansed. Ordered: Misc Prescription, Nebulizer, 1 machine w/ approp. tubing/mask, Print Requisition, Supply 2. Elevated transaminase level (R74.01: Elevation of levels of liver transaminase levels) -Likely 2/2 remdesivir - levels stable -> denies abd. pain -Trend labs 3. Weakness (R53.1: Weakness) 2/2 above -UA - no infectious process -See above 4. Dehydration (E86.0: Dehydration) 2/2 poor PO intake -IVF x 1L given -Trend labs 5. Asthma (J45.909: Unspecified (more content not included)... [facility] Comment on above: Result Comment: Elec tronically Signed By: Steph WATERMAN\.br\Date and Time Signed: 05/01/21 10:58 EST\.br\Electronically Co-Signed By: JOSE JUAN ROWE, Adalberto\.br\Date and Time Co-Signed: 05/02/21 09:44 EST Clinical Note 04-28-2021 Note Date & Type Note Facility 04-28-2021 Note HENNY Nur entered t he room to discuss dc planning. DME discussed. PCP/Insurance reviewed. Pt is alert and involved in plan of care. Contact information provided and whiteboard updated. Pt is COVID pos, proper PPE donned. Pt lives with mother and she [place] be transport [place]. No further needs. Ant dc TBD. CRM to follow. [facility] Comment on above: Result Comment: Elec tronically Signed By: Liudmila Marie\.br\Date and Time Signed: 04/28/21 11:36 EST History and physical note 04-27-2021 Note Date & Type Note Facility 04-27-2021 Note Chief Complaint mother states that the patient was dx with COVID and is now experienced extreme fatigue, generalized weakness and difficulty breathing. History of Present Illness Patient is a pleasant 20-year-old male with a past medical history significant for asthma. Patient states he has never been hospitalized for asthma. 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 Patient does not require use of metered-dose inhalers. He denies smoking. He denies vaping. Patient states approximately 9 days ago on a he developed symptoms of muscle ache chills, loss of taste and smell, headache and chest pain that would occur when he would cough. He admitted to having slight nausea but did not have any vomiting did not have diarrhea. States he is struggled with weakness and does describe some lightheadedness when he stands. States his urine has been dark patient presented to the emergency department this evening because of concerns about worsening shortness of breath and weakness. He was given a pulse oximeter after he tested positive at the [facility] 9 days prior. He states his sats have been as low as 74% at home. He describes the diminished oxygen saturation as occurring when I first stand up . He denied this occurring just with exertion denied it occurring when supine. When he first arrived to our emergency department his sats were 86% respiratory rate as high as 27. Blood gases were obtained and demonstrated a PaO2 of 73 mmHg, pulse ox of 94% with only a mildly elevated AADO2 73. Per review of the chart this was recorded as being on room air. I did question the emergency news department intern if this was on room air as documented but she was uncertain. While being observed in the emergency department at one point his pulse ox was 91% on room air. With further questioning patient advises me that he has been to the [facility] emergency department on 3 other occasions over the past week did not feel satisfied with no improvement in his symptoms thus came to this facility. I was advised by the emergency news department intern that the patient's parents brought him in they were quite frustrated with him and did not feel that he was getting up and walking around. Patient states he has had decreased activity level because he has had moderate to severe shortness of breath with even minimal degree of activity has progressed over the past few days. I was advised the patient's pulse ox with walking only 5 feet on room air dropped down to approximately 86%. Patient also states he has been limited because of weakness and lightheadedness. Patient states he continues to have a low-grade temp he estimates low 100s which she has had all along it has not resolved nor has it worsened. His cough persist but is now nonproductive a few days prior was productive of thick yellow mucus. Patient admits that he is unvaccinated. He believes that he had been exposed at work as his boss was positive for COVID-19 Review of Systems Constitutional: mild fever, no chills, no sweats, no weakness Skin: no Jaundice, no rash, no lesions, nopetechiae ENMT: no ear pain, no sore throat, no congestion, no hoarseness Respiratory: moderate shortness of breath with minimal exertion, moderate cough, no orthopnea, no wheezing Cardiovascular: moderate chest pain with cough, no palpitations, no edema Gastrointestinal: mild nausea, no vomiting, no diarrhea, no GI bleeding Genitourinary: no dysuria, no hematuria, Musculoskeletal: no back pain, no trauma Neurologic: no headache, moderate dizziness, no numbness, moderate weakness Psychiatric: Feels as if he wants to sleep all the time, no irritability, no mood swings/depression. Heme/Lymph: no bleeding tendency, no bruising tendency, no petechiae, no swollen nodes Allergy/Immunologic: no seasonal allergies, no food allergies, no recurrent infections, no impaired immunity Additional ROS info: Except as noted in the above Review of Systems and in the History of Present Illness all other systems have been reviewed and are negative or noncontributory. Physical Exam Vitals & Measurements T: 37.1 ?C(Oral) HR: 86(Monitored) RR: 30 BP: 124/81 SpO2: 94% WT: 104.1 kg WT: 104.1 kg General: Patient was alert but did appear quite weak. Note his oxygen saturation was 9495% on 2 L. While interviewing him I did turn down his oxygen. His sats were 90 to 91% while lying supine not speaking and not exertional. After I had asked him to sit forward he was complaining of chest pain and abdominal pain whenever he would take a deep breath. Have diminished ventilatory volume sats dropped down to mid 80s on room air. He became tachycardic with a heart rate of 120 he began coughing and became significantly dyspneic. After laying back down not exerting himself after he stopped coughing his sats was still below 90%. I turned his oxygen back on within less than 2 minutes he recovered and no longer a (more content not included)... [facility] Comment on above: Result Comment: Elec tronically Signed By: Volodymyr AMARO DO\.br\Date and Time Signed: 04/27/21 02:51 EST Summary Purpose Family History No Family History Records FoundNo Family History Records Found Advance Directives No Advanced Directives Records FoundNo Advanced Directives Records Found Additional Source Comments (unrecognized sect ion and content) No Status Records FoundNo Status Records Found INFORMATION SOURCE (unrecogn ized section and content) DATE CREATED AUTHOR 04/29/2021 [facility] DATE CREATED AUTHOR AUTHOR'S ORGANIZ ATION 05/06/2021 [facility] FOR RECORDS PERTAINING TO PATIENTS WHO ARE OR HAVE BEEN ENROLLED IN A CHEMICAL DEPENDENCY/SUBSTANCEABUSE PROGRAM, SOME INFORMATION MAY BE OMITTED. This clinical summary was aggregated from multiple sources. Caution should be exercised in using it in the provision of clinical care. This summary normalizes information from multiple sources, and as a consequence, information in this document may materially change the coding, format and clinical context of patient data. In addition, data may be omitted in some cases. CLINICAL DECISIONS SHOULD BE BASED ON THE PRIMARY CLINICAL RECORDS. [facility]. provides no warranty or guarantee of the accuracy or completeness of information in this document.
--- NOTE | 2023-05-14 16:22 | ED_ITS ---
HPI - General Adult General Chief complaint: Upper Respiratory Infection Stated complaint: TONSILITIS 1 WEEK AGO, NOW BLACK Time Seen by Provider: 05/14/23 16:16 Source: patient Mode of arrival: walk-in Limitations: no limitations History of Present Illness HPI narrative: Patient is a 22yo male who is presenting to the Emergency Room with chief complaint Of discoloration noted to the right tonsillar pillar by mother. Patient was in here 5 days ago, started on a antibiotic for tonsillitis. Patient's throat is better, pain is better. Patient has no difficultyy eating or drinking. Patient mother was looking in the back of his throat to reassess his anatomy, and noticed a black area to the back of the right tonsil. No active bleeding. No coughing. Patient's no difficulty breathing, no trismus, patient does not notice anything in the back of his throat. Patient was brought too the Emergency Room for reevaluation. Patient has had no trauma, no other sharp things to eat or drink recently. No other acute complaints. . All systems are negative except as noted/marked. All systems reviewed and otherwise negative. . Nurses note and vital signs reviewed and patient is not hypoxic. General: The patient appears well and in no apparent distress. Patient is resting comfortably on cart. Patient is not toxic, lethargic, or listless Skin: Warm, dry, no pallor noted. There is no rash noted. No petechiae, p urpura. Head: Normocephalic, atraumatic Eye: Normal conjunctiva, no drainage, EOMI. PERRL Ears, Nose, Mouth, and Throat: oral mucosa is moist. Nares patent. Mouth without vesicles. Patient's bilateral tympanic membrane shows no erythema, perforation or bulging. Mild cerumen impaction noted bilateral. Patient has a 1.5 cm ecchymotic mass protruding from his right tonsillar pillar. Uncertain initially that this is foreign body. No bleeding. No unilateral swelling to the right or left tonsil. No uvulitis. No kissing of the tonsils. No otheer acute complaints. Cardiovascular: Regular Rate and Rhythm, no murmur, gallop, rub Respiratory: Patient is in no distress, no accessory muscle use, lungs are clear to auscultation, no wheezing, rales or rhonchi Back: non-tender, GI: soft, Obese, no tenderness to palpation, Musculoskeletal: Patient has full range of motion of all of the extremities, no motor, sensory, or focal neurological deficits Neurological: A&O x3, normal speech Psychiatric: Cooperative Related Data Previous Rx's Medication Instructions Recorded amoxicillin 875 mg-potassium 1 tab PO Q12H #14 tabs 05/09/23 clavulanate 125 mg tablet prednisone 50 mg tablet 50 mg PO DAILY 5 days #5 tabs 05/09/23 Allergies Allergy/AdvReac Type Severity Reaction Status Date / Time nkda AdvReac Intermediate Uncoded 05/09/23 08:30 PFSH PFSH Social History Smoking status: Never smoker Exam Constitutional Vital Signs, click to edit/add: Last Vital Signs Temp 99.0 F 05/14/23 16:08 Pulse 111 H 05/14/23 16:08 Resp 18 05/14/23 16:08 BP 110/83 05/14/23 16:08 Pulse Ox 98 05/14/23 16:08 O2 Del Method Room Air 05/14/23 16:08 Course Vital Signs Vital signs: Vital Signs Temperature 99.0 F 05/14/23 16:08 Pulse Rate 111 H 05/14/23 16:08 Respiratory Rate 18 05/14/23 16:08 Blood Pressure 110/83 05/14/23 16:08 Pulse Oximetry 98 05/14/23 16:08 Oxygen Delivery Method Room Air 05/14/23 16:08 Temperature 99.0 F 05/14/23 16:08 Pulse Rate 111 H 05/14/23 16:08 Respiratory Rate 18 05/14/23 16:08 Blood Pressure 110/83 05/14/23 16:08 Pulse Oximetry 98 05/14/23 16:08 Oxygen Delivery Method Room Air 05/14/23 16:08 Medical Decision Making [facility] Narrative Medical decision making narrative: Patient is a 1.5 cm dark purplish/dark red object/mass/fforeign body noted protruding from the right tonsillar pillar. With tongue depressor, the mass was palpated to see if it could be dislodged or not, it did not cause patient any pain to touch this mass. It initially almost appear to be a foreign body. With a tongue depressor, I attempted to see if this mass/foreign body could be removed or from the right tonsillar pillar. With multiple attempts to see if the mass could be dislodged, I cannot be. Minimal bleeding occurred, less than 0.5 mL. This lesion/mass was not friable at all. It was noted that the mass cannot be or dislodged. With the multiple times, less than 5, patient never had any pain. Touching the mass/lesion cause no pain. Patient had no other intraoral pathology seen. Patient has no trismus, tying secretions well. Patient's sore throat has significant improved. Mother was at bedside throughout the probing. I attempted to call patient and see who he saw approximately 10 years ago, Dr. Che. The office was closed and nobody is on-call for [facility]. No acute indication for imaging or admission at this time. It is recommended that patient and mother call ENT office on Wednesday for follow-up. Specific instructions were written on their discharge papers. Patient has had no significant bleeding at all. No airway ccompromise, no difficulty breathing, patient does not notice the mass in the back of his throat at all. If patient has bleeding, difficulty breathing, pain, or any other acute concerns patient will return to Emergency Room for reevaluation. Otherwise patient and mother feel comfortable going home and will call ENT on Wednesday. Acute indication for imaging or transfer because we had no ENT coverage at this time. Discharge Plan Discharge Chief Complaint: Upper Respiratory Infection Clinical Impression: Tonsillar mass Patient Disposition: Home, Self-Care Condition: Fair Prescriptions / Home Meds: No Action amoxicillin-pot clavulanate 875-125 mg tablet 1 tab PO Q12H Qty: 14 0RF prednisone 50 mg tablet 50 mg PO DAILY 5 Days Qty: 5 0RF Instructions: Tonsillitis (ED) Additional Instructions: Call Dr. huynh/Dr. Che office on Wednesday AM. When he speak to the office, let them know you have a ecchymotic soft tissue mass coming from the right tonsillar pillar. Also at the office no urine the Emergency Room twice this week. We attempted to call the ENT office at 4 PM and cannot contact any physician. If you have any type of acute bleeding, difficulty breathing, or any other significant concern return the Emergency Room immediately. Soft diet until you follow up with ENT. Popsicles, ice cream, cold drinks to help with pain and swelling. Finish antibiotic. Stand Alone Forms: Portal Instructions Referrals: [facility] [Primary Care Provider] - 1 week Daniella Linton MD [Physician] - 1 week Discharge Date/Time: 05/14/23 17:24
== END 2023-05-14 17:24 | disposition home or self-care (01) ==
PROVIDERS: Emergency Provider Emergency Medicine
DX: J35.8 Other chronic diseases of tonsils and adenoids (principal)
CPT/HCPCS: 99281

== ENCOUNTER 2023-08-10 16:44 | Emergency (ER) | payer OTHER, SELFPAY ==
[2023-08-10 16:46] VITALS: BP 135/92; PULSE 96; TEMP 36.8; O2SAT 96; BMI 32.9
--- NOTE | 2023-08-10 17:00 | ED.URI1 ---
HPI - URI/Sore Throat General Chief Complaint: Upper Respiratory Infection Stated Complaint: Upper Respiratory Infection Time Seen by Provider: 08/10/23 16:46 Source: patient Limitations: no limitations History of Present Illness HPI Narrative: 22-year-old male presents for a 1 week history of sore throat and loss of voice and slight cough. He is worried about having COVID. No known fever and his cough is nonproductive. No vomiting or diarrhea. His voice is improving. Related Data Previous Rx's ?Medication ?Instructions ?Recorded amoxicillin 875 mg-potassium 1 tab PO Q12H #14 tabs 05/09/23 clavulanate 125 mg tablet prednisone 50 mg tablet 50 mg PO DAILY 5 days #5 tabs 05/09/23 Allergies Allergy/AdvReac Type Severity Reaction Status Date / Time nkda AdvReac Intermediate Uncoded 05/09/23 08:30 Review of Systems ROS Narrative A ten point review of systems is negative except as noted above. PFSH PFSH Social History Smoking status: Never smoker Exam Narrative Exam Narrative: Nurses note and vital signs reviewed and patient is not hypoxic. General: The patient appears well and in no apparent distress. Patient is resting comfortably on cart. Skin: Warm, dry, no pallor noted. There is no rash noted. Head: Normocephalic, atraumatic Eye: Normal conjunctiva, no drainage Ears, Nose, Mouth, and Throat: oral mucosa is moist. Nares patent. No exudate. His voice is mildly hoarse. Cardiovascular: Regular Rate and Rhythm Respiratory: Patient is in no distress, no accessory muscle use, lungs are clear to auscultation, no wheezing, rales or rhonchi Back: non-tender GI: Soft and nontender Musculoskeletal: The patient has no evidence of calf tenderness, no pitting edema, symmetrical pulses noted bilaterally Neurological: A&O, normal speech Psychiatric: Cooperative Constitutional Vital Signs, click to edit/add: Last Vital Signs Temp 98.2 F 08/10/23 16:46 Pulse 96 H 08/10/23 16:46 Resp 17 08/10/23 16:46 BP 135/92 H 08/10/23 16:46 Pulse Ox 96 08/10/23 16:46 O2 Del Method Room Air 08/10/23 16:46 Course Vital Signs Vital signs: Vital Signs Temperature 98.2 F 08/10/23 16:46 Pulse Rate 96 H 08/10/23 16:46 Respiratory Rate 17 08/10/23 16:46 Blood Pressure 135/92 H 08/10/23 16:46 Pulse Oximetry 96 08/10/23 16:46 Oxygen Delivery Method Room Air 08/10/23 16:46 Temperature 98.2 F 08/10/23 16:46 Pulse Rate 96 H 08/10/23 16:46 Respiratory Rate 17 08/10/23 16:46 Blood Pressure 135/92 H 08/10/23 16:46 Pulse Oximetry 96 08/10/23 16:46 Oxygen Delivery Method Room Air 08/10/23 16:46 MDM - URI/Sore Throat MDM Narrative Medical decision making narrative: COVID, influenza, and strep are all negative. My clinical impression is that he has a viral URI. Antibiotic not indicated. Treatment diagnosis and follow-up were discussed with the patient. Differential Diagnosis Differential diagnosis: Likely upper respiratory infection, influenza and other (COVID, viral pharyngitis, strep throat) Lab Data Attestation: I reviewed the patient's lab results. Labs: Lab Results 08/10/23 Range/Units 16:49 Influenza Type A Ag Negative Influenza Type B Ag Negative SARS-CoV-2 Ag (CV2AG) Negative (NEGATIVE) Streptococcus Screen Negative Discharge Plan Discharge Stand Alone Forms: Portal Instructions Chief Complaint: Upper Respiratory Infection Clinical Impression: Viral URI Patient Disposition: Home, Self-Care Time of Disposition Decision: 17:31 Condition: Good Mode of Transportation: Private Vehicle Prescriptions / Home Meds: No Action amoxicillin-pot clavulanate 875-125 mg tablet 1 tab PO Q12H Qty: 14 0RF prednisone 50 mg tablet 50 mg PO DAILY 5 Days Qty: 5 0RF Print Language: Mozambican Instructions: Upper Respiratory Infection (ED), Viral Syndrome (ED) Referrals: [facility] [Primary Care Provider] - 1 week
--- OUTSIDE RECORDS SUMMARY | 2023-08-10 17:06 | XMS_ITS | CCD ---
Author Organization [facility] Care Team Providers Care Bumper Operator Name Role Phone KIMBERLYN MELCHOR Consulting Unavailable [facility] HARJINDER, DR JIM De Dios Attending Unavailable HARJINDER, DR JIM De Dios Admitting Unavailable Jason, Alexis Consulting Unavailable HARJINDER, DR JIM De Dios Admitting Unavailable [facility] GRANDE, DR JIM De Dios Attending Unavailable GRANDE, DR JIM De Dios Consulting Unavailable KASIA, NICOLASA Admitting Unavailable KASIA, NICOLASA Attending Unavailable KASIA, NICOLASA Consulting Unavailable [facility] PAY, DR EDWARDS Attending Unavailable PAY, DR EDWARDS Consulting Unavailable [facility] PAY, DR EDWARDS Admitting Unavailable Michelle, Chrissie Consulting Unavailable MURCEK, KARISSA Mccrary Attending Unavailable PAY, JERRY Referring Unavailable Problems Active Problems Problem Classification Problem [...] Range Facility Coding Summary.on 05-06-2021 Coding Summary. [id number] G h0bWw+PGhlYWQ+UC0ZCOK bM29tyDTgpO6XW4hFZJ3C VZYWRLJUNI5ZQQ5bwUB6A ObgI0LfzgLr AhnsnTAuVP28XYl3NVM7u EtfGRcuzI4uzAQqK8r3Ld QtXZ71kD80XRbvHXWjLuP 3LjZpbjsgbWFy Z6czVkPrwYIpFri+PHRhY mxlIHdpZHRoPScxMDAlJy JbqQqiVY7eIa3pBPAbEOE vbGxhcHNlOiBj k3ayKOAhATuhDA4piQpaP 9TtuXE3NKPxs0t4Yv36lZ I+GFVpFJI1wCrtUOtwi40 5YyJcu3pyCGJ4 oVSxVHgrEDQ0P39om6J4L JYzWKUqRYR4sAE1aV4pvY rywrlqY8RobTNxGmT7QKD 4hGGibY4omXfe lnizoQ5aZvr+K87PSG0KN KAKCA4EFnd0B4RdHsdiqW I+PW08ZFInNI80pRYycXG td7efhBb4XbFq PKMyDKB0dEosRVoev8FcQ OZpH63loIJuy4F9ARLgnR rmwRAvDfSraLN6jD8pAOm thrrse3qjsuoq Nuuaq0uobq01qQ74Q29eC DigBRYgJPN1LJNvXTQroO oydl2wyH7hLs0+UUyoh4k eg5knvWq4LvXf VDOkexTgzRysRIA2z4CwO n82N7CizLdfe6DvDso0hp 18vDXzc4E2gHV9VEpyCJB mzR2mNYeeAxQ9 NYHlMtTzbJ60wDYuPKdqA w6fmXsdrYrbOO5zPRGkgg odJQDspF8iERLsyCYsiSx mON3qJUJmujjc a180UdArJPV2YZAopJTeZ 3UnyF7wVgFbFJKkGEEnU1 VshBMwBBidW892CNjbIcT 2MCMjwuYhU0Bq FZTsdXwgVxW2q8T0Sj6Bq 5RehdanLBN7EMavENIzKd I5WrWbPiQ0D5PiDtm2JTK hcCceMW8eW7Oa ARPdjmxiatevcEZ5ZSBkL CWjzH57oDDpSMzeAt1pa2 B9o861HXLgYMRheF69Pq9 udDogMTBwdCBU zE8khwmvg5emoquxQdCpA YJcXEi3CMi3SYVhnFdoOz GsUUZ5PyJ0WDS9hJSfrI2 oxCdwtmwvyU9s Oyc+U75baC4xUPA7XJQ8y srmQUSagcAzBH62EJ99B5 RyPjwvdGFibGU+PGRpdiB yoRciKU9qOcQo k2fbk8PpGLxvO6XvDHZpU FvuUzq0UYBbMKE4lFR7dK 0xUOWgLFnjt9W5dMT3N6A malRzoc0fa2ik PSXtCBfpM78tiPWuw0E9U JWdnDV8QZUaoBeqTfYppU 93Oyc+VPDzjVffr5BvYfu fk5ysy3feyFy9 RcJbKROxezSbhCtlBOY4s 2SqYw97T33nNOewCOIjOP ZvTCXfDHHacRerjp7jfY4 wIi8+PGNvbCB3 mCL9pE7hYXEmLaK2SVajV 925ZyJmrBMdCnomd0qza8 xpsKp4LhLoKUBveiLebJk jSUR8f2VqJn75 X44yUQbxVEQySDGnZPWlY WYdoWsalj3hxI6vXn1+PC 2nh7jmgn93uZ97oGU+PHR qWCT3iZyhXGnb HSSrgD6pWAjvKoN6DRFfJ mDfoE88cPZkHKwaOg7biQ ntoLijJB0jAEPwokdyt91 7DlLcx8lrWLVw cTYuTBanPQR1T48qk0S1F ICkDCFpVXZ8yWL0hK1hdX lnbjogbGVmdDsgdmVydGl nRMnvFQarT756 IHRvcDsnPlBhdGllbnQgT vSpRYt2J9RvIuf4LBWepC qdKG3vuPSkUNwoGd8aiHo qbXdmKT8kPHBf hlecc091YjDqu2tvDUPsc MFeSDmpJOZ0S84rc9C8MK IoIROjVJG9nKP3tA0smNs nbjogbGVmdDsg bwBohXqqZCkzVBfxC512K HRvcDsnPkJpcnRoIERhdG V0JR90PD47qQDpn9K8hTP 5I6BsFVGcjsjp skamaMA4XEWnJXAsjZ27E i5icAtkPv5mALTmWMY1TH DsnJScJ0StmZ0gFuBoFPR gQLGjW9FbxJZy CJjiH730UCuoIcP9KABew zGyE9AwZRUhgUtzXrJ0g5 D6Cs9GD3D9TU11KW02nCA fq9D6yME7E6Ec MGVznpyghpbgxEF5VXVzG HGztB44Wp2roRysPz9zSB WoFKL3DGUpuEQdJ3MqlC2 yOiAjMDAwMDAw A6KhiRDoUEsgX267EBvtO wN2WEHtdeOpN6TyPFItvY dhPfW9f2W1Vn0YXNn8WA9 6PY27eVWec8O2 vFV2R4NjPOLmljqwavetq OT9RMQaDHJirY72Go9foU xlAa8kGKWqLVJ9MUVxbOS uV7FfeI1fNjKg PHQtEXGsL8NdeZFrQGqmD 373ODieAjY4UZEiftVoX1 WuUMDngBqvAuU3p5U2Av6 LWNYrEP68AQN0 nYL8XU12WC01Q7LnDopuu GFibGU+PHRhYmxlIHdpZH RoPScxMDAlJyBzdHlsZT0 aMm3hRRDcUGDx mDsieJChVrBlg9kaDRMyM QczSC2beZgpL7QhvRX6DX Mrz0h0Dj03R73sN7KgvBK +VLEsyYF2fLI6 yV4jFgRvBxJ0CEqrF707J kPesRPgGgkfg0fux4ineK h0HsN4OXMfgxZcaBooGTZ 6c7YlXs70D39q IHdpZHRoPSIxNSUiIHZhb Zjbho6hvV0bFv7+PGNvbC X8eSX9bJ3pMzWgZuD1YPw rR239TfMsdCKg Ddttl9ebj1brnPn3JnGpX WSvmoUkvFjzFLM0i4YdPt 30S7GwbBtco1MjLpf7oi2 5jFMwf7A2xHG8 L6NjIUYsqbimsIJvyKxxP V6oLJJknlkbIIMgeZ2xUP RgV6u9TsCzQbG9ZAzfD2O ugqW5MQRxaJNo YKpzHUC6N66mv6O6FSXuL RTkKAL0iSX3kS1tfRhune ogbGVmdDsgdmVydGljYWw gFMomR713UFRu kAcsYBWpvM7yTMAbzRHon SylPV9pNOEtulwdHuEPMW 4ARghgWa3VHRNUEUkDQD3 3YO74dVZvu6L9 fAH6X0DuJEIxftmafeeop AX3ZAWvDJUkxG27nFRbSO ioKt3gt0E8x538ZPMyBRF cvQ99Dj3ruVte KJJmxLWCvI5zgqmrm6suz tjtGpAoFUPxSYd4OKc0CS HmlAbbOlBxMHR5FdG8JIE 4aCUosR9roOvj dmzclT9bOil+MDYvMDUvM jAwMzwvdGQ+YYLzADO3wD iwGWcgFXXgjE7lUOAbW3n 0IqQtWbC9UPvx H5WlHBRubbvfRc18mI7cN iNmOaJ6DFuyY7BovrW5ZM HheUCgHYifNIO9Z56kl4L 6ZHKyXLTqBKD8 cBH6cF4voLebpzslcLAgs DsgdmVydGljYWwtYWxpZ2 25KHFlyDglPdH0GJwuRFF xZZ43PF87lOCa x9I7dZP5Y7GrSNHefclue kaemKN5DGOqFYEvnK91tM ZkEJvvLt3rw7W0h394VUL xWNZjlG89Gj5j eSneGVTpqYDHkU4amxikq 7ufrjwpBjGvECYtZAy4TS b7YYEuaGdzShDbKTB6ImP 5QNP9gMPiiM0i pVsyjkicmX3zIlh+TWFsZ TwvdGQ+KMIdJZG0qVhsJJ jvEMBxqC6vZWQwG1q2VnH oBzU8UIxdR3Oo WMGpoibvFo72tO1rUfKbJ mQ3SMfuU5GtktM6UMRlxU ZtGPdeDJH5D07hv3W2IYL sJCXiAMX0yBK9 fT0asGznmkjngTKljPglz jWmjSwwTFlzINbfQ112OJ YpxOyvMqjggUJ0wYKogEu vdGQ+TL56ia11 R8KsGqhtGev4FVLoUHU6c HI9hM2zJCUrCMbci0G3pS Y6W5DikhYyos1mf8jqZTB jXUvsM07shVSj e8P0TNTpmXR6BVKadAtuH hNikL66Xva+PGNvbGdyb3 QqTedfq3swu0hltBe1ZoD wJSIgdmFsaWdu URG5q3CkCw62K45yFJhvF HRoPSIzMCUiIHZhbGlnbj 6mnH4nDk4+PXDrnKY4jQT 8vO2wCzXwEdZ3 POfkA992LmOsdCUjDapkl 1vif1okpOw4GsFnFITyko NgyIqjJBO5x9QkPu06P8D cjSiju5YbTmz0 rx73mBHmi0L5cJG8L6StP SGfbxvyoNWslUvvPG1wFE MivygzUFAivR1eFVExX2l 8CoIiVuB8CJjg E3YlzhS3HJJniPQyPMJms KFIdA5nkmmre8zcpoxlIj BqLKBaCYw3GAc7CZZwrYa fYhJfZWM2QgC7 AMP5kPYwpY7beHyifemql G9wOyc+EZc7x3snnKQgLG 2qmMT9AA65IW28vMPuj1G 1lRU8D4NdHMAq cqcmaxvwmOO9TRHxYCOva N76Ba2jwBzuCa7bXUHpHI G0FKJejLHiF5WckE4kBsE uWJGyQUOuB4Kh wWCyBZtaW333ILkdRjQ0B BTwkjCaI7WkFOWspMfrHb S1q9U5Yy5TEW70LI83RT5 8uNBdr1I7cMW7 C5FmVHOxkrafzifijRA6Z OUyESTlbC56Nv6ddYyrFi 3bJGFjSYS9VLVvgMFwB9D xlV7oKbJwZFBj OTTgR1IxhUIoHHfmL688P RjiAdA5ZBBcpfDeQ7IfZG FzuActArV6l9O7Lm5DDh9 2WD15WK28lMQu t4P5hVM0S2TaDORwxgwba khzoSU2MISiGVRjfA01Zg 4fmEpsUh7eVCUiVNQ8NWS dmQRvA9OanO9d QsGgRGYaZSQqO9QrqVWyO JctE806BKqkXoB2GMYcfo ZrB8KwNNNteDrxVhC1z6H 6Hl8VINmfkll5 T3LkUmritKX+VZ19CMRoY J18nZGdyUWig6aqyHi4Iq GiLDOnGXZ3mFzgAPubz5L eBEDsG38wcKIw c2U6 (more content not included)... Normal [facility] .Manual Abson 05-01-2021 Basophils/Leukocytes Manual cnt (Bld) [Pure # fraction] 0.0 E9/L Normal 0.0-0.2 [facility] Comment on above: Performed By: #### 2 112945, 5811869, 6460521, 7798911 #### [facility] [address] [place] [address] Eosinophils/Leukocyte s Manual cnt (Bld) [Pure # fraction] 0.1 E9/L Normal 0.0-0.5 [facility] Comment on above: Performed By: #### 2 806270, 3128325, 2769888, 9341389 #### [facility] [address] [place] [address] Lymphocytes/Leukocyte s Manual cnt (Bld) [Pure # fraction] 5.2 E9/L High 1.0-4.0 [facility] Comment on above: Performed By: #### 2 008365, 5326029, 1472607, 5604597 #### [facility] [address] [place] [address] Monocytes/Leukocytes Manual cnt (Bld) [Pure # fraction] 1.3 E9/L High 0.2-1.0 [facility] Comment on above: Performed By: #### 2 473564, 2162202, 8728581, 4648659 #### [facility] [address] [place] [address] Neutrophils/Leukocyte s Auto (Bld) [Pure # fraction] 7.4 E9/L Normal 2.0-7.5 [facility] Comment on above: Performed By: #### 2 684638, 6977197, 1413132, 6154341 #### [facility] [address] [place] [address] CBC w/ Auto Diffon Erythrocyte distribution width (RBC) [Ratio] 13.6 % Normal 10.9-14.2 [facility] Comment on above: Performed By: #### 2 740187, 2369161, 1240937, 4107868 #### [facility] [address] [place] [address] Hematocrit (Bld) [Volume fraction] 42.7 % Normal 37.7-49.0 [facility] Comment on above: Performed By: #### 2 687553, 6244942, 9533956, 7221305 #### [facility] [address] [place] [address] Hemoglobin (Bld) [Mass/Vol] 14.6 g/dL Normal 13.5-17.5 [facility] Comment on above: Performed By: #### 2 956094, 5472053, 4345840, 4363725 #### [facility] [address] [place] [address] MCH (RBC) [Entitic mass] 27.5 pg Normal 27.0-34.0 [facility] Comment on above: Performed By: #### 2 577805, 5696106, 8425928, 2946941 #### [facility] [address] [place] [address] MCHC (RBC) [Mass/Vol] 34.2 g/dL Normal 31.4-36.0 [facility] Comment on above: Performed By: #### 2 925221, 8288018, 2428282, 6726849 #### [facility] [address] [place] [address] MCV (RBC) [Entitic vol] 80.4 fL Normal 80.0-100.0 [facility] Comment on above: Performed By: #### 2 615938, 8185863, 2859664, 8764548 #### [facility] [address] [place] [address] Platelet mean volume (Bld) [Entitic vol] 7.0 fL Normal 6.4-10.8 [facility] Comment on above: Performed By: #### 2 134938, 3118934, 1386110, 1306226 #### [facility] [address] [place] [address] Platelets (Bld) [#/Vol] 371.0 E9/L Normal 150.0-500.0 [facility] Comment on above: Performed By: #### 2 053308, 6588977, 3150126, 3838750 #### [facility] [address] [place] [address] RBC (Bld) [#/Vol] 5.3 E12/L Normal 4.3-5.9 [facility] Comment on above: Performed By: #### 2 899830, 3234823, 7324533, 5567054 #### [facility] [address] [place] [address] WBC corrected for nucl RBC Auto (Bld) [#/Vol] 14.5 E9/L High 4.0-11.0 [facility] Comment on above: Performed By: #### 2 714333, 5012060, 0642970, 1036944 #### [facility] [address] [place] [address] CMPon 05-01-2021 Albumin/Globulin (S) [Mass conc ratio] 1.1 Normal 1.1-2.2 [facility] Comment on above: Performed By: #### 2 765970, 7482447, 8984558, 5459702 #### [facility] [address] [place] [address] Globulin (S) [Mass/Vol] 2.9 g/dL Normal 1.4-4.0 [facility] Comment on above: Performed By: #### 2 024197, 0761443, 5961110, 6022964 #### [facility] [address] [place] [address] Urea nitrogen/Creatinine [Mass ratio] 26 No Units High 10-20 [facility] Comment on above: Performed By: #### 2 934489, 9258209, 3880947, 4253328 #### [facility] [address] [place] [address] Albumin [Mass/Vol] 3.1 g/dL Low 3.3-5.0 [facility] Comment on above: Performed By: #### 2 294851, 1807030, 5912182, 4903096 #### [facility] [address] [place] [address] ALP [Catalytic activity/Vol] 88 Int._Unit/L Normal 21-98 [facility] Comment on above: Performed By: #### 2 005393, 5827445, 2676351, 5316769 #### [facility] [address] [place] [address] ALT No additional P-5'-P [Catalytic activity/Vol] 173 Int._Unit/L High 6-46 [facility] Comment on above: Performed By: #### 2 468947, 4871155, 8679475, 2353220 #### [facility] [address] [place] [address] Anion gap [Moles/Vol] 10 mmol/L Normal 6-16 [facility] Comment on above: Performed By: #### 2 526611, 7988527, 3695958, 9189662 #### [facility] [address] [place] [address] AST [Catalytic activity/Vol] 52 Int._Unit/L High 5-43 [facility] Comment on above: Performed By: #### 2 747305, 8393257, 8771547, 5404393 #### [facility] [address] [place] [address] Bilirubin [Mass/Vol] 0.4 mg/dL Normal 0.0-1.1 [facility] Comment on above: Performed By: #### 2 461650, 2663826, 8253672, 7820504 #### [facility] [address] [place] [address] Calcium [Mass/Vol] 8.4 mg/dL Low 8.9-11.1 [facility] Comment on above: Performed By: #### 2 394346, 7379579, 1200661, 4642544 #### [facility] [address] [place] [address] Chloride [Moles/Vol] 104 mmol/L Normal 101-111 [facility] Comment on above: Performed By: #### 2 396700, 3243176, 0314147, 6404126 #### [facility] [address] [place] [address] CO2 [Moles/Vol] 27 mmol/L Normal 21-31 [facility] Comment on above: Performed By: #### 2 961189, 6985348, 6850586, 0858575 #### [facility] [address] [place] [address] Creatinine [Mass/Vol] 0.7 mg/dL Normal 0.5-1.3 [facility] Comment on above: Performed By: #### 2 055893, 2982133, 5335268, 4935675 #### [facility] [address] [place] [address] Glucose [Mass/Vol] 127 mg/dL Normal 55-199 [facility] Comment on above: Result Comment: If t his glucose result represents a fasting glucose, interpretation should refer to the following reference range: 55-99 mg/dL Performed By: #### 2 920636, 2572650, 3032010, 1547177 #### [facility] [address] [place] [address] Potassium [Moles/Vol] 3.9 mmol/L Normal 3.5-5.3 [facility] Comment on above: Performed By: #### 2 933824, 4573487, 1925881, 7534178 #### [facility] [address] [place] [address] Protein [Mass/Vol] 6.0 g/dL Normal 6.0-7.8 [facility] Comment on above: Performed By: #### 2 777405, 0699579, 2865791, 0243013 #### [facility] [address] [place] [address] Sodium [Moles/Vol] 137 mmol/L Normal 135-145 [facility] Comment on above: Performed By: #### 2 299561, 4233344, 5273580, 7358444 #### [facility] [address] [place] [address] Urea nitrogen [Mass/Vol] 18 mg/dL Normal 5-21 [facility] Comment on above: Performed By: #### 2 003538, 9149024, 3277240, 1971997 #### [facility] [address] [place] [address] CRPon 05-01-2021 CRP [Mass/Vol] 1.3 mg/dL Normal <=1.9 [facility] Comment on above: Performed By: #### 2 953120, 0124722, 4451013, 9371041 #### [facility] [address] [place] [address] D-Dimeron 05-01-2021 Fibrin D-dimer FEU (PPP) [Mass/Vol] 403 [id number] Normal 215-500 [facility] Comment on above: Result Comment: This assay [...] infections Liver cirrhosis Performed By: #### 2 225321, 4379993, 3366002, 2455952 #### [facility] [address] [place] [address] Discharge Instructionson Discharge Instructions [id number]# 1.00CD:127 Normal [facility] Ferritinon 05-01-2021 Ferritin [Mass/Vol] 304 ng/mL Normal 24-336 [facility] Comment on above: Result Comment: NORM ALS MEN <30 YRS 16-132 ng/mL MEN >30 YRS 8-338 ng/mL WOMEN (PREMEN) 6-104 ng/mL WOMEN (POSTMEN) 12-210 ng/mL Performed By: #### 2 295940, 4662261, 2539997, 4775388 #### [facility] [address] [place] [address] Inpatient Clinical Summaryon 05-01-2021 Inpatient Clinical Summary [address] [address] Clinical Summary Person Information: Name: NAIDA CM Age: 20 Years : 2000 Sex: Male PCP: JAMES SUH CNP Marital Status: Single Phone: [phone] Race: White Ethnicity: Non- or Language: Albanian Visit Id: Visit Reason: Cough; Weakness or fatigue; Shortness of breath; acute respiratory failure with hypoxia due to COVID Speciality: Acuity: Enc Type: Inpatient Med Service: Medical Arrival: 04/26/2021 14:37:56 Discharge: Dispo Type: Admitted as IP to this Hosp Address: [address] [place] [id number] Provider Notes: Diagnosis: 1:Acute hypoxemic respiratory failure [...] With: Address: When: JAMES SUH [address] [place] [address] 05/08/2021 1:15 PM Comments: Appointment will be with Jessica Leach, as James Suh is on maternity leave. Patient Education Information: Dehydration, Adult, Pfup-do-Gjcf; COVID-19: How to Protect Yourself and Others - CDC; COVID-19 Frequently Asked Questions; COVID-19 Albuterol (Eqv-Proventil HFA), dexamethasone 4 mg Tab, Mucinex Normal [facility] Inpatient Patient Summaryon 05-01-2021 Inpatient Patient Summary [address] [address] Patient Discharge Instructions PERSON INFORMATION Name: NAIDA [...] With: Address: When: JAMES SUH [address] [place] [address] 05/08/2021 1:15 PM Comments: Appointment will be with Jessica Leach, as James Vikash is on maternity leave. In the event that this physician does not participate in your insurance network, please consult with your insurance company to find a nearby participating provider. Comment: I, NAIDA CM, have received the attached patient [...] tubing/mask. Refills: 0. [facility] Comment: PATIENT EDUCATION INFORMATION Instructions: Dehydration, Adult [...] mouth. ? (more content not included)... Normal [facility] Interdisciplinary Note - Vic e Manageron 05-01-2021 Interdisciplinary Note - Band Master CRM spoke with patient in room. Patient [...] given. Patient and his mother updated. Normal [facility] Comment on above: Result Comment: Elec tronically Signed By: Med KIM, Yisel\.br\Date and Time Signed: 05/01/21 10:41 EST LDHon 05-01-2021 LDH [Catalytic activity/Vol] 195 Int._Unit/L Normal 93-218 [facility] Comment on above: Performed By: #### 2 329931, 1986846, 0040105, 7249567 #### [facility] [address] [place] [address] Manual Diffon 05-01-2021 Band form neutrophils/100 WBC (Bld) 6 % Normal 0-10 [facility] Comment on above: Order Comment: Order Added by Discern Expert. Performed By: #### 2 317851, 7510354, 9997459, 1808149 #### [facility] [address] [place] [address] Basophils/100 WBC (Bld) 0 % Normal 0-2 [facility] Comment on above: Order Comment: Order Added by Discern Expert. Performed By: #### 2 428551, 5269676, 6093811, 5409357 #### [facility] [address] [place] [address] Eosinophils/100 WBC (Bld) 1 % Normal 0-8 [facility] Comment on above: Order Comment: Order Added by Discern Expert. Performed By: #### 2 028153, 9466461, 9628247, 5868748 #### [facility] [address] [place] [address] Lymphocytes/100 WBC (Bld) 31 % Normal 14-50 [facility] Comment on above: Order Comment: Order Added by Discern Expert. Performed By: #### 2 598077, 5204892, 3810540, 8221540 #### [facility] [address] [place] [address] Metamyelocytes/Leukoc ytes Manual cnt (Bld) [Pure # fraction] 1 % High <=0 [facility] Comment on above: Order Comment: Order Added by Discern Expert. Performed By: #### 2 321533, 9881532, 8228531, 8778788 #### [facility] [address] [place] [address] Monocytes/100 WBC (Bld) 9 % Normal 4-14 [facility] Comment on above: Order Comment: Order Added by Discern Expert. Performed By: #### 2 741494, 8214629, 1221578, 9854917 #### [facility] [address] [place] [address] Myelocytes/100 WBC (Bld) 2 % High <=0 [facility] Comment on above: Order Comment: Order Added by Discern Expert. Performed By: #### 2 480927, 5645794, 7875825, 8122083 #### [facility] [address] [place] [address] Segmented neutrophils/100 WBC (Bld) 45 % Normal 36-75 [facility] Comment on above: Order Comment: Order Added by Discern Expert. Performed By: #### 2 155720, 7008812, 3119259, 6141303 #### [facility] [address] [place] [address] Variant lymphocytes LM Ql (Bld) 5 % Invalid Interpretation Code [facility] Comment on above: Order Comment: Order Added by Discern Expert. Performed By: #### 2 [id number], [id number], [id number], [id number] #### [facility] [address] [place] [address] Monitor Recordon 05-01-2021 Monitor Record [id number]# 1.00CD:127 Normal [facility] Monitor Record [id number]# 1.00CD:127 Normal [facility] Monitor Record [id number]# 1.00CD:127 Normal [facility] Monitor Record [id number]# 1.00CD:127 Normal [facility] Monitor Record [id number] 2 [id number]# 1.00CD:127 Normal [facility] Progress Note-Physicianon Progress Note-Physician Subjective Patient an 20y M with a past medical history significant for asthma who presented to the ED on 04/27 for worsening SOB over the past week or so. Pt reports that about 10 days ago he was evaluated at [facility] for muscle aches, chills, headache, cough, and anosmia. He tested positive for COVID-19 at that time. He was given a pulse oximeter and sent home. Since then he has experienced worsening symptoms and developed SOB over the past week. On presentation to the ED he was found to be hypoxemic. He was admitted to [facility] for further management of his symptoms. [...] in a. (more content not included)... Normal [facility] Comment on above: Result Comment: Elec tronically Signed By: Rozina ROWE, Isabel Hughes\.br\Date and Time Signed: 04/30/21 23:56 EST eGFRon 05-01-2021 GFR/1.73 sq M.predicted among blacks MDRD (S/P/Bld) [Vol rate/Area] mL/min/{1.73_m2} Normal >=59 [facility] Comment on above: Order Comment: Order added by Discern Expert. Result Comment: eGFR is race adjusted. AA=. Performed By: #### 2 [id number], [id number], [id number], [id number] #### [facility] [address] [place] [address] GFR/1.73 sq M.predicted among non-blacks MDRD (S/P/Bld) [Vol rate/Area] mL/min/{1.73_m2} Normal >=59 [facility] Comment on above: Order Comment: Order added by Discern Expert. Result Comment: Back Tacker jaspreet kidney disease could be indicated at eGFR's of less than 60 mL/min/1.73m2. Kidney failure is indicated at less than 15 mL/min/1.73m2. Performed By: #### 2 [id number], [id number], [id number], [id number] #### [facility] [address] [place] [address] CBC w/Indiceson 04-30-2021 Erythrocyte distribution width (RBC) [Ratio] 13.6 % Normal 10.9-14.2 [facility] Comment on above: Performed By: #### 2 [id number], [id number], [id number], [id number] #### [facility] [address] [place] [address] Hematocrit (Bld) [Volume fraction] 41.5 % Normal 37.7-49.0 [facility] Comment on above: Performed By: #### 2 [id number], [id number], [id number], [id number] #### [facility] [address] [place] [address] Hemoglobin (Bld) [Mass/Vol] 14.0 g/dL Normal 13.5-17.5 [facility] Comment on above: Performed By: #### 2 726586, 2375963, 2248349, [id number] #### [facility] [address] [place] [id number] MCH (RBC) [Entitic mass] 26.9 pg Low 27.0-34.0 [facility] Comment on above: Performed By: #### 2 163373, 0119405, [id number], 1360904 #### [facility] [address] [place] [address] MCHC (RBC) [Mass/Vol] 33.8 g/dL Normal 31.4-36.0 [facility] Comment on above: Performed By: #### 2 [id number], [id number], 4781914, [id number] #### [facility] [address] [place] [address] MCV (RBC) [Entitic vol] 79.6 fL Low 80.0-100.0 [facility] Comment on above: Performed By: #### 2 276568, 9398646, 8605568, 8060960 #### [facility] [address] [place] [address] Platelet mean volume (Bld) [Entitic vol] 6.8 fL Normal 6.4-10.8 [facility] Comment on above: Performed By: #### 2 482858, 5951840, 7550220, 8304049 #### [facility] [address] [place] [address] Platelets (Bld) [#/Vol] 343.0 E9/L Normal 150.0-500.0 [facility] Comment on above: Performed By: #### 2 315395, 4295477, 3952648, 8263650 #### [facility] [address] [place] [address] RBC (Bld) [#/Vol] 5.2 E12/L Normal 4.3-5.9 [facility] Comment on above: Performed By: #### 2 453179, 4182457, 5318394, 7767107 #### [facility] [address] [place] [address] WBC corrected for nucl RBC Auto (Bld) [#/Vol] 11.8 E9/L High 4.0-11.0 [facility] Comment on above: Performed By: #### 2 498184, 3894578, 8506172, 8505379 #### [facility] [address] [place] [address] CMPon 04-30-2021 Albumin [Mass/Vol] 3.0 g/dL Low 3.3-5.0 [facility] Comment on above: Performed By: #### 2 245381, 8645967, 07825483, 5310490, 9618401, 6967337, 4179022, 8576014, 2564573364, 14121543, 88925073, 21081587 #### [facility] [address] [place] [address] Albumin/Globulin (S) [Mass conc ratio] 1.1 Normal 1.1-2.2 [facility] Comment on above: Performed By: #### 2 695985, 8441111, 92619651, 3916743, 5271689, 5869674, 3357825, 4507429, 5290973659, 61770607, 45144044, 55195098 #### [facility] [address] [place] [address] ALP [Catalytic activity/Vol] 78 Int._Unit/L Normal 21-98 [facility] Comment on above: Performed By: #### 2 855495, 2201190, 92325095, 8502345, 0923103, 8728449, 2047041, 8986791, 4229113923, 46537466, 21970221, 45350038 #### [facility] [address] [place] [address] ALT No additional P-5'-P [Catalytic activity/Vol] 161 Int._Unit/L High 6-46 [facility] Comment on above: Performed By: #### 2 756623, 0673839, 42682685, 6849123, 8025926, 6531341, 1400337, 6452156, 0187233633, 68275338, 82151181, 59371204 #### [facility] [address] [place] [address] Anion gap [Moles/Vol] 14 mmol/L Normal 6-16 [facility] Comment on above: Performed By: #### 2 167143, 8315432, 31631819, 8411050, 2218467, 7989005, 3590760, 3687971, 0800185545, 19889105, 29278200, 88415490 #### [facility] [address] [place] [address] AST [Catalytic activity/Vol] 50 Int._Unit/L [facility] 5-43 [facility] Comment on above: Performed By: #### 2 777029, 4436323, 71299839, 6118713, 5921955, 6383068, 2413191, 9052455, 7371451725, 71375543, 02663018, 18591968 #### [facility] [address] [place] [address] Bilirubin [Mass/Vol] 0.5 mg/dL Normal 0.0-1.1 [facility] Comment on above: Performed By: #### 2 330901, 1851429, 89011265, 3692488, 0714318, 4049513, 7788924, 5119659, 4771983808, 10910313, 31584287, 85909111 #### [facility] [address] [place] [address] Calcium [Mass/Vol] 8.2 mg/dL Low 8.9-11.1 [facility] Comment on above: Performed By: #### 2 708845, 6511640, 50184129, 1473406, 9067669, 8484670, 6134477, 6203633, 5469219327, 15548196, 43726599, 41812425 #### [facility] [address] [place] [address] Chloride [Moles/Vol] 101 mmol/L Normal 101-111 [facility] Comment on above: Performed By: #### 2 225367, 8951738, 26418154, 1422783, 7375572, 3478131, 2894337, 5163153, 6969126858, 04667321, 42333390, 67429771 #### [facility] [address] [place] [address] CO2 [Moles/Vol] 25 mmol/L Normal 21-31 [facility] Comment on above: Performed By: #### 2 490699, 9516315, 05017285, 6826757, 9582803, 1696749, 3466030, 4651874, 2539208717, 13077896, 74889719, 05329894 #### [facility] [address] [place] [address] Creatinine [Mass/Vol] 0.6 mg/dL Normal 0.5-1.3 [facility] Comment on above: Performed By: #### 2 925463, 3543571, 58638734, 4572241, 0332301, 7416757, 0363006, 2254362, 0481579117, 86453077, 88104649, 95155419 #### [facility] [address] [place] [address] Globulin (S) [Mass/Vol] 2.8 g/dL Normal 1.4-4.0 [facility] Comment on above: Performed By: #### 2 969180, 0884562, 35962570, 0778491, 5241788, 5708598, 3564096, 3397470, 2954853061, 65889507, 41339041, 04717931 #### [facility] [address] [place] [address] Glucose [Mass/Vol] 164 mg/dL Normal 55-199 [facility] Comment on above: Result Comment: If t his glucose result represents a fasting glucose, interpretation should refer to the following reference range: 55-99 mg/dL Performed By: #### 2 806114, 4760501, 70739974, 8960061, 2423423, 8000860, 1206702, 3956644, 2503294811, 63794724, 43888429, 65592406 #### [facility] [address] [place] [address] Potassium [Moles/Vol] 3.8 mmol/L Normal 3.5-5.3 [facility] Comment on above: Performed By: #### 2 358111, 2928595, 06260453, 3933700, 3968664, 8015019, 7604460, 4267259, 6820452325, 66368236, 23327837, 96132422 #### [facility] [address] [place] [address] Protein [Mass/Vol] 5.8 g/dL Low 6.0-7.8 [facility] Comment on above: Performed By: #### 2 761973, 5657248, 77552375, 2027958, 9748367, 8784612, 0074334, 4728596, 7597245859, 80064233, 03828041, 28769993 #### [facility] [address] [place] [address] Sodium [Moles/Vol] 136 mmol/L Normal 135-145 [facility] Comment on above: Performed By: #### 2 904147, 1105307, 85255531, 5181716, 8708234, 6040448, 4087910, 0528778, 2432370639, 23390052, 51477577, 43420530 #### [facility] [address] [place] [address] Urea nitrogen [Mass/Vol] 18 mg/dL Normal 5-21 [facility] Comment on above: Performed By: #### 2 388230, 7827987, 02093472, 6016521, 1675691, 5663625, 6299148, 6332148, 7899618531, 13916472, 97542421, 71555988 #### [facility] [address] [place] [address] Urea nitrogen/Creatinine [Mass ratio] 30 No Units High 10-20 [facility] Comment on above: Performed By: #### 2 467356, 7228637, 21453864, 5238115, 8815995, 3593696, 1362910, 0200104, 4504788589, 70009957, 46747116, 48696789 #### [facility] [address] [place] [address] CRPon 04-30-2021 CRP [Mass/Vol] 1.3 mg/dL Normal <=1.9 [facility] Comment on above: Performed By: #### 2 917112, 0062470, 2044943, 9806796 #### [facility] [address] [place] [address] Consultation Noteon 04-30-20 21 Consultation Note Chief Complaint sob, weakness History of Present Illness Patient an 20y M with a past medical history significant for asthma who presented to the ED on 04/27 for worsening SOB over the past week or so. Pt reports that about 10 days ago he was evaluated at [facility] for muscle aches, chills, headache, cough, and anosmia. He tested positive for COVID-19 at that time. He was given a pulse oximeter and sent home. Since then he has experienced worsening symptoms and developed SOB over the past week. On presentation to the ED he was found to be hypoxemic. He was admitted to [facility] for further management of his symptoms. [...] agree with the documentation and plan. Normal [facility] Comment on above: Result Comment: Elec tronically Signed By: Rozina ROWE, Isabel Hughes\.br\Date and Time Signed: 04/29/21 23:30 EST D-Dimeron 04-30-2021 Fibrin D-dimer FEU (PPP) [Mass/Vol] 381 [id number] Normal 215-500 [facility] Comment on above: Result Comment: This assay [...] infections Liver cirrhosis Performed By: #### 2 601568, 2741271, 1068664, 0493016 #### [facility] [address] [place] [address] Ferritinon 04-30-2021 Ferritin [Mass/Vol] 283 ng/mL Normal 24-336 [facility] Comment on above: Result Comment: NORM ALS MEN <30 YRS 16-132 ng/mL MEN >30 YRS 8-338 ng/mL WOMEN (PREMEN) 6-104 ng/mL WOMEN (POSTMEN) 12-210 ng/mL Performed By: #### 2 956137, 2020613, 4708068, 5138562 #### [facility] [address] [place] [address] Interdisciplinary Note - Vic e Manageron 04-30-2021 Interdisciplinary Note - Band Master CRM spoke with patient in room. Patient is alert and oriented and participates in discharge planning. No family in room. Patient white board updated, and CRM contact information provided. Patient is in isolation for COVID. Discussed CRM spoke with [facility] who saw patient earlier today and possible discharge home tomorrow. patient is on room air today. Patient denies any needs at discharge and he will update his mother. Normal [facility] Comment on above: Result Comment: Elec tronically Signed By: Med KIM, Yisel\.br\Date and Time Signed: 04/30/21 13:10 EST LDHon 04-30-2021 LDH [Catalytic activity/Vol] 190 Int._Unit/L Normal 93-218 [facility] Comment on above: Performed By: #### 2 153340, 6639998, 8378236, 0366860 #### [facility] [address] [place] [address] Monitor Recordon 04-30-2021 Monitor Record [id number]# 1.00CD:127 Normal [facility] Monitor Record [id number]# 1.00CD:127 Normal [facility] Progress Note-Physicianon Progress Note-Physician Assessment/Plan PLAN: 1. Acute hypoxemic respiratory failure due to COVID-19 (U07.1: COVID-19) -Symptoms started 9 days ago. Covid + at [facility] at that time. -SPO2 74% at home. [...] (E66.9: Obesity, unspecified) -BMI 37.33 -We will preparole counseling aide on diet, exercise, weight loss and lifestyle [...] mg/dL High (04/28/21 16:06:00) POC Device SN: [id number] (04/28/21 16:06:00) POC User ID: [id number] (04/28/21 16:06:00) POC Username: RONNIE VELASCO (04/28/21 16:06:00) Problem List/Past Medical History Ongoing No qualifying data Historical No qualifying data Medications Inpatient acetaminophen 325 mg Tab, 650 mg= 2 tab(s), Oral, q6hr, PRN albuterol HFA 90 mcg/inh MDI, 180 mcg= 2 puff(s), Inhalation, q4hr, PRN albuterol HFA 90 mcg/inh MDI, 180 m (more content not included)... Normal [facility] Comment on above: Result Comment: Elec tronically Signed By: Tamara GRAY\.br\Date and Time Signed: 04/29/21 10:52 EST\.br\Electronically Co-Signed By: Adalberto NICHOLAS MD\.br\Date and Time Co-Signed: 04/30/21 07:41 EST eGFRon 04-30-2021 GFR/1.73 sq M.predicted among blacks MDRD (S/P/Bld) [Vol rate/Area] mL/min/{1.73_m2} Normal >=59 [facility] Comment on above: Order Comment: Order added by Discern Expert. Result Comment: eGFR is race adjusted. AA=. Performed By: #### 2 869176, 5262231, 69168399, 8255891, 9322634, 0507990, 2690856, 6930110, 3979696320, 58312945, 97142468, 54569181 #### [facility] [address] [place] [address] GFR/1.73 sq M.predicted among non-blacks MDRD (S/P/Bld) [Vol rate/Area] mL/min/{1.73_m2} Normal >=59 [facility] Comment on above: Order Comment: Order added by Discern Expert. Result Comment: Back Tacker jaspreet kidney disease could be indicated at eGFR's of less than 60 mL/min/1.73m2. Kidney failure is indicated at less than 15 mL/min/1.73m2. Performed By: #### 2 341842, 0361579, 65970747, 5854823, 7894198, 1382086, 3302846, 9022716, 6912908867, 49005486, 39260500, 93962975 #### [facility] [address] [place] [address] CBC w/Indiceson 04-29-2021 Erythrocyte distribution width (RBC) [Ratio] 13.9 % Normal 10.9-14.2 [facility] Comment on above: Performed By: #### 2 044197, 5011174, 7724875, 9920304 #### [facility] [address] [place] [address] Hematocrit (Bld) [Volume fraction] 43.8 % Normal 37.7-49.0 [facility] Comment on above: Performed By: #### 2 336592, 5321000, 7857947, 2100828 #### [facility] [address] [place] [address] Hemoglobin (Bld) [Mass/Vol] 14.7 g/dL Normal 13.5-17.5 [facility] Comment on above: Performed By: #### 2 536148, 3203942, 4238514, 0669460 #### [facility] [address] [place] [address] MCH (RBC) [Entitic mass] 27.3 pg Normal 27.0-34.0 [facility] Comment on above: Performed By: #### 2 076658, 1816675, 2126755, 1712532 #### [facility] [address] [place] [address] MCHC (RBC) [Mass/Vol] 33.5 g/dL Normal 31.4-36.0 [facility] Comment on above: Performed By: #### 2 559293, 5352787, 2724971, 9491213 #### [facility] [address] [place] [address] MCV (RBC) [Entitic vol] 81.3 fL Normal 80.0-100.0 [facility] Comment on above: Performed By: #### 2 641396, 4600828, 1242056, 9163573 #### [facility] [address] [place] [address] Platelet mean volume (Bld) [Entitic vol] 7.1 fL Normal 6.4-10.8 [facility] Comment on above: Performed By: #### 2 486196, 5032990, 1372000, 3392458 #### [facility] [address] [place] [address] Platelets (Bld) [#/Vol] 369.0 E9/L Normal 150.0-500.0 [facility] Comment on above: Performed By: #### 2 900334, 4017610, 9568329, 7322251 #### [facility] [address] [place] [address] RBC (Bld) [#/Vol] 5.4 E12/L Normal 4.3-5.9 [facility] Comment on above: Performed By: #### 2 585640, 6517374, 2816906, 3318978 #### [facility] [address] [place] [address] WBC corrected for nucl RBC Auto (Bld) [#/Vol] 11.2 E9/L High 4.0-11.0 [facility] Comment on above: Performed By: #### 2 970299, 0681798, 4418058, 1338000 #### [facility] [address] [place] [address] CMPon 04-29-2021 Albumin [Mass/Vol] 3.1 g/dL Low 3.3-5.0 [facility] Comment on above: Performed By: #### 2 101318, 5187564, 2087457, 8459623 #### [facility] [address] [place] [address] Albumin/Globulin (S) [Mass conc ratio] 1.0 Low 1.1-2.2 [facility] Comment on above: Performed By: #### 2 066654, 1066299, 6381988, 3683113 #### [facility] [address] [place] [address] ALP [Catalytic activity/Vol] 72 Int._Unit/L Normal 21-98 [facility] Comment on above: Performed By: #### 2 419548, 6162345, 9790727, 4739771 #### [facility] [address] [place] [address] ALT No additional P-5'-P [Catalytic activity/Vol] 185 Int._Unit/L High 6-46 [facility] Comment on above: Performed By: #### 2 105641, 1606721, 8318450, 1029294 #### [facility] [address] [place] [address] Anion gap [Moles/Vol] 11 mmol/L Normal 6-16 [facility] Comment on above: Performed By: #### 2 669834, 1917703, 1432439, 4642290 #### [facility] [address] [place] [address] AST [Catalytic activity/Vol] 92 Int._Unit/L High 5-43 [facility] Comment on above: Performed By: #### 2 579323, 5274824, 0071008, 4819700 #### [facility] [address] [place] [address] Bilirubin [Mass/Vol] 0.5 mg/dL Normal 0.0-1.1 [facility] Comment on above: Performed By: #### 2 356050, 5400849, 1145425, 9090535 #### [facility] [address] [place] [address] Calcium [Mass/Vol] 8.5 mg/dL Low 8.9-11.1 [facility] Comment on above: Performed By: #### 2 294398, 6601568, 0434311, 9693415 #### [facility] [address] [place] [address] Chloride [Moles/Vol] 103 mmol/L Normal 101-111 [facility] Comment on above: Performed By: #### 2 539518, 5674206, 0510211, 5844771 #### [facility] [address] [place] [address] CO2 [Moles/Vol] 29 mmol/L Normal 21-31 [facility] Comment on above: Performed By: #### 2 930932, 0869093, 0883063, 3673053 #### [facility] [address] [place] [address] Creatinine [Mass/Vol] 0.8 mg/dL Normal 0.5-1.3 [facility] Comment on above: Performed By: #### 2 693603, 9687229, 8720587, 7542368 #### [facility] [address] [place] [address] Globulin (S) [Mass/Vol] 3.2 g/dL Normal 1.4-4.0 [facility] Comment on above: Performed By: #### 2 963220, 1851698, 6668989, 1960919 #### [facility] [address] [place] [address] Glucose [Mass/Vol] 106 mg/dL Normal 55-199 [facility] Comment on above: Result Comment: If t his glucose result represents a fasting glucose, interpretation should refer to the following reference range: 55-99 mg/dL Performed By: #### 2 719987, 6558986, 1154791, 0232098 #### [facility] [address] [place] [address] Potassium [Moles/Vol] 4.2 mmol/L Normal 3.5-5.3 [facility] Comment on above: Performed By: #### 2 674072, 5435615, 8621897, 4282176 #### [facility] [address] [place] [address] Protein [Mass/Vol] 6.3 g/dL Normal 6.0-7.8 [facility] Comment on above: Performed By: #### 2 542510, 5820338, 5444104, 5253943 #### [facility] [address] [place] [address] Sodium [Moles/Vol] 139 mmol/L Normal 135-145 [facility] Comment on above: Performed By: #### 2 690263, 6114556, 7464915, 2651162 #### [facility] [address] [place] [address] Urea nitrogen [Mass/Vol] 21 mg/dL Normal 5-21 [facility] Comment on above: Performed By: #### 2 272751, 7481849, 5088083, 9094726 #### [facility] [address] [place] [address] Urea nitrogen/Creatinine [Mass ratio] 26 No Units High 10-20 [facility] Comment on above: Performed By: #### 2 622266, 6068890, 0796728, 7007976 #### [facility] [address] [place] [address] CRPon 04-29-2021 CRP [Mass/Vol] 2.7 mg/dL High <=1.9 [facility] Comment on above: Performed By: #### 2 171218, 8352448, 3177003, 3511884 #### [facility] [address] [place] [address] Coding Queryon 04-29-2021 Coding Query - From: [...] been ruled out [___]Has been resolved [___]Per oracle identity management consultant/other treating provider documentation [___]Other: Treatment plan: [...] 12:17:47 EST Subject: RE: Coding Query Normal [facility] D-Dimeron 04-29-2021 Fibrin D-dimer FEU (PPP) [Mass/Vol] 407 [id number] Normal 215-500 [facility] Comment on above: Result Comment: This assay [...] infections Liver cirrhosis Performed By: #### 2 835391, 9430531, 8009556, 3512560 #### [facility] [address] [place] [address] Ferritinon 04-29-2021 Ferritin [Mass/Vol] 397 ng/mL High 24-336 [facility] Comment on above: Result Comment: NORM ALS MEN <30 YRS 16-132 ng/mL MEN >30 YRS 8-338 ng/mL WOMEN (PREMEN) 6-104 ng/mL WOMEN (POSTMEN) 12-210 ng/mL Performed By: #### 2 370973, 9885324, 9214422, 4154815 #### [facility] [address] [place] [address] Interdisciplinary Note - Vic e Manageron 04-29-2021 Interdisciplinary Note - Band Master CRM spoke with patient in room. Patient is alert and oriented and participates in discharge planning. No family in room. Patient white board updated, and CRM contact information provided. Patient is in isolation for COVID. Discussed CRM spoke with [facility] who saw patient earlier today and will be a couple days yet. will need to wean oxygen and may need desat prior to discharge. Pulmonology to see also. Patient denies any needs at discharge. he will update his mother. Normal [facility] Comment on above: Result Comment: Elec tronically Signed By: Med KIM, Yisel\.br\Date and Time Signed: 04/29/21 09:57 EST LDHon 04-29-2021 LDH [Catalytic activity/Vol] 261 Int._Unit/L High 93-218 [facility] Comment on above: Performed By: #### 2 717034, 2895611, 6301753, 2786646 #### [facility] [address] [place] [address] Monitor Recordon 04-29-2021 Monitor Record [id number]# 1.00CD:127 Normal [facility] Progress Note-Physicianon Progress Note-Physician Subjective Patient an 20y M with a past medical history significant for asthma who presented to the ED on 04/27 for worsening SOB over the past week or so. Pt reports that about 10 days ago he was evaluated at [facility] for muscle aches, chills, headache, cough, and anosmia. He tested positive for COVID-19 at that time. He was given a pulse oximeter and sent home. Since then he has experienced worsening symptoms and developed SOB over the past week. On presentation to the ED he was found to be hypoxemic. He was admitted to [facility] for further management of his symptoms. [...] prophylactic measure (more content not included)... Normal [facility] Comment on above: Result Comment: Elec tronically Signed By: Celsa Olivares\.br\Date and Time Signed: 04/29/21 20:19 EST eGFRon 04-29-2021 GFR/1.73 sq M.predicted among blacks MDRD (S/P/Bld) [Vol rate/Area] mL/min/{1.73_m2} Normal >=59 [facility] Comment on above: Order Comment: Order added by Discern Expert. Result Comment: eGFR is race adjusted. AA=. Performed By: #### 2 954686, 8138350, 4322061, 2674358 #### [facility] [address] [place] [address] GFR/1.73 sq M.predicted among non-blacks MDRD (S/P/Bld) [Vol rate/Area] mL/min/{1.73_m2} Normal >=59 [facility] Comment on above: Order Comment: Order added by Discern Expert. Result Comment: Back Tacker jaspreet kidney disease could be indicated at eGFR's of less than 60 mL/min/1.73m2. Kidney failure is indicated at less than 15 mL/min/1.73m2. Performed By: #### 2 043022, 6380180, 2576542, 0577079 #### [facility] [address] [place] [address] CRPon 04-28-2021 CRP [Mass/Vol] 7.1 mg/dL High <=1.9 [facility] Comment on above: Performed By: #### 2 172249, 9082164, 1124888, 3041941 #### [facility] [address] [place] [address] Capillary Glucose POCon 12-2 Glucose [Mass/Vol] 130 mg/dL High 55-99 [facility] Comment on above: Result Comment: Sara jose Meter Performed By: #### 2 [id number] ####[facility] [address] [place] [address] Glucose [Mass/Vol] 109 mg/dL High 55-99 [facility] Comment on above: Result Comment: Bessie fallon RN/ Cleaned Meter Performed By: #### 2 [id number] #### [facility] [address] [place] [address] Glucose [Mass/Vol] 116 mg/dL High 55-99 [facility] Comment on above: Result Comment: Sara jose Meter Performed By: #### 2 [id number] ####[facility] [address] [place] [address] D-Dimeron 04-28-2021 Fibrin D-dimer FEU (PPP) [Mass/Vol] 424 [id number] Normal 215-500 [facility] Comment on above: Result Comment: This assay [...] infections Liver cirrhosis Performed By: #### 2 853714, 9222891, 3355797, 4004061 #### [facility] [address] [place] [address] ECG Pediatricon 04-28-2021 ECG Pediatric The following ED Review was created for NAIDA CM: SINUS TACHYCARDIA NO STEMI NORMAL QTC ABNORMAL RHYTHM ECG Preliminary By: Donovan Moyer DO 04/26/2021 14:58:49 Sewing Machine Adjuster has Agreed this ED Review Normal [facility] Ferritinon 04-28-2021 Ferritin [Mass/Vol] 324 ng/mL Normal 24-336 [facility] Comment on above: Result Comment: NORM ALS MEN <30 YRS 16-132 ng/mL MEN >30 YRS 8-338 ng/mL WOMEN (PREMEN) 6-104 ng/mL WOMEN (POSTMEN) 12-210 ng/mL Performed By: #### 2 107844, 3954350, 2379003, 9643837 #### [facility] [address] [place] [address] LDHon 04-28-2021 LDH [Catalytic activity/Vol] 212 Int._Unit/L Normal 93-218 [facility] Comment on above: Performed By: #### 2 760809, 6962333, 5696278, 0003249 #### [facility] [address] [place] [address] Monitor Recordon 04-28-2021 Monitor Record [id number]# 1.00CD:127 Normal [facility] Monitor Record [id number]# 1.00CD:127 Normal [facility] Monitor Record [id number]# 1.00CD:127 Normal [facility] Progress Note-Physicianon Progress Note-Physician Assessment/Plan PLAN: 1. Acute hypoxemic respiratory failure due to COVID-19 (U07.1: COVID-19) -Symptoms started 9 days ago. Covid + at [facility] at that time. -SPO2 74% at home. [...] (E66.9: Obesity, unspecified) -BMI 37.33 -We will preparole counseling aide on diet, exercise, weight loss and lifestyle [...] mg/dL High (04/28/21 16:06:00) POC Device SN: [id number] (04/28/21 16:06:00) POC User ID: [id number] (04/28/21 16:06:00) POC Username: RONNIE VELASCO (04/28/21 [...] IV Home No active home medications Normal [facility] Comment on above: Result Comment: Elec tronically Signed By: Tamara GRAY\.br\Date and Time Signed: 04/28/21 18:35 EST\.br\Electronically Co-Signed By: JOSE JUAN ROWE, Adalberto\.br\Date and Time Co-Signed: 04/28/21 18:57 EST Auto Diffon 04-27-2021 Basophils/100 WBC (Bld) 0.2 % Normal 0.0-2.0 [facility] Comment on above: Order Comment: Order Added by Discern Expert. Performed By: #### 2 689408, 5961093, 3835752, 0607832 #### [facility] [address] [place] [address] Basophils/Leukocytes Auto (Bld) [Pure # fraction] 0.0 E9/L Normal 0.0-0.2 [facility] Comment on above: Order Comment: Order Added by Discern Expert. Performed By: #### 2 538668, 2737938, 1759706, 3459753 #### [facility] [address] [place] [address] Eosinophils/100 WBC (Bld) 0.0 % Normal 0.0-8.0 [facility] Comment on above: Order Comment: Order Added by Discern Expert. Performed By: #### 2 770028, 8778407, 0227263, 4962497 #### [facility] [address] [place] [address] Eosinophils/Leukocyte s Auto (Bld) [Pure # fraction] 0.0 E9/L Normal 0.0-0.5 [facility] Comment on above: Order Comment: Order Added by Discern Expert. Performed By: #### 2 500234, 8133135, 3894641, 1550861 #### [facility] [address] [place] [address] Lymphocytes/100 WBC (Bld) 9.0 % Low 14.0-50.0 [facility] Comment on above: Order Comment: Order Added by Discern Expert. Performed By: #### 2 247620, 3787375, 9578398, 0082713 #### [facility] [address] [place] [address] Lymphocytes/Leukocyte s Auto (Bld) [Pure # fraction] 0.7 E9/L Low 1.0-4.0 [facility] Comment on above: Order Comment: Order Added by Discern Expert. Performed By: #### 2 450858, 8499288, 6164057, 2644822 #### [facility] [address] [place] [address] Monocytes/100 WBC (Bld) 4.4 % Normal 4.0-14.0 [facility] Comment on above: Order Comment: Order Added by Discern Expert. Performed By: #### 2 103562, 2289758, 9969620, 9278851 #### [facility] [address] [place] [address] Monocytes/Leukocytes Auto (Bld) [Pure # fraction] 0.3 E9/L Normal 0.2-1.0 [facility] Comment on above: Order Comment: Order Added by Discern Expert. Performed By: #### 2 217912, 3054980, 1373440, 8493856 #### [facility] [address] [place] [address] Neutrophils/100 WBC (Bld) 86.4 % High 36.0-75.0 [facility] Comment on above: Order Comment: Order Added by Discern Expert. Performed By: #### 2 789740, 3449510, 8168518, 2820755 #### [facility] [address] [place] [address] Neutrophils/Leukocyte s Auto (Bld) [Pure # fraction] 6.6 E9/L Normal 2.0-7.5 [facility] Comment on above: Order Comment: Order Added by Discern Expert. Performed By: #### 2 489333, 3648855, 1453383, 4511840 #### [facility] [address] [place] [address] CBC w/ Auto Diffon Erythrocyte distribution width (RBC) [Ratio] 14.1 % Normal 10.9-14.2 [facility] Comment on above: Performed By: #### 2 894025, 3180811, 9312161, 3827032 #### [facility] [address] [place] [address] Hematocrit (Bld) [Volume fraction] 42.2 % Normal 37.7-49.0 [facility] Comment on above: Performed By: #### 2 219633, 8180918, 9353407, 6900760 #### [facility] [address] [place] [address] Hemoglobin (Bld) [Mass/Vol] 13.8 g/dL Normal 13.5-17.5 [facility] Comment on above: Performed By: #### 2 074112, 9911966, 5969400, 6020690 #### [facility] [address] [place] [address] MCH (RBC) [Entitic mass] 27.0 pg Normal 27.0-34.0 [facility] Comment on above: Performed By: #### 2 328909, 1308346, 2672774, 9545567 #### [facility] [address] [place] [address] MCHC (RBC) [Mass/Vol] 32.7 g/dL Normal 31.4-36.0 [facility] Comment on above: Performed By: #### 2 789496, 7002079, 4281081, 8925847 #### [facility] [address] [place] [address] MCV (RBC) [Entitic vol] 82.3 fL Normal 80.0-100.0 [facility] Comment on above: Performed By: #### 2 123297, 1489771, 5296782, 5967254 #### [facility] [address] [place] [address] Platelet mean volume (Bld) [Entitic vol] 6.8 fL Normal 6.4-10.8 [facility] Comment on above: Performed By: #### 2 127883, 8545384, 5416039, 7966541 #### [facility] [address] [place] [address] Platelets (Bld) [#/Vol] 242.0 E9/L Normal 150.0-500.0 [facility] Comment on above: Performed By: #### 2 264998, 3696820, 5296702, 2726028 #### [facility] [address] [place] [address] RBC (Bld) [#/Vol] 5.1 E12/L Normal 4.3-5.9 [facility] Comment on above: Performed By: #### 2 199840, 7819203, 9717879, 5770808 #### [facility] [address] [place] [address] WBC corrected for nucl RBC Auto (Bld) [#/Vol] 7.7 E9/L Normal 4.0-11.0 [facility] Comment on above: Performed By: #### 2 488709, 4329356, 0160045, 3935840 #### [facility] [address] [place] [address] CKon 04-27-2021 CK [Catalytic activity/Vol] 458 Int._Unit/L Abnormal 14-261 [facility] Comment on above: Result Comment: Crit ical Result S_CK:458 Called to DOROTEO SHARMA AT by ERIN DOTSON and read back for confirmation at 04/27/2021 10:26:57\Critical Result verified by repeat analysis Performed By: #### 2 377309, 1714712, 6040538, 2876355 #### [facility] [address] [place] [address] CMPon 04-27-2021 Albumin/Globulin (S) [Mass conc ratio] 0.9 Low 1.1-2.2 [facility] Comment on above: Performed By: #### 2 635944, 3423067, 9751384, 3152521 #### [facility] [address] [place] [address] Anion gap [Moles/Vol] 13 mmol/L Normal 6-16 [facility] Comment on above: Performed By: #### 2 146573, 3583472, 6712388, 0446057 #### [facility] [address] [place] [address] Globulin (S) [Mass/Vol] 3.7 g/dL Normal 1.4-4.0 [facility] Comment on above: Performed By: #### 2 941040, 4197380, 2120723, 4492007 #### [facility] [address] [place] [address] Urea nitrogen/Creatinine [Mass ratio] 19 No Units Normal 10-20 [facility] Comment on above: Performed By: #### 2 865026, 1622012, 1372702, 3035473 #### [facility] [address] [place] [address] Albumin [Mass/Vol] 3.3 g/dL Normal 3.3-5.0 [facility] Comment on above: Performed By: #### 2 625651, 6696073, 3946282, 7020021 #### [facility] [address] [place] [address] ALP [Catalytic activity/Vol] 72 Int._Unit/L Normal 21-98 [facility] Comment on above: Performed By: #### 2 073994, 8525152, 5807410, 2897647 #### [facility] [address] [place] [address] ALT No additional P-5'-P [Catalytic activity/Vol] 73 Int._Unit/L High 6-46 [facility] Comment on above: Performed By: #### 2 265005, 2193132, 3174873, 2299544 #### [facility] [address] [place] [address] AST [Catalytic activity/Vol] 49 Int._Unit/L High 5-43 [facility] Comment on above: Performed By: #### 2 728656, 2369440, 7612936, 7713036 #### [facility] [address] [place] [address] Bilirubin [Mass/Vol] 0.8 mg/dL Normal 0.0-1.1 [facility] Comment on above: Performed By: #### 2 276324, 0078957, 7774594, 9684597 #### [facility] [address] [place] [address] Calcium [Mass/Vol] 8.4 mg/dL Low 8.9-11.1 [facility] Comment on above: Performed By: #### 2 158382, 6578645, 5670135, 3100751 #### [facility] [address] [place] [address] Chloride [Moles/Vol] 102 mmol/L Normal 101-111 [facility] Comment on above: Performed By: #### 2 622219, 9474646, 3884109, 8462504 #### [facility] [address] [place] [address] CO2 [Moles/Vol] 24 mmol/L Normal 21-31 [facility] Comment on above: Performed By: #### 2 208753, 9268568, 9908875, 3684295 #### [facility] [address] [place] [address] Creatinine [Mass/Vol] 0.7 mg/dL Normal 0.5-1.3 [facility] Comment on above: Performed By: #### 2 330264, 7139408, 2648986, 7109379 #### [facility] [address] [place] [address] Glucose [Mass/Vol] 122 mg/dL Normal 55-199 [facility] Comment on above: Result Comment: If t his glucose result represents a fasting glucose, interpretation should refer to the following reference range: 55-99 mg/dL Performed By: #### 2 204913, 1831582, 1643128, 0806392 #### [facility] [address] [place] [address] Potassium [Moles/Vol] 4.4 mmol/L Normal 3.5-5.3 [facility] Comment on above: Performed By: #### 2 640635, 7196347, 2825318, 0930145 #### [facility] [address] [place] [address] Protein [Mass/Vol] 7.0 g/dL Normal 6.0-7.8 [facility] Comment on above: Performed By: #### 2 588475, 2005258, 8849961, 4104011 #### [facility] [address] [place] [address] Sodium [Moles/Vol] 135 mmol/L Normal 135-145 [facility] Comment on above: Performed By: #### 2 181780, 7639301, 9191507, 7770721 #### [facility] [address] [place] [address] Urea nitrogen [Mass/Vol] 13 mg/dL Normal 5-21 [facility] Comment on above: Performed By: #### 2 839029, 8126612, 9469801, 8909320 #### [facility] [address] [place] [address] CRPon 04-27-2021 CRP [Mass/Vol] 18.1 mg/dL High <=1.9 [facility] Comment on above: Performed By: #### 2 516689, 5772211, 1238592, 2734760 #### [facility] [address] [place] [address] Capillary Glucose POCon 04-09 Glucose [Mass/Vol] 140 mg/dL High 55-99 [facility] Comment on above: Result Comment: Bessie fallon RN/ Performed By: #### 2 [id number] ####[facility] [address] [place] [address] D-Dimeron 04-27-2021 Fibrin D-dimer FEU (PPP) [Mass/Vol] 517 [id number] Abnormal 215-500 [facility] Comment on above: Result Comment: Resu lts [...] infections Liver cirrhosis Performed By: #### 2 921072, 8163805, 3642066, 9334248 #### [facility] [address] [place] [address] ED Clinical Summaryon 2020 ED Clinical Summary [address] [address] ED Clinical Summary Person Information Name: NAIDA CM/[place] Age: 20 Years : 2000 Sex: Male Language: Albanian PCP: JAMES SUH CNP Marital Status: Single Phone: [phone] Visit Id: Visit Reason: Cough; Weakness or fatigue; Shortness of breath; COVID+, SOB, WEAKNESS, Speciality: Acuity: 1 Enc Type: Emergency Med Service: Emergency Arrival: 04/26/2021 14:37:56 Discharge: LOS: 000 24:02 Checkin: 04/26/2021 14:37:56 Checkout: 04/27/2021 14:39:39 Dispo Type: Admitted as IP to this [facility] EVENTS: Event Name Event Status Request Date/Time [...] 04/27/2021 14:39:39 04/27/2021 14:39:39 04/27/2021 14:39:39 ADDRESS: [address] [place] [phone] PHYS DOC NOTES: MEDICAL INFORMATION: Prescriptions Given: PATIENT EDUCATION INFORMATION: Instructions: Follow up: DIAGNOSIS: 1:Acute hypoxemic respiratory failure due to COVID-19; 2:Asthma; 3:Weakness; 4:Dehydration; 5:Obesity; 6:DVT prophylaxis Normal [facility] ED Note-Physicianon 04-27-20 ED Note-Physician Basic Information Time Seen: Wisam SCHWARTZ Evie Baez. 04/26/2021 14:47 Chief Complaint mother states that [...] have severe asthma. She states as a infant he required intubation. The patient is very [...] Art, w (more content not included)... Normal [facility] Comment on above: Result Comment: Elec tronically Signed By: Evie Joel PA-C\.br\Date and Time Signed: 04/26/21 22:06 EST\.br\Electronically Co-Signed By: Donovan Moyer DO\.br\Date and Time Co-Signed: 04/27/21 00:10 EST ED Patient Education Noteon 04-27-2021 ED Patient Education Note Normal [facility] ED Patient Summaryon ED Patient Summary [place] [address] Patient Discharge Instructions Person Information Name: NAIDA CM Age: 20 Years Arrival Date: 04/26/2021 14:37:56 Discharge Diagnosis: 1:Acute hypoxemic respiratory failure due to COVID-19; 2:Asthma; 3:Weakness; 4:Dehydration; 5:Obesity; 6:DVT prophylaxis Primary Care Physician: JAMES SUH CNP Provider Information Primary Provider: Donovan Moyer DO Advanced Scrap Drop Crane Operator:None The exam and treatment you received in the Emergency Department were for an urgent problem and are not intended as complete care. It is important that you follow up with a doctor, nurse practitioner, or physician?s assistant professor of communication for ongoing care. If your symptoms become [...] opioids can be used to help relieve tlnhjqfo-ux-deosia pain and are often prescribed following a [...] be struggling with addiction, tell your health long term care administrator and ask for guidance or call [employer]?S National Helpline at 1-570-666-HELP. v Source: [place] Department of Health and Human Services/Center for Disease Control (more content not included)... Normal [facility] Ferritinon 12-19-2021 Ferritin [Mass/Vol] 299 ng/mL Normal 24-336 [facility] Comment on above: Result Comment: NORM ALS MEN <30 YRS 16-132 ng/mL MEN >30 YRS 8-338 ng/mL WOMEN (PREMEN) 6-104 ng/mL WOMEN (POSTMEN) 12-210 ng/mL Performed By: #### 2 732423, 6083582, 8446431, 1164643 #### [facility] [address] [place] [address] LDHon 04-27-2021 LDH [Catalytic activity/Vol] 247 Int._Unit/L High 93-218 [facility] Comment on above: Performed By: #### 2 886164, 6620035, 4477884, 9189245 #### [facility] [address] [place] [address] Lactic Acidon 04-27-2021 Lactate [Mass/Vol] 1.2 mmol/L Normal 0.5-2.2 [facility] Comment on above: Performed By: #### 2 115088, 8375350, 5848763, 9858341 #### [facility] [address] [place] [address] Monitor Recordon 04-27-2021 Monitor Record [id number]# 1.00CD:127 Normal [facility] Procalcitoninon 04-27-2021 Procalcitonin <.05 Normal .00-.50 [facility] Comment on above: Result Comment: <0.5 [...] to 24 hours. Performed By: #### 2 201045, 4864182, 0676307, 8297738 #### [facility] [address] [place] [address] Progress Note-Nurseon 2020 Progress Note-Nurse Called nursing supervisor ovens for Remdesivir. Bryan Haq [facility] Progress Note-Physicianon Progress Note-Physician Assessment/Plan PLAN: 1. Acute hypoxemic respiratory failure due to COVID-19 (U07.1: COVID-19) -Symptoms started 9 days ago. Covid + at [facility] at that time. -SPO2 74% at home. [...] (E66.9: Obesity, unspecified) -BMI 37.33 -We will preparole counseling aide on diet, exercise, weight loss and lifestyle [...] Lymph Auto: 9 % Low (04/27/21 05:11:00) [place] Auto: 4.4 % (04/27/21 05:11:00) Eos Auto: 0 % (04/27/21 05:11:00) Basophil Auto: 0.2 % (04/27/21 05:11:00) Neutro Absolute: 6.6 E9/L (04/27/21 05:11:00) Lymph Absolute: 0.7 E9/L Low (04/27/21 05:11:00) [place] Absolute: 0.3 E9/L (04/27/21 05:11:00) Eos Absolute: [...] (04/27/21 05:11:00) (more content not included)... Normal [facility] Comment on above: Result Comment: Elec tronically Signed By: Tamara GRAY\.br\Date and Time Signed: 04/27/21 12:45 EST\.br\Electronically Co-Signed By: Man ROWE, Jens Mixon\.br\Date and Time Co-Signed: 04/27/21 14:34 EST TSH With T4fr Reflexon 04-27 TSH Qn 0.73 m[IU]/L Normal 0.34-5.60 [facility] Comment on above: Performed By: #### 2 024166, 8725202, 1211626, 4356604 #### [facility] [address] [place], [place] [address] Troponin 9 Hr.on 04-27-2021 Troponin I.cardiac [Mass/Vol] 5.20 pg/mL Low 15.90-38.40 [facility] Comment on above: Result Comment: The 95% CI (Confidence Interval) PPV (Positive Predictive Value) for myocardial infarction in females is 38 pg/mL, in males 51 pg/mL. The results should be used in conjunction with clinical conditions of myocardial infarction. (Access High Sensitivity Troponin I Instructions For Use, Marta Kiln, December 2017) Performed By: #### 2 760996, 6600290, 5498488, 8086662 #### [facility] [address] [place] [address] eGFRon 04-27-2021 GFR/1.73 sq M.predicted among blacks MDRD (S/P/Bld) [Vol rate/Area] mL/min/{1.73_m2} Normal >=59 [facility] Comment on above: Order Comment: Order added by Discern Expert. Result Comment: eGFR is race adjusted. AA=. Performed By: #### 2 657848, 5443308, 9394811, 9847425 #### [facility] [address] [place] [address] GFR/1.73 sq M.predicted among non-blacks MDRD (S/P/Bld) [Vol rate/Area] mL/min/{1.73_m2} Normal >=59 [facility] Comment on above: Order Comment: Order added by Discern Expert. Result Comment: Back Tacker jaspreet kidney disease could be indicated at eGFR's of less than 60 mL/min/1.73m2. Kidney failure is indicated at less than 15 mL/min/1.73m2. Performed By: #### 2 471548, 5671594, 1746263, 5903855 #### [facility] [address] [place] [address] Auto Diffon 04-26-2021 Basophils/100 WBC (Bld) 0.5 % Normal 0.0-2.0 [facility] Comment on above: Order Comment: Order Added by Discern Expert. Performed By: #### 2 107459, 8536718, 13282032, 9029132, 7701959, 2420898, 9395339, 7712625, 5788678843, 46727033, 41270524, 95352053 #### [facility] [address] [place] [address] Basophils/Leukocytes Auto (Bld) [Pure # fraction] 0.0 E9/L Normal 0.0-0.2 [facility] Comment on above: Order Comment: Order Added by Discern Expert. Performed By: #### 2 476229, 9173630, 23680176, 4666494, 3727453, 2494712, 9471615, 4722619, 0285987965, 52207520, 36310327, 28887402 #### [facility] [address] [place] [address] Eosinophils/100 WBC (Bld) 0.0 % Normal 0.0-8.0 [facility] Comment on above: Order Comment: Order Added by Discern Expert. Performed By: #### 2 197371, 2548790, 83233308, 6890703, 1163655, 2685183, 9085081, 6991279, 6138115678, 53445237, 27769726, 54202163 #### [facility] [address] [place] [address] Eosinophils/Leukocyte s Auto (Bld) [Pure # fraction] 0.0 E9/L Normal 0.0-0.5 [facility] Comment on above: Order Comment: Order Added by Discern Expert. Performed By: #### 2 008105, 2910866, 01668160, 1387606, 7806867, 6831301, 5616252, 9144759, 2490765760, 65512016, 28138161, 87513792 #### [facility] [address] [place] [address] Lymphocytes/100 WBC (Bld) 8.6 % Low 14.0-50.0 [facility] Comment on above: Order Comment: Order Added by Discern Expert. Performed By: #### 2 211916, 6437507, 69902386, 6870270, 1277009, 7335369, 9607466, 9861447, 8311539096, 77156911, 40542540, 10336495 #### [facility] [address] [place] [address] Lymphocytes/Leukocyte s Auto (Bld) [Pure # fraction] 0.9 E9/L Low 1.0-4.0 [facility] Comment on above: Order Comment: Order Added by Discern Expert. Performed By: #### 2 314624, 7547060, 02053279, 8900828, 7505651, 5405571, 5314631, 5305233, 6706676761, 29197098, 03794108, 27723804 #### [facility] [address] [place] [address] Monocytes/100 WBC (Bld) 5.1 % Normal 4.0-14.0 [facility] Comment on above: Order Comment: Order Added by Discern Expert. Performed By: #### 2 600235, 5078913, 33606988, 6962445, 2431596, 8911497, 2804703, 5774633, 5825987759, 01386705, 24770359, 02991962 #### [facility] [address] [place] [address] Monocytes/Leukocytes Auto (Bld) [Pure # fraction] 0.5 E9/L Normal 0.2-1.0 [facility] Comment on above: Order Comment: Order Added by Discern Expert. Performed By: #### 2 605495, 6333135, 51668958, 5630301, 8138642, 2723609, 8415735, 5860524, 2155408572, 49810879, 95309003, 21781207 #### [facility] [address] [place] [address] Neutrophils/100 WBC (Bld) 85.8 % High 36.0-75.0 [facility] Comment on above: Order Comment: Order Added by Discern Expert. Performed By: #### 2 364880, 1531238, 28839450, 2494803, 0579101, 9440836, 9071852, 7129692, 4547315829, 00710975, 63825509, 17548326 #### [facility] [address] [place] [address] Neutrophils/Leukocyte s Auto (Bld) [Pure # fraction] 8.5 E9/L High 2.0-7.5 [facility] Comment on above: Order Comment: Order Added by Discern Expert. Performed By: #### 2 278487, 6959593, 70285416, 3944725, 3826161, 9473678, 6501878, 5513713, 0338592939, 07561197, 64794251, 72131518 #### [facility] [address] [place] [address] BMPon 04-26-2021 Creatinine [Mass/Vol] 0.8 mg/dL Normal 0.5-1.3 [facility] Comment on above: Performed By: #### 2 876322, 5854574, 35907390, 8834564, 5366951, 1995174, 6362757, 7081478, 4331019574, 68106328, 48742035, 84692379 ####[facility] [address] [place] [address] Urea nitrogen [Mass/Vol] 13 mg/dL Normal 5-21 [facility] Comment on above: Performed By: #### 2 856608, 1077105, 02605456, 4093357, 2610987, 6908780, 2608919, 6897683, 4384524801, 25976354, 69920621, 01829662 ####[facility] [address] [place] [address] Urea nitrogen/Creatinine [Mass ratio] 16 No Units Normal 10-20 [facility] Comment on above: Performed By: #### 2 198910, 2292639, 03965589, 7437202, 9923231, 6295211, 0869321, 3129578, 3115520913, 28435499, 41521773, 64730751 ####[facility] [address] [place] [address] Anion gap [Moles/Vol] 14 mmol/L Normal 6-16 [facility] Comment on above: Performed By: #### 2 727425, 7265094, 05656565, 5472272, 2257734, 1100420, 4907707, 8753213, 0175014257, 67032299, 43349483, 39249361 ####[facility] [address] [place] [address] Calcium [Mass/Vol] 8.4 mg/dL Low 8.9-11.1 [facility] Comment on above: Performed By: #### 2 604767, 8733874, 14337089, 6876184, 8160646, 9701136, 3715156, 2165442, 6832309753, 66332193, 90604984, 71911212 ####[facility] [address] [place] [address] Chloride [Moles/Vol] 99 mmol/L Low 101-111 [facility] Comment on above: Performed By: #### 2 001241, 9691904, 81980726, 3099659, 2705549, 1404517, 9873549, 9465792, 7793619923, 67194311, 57122078, 17647840 ####[facility] [address] [place] [address] CO2 [Moles/Vol] 26 mmol/L Normal 21-31 [facility] Comment on above: Performed By: #### 2 101456, 2771906, 52189544, 5193178, 2791208, 3347534, 8099338, 9409572, 5186643248, 32983145, 51412437, 03685800 ####[facility] [address] [place] [address] Glucose [Mass/Vol] 130 mg/dL Normal 55-199 [facility] Comment on above: Result Comment: If t his glucose result represents a fasting glucose, interpretation should refer to the following reference range: 55-99 mg/dL Performed By: #### 2 368244, 5888607, 83880490, 2633365, 9147518, 6836443, 8900234, 8546385, 3115690177, 65974508, 04137569, 47787393 ####[facility] [address] [place] [address] Potassium [Moles/Vol] 3.8 mmol/L Normal 3.5-5.3 [facility] Comment on above: Performed By: #### 2 727306, 0788668, 98215586, 2256027, 9067169, 4950727, 7809360, 8181894, 2347444394, 16556142, 40474339, 22891538 ####[facility] [address] [place] [address] Sodium [Moles/Vol] 135 mmol/L Normal 135-145 [facility] Comment on above: Performed By: #### 2 949746, 2227980, 20102637, 0550526, 0879841, 2982255, 5510442, 1143678, 0472003335, 99870691, 76187863, 79610576 ####[facility] [address] [place] [address] BNPon 04-26-2021 Int Ctr BNP Pass Normal [facility] Comment on above: Performed By: #### 2 637231, 2084815, 28205394, 1319366, 7785241, 1171077, 1398151, 5733604, 3451256253, 95328070, 32331298, 37436874 ####[address] [place] [address] Natriuretic peptide B (Bld) [Mass/Vol] 17 pg/mL Normal 5-80 [facility] Comment on above: Performed By: #### 2 807016, 7852509, 60875624, 4849423, 7252744, 0296130, 8501152, 3391333, 2604075974, 15207758, 18113174, 38969969 ####[facility] [address] [place] [address] Blood Gas Art, with Lytes, G jm, [place] 04-26-2021 a/A Ratio Art 49.50 % Normal >=0.80 [facility] Comment on above: Performed By: #### 4 23441055 ####[facility] [address] [place] [address] AaDO2 Art 73.7 mmHg High 5.0-15.0 [facility] Comment on above: Performed By: #### 4 39906813 ####[facility] [address] [place] [address] Allens Test Positive Normal [facility] Comment on above: Performed By: #### 4 27394183 ####[facility] [address] [place] [address] Base Excess Arterial 4.1 mmol/L Normal >=2.8 [facility] Comment on above: Performed By: #### 4 10414606 ####[address] [place] [address] cCa2+ Art 4.59 mg/dL Normal 4.40-5.30 [facility] Comment on above: Performed By: #### 4 06524309 ####[address] [place] [address] cCl- Art 104.0 mmol/L Normal 101.0-111.0 [facility] Comment on above: Performed By: #### 4 95624683 ####[address] [place] [address] cGlu Art 126 mg/dL High 55-99 [facility] Comment on above: Performed By: #### 4 08710204 ####[address] [place] [address] cK+ Art 4.1 mmol/L Normal 3.5-5.3 [facility] Comment on above: Performed By: #### 4 45878943 ####[address] [place] [address] cLac Art .7 mmol/L Normal .5-2.2 [facility] Comment on above: Performed By: #### 4 76424650 ####[address] [place] [address] movie actor+ Art 141.0 mmol/L Normal 135.0-145.0 [facility] Comment on above: Performed By: #### 4 52344507 ####[address] [place] [address] Drawn by ss Invalid Interpretation Code [facility] Comment on above: Performed By: #### 4 28906029 ####[address] [place] [address] FCOHb Art 1.2 % Low 1.5-4.9 [facility] Comment on above: Result Comment: Refe rence range Nonsmoker <1.5% Smoker <5.0% Heavy Smoker <9.0% Performed By: #### 4 72846631 ####[address] [place] [address] FIO2 BG 21 Invalid Interpretation Code [facility] Comment on above: Performed By: #### 4 58114761 ####[address] [address] FMetHb Art 0.2 % Normal 0.0-1.9 [facility] Comment on above: Performed By: #### 4 45640016 ####[address] [address] FO2Hb Art 94.0 % Normal 93.0-100.0 [facility] Comment on above: Performed By: #### 4 89946354 ####[address] [address] HCO3 (Bld) [Moles/Vol] 28.0 mmol/L High 22.0-26.0 [facility] Comment on above: Performed By: #### 4 85576025 ####[address] [address] Hemoglobin (Bld) [Mass/Vol] 14.7 g/dL Normal 12.0-17.0 [facility] Comment on above: Performed By: #### 4 08675732 ####[address] [address] Oxygen saturation in Blood 95.4 % Normal 95.0-100.0 [facility] Comment on above: Performed By: #### 4 25897457 ####[address] [address] P CO2 Arterial 42.1 mmHg Normal 35.0-45.0 [facility] Comment on above: Performed By: #### 4 58961169 ####[facility] [address] [place] [address] P O2 Arterial 72.2 mmHg Low 80.0-100.0 [facility] Comment on above: Performed By: #### 4 98680496 ####[facility] [address] [place] [address]457 pH Arterial 7.443 Normal 7.350-7.450 [facility] Comment on above: Performed By: #### 4 45441980 ####[facility] [address] [place] [address] Sample Site R Radial Normal [facility] Comment on above: Performed By: #### 4 01942256 ####[facility] [address] [place] [address] Sample Type Arterial Draw Normal [facility] Comment on above: Performed By: #### 4 23711906 ####[facility] [address] [place] [address]24457 CBC w/ Auto Diffon 1 Erythrocyte distribution width (RBC) [Ratio] 13.9 % Normal 10.9-14.2 [facility] Comment on above: Performed By: #### 2 424128, 2530755, 47887490, 5121280, 3371307, 3660277, 6674047, 9707105, 7918149767, 34098127, 55531560, 05951921 #### [facility] [address] [place] [address] Hematocrit (Bld) [Volume fraction] 42.3 % Normal 37.7-49.0 [facility] Comment on above: Performed By: #### 2 704044, 2827298, 14410079, 6276831, 3578024, 9698827, 2336335, 7845821, 6117972793, 01316803, 78345497, 82079395 #### [facility] [address] [place] [address] Hemoglobin (Bld) [Mass/Vol] 14.6 g/dL Normal 13.5-17.5 [facility] Comment on above: Performed By: #### 2 382837, 0207552, 78196960, 2930029, 8181229, 5896136, 4937693, 9748605, 3825552102, 14959643, 94711748, 63219730 #### [facility] [address] [place] [address] MCH (RBC) [Entitic mass] 27.4 pg Normal 27.0-34.0 [facility] Comment on above: Performed By: #### 2 701443, 4937660, 17375110, 4545276, 6508909, 5236506, 1779458, 8669706, 9914011300, 20656318, 44285516, 80196697 #### [facility] [address] [place] [address] MCHC (RBC) [Mass/Vol] 34.5 g/dL Normal 31.4-36.0 [facility] Comment on above: Performed By: #### 2 864652, 7084933, 59935934, 5029005, 7671225, 8479413, 7822424, 0474415, 9936142513, 93259365, 96027368, 41966358 #### [facility] [address] [place] [address] MCV (RBC) [Entitic vol] 79.4 fL Low 80.0-100.0 [facility] Comment on above: Performed By: #### 2 739812, 8820876, 49264236, 2555659, 7079005, 8867787, 8024926, 7623271, 1163670619, 57025465, 00351219, 78604472 #### [facility] [address] [place] [address] Platelet mean volume (Bld) [Entitic vol] 6.9 fL Normal 6.4-10.8 [facility] Comment on above: Performed By: #### 2 591376, 2158254, 24340049, 6140319, 3362557, 7646825, 6755364, 7709524, 7260090228, 61329165, 60473261, 29126305 #### [facility] [address] [place] [address] Platelets (Bld) [#/Vol] 220.0 E9/L Normal 150.0-500.0 [facility] Comment on above: Performed By: #### 2 954323, 0912997, 96567823, 3580186, 7693683, 4866817, 5955867, 3059239, 9645782620, 51112318, 95643409, 86761365 #### [facility] [address] [place] [address] RBC (Bld) [#/Vol] 5.3 E12/L Normal 4.3-5.9 [facility] Comment on above: Performed By: #### 2 696772, 1592532, 96822161, 0388428, 7735261, 9625872, 7908142, 2289810, 5813531740, 75385129, 24970892, 46518743 #### [facility] [address] [place] [address] WBC corrected for nucl RBC Auto (Bld) [#/Vol] 9.9 E9/L Normal 4.0-11.0 [facility] Comment on above: Performed By: #### 2 638181, 0810149, 94388565, 8034698, 3761024, 9359275, 8362077, 5651008, 2444430723, 65367891, 89018158, 85605202 #### [facility] [address] [place] [address] CRPon 04-26-2021 CRP [Mass/Vol] 16.8 mg/dL High <=1.9 [facility] Comment on above: Performed By: #### 2 083900, 4039542, 80964648, 2982078, 1869962, 4595818, 8288374, 5352031, 0949519755, 87199746, 59775394, 20730053 ####[facility] [address] [place] [address] Consent for Treatmenton 04-09 Consent for Treatment [id number] 112 [id number]:127 Normal [facility] D-Dimeron 04-26-2021 Fibrin D-dimer FEU (PPP) [Mass/Vol] 437 [id number] Normal 215-500 [facility] Comment on above: Result Comment: This assay [...] infections Liver cirrhosis Performed By: #### 2 100161, 2171112, 40239443, 6644011, 4974096, 0561750, 8605082, 8266979, 0172905491, 78966506, 41985873, 23596500 ####[facility] [address] [place] [address] ED Note-Nursingon 04-26-2021 ED Note-Nursing road test completed at this time. pt pulse gibson gracia MD at bedside and is aware. pt very anxious to ambulate. pt states SOB with ambulation. denies CP. denies needs. pt TBA and is aware. denies needs at this time. Normal [facility] LDHon 04-26-2021 LDH [Catalytic activity/Vol] 278 Int._Unit/L High 93-218 [facility] Comment on above: Performed By: #### 2 156518, 3155864, 12855600, 9277072, 9879071, 6227993, 1608594, 4202249, 9823775168, 85791820, 04898303, 76055800 ####[facility] [address] [place] [address] Lactic Acidon 04-26-2021 Lactate [Mass/Vol] 1.1 mmol/L Normal 0.5-2.2 [facility] Comment on above: Performed By: #### 2 750939, 3689403, 95810923, 9070014, 9292939, 9841378, 5861989, 7318941, 6860333277, 86954617, 75288135, 30804587 ####[facility] [address] [place] [address] PT & PTTon 04-26-2021 aPTT Coag (PPP) [Time] 30.6 second(s) Normal 25.1-36.5 [facility] Comment on above: Result Comment: Hepa rin therapeutic range (represented by Anti-Factor Xa activity of 0.2 - 0.4 U/mL) corresponds to PTT of 56.6 - 109.0 sec. Performed By: #### 2 400112, 3229656, 94356058, 9423684, 3380473, 5277211, 7395156, 2233503, 9986604752, 54520025, 32742489, 59610919 ####[facility] [address] [place] [address] INR Coag (PPP) [Relative time] 1.2 {INR} Invalid Interpretation Code [facility] Comment on above: Result Comment: INR results are specifically intended to assess patients stabilized on long-term Anticoagulation therapy suggested INR?s ?Less Intensive Anticoagulation? 2.0 ? 3.0 Conventional Range 3.0 ? 4.5 Performed By: #### 2 958812, 2699083, 01254957, 8352251, 5948523, 5836417, 2277836, 6794953, 3341279669, 46775107, 76436351, 18379015 ####[facility] [address] [place] [address] PT Coag (PPP) [Time] 14.1 second(s) High 10.2-12.9 [facility] Comment on above: Performed By: #### 2 898124, 6497829, 71412145, 3066062, 3695939, 7290196, 9918365, 3714202, 5652935038, 61528910, 39852458, 43128747 ####[facility] [address] [place] [address] Procalcitoninon 04-26-2021 Procalcitonin .09 ng/mL Normal .00-.50 [facility] Comment on above: Result Comment: <0.5 [...] to 24 hours. Performed By: #### 2 875882, 3944856, 32028742, 9577011, 1659164, 6225412, 5124744, 2894891, 3971214649, 16797479, 51248676, 49559699 ####[facility] [address] [place] [address] Troponin 0 Hr.on 04-26-2021 Troponin I.cardiac [Mass/Vol] 6.70 pg/mL Low 15.90-38.40 [facility] Comment on above: Result Comment: The 95% CI (Confidence Interval) PPV (Positive Predictive Value) for myocardial infarction in females is 38 pg/mL, in males 51 pg/mL. The results should be used in conjunction with clinical conditions of myocardial infarction. (Access High Sensitivity Troponin I Instructions For Use, [employer], December 2017) Performed By: #### 2 632444, 9200860, 03077357, 3152301, 4446470, 5787934, 5628063, 1531120, 3386886087, 23664376, 76504302, 33448314 ####[facility] [address] [place] [address] Troponin 3 Hr.on 04-26-2021 Troponin I.cardiac [Mass/Vol] 6.40 pg/mL Low 15.90-38.40 [facility] Comment on above: Result Comment: The 95% CI (Confidence Interval) PPV (Positive Predictive Value) for myocardial infarction in females is 38 pg/mL, in males 51 pg/mL. The results should be used in conjunction with clinical conditions of myocardial infarction. (Access High Sensitivity Troponin I Instructions For Use, [employer], December 2017) Performed By: #### 1 1466412 ####[facility] [address] [place] [address] Troponin 6 Hr.on 04-26-2021 Troponin I.cardiac [Mass/Vol] 5.50 pg/mL Low 15.90-38.40 [facility] Comment on above: Result Comment: The 95% CI (Confidence Interval) PPV (Positive Predictive Value) for myocardial infarction in females is 38 pg/mL, in males 51 pg/mL. The results should be used in conjunction with clinical conditions of myocardial infarction. (Access High Sensitivity Troponin I Instructions For Use, [employer], December 2017) Performed By: #### 2 308491, 8678516, 0240792, 0735027 #### [facility] [address] [place] [address] UA With Cult Reflexon 2020 Bacteria LM Ql (Urine sed) TRACE Normal Trace [facility] Comment on above: Performed By: #### 2 343223, 8811144, 8519447, 5724830 #### [facility] [address] [place] [address] Bilirubin Ql (U) Negative Normal Negative [facility] Comment on above: Performed By: #### 2 020338, 9663468, 7536128, 4377159 #### [facility] [address] [place] [address] Clarity (U) CLEAR Normal Clear [facility] Comment on above: Performed By: #### 2 660341, 8518595, 3721399, 0415142 #### [facility] [address] [place] [address] Color (U) YELLOW Normal Yellow [facility] Comment on above: Performed By: #### 2 408309, 3859836, 8370234, 6614648 #### [facility] [address] [place] [address] Epithelial cells.squamous LM.HPF (Urine sed) [#/Area] 0-2 Normal 0-2 [facility] Comment on above: Performed By: #### 2 299319, 5586480, 5046316, 6406626 #### [facility] [address] [place] [address] Glucose Test strip (U) [Mass/Vol] Negative Normal Negative [facility] Comment on above: Performed By: #### 2 531090, 1182678, 1846768, 1890730 #### [facility] [address] [place] [address] Hemoglobin Ql (U) TRACE Abnormal Negative [facility] Comment on above: Performed By: #### 2 143266, 2642157, 7201677, 1935452 #### [facility] [address] [place] [address] Ketones (U) [Mass/Vol] Negative Normal Negative [facility] Comment on above: Performed By: #### 2 672702, 3586304, 3414521, 1701237 #### [facility] [address] [place] [address] [place].plasma/Lithiu m.RBC (Bld) [Mass ratio] 0-3 Normal 0-3 [facility] Comment on above: Performed By: #### 2 861898, 3136339, 9915097, 9679037 #### [facility] [address] [place] [address] Nitrite Ql (U) Negative Normal Negative [facility] Comment on above: Performed By: #### 2 038258, 0660441, 2547024, 7561311 #### [facility] [address] [place] [address] pH (U) 6.5 [pH] Invalid Interpretation Code 5.0-9.0 [facility] Comment on above: Performed By: #### 2 786067, 7862314, 4633932, 8619436 #### [facility] [address] [place] [address] Protein (U) [Mass/Vol] TRACE Abnormal Negative [facility] Comment on above: Performed By: #### 2 068624, 5205928, 4511938, 8813415 #### [facility] [address] [place] [address] Specific gravity (U) [Rel density] 1.020 Invalid Interpretation Code 1.005-1.030 [facility] Comment on above: Performed By: #### 2 513416, 5282152, 1470671, 9083936 #### [facility] [address] [place] [address] Type of Urine collection method Clean Catch Normal [facility] Comment on above: Performed By: #### 2 341222, 4774441, 6983715, 3480426 #### [facility] [address] [place] [address] Urobilinogen Qn (U) 1.0 {Kathy'U}/dL Normal 0.0-1.0 [facility] Comment on above: Performed By: #### 2 418133, 2217507, 9063543, 8673827 #### [facility] [address] [place] [address] WBC Auto Ql (U) Negative Normal Negative [facility] Comment on above: Performed By: #### 2 434919, 2552530, 9583717, 0670798 #### [facility] [address] [place] [address] WBC LM.HPF (Urine sed) [#/Area] 0-5 Normal 0-5 [facility] Comment on above: Performed By: #### 2 935404, 2901286, 7978295, 6839497 #### [facility] [address] [place] [address] XR Chest Single Viewon 04-26 XR Chest [...] MD Transcribed by: KATHI Technologist: MICHEAL Normal [facility] eGFRon 04-26-2021 GFR/1.73 sq M.predicted among blacks MDRD (S/P/Bld) [Vol rate/Area] mL/min/{1.73_m2} Normal >=59 [facility] Comment on above: Order Comment: Order added by Discern Expert. Result Comment: eGFR is race adjusted. AA=. Performed By: #### 2 624209, 9564936, 88981737, 8657694, 8344726, 2298019, 5849624, 8462176, 4526045916, 07351864, 46364004, 62983560 ####[facility] [address] [place] [address] GFR/1.73 sq M.predicted among non-blacks MDRD (S/P/Bld) [Vol rate/Area] mL/min/{1.73_m2} Normal >=59 [facility] Comment on above: Order Comment: Order added by Discern Expert. Result Comment: Back Tacker jaspreet kidney disease could be indicated at eGFR's of less than 60 mL/min/1.73m2. Kidney failure is indicated at less than 15 mL/min/1.73m2. Performed By: #### 2 370733, 7577117, 04850601, 0396025, 2114046, 8020188, 6052288, 2881555, 7899272228, 16040727, 11143494, 02751928 ####[facility] [address] [place] [address] CARDIAC JIM ADMITon 021 CK >1600 Critically high 55-170 [facility] Comment on above: Result Comment: test repeated, critical value verified Performed By: #### L IPA, CMP, TSH, CMADM #### [facility] [address] [place], [place] [address] Dr. Darrius Lindsey CK.MB [Mass/Vol] 6.32 ng/mL Critically high <=2.37 [facility] Comment on above: Performed By: #### L IPA, CMP, TSH, CMADM #### [facility] [address] [place], [place] [address] Dr. Darrius Lindsey HSTROP 20.3 pg/mL Normal 4.0-42.2 [facility] Comment on above: Result Comment: CUT- OFF POINTS HAVE BEEN ESTABLISHED BASED ON THE FOURTH UNIVERSAL DEFINITIONS OF MYOCARDIAL INFARCTION. THE UPPER REFERENCE LIMIT (URL) OF TROPONIN, DEFINED THE 99TH PERCENTILE OF cTnI DISTRIBUTION IN A REFERENCE POPULATION, HAS BEEN CONFIRMED THE DECISION THRESHOLD FOR MS DIAGNOSIS. Performed By: #### L IPA, CMP, TSH, CMADM #### [facility] [address] [place], [place] [address] Dr. Darrius Lindsey REY 710.0 ng/mL Critically high <=121.0 [facility] Comment on above: Performed By: #### L IPA, CMP, TSH, CMADM #### [facility] [address] [place], [place] [address] Dr. Darrius Lindsey CBC AUTO DIFFon 04-25-2021 BASO # 0.0 103/ul Normal 0.0-0.1 [facility] Comment on above: Performed By: #### C BC ####[facility] [address] [place], [place] [address]KeDr. Darrius Lindsey Basophils/100 WBC (Bld) 0.1 % Critically low 0.2-2.0 [facility] Comment on above: Performed By: #### C BC ####[facility] [address] [place] [address]Dr. Darrius Lindsey EO # 0.0 103/ul Normal 0.0-0.7 [facility] Comment on above: Performed By: #### C BC ####[facility] [address] [place] [address]Dr. Darrius César Eosinophils/100 WBC (Bld) 0.0 % Critically low 0.9-7.0 [facility] Comment on above: Performed By: #### C BC ####[facility] [address] [place], [place] [address]Dr. Paolanatalee Lindsey Erythrocyte distribution width (RBC) [Ratio] 13.2 % Normal 11.0-15.0 [facility] Comment on above: Performed By: #### C BC ####[facility] [address] [place], [place] [address]DrMandy Paolanatalee Lindsey Hematocrit (Bld) [Volume fraction] 47.4 % Normal 42.0-54.0 [facility] [facility] Comment on above: Performed By: #### C BC ####[facility] [address] [place], [place] [address]Dr. Darrius Lindsey Hemoglobin (Bld) [Mass/Vol] 15.5 g/dL Normal 14.0-18.0 [facility] Comment on above: Performed By: #### C BC ####[facility] [address] [place], [place] [address]DrMandy Paolanatalee Lindsey IG # 0.04 10e3/ul Critically high 0.00-0.03 [facility] Comment on above: Performed By: #### C BC ####[facility] [address] [place], [place] [address]DrMandy Lindsey IG % 0.5 % Normal 0.0-0.5 [facility] Comment on above: Performed By: #### C BC ####[facility] [address] [place], [place] [address]DrMandy Lindsey LYMPH # 0.7 103/ul Critically low 1.2-3.8 [facility] Comment on above: Performed By: #### C BC ####[facility] [address] [address]DrMandy Lindsey Lymphocytes/100 WBC (Bld) 8.8 % Critically low 20.5-60.0 [facility] Comment on above: Performed By: #### C BC ####[facility] [address] [address]DrMandy Lindsey MANUAL DIFF REQ NO Normal [facility] Comment on above: Performed By: #### C BC ####[facility] [address] [address]DrMandy Lindsey MCH (RBC) [Entitic mass] 27.1 pg Normal 25.9-34.0 [facility] Comment on above: Performed By: #### C BC ####[facility] [address] [place], [place] [address]DrMandy Lindsey MCHC (RBC) [Mass/Vol] 32.7 g/dL Normal 29.9-35.2 [facility] Comment on above: Performed By: #### C BC ####[facility] [address] [place], [place] [address]DrMandy Lindsey MCV (RBC) [Entitic vol] 83.0 fL Normal 80.0-94.0 [facility] Comment on above: Performed By: #### C BC ####[facility] [address] [place], [place] [address]DrMandy Lindsey MONO # 0.5 103/ul Normal 0.3-0.8 [facility] Comment on above: Performed By: #### C BC ####[facility] [address] [place], [place] [address]DrMandy Lindsey Monocytes/100 WBC (Bld) 5.8 % Normal 1.7-12.0 [facility] Comment on above: Performed By: #### C BC ####[facility] [address] [place], [place] [address]DrMandy Lindsey NEUT # 6.8 103/ul Critically high 1.4-6.5 [facility] Comment on above: Performed By: #### C BC ####[facility] [address] [place] [id number]. Darrius Lindsey Neutrophils/100 WBC (Bld) 84.8 % Critically high 43.0-75.0 [facility] Comment on above: Performed By: #### C BC ####[facility] [address] [place] [id number]. Darrius Lindsey Platelet mean volume (Bld) [Entitic vol] 8.8 fL Critically low 9.5-13.5 [facility] Comment on above: Performed By: #### C BC ####[facility] [address] [place] [id number]. Darrius Lindsey PLT 197 103/ul Normal 150-450 [facility] Comment on above: Performed By: #### C BC ####[facility] [address] [place] [id number]. Darrius Lindsey RBC 5.71 106/ul Normal 4.70-6.10 [facility] Comment on above: Performed By: #### C BC ####[facility] [address] [place] [id number]. Darrius Lindsey WBC 8.0 103/ul Normal 4.0-11.0 [facility] Comment on above: Performed By: #### C BC ####[facility] [address] [place] [id number]. Darrius Lindsey LIPASEon 04-25-2021 Lipase [Catalytic activity/Vol] 75.0 U/L Normal 23.0-300.0 [facility] Comment on above: Performed By: #### L IPA, CMP, TSH, CMADM #### [facility] [address] [place], [place] [address] Dr. Darrius Lindsey PROF 14(COMP METB)on 021 Albumin [Mass/Vol] 3.5 g/dL Normal 3.5-5.0 [facility] Comment on above: Performed By: #### L IPA, CMP, TSH, CMADM #### [facility] [address] [address] [address] Darrius Lindsey Albumin/Globulin [Mass ratio] 0.8 {ratio} Normal [facility] Comment on above: Performed By: #### L IPA, CMP, TSH, CMADM #### [facility] [address] [address] [address] Darrius Lindsey ALP [Catalytic activity/Vol] 103 U/L Normal 38-126 [facility] Comment on above: Performed By: #### L IPA, CMP, TSH, CMADM #### [facility] [address] [address] [address] Darrius Lindsey ALT [Catalytic activity/Vol] 62 U/L Normal 21-72 [facility] Comment on above: Performed By: #### L IPA, CMP, TSH, CMADM #### [facility] [address] [address] [address] Darrius Lindsey Anion gap [Moles/Vol] 14.8 mmol/L Normal [facility] Comment on above: Performed By: #### L IPA, CMP, TSH, CMADM #### [facility] [address] [address] [address] Darrius Lindsey AST [Catalytic activity/Vol] 87 U/L Critically high 17-59 [facility] Comment on above: Performed By: #### L IPA, CMP, TSH, CMADM #### [facility] [address] [address] [address] Darrius Lindsey Bilirubin [Mass/Vol] 0.6 mg/dL Normal 0.2-1.3 [facility] Comment on above: Performed By: #### L IPA, CMP, TSH, CMADM #### [facility] [address] [address] [address] Darrius Lnidsey Calcium [Mass/Vol] 9.3 mg/dL Normal 8.4-10.2 [facility] Comment on above: Performed By: #### L IPA, CMP, TSH, CMADM #### [facility] [address] [address] [address] Darrius Lindsey Chloride [Moles/Vol] 101 mmol/L Normal 98-107 [facility] Comment on above: Performed By: #### L IPA, CMP, TSH, CMADM #### [facility] [address] [place] [address] Dr. Darrius Lindsey CO2 [Moles/Vol] 28.8 mmol/L Normal 22.0-30.0 [facility] Comment on above: Performed By: #### L IPA, CMP, TSH, CMADM #### [facility] [address] [place] [address] Dr. Darrius Lindsey Creatinine [Mass/Vol] 0.99 mg/dL Normal 0.66-1.25 [facility] Comment on above: Performed By: #### L IPA, CMP, TSH, CMADM #### [facility] [address] [place] [address] Dr. Darrius Lindsey EGFR-AF ALGERIAN >60 Normal >=60 [facility] Comment on above: Performed By: #### L IPA, CMP, TSH, CMADM #### [facility] [address] [place] [address] Dr. Darrius Lindsey EGFR-NON AF ALGERIAN >60 Normal >=60 [facility] Comment on above: Performed By: #### L IPA, CMP, TSH, CMADM #### [facility] [address] [place] [address] Dr. Darrius Lindsey Globulin (S) [Mass/Vol] 4.5 g/dL Normal [facility] Comment on above: Performed By: #### L IPA, CMP, TSH, CMADM #### [facility] [address] [place] [address] Dr. Darrius Lindsey Glucose [Mass/Vol] 128 mg/dL Critically high 74-106 [facility] Comment on above: Performed By: #### L IPA, CMP, TSH, CMADM #### [facility] [address] [place] [address] Dr. Darrius Lindsey Potassium [Moles/Vol] 4.6 mmol/L Normal 3.4-5.0 [facility] Comment on above: Performed By: #### L IPA, CMP, TSH, CMADM #### [facility] [address] [address] [address] Darrius Lindsey Protein [Mass/Vol] 8.0 g/dL Normal 6.1-8.2 [facility] Comment on above: Performed By: #### L IPA, CMP, TSH, CMADM #### [facility] [address] [address] [address] Darrius Lindsey Sodium [Moles/Vol] 140 mmol/L Normal 137-145 [facility] Comment on above: Performed By: #### L IPA, CMP, TSH, CMADM #### [facility] [address] [address] [address] Darrius Lindsey Urea nitrogen [Mass/Vol] 16.0 mg/dL Normal 6.4-19.3 [facility] Comment on above: Performed By: #### L IPA, CMP, TSH, CMADM #### [facility] [address] [place] [address] Dr. Darrius Lindsey Urea nitrogen/Creatinine [Mass ratio] 16.2 mg/mg Normal [facility] Comment on above: Performed By: #### L IPA, CMP, TSH, CMADM #### [facility] [address] [address] [address] Darrius Lindsey TSHon 04-25-2021 TSH 1.381 uIU/mL Normal 0.430-3.750 [facility] Comment on above: Performed By: #### L IPA, CMP, TSH, CMADM #### [facility] [address] [place] [address] Dr. Darrius Lindsey TSH RANGE SEE BELOW Normal [facility] Comment on above: Result Comment: <0.3 4 UIU/ml HYPERTHYROID 0.34-5.60 UIU/ml EUTHYROID >5.60 UIU/ml HYPOTHYROID Performed By: #### L IPA, CMP, TSH, CMADM #### [facility] [address] [place] [address] Dr. Darrius Lindsey XR CHEST 1 Von [...] CHRISSIE MARRERO Date: 2021-04-25 11:30 Normal [facility] Covid-19 PCR (CVDTB)on SARS-CoV-2 (COVID-19) RNA ROSIE+probe Ql (Unsp spec) Detected Critically abnormal NOT DETECTED [facility] Comment on above: Result Comment: This test is not yet approved or cleared by the [place] FDA. When there are no FDA-approved or cleared tests available, and other criteria are met, FDA can make tests available under an emergency access mechanism called an Emergency Use Authorization (EUA). The EUA for this test is supported by the Supply Chain Manager of Health and Human Service's (HHS's) declaration [...] longer be used). Performed By: #### C [facility] #### [facility] [address] [place] [address] Dr. Darrius Lindsey XR ABD FLAT UP_PA [...] pathologic calcifications suspected. Electronically authenticated by: ALEXIS LINNH Date: 2020-10-11 22:21 Normal [facility] CBC AUTO DIFFon 10-11-2020 BASO # 0.1 103/ul Normal 0.0-0.1 [facility] Comment on above: Performed By: #### C BC #### [facility] [address] [id number] Mary Kay Suzie Basophils/100 WBC (Bld) 0.8 % Normal 0.2-2.0 [facility] Comment on above: Performed By: #### C BC #### [facility] [address] [place] [id number] Mary Kay Suzie EO # 0.3 103/ul Normal 0.0-0.7 [facility] Comment on above: Performed By: #### C BC #### [facility] [address] [place] [id number] Mary Kay Suzie Eosinophils/100 WBC (Bld) 3.1 % Normal 0.9-7.0 [facility] Comment on above: Performed By: #### C BC #### [facility] [address] [place] [id number] Mary Kay Suzie Erythrocyte distribution width (RBC) [Ratio] 13.2 % Normal 11.0-15.0 [facility] Comment on above: Performed By: #### C BC #### [facility] [address] [place] [id number] Mary Kay Suzie Hematocrit (Bld) [Volume fraction] 42.1 % Normal 42.0-54.0 [facility] Comment on above: Performed By: #### C BC #### [facility] [address] [place], [place] [address] Mary Kay Suzie Hemoglobin (Bld) [Mass/Vol] 14.1 g/dL Normal 14.0-18.0 [facility] Comment on above: Performed By: #### C BC #### [facility] [address] [place], [place] [address] Mary Kay Suzie IG # 0.03 10e3/ul Normal 0.00-0.03 [facility] Comment on above: Performed By: #### C BC #### [facility] [address] [place] [id number] Mary Kay Suzie IG % 0.3 % Normal 0.0-0.5 [facility] Comment on above: Performed By: #### C BC #### [facility] [address] [place] [address] Mary Kay Suzie LYMPH # 3.2 103/ul Normal 1.2-3.8 [facility] Comment on above: Performed By: #### C BC #### [facility] [address] [place] [address] Mary Kay Suzie Lymphocytes/100 WBC (Bld) 30.5 % Normal 20.5-60.0 [facility] Comment on above: Performed By: #### C BC #### [facility] [address] [place] [address] Mary Kay Suzie MANUAL DIFF REQ NO Normal [facility] Comment on above: Performed By: #### C BC #### [facility] [address] [place], [place] [id number] Mary Kay Suzie MCH (RBC) [Entitic mass] 26.9 pg Normal 25.9-34.0 [facility] Comment on above: Performed By: #### C BC #### [facility] [address] [place] [address] Mary Kaymolly Larsen MCHC (RBC) [Mass/Vol] 33.5 g/dL Normal 29.9-35.2 [facility] Comment on above: Performed By: #### C BC #### [facility] [address] [place] [address] Mary Kay Suzie MCV (RBC) [Entitic vol] 80.3 fL Normal 76.3-90.1 [facility] Comment on above: Performed By: #### C BC #### [facility] [address] [place] [address] Mary Kay Suzie MONO # 0.6 103/ul Normal 0.3-0.8 [facility] Comment on above: Performed By: #### C BC #### [facility] [address] [place] [address] Mary Kay Suzie Monocytes/100 WBC (Bld) 6.0 % Normal 1.7-12.0 [facility] Comment on above: Performed By: #### C BC #### [facility] [address] [place], [place] [id number] Mary Kay Suzie NEUT # 6.1 103/ul Normal 1.4-6.5 [facility] Comment on above: Performed By: #### C BC #### [facility] [address] [place], [place] [id number] Mary Kay Suzie Neutrophils/100 WBC (Bld) 59.3 % Normal 43.0-75.0 [facility] Comment on above: Performed By: #### C BC #### [facility] [address] [place], [place] [id number] Mary Kay Suzie Platelet mean volume (Bld) [Entitic vol] 9.2 fL Critically low 9.5-13.5 [facility] Comment on above: Performed By: #### C BC #### [facility] [address] [place], [place] [id number] Mary Kay Suzie PLT 259 103/ul Normal 150-450 [facility] Comment on above: Performed By: #### C BC #### [facility] [address] [place], [place] [id number] Mary Kay Suzie RBC 5.24 106/ul Normal 3.30-5.40 [facility] Comment on above: Performed By: #### C BC #### [facility] [address] [place], [place] [id number] Mary Kay Suzie WBC 10.3 103/ul Normal 4.0-11.0 [facility] Comment on above: Performed By: #### C BC #### [facility] [address] [place], [place] [id number] Mary Kay Suzie ER URINE PROFILEon 1 Bilirubin Ql (U) Negative Normal NEGATIVE [facility] Comment on above: Performed By: #### E RUR #### [facility] [address] [place], [place] [id number] Mary Kay Suzie Clarity (U) CLOUDY Abnormal CLEAR [facility] Comment on above: Performed By: #### E RUR #### [facility] [address] [place] [address] Mary Kay Suzie Color (U) LT. YELLOW Normal YELLOW [facility] Comment on above: Performed By: #### E RUR #### [facility] [address] [place] [address] Mary Kay Suzie ERUAHD A micrscopic examination will be performed if indicated. Normal [facility] Comment on above: Performed By: #### E RUR #### [facility] [address] [place] [address] Mary Kay Suzie Glucose Ql (U) Negative Normal NEGATIVE [facility] Comment on above: Performed By: #### E RUR #### [facility] [address] [place] [address] Mary Kay Suzie Hemoglobin Ql (U) Negative Normal NEGATIVE [facility] Comment on above: Performed By: #### E RUR #### [facility] [address] [place] [address] Mary Kay Suzie Ketones Ql (U) Negative Normal NEGATIVE [facility] Comment on above: Performed By: #### E RUR #### [facility] [address] [place] [address] Mary Kay Suzie LEUKOCYTES Negative Normal NEGATIVE [facility] Comment on above: Performed By: #### E RUR #### [facility] [address] [place] [address] Mary Kay Suzie Nitrite Ql (U) Negative Normal NEGATIVE [facility] Comment on above: Performed By: #### E RUR #### [facility] [address] [place] [address] Mary Kay Suzie pH (U) 7.5 [pH] Normal 5-9 [facility] Comment on above: Performed By: #### E RUR #### [facility] [address] [place] [address] Mary Kay Suzie SPEC GRAVITY 1.020 Normal 1.005-<=1.025 The [facility] Comment on above: Performed By: #### E RUR #### [facility] [address] [place], [place] [id number] Mary Kaymolly Troncosoen UA PROTEIN Negative Normal NEGATIVE/ TRACE [facility] Comment on above: Performed By: #### E RUR #### [facility] [address] [place], [place] [id number] Mary Kay Larsen UR MICRO IND NOT INDICATED Normal [facility] Comment on above: Performed By: #### E RUR #### [facility] [address] [place], [place] [id number] Mary Kay Larsen Urobilinogen Qn (U) 2.0 {Kathy'U}/dL Abnormal 0.2 - 1. 0 [facility] Comment on above: Performed By: #### E RUR #### [facility] [address] [place], [place] [id number] Mary Kay Larsen PROF 14(COMP METB)on 021 Albumin [Mass/Vol] 4.0 g/dL Normal 3.5-5.0 [facility] Comment on above: Performed By: #### C MP #### [facility] [address] [place], [place] [id number] Mary Kaymolly Larsen Albumin/Globulin [Mass ratio] 1.2 {ratio} Normal [facility] Comment on above: Performed By: #### C MP #### [facility] [address] [place], [place] [id number] Mary Kay Suzie ALP [Catalytic activity/Vol] 159 U/L Normal 65-260 [facility] Comment on above: Performed By: #### C MP #### [facility] [address] [place], [place] [id number] Mary Kay Suzie ALT [Catalytic activity/Vol] 47 U/L Normal 21-72 [facility] Comment on above: Performed By: #### C MP #### [facility] [address] [place], [place] [id number] Mary Kay Suzie Anion gap [Moles/Vol] 13.4 mmol/L Normal [facility] Comment on above: Performed By: #### C MP #### [facility] [address] [place], [place] [id number] Mary Kay Suzie AST [Catalytic activity/Vol] 26 U/L Normal 17-59 [facility] Comment on above: Performed By: #### C MP #### [facility] [address] [place] [address] Mary Kay Suzie Bilirubin [Mass/Vol] 0.5 mg/dL Normal 0.2-1.3 [facility] Comment on above: Performed By: #### C MP #### [facility] [address] [place] [address] Mary Kay Suzie Calcium [Mass/Vol] 9.0 mg/dL Normal 8.4-10.2 The [facility] Comment on above: Performed By: #### C MP #### [facility] [address] [place] [address] Mary Kay Suzie Chloride [Moles/Vol] 107 mmol/L Normal 98-107 [facility] Comment on above: Performed By: #### C MP #### [facility] [address] [place] [address] Mary Kay Suzie CO2 [Moles/Vol] 29.7 mmol/L Normal 22.0-30.0 [facility] Comment on above: Performed By: #### C MP #### [facility] [address] [place] [address] Mary Kay Suzie Creatinine [Mass/Vol] 0.97 mg/dL Normal 0.66-1.25 [facility] Comment on above: Performed By: #### C MP #### [facility] [address] [place] [address] Mary Kay Suzie Globulin (S) [Mass/Vol] 3.4 g/dL Normal [facility] Comment on above: Performed By: #### C MP #### [facility] [address] [place], [place] [id number] Mary Kay Suzie Glucose [Mass/Vol] 99 mg/dL Normal 74-106 The [facility] Comment on above: Performed By: #### C MP #### [facility] [address] [place] [address] Mary Kay Suzie Potassium [Moles/Vol] 4.1 mmol/L Normal 3.4-5.0 [facility] Comment on above: Performed By: #### C MP #### [facility] [address] [place], [place] [address] Mary Kay Suzie Protein [Mass/Vol] 7.4 g/dL Normal 6.1-8.2 [facility] Comment on above: Performed By: #### C MP #### [facility] [address] [place], [place] [address] Mary Kay Suzie Sodium [Moles/Vol] 146 mmol/L Critically high 137-145 [facility] Comment on above: Performed By: #### C MP #### [facility] [address] [place], [place] [address] Mary Kay Suzie Urea nitrogen [Mass/Vol] 15.0 mg/dL Normal 6.4-19.3 [facility] Comment on above: Performed By: #### C MP #### [facility] [address] [place], [place] [address] Mary Kay Suzie Urea nitrogen/Creatinine [Mass ratio] 15.5 mg/mg Normal [facility] Comment on above: Performed By: #### C MP #### [facility] [address] [place], [place] [address] Mary Kay Larsen Encounters Encounter Date Encounter Type Care Provider Facility Start: 06-07-2023 End: 06-07-2023 ambulatory KARISSA VILLATORO Not Available Start: 04-25-2021 End: 04-25-[address] JERRY PETERSEN Facility:[facility] Start: 04-23-2021 End: 04-23-2021 ambulatory NICOLASA PEDROZA Facility:[facility] Start: 04-17-2021 End: 04-17-[address] JIM GRANDE Facility:[facility] Start: 10-11-2020 End: 2020 ambulatory KIMBERLYN MELCHOR Facility:[facility] Payers Date Payer Category Payer Medicaid [id number] 2002 Unknown [id number] [id number] [id number] 1981 Unknown [id number] [id number] [id number] 1981 Unknown [id number] [id number] [id number] 1981 Unknown [id number] 2.16.84 [id number] 1981 Unknown [id number] 2.16.84 [id number] 1959 Unknown [id number] Clinical Note 05-03-2021 Note Date & Type [...] Locations R1: This test was performed at: [facility], [address] [place] [address], [facility] , , [facility] Comment on above: Performed By: #### 1 [id number] ####[facility] [address] [place] [address] Clinical Note 05-03-2021 Note Date & Type [...] Locations R1: This test was performed at: [facility], [address] [place] [address], [id number] , [place], [facility] Comment on above: Performed By: #### 2 [id number], [id number] #### [facility] [address] [place] [id number] Discharge summary note 05-02-2021 Note Date & [...] be reviewed and discussed with PCP or button sewer MD once the hospital dimmer board operator is able to reach him/her. I [...] made to ensure accuracy, however, inadvertently computerized waiter/waitress mistakes may be present. Significant Findings No [...] COVID-19 (U07.1: COVID-19) + COVID 19 at [facility] -> Unvaccinated -CXR: COVID 19 PNA -Initial [...] hygiene. All equipment was properly cleansed. Ordered: [facility] Prescription, Nebulizer, 1 machine w/ approp. tubing/mask, [...] Asthma (J45.909: Unspecified (more content not included)... [facility] Comment on above: Result Comment: Elec tronically Signed By: Steph WATERMAN\.br\Date and Time Signed: 05/01/21 10:58 EST\.br\Electronically Co-Signed By: Adalberto NICHOLAS MD\.br\Date and Time Co-Signed: 05/02/21 09:44 EST Clinical Note 04-28-2021 Note Date & Type Note Facility 04-28-2021 Note CRM Liudmila entered t he room to discuss dc planning. DME discussed. PCP/Insurance reviewed. Pt is alert and involved in plan of care. Contact information provided and whiteboard updated. Pt is COVID pos, proper PPE donned. Pt lives with mother and she will be transport at dc. No further needs. Ant dc TBD. CRM to follow. [facility] Comment on above: Result Comment: Elec tronically [...] oximeter after he tested positive at [facility] 9 days prior. He states his sats [...] room air. I did question the emergency specialty department supervisor if this was on room air as documented but she was uncertain. While being observed in the emergency department at one point his pulse ox was 91% on room air. With further questioning patient advises me that he has been to the [facility] emergency department on 3 other occasions over the past week did not feel satisfied with no improvement in his symptoms thus came to this facility. I was advised by the emergency specialty department supervisor that the patient's parents brought him in [...] no longer a (more content not included)... [facility] Comment on above: Result Comment: Elec tronically Signed By: Volodymyr AMARO DO\.br\Date and Time Signed: 04/27/21 02:51 EST Summary Purpose Family History No Family History Records FoundNo Family History Records FoundNo Family History Records Found Advance Directives No Advanced Directives Records FoundNo Advanced Directives Records FoundNo Advanced Directives Records Found Additional Source Comments (unrecognized sect ion and content) No Status Records FoundNo Status Records FoundNo Status Records Found INFORMATION SOURCE (unrecogn ized section and content) DATE CREATED AUTHOR 04/29/2021 [facility] DATE CREATED AUTHOR AUTHOR'S ORGANIZ ATION 05/06/2021 [facility] DATE CREATED AUTHOR AUTHOR'S ORGANIZ ATION 06/08/2023 [facility] EPIC FOR RECORDS PERTAINING TO PATIENTS WHO ARE [...] BE BASED ON THE PRIMARY CLINICAL RECORDS. [facility]. provides no warranty or guarantee of the accuracy or completeness of information in this document.
[2023-08-10 17:14] LABS: Influenza Virus A Antigen Negative; Influenza Virus B Antigen Negative; Internal Control Within Normal Limits; SARS-CoV-2 Ag NEGATIVE (NEGATIVE); Strep A Antigen Screen Negative
== END 2023-08-10 17:37 | disposition home or self-care (01) ==
PROVIDERS: Emergency Provider Emergency Medicine
DX: J06.9 Acute upper respiratory infection, unspecified (principal); Z20.822 Contact with and (suspected) exposure to COVID-19
CPT/HCPCS: 87070; 87804; 87811; 87880; 99285

== ENCOUNTER 2024-05-21 07:32 | Observation (INO) | payer OTHER, SELFPAY ==
[2024-05-21] VITALS (37 sets, daily range): BP systolic 69–138; BP diastolic 59–92; PULSE 78–153; TEMP 36.5–38.2; O2SAT 91–99; BMI 38.4; BMI 39.4
--- NOTE | 2024-05-21 07:50 | XR_ITS ---
The [address] [address] Patient Name: NAIDA CM MRN: [id number] date: 2000 Sex: M Assigned Patient Location: ER Current Patient Location: ED.MAIN Accession/Order Number: [id number] Exam Date: 05/21/2024 08:00 Report Date: 05/21/2024 08:39 At the request of: REGINO HECTOR Procedure: XR chest 1V EXAMINATION: XR chest 1V HISTORY: SOB COMPARISON: XR chest 04/25/2021 FINDINGS: LUNGS: Moderate amount of dense opacities within right lung base partially obscuring the diaphragm margin. VASCULATURE: No increased pulmonary vasculature. PLEURA: No pneumothorax, effusion, or pleural thickening. CARDIAC: No cardiomegaly or cardiac silhouette abnormality. MEDIASTINUM: No visible mass or adenopathy. BONES: No fracture or visible bone lesion. OTHER: Negative. XR/XR chest 1V IMPRESSION: 1. Low lung volume examination with moderate right basilar infiltrates suggestive of pneumonia. Electronically authenticated by: DIANA DOMINGUEZ Date: 05/21/2024 08:39
--- NOTE | 2024-05-21 07:50 | ECG_ITS ---
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
--- NOTE | 2024-05-21 07:51 | ED.GENADUL1 ---
HPI HPI - General Adult General Chief complaint: Shortness of Breath/Dyspnea Stated complaint: SOB, HEART RACING Time Seen by Provider: 05/21/24 07:46 Source: patient Mode of arrival: walk-in History of Present Illness HPI narrative: 23-year-old male presents to the emergency department for fast heartbeat and feeling short of breath. He does not have chest pain. He has had a cough for about 3 days, no known ill contacts. 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 No injury. He gives no history of a fever. Related Data Home Medications ?Medication ?Instructions ?Recorded ?Confirmed No Known Home Medications 05/21/24 05/21/24 Allergies Allergy/AdvReac Type Severity Reaction Status Date / Time No Known Drug Allergies Allergy Verified 05/21/24 07:43 Opioid HPI Opioid Management Most Recent Opioid Data: Last JUL Pain Assessment 05/21/24 08:42 Review of Systems ROS Narrative A ten point review of systems is negative except as noted above. [facility] Medical History (Updated 05/21/24 @ 09:00 by Dewayne Ballesteros MD) Pneumonia ?J18.9 - Pneumonia, unspecified organism (ICD-10) Palpitations ?R00.2 - Palpitations (ICD-10) Social History Smoking status: Never smoker Little interest or pleasure in doing things: not at all Feeling down, depressed, or hopeless: not at all Exam Narrative Exam Narrative: Nurses note and vital signs reviewed and patient is not hypoxic. General: The patient appears mildly dyspneic. Skin: Warm, dry, no pallor noted. There is no rash noted. Head: Normocephalic, atraumatic Eye: Normal conjunctiva, no drainage Ears, Nose, Mouth, and Throat: oral mucosa is moist. Nares patent. Cardiovascular: Regular Rate and Rhythm, tachycardia Respiratory: Patient is in no distress, no accessory muscle use, lungs are clear to auscultation, no wheezing, rales or rhonchi Back: non-tender GI: Soft and nontender Musculoskeletal: The patient has no evidence of calf tenderness, no pitting edema, symmetrical pulses noted bilaterally Neurological: A&O, normal speech Psychiatric: Cooperative Constitutional Vital Signs, click to edit/add: Last Vital Signs Temp 100.8 F H 05/21/24 08:25 Pulse 136 H 05/21/24 08:50 Resp 21 H 05/21/24 08:50 BP 116/86 05/21/24 08:31 Pulse Ox 96 05/21/24 08:50 O2 Del Method Room Air 05/21/24 07:35 Course Vital Signs Vital signs: Vital Signs Temperature 97.7 F 05/21/24 07:35 Pulse Rate 144 H 05/21/24 07:35 Respiratory Rate 31 H 05/21/24 07:35 Blood Pressure 118/92 H 05/21/24 07:35 Pulse Oximetry 94 L 05/21/24 07:35 Oxygen Delivery Method Room Air 05/21/24 07:35 Temperature 100.8 F H 05/21/24 08:25 Pulse Rate 136 H 05/21/24 08:50 Respiratory Rate 21 H 05/21/24 08:50 Blood Pressure 116/86 05/21/24 08:31 Pulse Oximetry 96 05/21/24 08:50 Oxygen Delivery Method Room Air 05/21/24 07:35 Medical Decision Making MDM Narrative Medical decision making narrative: Pneumonia is identified. Blood cultures were obtained and he was given IV antibiotic. I do not suspect pulmonary embolism in this patient and I do not feel that CT angiogram is warranted. He was given IV Rocephin and Zithromax and placed on oxygen and given IV fluid bolus. Lactic acid is normal. Treatment diagnosis and disposition were discussed with the patient and he is being admitted. Differential Diagnosis Differential Diagnosis: Pneumonia, COVID, influenza, PE, pneumothorax Lab Data Lab results reviewed: Yes I reviewed the patient's lab results Labs: Lab Results 05/21/24 05/21/24 Range/Units 07:41 07:43 WBC 6.2 (4.0-11.0) 10^3/uL RBC 4.90 (4.70-6.10) 10^6/uL Hgb 13.6 L (14.0-18.0) g/dL Hct 40.7 L (42.0-54.0) % MCV 83.1 (80.0-94.0) fL MCH 27.8 (25.9-34.0) pg MCHC 33.4 (29.9-35.2) g/dL RDW 13.0 (11.0-15.0) % Plt Count 218 (150-450) 10^3/uL MPV 9.0 L (9.5-13.5) fL Neut % (Auto) 71.6 (43.0-75.0) % Lymph % (Auto) 17.9 L (20.5-60.0) % [place] % (Auto) 8.1 (1.7-12.0) % Eos % (Auto) 0.8 L (0.9-7.0) % Baso % (Auto) 0.5 (0.2-2.0) % Neut # (Auto) 4.4 (1.4-6.5) 10^3/uL Lymph # (Auto) 1.1 L (1.2-3.8) 10^3/uL [place] # (Auto) 0.5 (0.3-0.8) 10^3/uL Eos # (Auto) 0.1 (0.0-0.7) 10^3/uL Baso # (Auto) 0.0 (0.0-0.1) 10^3/uL Abs Immat Gran (auto) 0.07 H (0.00-0.03) 10^3/uL Imm/Tot Granulo (auto) 1.1 H (0.0-0.5) % D-Dimer 0.96 H* (<=0.59) mg/L FEU Sodium 139 (136-145) mmol/L Potassium 3.6 (3.5-5.1) mmol/L Chloride 102 (98-107) mmol/L Carbon Dioxide 26.7 (21.0-32.0) mmol/L Anion Gap 13.9 BUN 9.0 (7.0-18.0) mg/dL Creatinine 1.15 (0.70-1.30) mg/dL Est GFR ( Amer) >60 (>=60 mL/min/1.73m^2) Est GFR (Non-Af Amer) >60 (>=60 mL/min/1.73m^2) BUN/Creatinine Ratio 7.8 Glucose 114 H (74-106) mg/dL Lactate 2.0 (0.4-2.0) mmol/L Calcium 8.7 (8.5-10.1) mg/dL Troponin I High Sens 49.3 (4.0-76.1) pg/mL Influenza Type A Ag Negative Influenza Type B Ag Negative SARS-CoV-2 Ag (CV2AG) Negative (NEGATIVE) Imaging Data Chest x-ray: Radiologist's impression: ITS Impressions Chest X-Ray 05/21/24 07:50 IMPRESSION: 1. Low lung volume examination with moderate right basilar infiltrates suggestive of pneumonia. Electronically authenticated by: DIANA DOMINGUEZ Date: 05/21/2024 08:39 ECG Data Attestation: I personally reviewed and interpreted this ECG as follows: (EKG on my interpretation shows sinus tachycardia with a rate of 143) Discharge Plan Discharge Chief Complaint: Shortness of Breath/Dyspnea Clinical Impression: Right lower lobe pneumonia, Sinus tachycardia, Hypoxemia Patient Disposition: Admitted As Inpatient Time of Disposition Decision: 09:00 Condition: Fair
[2024-05-21 07:54] LABS: Basophils Percent Auto 0.5 % (0.2-2.0); Eosinophils Absolute Auto 0.1 10^3/uL (0.0-0.7); Eosinophils Percent Auto 0.8 % (0.9-7.0); Hematocrit 40.7 % (42.0-54.0); Hemoglobin 13.6 g/dL (14.0-18.0); Immature Granulocytes Abs Auto 0.07 10^3/uL (0.00-0.03); Immature Granulocytes Pct Auto 1.1 % (0.0-0.5); Lymphocytes Absolute Auto 1.1 10^3/uL (1.2-3.8); Lymphocytes Percent Auto 17.9 % (20.5-60.0); Mean Corpuscular HGB Conc 33.4 g/dL (29.9-35.2); Mean Corpuscular Hemoglobin 27.8 pg (25.9-34.0); Mean Corpuscular Volume 83.1 fL (80.0-94.0); Monocytes Absolute Auto 0.5 10^3/uL (0.3-0.8); Monocytes Percent Auto 8.1 % (1.7-12.0); Neutrophils Absolute Auto 4.4 10^3/uL (1.4-6.5); Neutrophils Percent Auto 71.6 % (43.0-75.0); Platelet Count 218 10^3/uL (150-450); White Blood Count 6.2 10^3/uL (4.0-11.0)
[2024-05-21 08:05] LABS: Influenza Virus A Antigen Negative; Influenza Virus B Antigen Negative; Internal Control Within Normal Limits
[2024-05-21 08:06] LABS: Internal Control Within Normal Limits; SARS-CoV-2 Ag NEGATIVE (NEGATIVE)
--- OUTSIDE RECORDS SUMMARY | 2024-05-21 08:06 | XMS_ITS | CCD ---
Author Organization [facility] Inform ion [facility] Care Team Providers Care Switching Operator Name Role Phone KIMBERLYN MELCHOR Consulting Unavailable [facility] Care Unavaila jer GRANDE, DR JIM De Dios Attending Unavailable HARJINDER, DR JIM De Dios Admitting Unavailable Benjamin, Alexis Consulting Unavailable HARJINDER, DR JIM De Dios Admitting Unavailable [facility] Unavaila ble HARJINDER, DR JIM De Dios Attending Unavailable HARJINDER, DR JIM De Dios Consulting Unavailable KASIA, NICOLASA Admitting Unavailable KASIA, NICOLASA Attending Unavailable KASIA, NICOLASA Consulting Unavailable [facility] Unavaila ble PAY, DR EDWARDS Attending Unavailable PAY, DR EDWARDS Consulting Unavailable [facility] Unavaila ble PAY, DR EDWARDS Admitting Unavailable Michelle, Chrissie Consulting Unavailable KARISSA VILLATORO Attending Unavailable PAY, JERRY Referring Unavailable Hany, Jessica Peterson Attending Unavailable Jessica Leach Admitting [facility] Problems Active Problems Problem Classification Problem Date Documented Da te Episodic/Chronic Cardiac dysrhythmias (1 source) Palpitations; Translations: [Palpitations] Onset: 04-05-2024 Episodic Chronic obstructive pulmonary disease and bronchiectasis (1 [...] Range Facility Coding Summary.on 05-06-2021 Coding Summary. [id number] G h0bWw+PGhlYWQ+AA3FPYD qA69ujIBaoI2IY1rISO2P EOZBYRRQQZ6EAD7gyBA2P IhiO5JhxwMz AzkvjDDbBQ31ESj8SFM7j BflAZaapP3ubXFkC8m2Nu XkXT13fQ44UOxrJUMtFpL 3LjZpbjsgbWFy A5veQaQljZIcOvl+PHRhY mxlIHdpZHRoPScxMDAlJy TewXbfUB4yJw1eDBCaAIU vbGxhcHNlOiBj h2qzEQIpSDeaJW1ccZnzR 1TigIC7JFKtw5i9Ty34wV I+SYEvDME6iVilEQkrh50 2VeDmj3owIOC3 rCSxOTjsVUC4X26bq9M7W HVxBVZzFDX4tZD3aB5jnS tinijlA3WuiOEdXfF1VNR 4hAJarC6czBwq tgektW2tSdt+K29CJT2ML THGSX6MUmx5P6YcUlbqpT I+KI24DISzGN27lJVdwOR un5qufQx7BmKe CONwAHX5xTouCKsqf6TuV LAcW28xuXBuy5H7ASMwpK bhoCBbTbTdgKO8pR8vVVg epsrew0zgnyvl Zdgmb6jenb92lR71H19mP BnoAQGlGRL1RVDlCFKtwQ mrwu7pjB3iNm3+WJsui4t rd1zgwUf7MuZm GTJtdpHfoDxkFYT6k2LkS s30C2IyrUtye8OoUtv6wt 60iOKnr7Y9vJG3MNxlEPT egV5zUVqeOkT1 BVIlBzChrR00uBMhDNjoY n9tkTboxWzzBM8tTTVehg osANMsyX3fVHVukWBzhNm hSE3fTKLougkt h256QsFgLXC7LVTwuFEyV 7SjwJ1aRgMzFDMqKKLoM3 UnuBQxPPtzC937GSzxGeH 0ZOAzjwPmD3Qo BZZvkQbcOoT8z6J6Oo4Mb 8DguyqrKWF9FEtbLAWgYb X2MsFbItR2Y6HeRpt8MFW ajChzOP1pU9Ay MFVdxgvtmhshvEU8TBRwM GWzdN69nILhHMosAz0kg4 B8p752DKPrWRBxkM16Ax8 udDogMTBwdCBU sQ5eejzng2cqqhgaQmZfE NQmAPl6QOk6QHRwcGspJu CsTOV5GeG0YRD6zQLitY6 dqDwlzrzfbB2u Oyc+U53wrL7wZRQ9EQW9b folDAQbleKrPQ77BW80H4 RyPjwvdGFibGU+PGRpdiB kgTsrAI8qNhSw f2hdr9IzLWfeO8HvMQFeW OasJmm8EIFaIRE4xFP6pO 8iBRZhSQiom5Y7rFW4A2D fcvLcbg4me6lu RXMmRSlvP58zsLCnz6C0S ASjqJA9LVFzbUtiRhQnyD 93Oyc+GQXycWfwr0CjGid pn8qri0pfrWh8 NmAdLIVlovVpdRwmTFW4t 0BuZl42C75rQPbzJMJyUW FvUPFfOUXeqDgbzq1deL7 wIi8+PGNvbCB3 xES4wG1jIHIwGzG8ADagQ 377OkDznQPkZblig1gmn2 esrDw9OdVwYNApjoZddHy dAWD4m7ZpPu43 Y38eITkmCPOvZFAwHCSeM FUtpHbgtp5snE7wMc7+PC 4cj9beuu37pP94lSY+PHR lQHZ7xUajFPgi DZUntJ0wIKfbAhH9VTBnG wKnqT06mKFvPLinCj4rkD bhmCjuSO1xZBKrjvwxx03 2VtQpw3rbPXTx pUJqSKpmSFU6N21br0Z3T CMeZRYmNVS6cRA7qS5qoF lnbjogbGVmdDsgdmVydGl fWExlAMirR641 IHRvcDsnPlBhdGllbnQgT fOsZJr4D1PyIvo4MUTnnY inFT4qsHRiIPenIp5bzRe qzVtrJT1pWSYg tlsmb768KeUrn2gdFHMqy EQlEOxqYQE0F85kv5L9YO ZcITWrUDO8xYJ7fS0geSt nbjogbGVmdDsg xyCpeColRLwyEQreL831H HRvcDsnPkJpcnRoIERhdG H5ML37AH47oXCnw1B7fJF 6A6IxFBRpknyp sgcslLO1EHDnVIAmoA38J u6aoPnuLa3eVFUbBVU9ZX MccFOnW1AvhO2bZfXbRRY bUBHqB4KeqNRs UHhrQ184NEsaRzE4DWSdi uShU5IlAHCvrAsyItS7h4 V2Sw5CT4N7VR56OW16lLI gh9A1zMZ7F4Gr JLFzlakiuypzhBU2EAUsX TDbiR51Ju3taQewMe1jCE FsFJD4YALhcTXiW3DsqQ1 yOiAjMDAwMDAw H7FzaUCpSNokR627DGfwX wJ6WTPlqyZiN2CoDVCvhI cvXbN4o0P8Jm4NBNj2NW0 5KU85aUOmx8L1 fNZ8H3AaIUFmcnhbhvjuj EP5QHRkGJGtzJ57Is7xnF voLs8eTHWqMRI2TZDohJM bJ3CeeY9uFmNy SGPmPVDyM3MmrYLsASclK 855XTenPxN4COHlylQrQ2 QoESUjkNuoYcF0s8L9Xy2 WKHLiSA48WTI7 uMV3GM56DL50C8GzFxpyj GFibGU+PHRhYmxlIHdpZH RoPScxMDAlJyBzdHlsZT0 kYs3yDAAhQSQx xSblsCZmAcZfx1ibUXQqM StcZC0mwKcjT5AvhWM2GO Lam1s4Cg00C00xZ8FdrUK +LLHsdBA7nYH2 uM6uMhCyIqU2KUiuB650E hDvxDKsWwlva9bsu8xcbV b3NuV0ISGwfdYtfEfyCUU 1j1NwWd86U89p IHdpZHRoPSIxNSUiIHZhb Lmtwv6oiZ7kHp4+PGNvbC H8cEB1pU9cQoZeZrI8CLo sZ415YfVcyKHo Hdozs1kme7ixzLc3NzGpB ZJhooDjtMwoQRS4t4AxMr 66R8YkmUlnh1FjCoe3px6 7nZRin1W7aDY2 P7ErWIGidgxggCVbaRlmO Q1kIDBqrqxyASUdbZ7hMS SlY6u3XgFuNwO4NPgwY9R kcrM8AXVndJWm GYbmNJZ4W70ph0Q3JNOmT RQqDYM1kXU6eU6veQapvt ogbGVmdDsgdmVydGljYWw hJYnqG658TBKo uVsrHXHrlV8qLAImwGCsq AntFU2yIWDzopivMaITUW 8JVgfmRr2BCGVYQDwQKW9 7NY85zQSiv3W2 cWT0J5QwCMEfbtvxbhjda WN2JIBfBICdpK12sMNiBK gaNx3en8G9x141TWYgTZI bzU02Mq8kqTju QYLvnDJEaP0qrtqbk6rhj cxtLgXcYCQcJSt8PUd4MI VmrUtySaRcMSE1CnI8EHX 9nPLpxG0apPyp rcputZ1jAuk+MDYvMDUvM jAwMzwvdGQ+KDDiFWD8qQ yrERhqSGDeqS3nTJNmA4a 1UfPrKgQ4VFho U6SvNXSjwqhmMx90wI0qK yBePhP8EGnyJ8BwfqZ3KD ZpcKTeCSruCHO3M49gx5H 6MQQrXKIfRMH1 gXX9tR3vhCupsqutiEYkx DsgdmVydGljYWwtYWxpZ2 93FWQfhYjiVbZ2MRdxLWT jPP11QU55hJGa n6J6gSG4V2FsLGMmculay iejiWO3IYEtTKQgkF74xR ZzGFznXt8np6J8a114EMQ oQSPglW85De1e tMuyJCDthAGFtG7jbjhjt 9wljfwgDrHzNLPtCGs3NN u5YCIolDokEhWzORO0MsA 5DXU6cNWyqD4q zDcmzsvnbR7cVhm+TWFsZ TwvdGQ+SPPxGRL6sFzuNG wdRQQzhH6kIZNcO4b7OkM sBvD5LPfaM1Fq SRDvedveOz51oH8qPiOkW kB8BRjfE1LfbzM4LERejT QmXWreJME2H20rk8G3RPU kNIDlEOE0zUM6 bN7ltKszvyvhlBPogJykj bMtoAgpTTagNGtgV583MP ErxHrkWrfhjDN2dGXqnOq vdGQ+QL66gu02 J7MbJxcnLnl1EBTjBUQ9b HI9rG9xSCBsALpri5F6zD Y3F0IwvqPolz2gj5thOPS zXBloR49vzJPh w3M5HOUxiWJ5ZIAriQagL bWhxH82Qdz+PGNvbGdyb3 ZyNpoag4fdx1rieAt7RoN wJSIgdmFsaWdu QXX8b9KqKl49Q01gBPwqN HRoPSIzMCUiIHZhbGlnbj 9wtV0sXp7+ASJnhLW9bLM 0oM7xEdBiNuA5 KLyfT311HjYsbRTdFmxwd 6enh5dzuKy0ZcNsLLEqgv JimSbwTWT4p6MzKy75A5B acTbuj7ReWwf0 bp98cIOic8Q5eLV5H4LpN KGpkgfeaKZqjZidAE3sDV EyidqiYRPnnN4hUOOiZ4e 3BqKmHkL6VJpq L4NextZ4LIEnySRcRGZsi VSDoM4faptwq6gxizwhSj RnGVYiITm4SFw6ECLeiAv fBfYjZAR2BkI3 GGR9dKJpnH7otKksjziea G9wOyc+ASu1g0htzXEyZG 4rvRZ8SS12JM54ySFzg3N 8uQF2I5ZwEOOj znwzxksinQP9TLTzODPcw E32Ok4oiGmhOu7aHVFcTZ E0KCMjkZOkW3OenU4cHtC tOWWdMXEuQ9Jt kSQxUQakG557UNywVeI7Z YPtjkZqN6StFLOjpAfrHn C5d8P3Ba5DGO74QB55HT5 9dNBlq2S7hNJ8 Y6CvFVFthyutmeihiXW9P CAgZDHnqV58Iz0quYqaAd 0rZZUiZFI0ALQeyWJqJ4T foQ7dHlFtXPFr EUDeL3JwtGKzEGehO235E MkkNsU0FYTzluHxV3UkXI HlpZesTiW2e4S2Xa8YRv7 5RB73LY24bFQi q0J5nIQ9F6XzPCJpgihyw jlleIV7HVOsEGOqkA67Dz 0hvUfwCp2sLTUzPIN9JRI lhETlA6IknT6e IaReTDHoKFUkQ8WnbDLiG LesK101KSbyVpI5VIIqzc HrQ2TiJTCvlNtdUpZ0t7W 5Os6XUNayafy4 P8NeMtxvdOS+EC09CWXjG W85dSCszFHsv7wsnRe1Ip AbFOKqEFF2uLkxDAocj1V rADCzK65odRYq c2U6 (more content not included)... Normal [facility] .Manual Abson 05-01-2021 Basophils/Leukocytes Manual cnt (Bld) [Pure # fraction] 0.0 E9/L Normal 0.0-0.2 [facility] Comment on above: Performed By: #### 2 046535, 1239260, 3449328, 7464634 #### [facility] [address] [place] [address] Eosinophils/Leukocyte s Manual cnt (Bld) [Pure # fraction] 0.1 E9/L Normal 0.0-0.5 [facility] Comment on above: Performed By: #### 2 919156, 4011256, 6525035, 6962467 #### [facility] [address] [place] [address] Lymphocytes/Leukocyte s Manual cnt (Bld) [Pure # fraction] 5.2 E9/L High 1.0-4.0 [facility] Comment on above: Performed By: #### 2 043660, 8409552, 1071222, 9841730 #### [facility] [address] [place] [address] Monocytes/Leukocytes Manual cnt (Bld) [Pure # fraction] 1.3 E9/L High 0.2-1.0 [facility] Comment on above: Performed By: #### 2 463572, 6178141, 8228886, 2571587 #### [facility] [address] [place] [address] Neutrophils/Leukocyte s Auto (Bld) [Pure # fraction] 7.4 E9/L Normal 2.0-7.5 [facility] Comment on above: Performed By: #### 2 808462, 5884041, 4257660, 3696859 #### [facility] [address] [place] [address] CBC w/ Auto Diffon Erythrocyte distribution width (RBC) [Ratio] 13.6 % Normal 10.9-14.2 [facility] Comment on above: Performed By: #### 2 125191, 0478559, 9877094, 2985679 #### [facility] [address] [place] [address] Hematocrit (Bld) [Volume fraction] 42.7 % Normal 37.7-49.0 [facility] Comment on above: Performed By: #### 2 851596, 1356713, 5289742, 7883865 #### [facility] [address] [place] [address] Hemoglobin (Bld) [Mass/Vol] 14.6 g/dL Normal 13.5-17.5 [facility] Comment on above: Performed By: #### 2 532172, 3923960, 6284891, 5039775 #### [facility] [address] [place] [address] MCH (RBC) [Entitic mass] 27.5 pg Normal 27.0-34.0 [facility] Comment on above: Performed By: #### 2 147172, 3830862, 4666467, 6601279 #### [facility] [address] [place] [address] MCHC (RBC) [Mass/Vol] 34.2 g/dL Normal 31.4-36.0 [facility] Comment on above: Performed By: #### 2 291139, 9709075, 0444699, 6787991 #### [facility] [address] [place] [address] MCV (RBC) [Entitic vol] 80.4 fL Normal 80.0-100.0 [facility] Comment on above: Performed By: #### 2 910462, 8138783, 4893092, 0778410 #### [facility] [address] [place] [address] Platelet mean volume (Bld) [Entitic vol] 7.0 fL Normal 6.4-10.8 [facility] Comment on above: Performed By: #### 2 453922, 1339770, 9382872, 6421595 #### [facility] [address] [place] [address] Platelets (Bld) [#/Vol] 371.0 E9/L Normal 150.0-500.0 [facility] Comment on above: Performed By: #### 2 910878, 3186321, 0394075, 3857142 #### [facility] [address] [place] [address] RBC (Bld) [#/Vol] 5.3 E12/L Normal 4.3-5.9 [facility] Comment on above: Performed By: #### 2 789190, 1874136, 8192569, 6418906 #### [facility] [address] [place] [address] WBC corrected for nucl RBC Auto (Bld) [#/Vol] 14.5 E9/L High 4.0-11.0 [facility] Comment on above: Performed By: #### 2 672989, 6649190, 9629441, 9323224 #### [facility] [address] [place] [address] CMPon 05-01-2021 Albumin/Globulin (S) [Mass conc ratio] 1.1 Normal 1.1-2.2 [facility] Comment on above: Performed By: #### 2 956856, 4336659, 0140289, 3742934 #### [facility] [address] [place] [address] Globulin (S) [Mass/Vol] 2.9 g/dL Normal 1.4-4.0 [facility] Comment on above: Performed By: #### 2 903883, 8793793, 1956335, 8270323 #### [facility] [address] [place] [address] Urea nitrogen/Creatinine [Mass ratio] 26 No Units High 10-20 [facility] Comment on above: Performed By: #### 2 675362, 3496599, 7707457, 3046164 #### [facility] [address] [place] [address] Albumin [Mass/Vol] 3.1 g/dL Low 3.3-5.0 [facility] Comment on above: Performed By: #### 2 886096, 0410459, 4453060, 4092925 #### [facility] [address] [place] [address] ALP [Catalytic activity/Vol] 88 Int._Unit/L Normal 21-98 [facility] Comment on above: Performed By: #### 2 587940, 8305181, 9857414, 7873941 #### [facility] [address] [place] [address] ALT No additional P-5'-P [Catalytic activity/Vol] 173 Int._Unit/L High 6-46 [facility] Comment on above: Performed By: #### 2 845500, 7413786, 9367903, 6209486 #### [facility] [address] [place] [address] Anion gap [Moles/Vol] 10 mmol/L Normal 6-16 [facility] Comment on above: Performed By: #### 2 147049, 5498748, 0220962, 8696223 #### [facility] [address] [place] [address] AST [Catalytic activity/Vol] 52 Int._Unit/L High 5-43 [facility] Comment on above: Performed By: #### 2 899221, 6543849, 5163877, 7582744 #### [facility] [address] [place] [address] Bilirubin [Mass/Vol] 0.4 mg/dL Normal 0.0-1.1 [facility] Comment on above: Performed By: #### 2 567138, 2229718, 1755322, 6820666 #### [facility] [address] [place] [address] Calcium [Mass/Vol] 8.4 mg/dL Low 8.9-11.1 [facility] Comment on above: Performed By: #### 2 930324, 0032186, 5431040, 7498554 #### [facility] [address] [place] [address] Chloride [Moles/Vol] 104 mmol/L Normal 101-111 [facility] Comment on above: Performed By: #### 2 460635, 4565559, 9694172, 1230811 #### [facility] [address] [place] [address] CO2 [Moles/Vol] 27 mmol/L Normal 21-31 [facility] Comment on above: Performed By: #### 2 851368, 1144079, 0765010, 8782695 #### [facility] [address] [place] [address] Creatinine [Mass/Vol] 0.7 mg/dL Normal 0.5-1.3 [facility] Comment on above: Performed By: #### 2 157932, 2360932, 2684452, 5159198 #### [facility] [address] [place] [address] Glucose [Mass/Vol] 127 mg/dL Normal 55-199 [facility] Comment on above: Result Comment: If t his glucose result represents a fasting glucose, interpretation should refer to the following reference range: 55-99 mg/dL Performed By: #### 2 274032, 5531663, 4473701, 6607085 #### [facility] [address] [place] [address] Potassium [Moles/Vol] 3.9 mmol/L Normal 3.5-5.3 [facility] Comment on above: Performed By: #### 2 408273, 5673029, 3281938, 6322638 #### [facility] [address] [place] [address] Protein [Mass/Vol] 6.0 g/dL Normal 6.0-7.8 [facility] Comment on above: Performed By: #### 2 044060, 0923382, 9422151, 6815114 #### [facility] [address] [place] [address] Sodium [Moles/Vol] 137 mmol/L Normal 135-145 [facility] Comment on above: Performed By: #### 2 000824, 1654644, 6733731, 0220579 #### [facility] [address] [place] [address] Urea nitrogen [Mass/Vol] 18 mg/dL Normal 5-21 [facility] Comment on above: Performed By: #### 2 368830, 0617797, 8370095, 5112837 #### [facility] [address] [place] [address] CRPon 05-01-2021 CRP [Mass/Vol] 1.3 mg/dL Normal <=1.9 [facility] Comment on above: Performed By: #### 2 894935, 0987166, 6960761, 4525560 #### [facility] [address] [place] [address] D-Dimeron 05-01-2021 Fibrin D-dimer FEU (PPP) [Mass/Vol] 403 [id number] Normal 215-500 [facility] Comment on above: Result Comment: This assay [...] infections Liver cirrhosis Performed By: #### 2 403709, 9883714, 0479474, 7351407 #### [facility] [address] [place] [address] Discharge Instructionson Discharge Instructions [id number]# 1.00CD:127 Normal [facility] Ferritinon 05-01-2021 Ferritin [Mass/Vol] 304 ng/mL Normal 24-336 [facility] Comment on above: Result Comment: NORM ALS MEN <30 YRS 16-132 ng/mL MEN >30 YRS 8-338 ng/mL WOMEN (PREMEN) 6-104 ng/mL WOMEN (POSTMEN) 12-210 ng/mL Performed By: #### 2 268213, 3168143, 4325977, 3616783 #### [facility] [address] [place] [address] Inpatient Clinical Summaryon 05-01-2021 Inpatient Clinical Summary [address] [address] Clinical Summary Person Information: Name: NAIDA CM Age: 20 Years : 2000 Sex: Male PCP: JAMES SUH CNP Marital Status: Single Phone: [phone] Race: White Ethnicity: Non- or Language: Lithuanian Visit Id: Visit Reason: Cough; Weakness or fatigue; Shortness of breath; acute respiratory failure with hypoxia due to COVID Speciality: Acuity: Enc Type: Inpatient Med Service: Medical Arrival: 04/26/2021 14:37:56 Discharge: Dispo Type: Admitted as IP to this Hosp Address: [facility] [place] [id number] Provider Notes: Diagnosis: 1:Acute hypoxemic respiratory failure [...] Referring Physician: Follow up: With: Address: When: JAMESAnn-Marie SUH [address] [place] [address] 05/08/2021 1:15 PM Comments: Appointment will be with Jessica Leach, as James Suh is on maternity leave. Patient Education Information: Dehydration, Adult, Mfcj-wz-Rtwd; COVID-19: How to Protect Yourself and Others - CDC; COVID-19 Frequently Asked Questions; COVID-19 Albuterol (Eqv-Proventil HFA), dexamethasone 4 mg Tab, Mucinex Normal [facility] Inpatient Patient Summaryon 05-01-2021 Inpatient Patient Summary [address] [address] Patient Discharge Instructions PERSON INFORMATION Name: NAIDA [...] With: Address: When: JAMES SUH [address] [place] [address] 05/08/2021 1:15 PM Comments: Appointment will be with Jessica Leach, as Jamesann-marie Suh is on maternity leave. In the event [...] tubing/mask. Refills: 0. [facility]: PATIENT EDUCATION INFORMATION Instructions: Dehydration, Adult [...] mouth. ? (more content not included)... Normal [facility] Interdisciplinary Note - Vic e Manageron 05-01-2021 Interdisciplinary Note - Adjunct Business Instructor CRM spoke with patient in room. Patient is alert and oriented and participates in discharge planning. No family in room. Patient white board updated, and CRM contact information provided. Patient is in isolation for COVID. Discussed CRM spoke with Steph WONG who saw patient earlier today and will stay today and finis Remdesivir tomorrow then dc home. Patient is on room air and desat study was negative. Patient aware will not need oxygen at discharge. he denies any questions and declines Par med visit. CRM has called to room and mother of patient on phone and states she was called and told patient will dc today. CRM called [employer]PERVIS[employer] Steph and verified and she now says will dc today after Remdesivir dose given. Patient and his mother updated. Normal [facility] Comment on above: Result Comment: Elec tronically Signed By: Med KIM, Yisel\.br\Date and Time Signed: 05/01/21 10:41 EST LDHon 05-01-2021 LDH [Catalytic activity/Vol] 195 Int._Unit/L Normal 93-218 [facility] Comment on above: Performed By: #### 2 896234, 2504506, 2492705, 7767278 #### [facility] [address] [place] [address] Manual Diffon 05-01-2021 Band form neutrophils/100 WBC (Bld) 6 % Normal 0-10 [facility] Comment on above: Order Comment: Order Added by Discern Expert. Performed By: #### 2 673168, 6230301, 0062669, 0522116 #### [facility] [address] [place] [address] Basophils/100 WBC (Bld) 0 % Normal 0-2 [facility] Comment on above: Order Comment: Order Added by Discern Expert. Performed By: #### 2 171303, 5510060, 2960882, 5211152 #### [facility] [address] [place] [address] Eosinophils/100 WBC (Bld) 1 % Normal 0-8 [facility] Comment on above: Order Comment: Order Added by Discern Expert. Performed By: #### 2 407849, 1576646, 2429702, 0684442 #### [facility] [address] [place] [address] Lymphocytes/100 WBC (Bld) 31 % Normal 14-50 [facility] Comment on above: Order Comment: Order Added by Discern Expert. Performed By: #### 2 764992, 8706728, 3085140, 0898183 #### [facility] [address] [place] [address] Metamyelocytes/Leukoc ytes Manual cnt (Bld) [Pure # fraction] 1 % High <=0 [facility] Comment on above: Order Comment: Order Added by Discern Expert. Performed By: #### 2 143643, 8172650, 0664778, 0597359 #### [facility] [address] [place] [address] Monocytes/100 WBC (Bld) 9 % Normal 4-14 [facility] Comment on above: Order Comment: Order Added by Kerry Expert. Performed By: #### 2 568534, 7804357, 3873023, 1721192 #### [facility] [address] [place] [address] Myelocytes/100 WBC (Bld) 2 % High <=0 [facility] Comment on above: Order Comment: Order Added by Kerry Expert. Performed By: #### 2 011264, 2426154, 5076408, 5065435 #### [facility] [address] [place] [address] Segmented neutrophils/100 WBC (Bld) 45 % Normal 36-75 [facility] Comment on above: Order Comment: Order Added by Discern Expert. Performed By: #### 2 078975, 0257895, 8976808, 7568353 #### [facility] [address] [place] [address] Variant lymphocytes LM Ql (Bld) 5 % Invalid Interpretation Code [facility] Comment on above: Order Comment: Order Added by Kerry Expert. Performed By: #### 2 905055, 0963917, 8089546, [id number] #### [facility] [address] [place] [address] Monitor Recordon 05-01-2021 Monitor Record [id number]# 1.00CD:127 Normal [facility] Monitor Record [id number] 2 [id number]# 1.00CD:127 Normal [facility] Monitor Record [id number] 2 [id number]# 1.00CD:127 Normal [facility] Monitor Record [id number] 2 [id number]# 1.00CD:127 Normal [facility] Monitor Record [id number] 2 [id number]# 1.00CD:127 Normal [facility] Progress Note-Physicianon Progress Note-Physician Subjective Patient an 20y M with a past medical history significant for asthma who presented to the ED on 04/27 for worsening SOB over the past week or so. Pt reports that about 10 days ago he was evaluated at [facility] for muscle aches, chills, headache, cough, and anosmia. He tested positive for COVID-19 at that time. He was given a pulse oximeter and sent home. Since then he has experienced worsening symptoms and developed SOB over the past week. On presentation to the ED he was found to be hypoxemic. He was admitted to [facility] for further management of his symptoms. Pulmonary [...] in a. (more content not included)... Normal [facility] Comment on above: Result Comment: Elec tronically Signed By: Rozina ROWE, Isabel Hughes\.br\Date and Time Signed: 04/30/21 23:56 EST eGFRon 05-01-2021 GFR/1.73 sq M.predicted among blacks MDRD (S/P/Bld) [Vol rate/Area] mL/min/{1.73_m2} Normal >=59 [facility] Comment on above: Order Comment: Order added by Discern Expert. Result Comment: eGFR is race adjusted. AA=. Performed By: #### 2 [id number], [id number], [id number], [id number] #### [facility] [address] [place] [address] GFR/1.73 sq M.predicted among non-blacks MDRD (S/P/Bld) [Vol rate/Area] mL/min/{1.73_m2} Normal >=59 [facility] Comment on above: Order Comment: Order added by Discern Expert. Result Comment: Supervisor In Charge jaspreet kidney disease could be indicated at eGFR's of less than 60 mL/min/1.73m2. Kidney failure is indicated at less than 15 mL/min/1.73m2. Performed By: #### 2 [id number], [id number], [id number], [id number] #### [facility] [address] [place] [address] CBC w/Indiceson 04-30-2021 Erythrocyte distribution width (RBC) [Ratio] 13.6 % Normal 10.9-14.2 [facility] Comment on above: Performed By: #### 2 [id number], [id number], [id number], [id number] #### [facility] [address] [place] [address] Hematocrit (Bld) [Volume fraction] 41.5 % Normal 37.7-49.0 [facility] Comment on above: Performed By: #### 2 [id number], [id number], [id number], [id number] #### [facility] [address] [place] [address] Hemoglobin (Bld) [Mass/Vol] 14.0 g/dL Normal 13.5-17.5 [facility] Comment on above: Performed By: #### 2 [id number], [id number], [id number], [id number] #### [facility] [address] [place] [address] MCH (RBC) [Entitic mass] 26.9 pg Low 27.0-34.0 [facility] Comment on above: Performed By: #### 2 935659, [id number], [id number], [id number] #### [facility] [address] [place] [address] MCHC (RBC) [Mass/Vol] 33.8 g/dL Normal 31.4-36.0 [facility] Comment on above: Performed By: #### 2 983725, 6464178, 3147139, 8410309 #### [facility] [address] [place] [address] MCV (RBC) [Entitic vol] 79.6 fL Low 80.0-100.0 [facility] Comment on above: Performed By: #### 2 524796, 2514873, 3663509, 8531721 #### [facility] [address] [place] [address] Platelet mean volume (Bld) [Entitic vol] 6.8 fL Normal 6.4-10.8 [facility] Comment on above: Performed By: #### 2 929058, 9746379, 3412071, 8160550 #### [facility] [address] [place] [address] Platelets (Bld) [#/Vol] 343.0 E9/L Normal 150.0-500.0 [facility] Comment on above: Performed By: #### 2 554501, 1552952, 5165826, 7608170 #### [facility] [address] [place] [address] RBC (Bld) [#/Vol] 5.2 E12/L Normal 4.3-5.9 [facility] Comment on above: Performed By: #### 2 460368, 4008469, 9479035, 4759753 #### [facility] [address] [place] [address] WBC corrected for nucl RBC Auto (Bld) [#/Vol] 11.8 E9/L High 4.0-11.0 [facility] Comment on above: Performed By: #### 2 887658, 1564182, 6031190, 8919308 #### [facility] [address] [place] [address] CMPon 04-30-2021 Albumin [Mass/Vol] 3.0 g/dL Low 3.3-5.0 [facility] Comment on above: Performed By: #### 2 722279, 8755375, 24291364, 6714568, 0125329, 2469373, 7187122, 5607037, 6210617988, 03142981, 49811467, 91922622 #### [facility] [address] [place] [address] Albumin/Globulin (S) [Mass conc ratio] 1.1 Normal 1.1-2.2 [facility] Comment on above: Performed By: #### 2 409604, 7436789, 37073952, 3705769, 9046404, 8344816, 8384513, 7748724, 6680361025, 22772568, 97949359, 36403251 #### [facility] [address] [place] [address] ALP [Catalytic activity/Vol] 78 Int._Unit/L Normal 21-98 [facility] Comment on above: Performed By: #### 2 834513, 7094757, 76953438, 6155807, 4846554, 7377663, 8144337, 4599817, 3374174387, 03922081, 12497764, 36124591 #### [facility] [address] [place] [address] ALT No additional P-5'-P [Catalytic activity/Vol] 161 Int._Unit/L High 6-46 [facility] Comment on above: Performed By: #### 2 836926, 7290395, 47367281, 5960733, 6401414, 0672392, 8885534, 9613912, 7812373724, 93639454, 93860146, 17794006 #### [facility] [address] [place] [address] Anion gap [Moles/Vol] 14 mmol/L Normal 6-16 [facility] Comment on above: Performed By: #### 2 589408, 0529804, 97290573, 9488252, 2733583, 1475486, 9377360, 7188079, 6494140293, 73792716, 95026028, 96194569 #### [facility] [address] [place] [address] AST [Catalytic activity/Vol] 50 Int._Unit/L High 5-43 [facility] Comment on above: Performed By: #### 2 129013, 8342282, 01752178, 2836373, 5479257, 4855592, 9342953, 2365311, 4835799240, 81883057, 08659795, 35978654 #### [facility] [address] [place] [address] Bilirubin [Mass/Vol] 0.5 mg/dL Normal 0.0-1.1 [facility] Comment on above: Performed By: #### 2 427901, 5465611, 06378063, 1054480, 3539466, 5820367, 9047262, 1865904, 6998170167, 39239931, 36752329, 84155733 #### [facility] [address] [place] [address] Calcium [Mass/Vol] 8.2 mg/dL Low 8.9-11.1 [facility] Comment on above: Performed By: #### 2 760389, 1587501, 45301156, 4040328, 5145327, 8782364, 2246732, 7967906, 0014224720, 67689548, 13743111, 07919985 #### [facility] [address] [place] [address] Chloride [Moles/Vol] 101 mmol/L Normal 101-111 [facility] Comment on above: Performed By: #### 2 488556, 2748172, 39560944, 7404454, 7548469, 2011319, 8868270, 4074492, 8385625079, 08356555, 72264075, 36075582 #### [facility] [address] [place] [address] CO2 [Moles/Vol] 25 mmol/L Normal 21-31 [facility] Comment on above: Performed By: #### 2 728364, 4750060, 16863480, 9554160, 0243786, 8925607, 6869675, 0594606, 6774959621, 40166263, 74238567, 59888419 #### [facility] [address] [place] [address] Creatinine [Mass/Vol] 0.6 mg/dL Normal 0.5-1.3 [facility] Comment on above: Performed By: #### 2 718972, 8770356, 68091380, 5787088, 4656662, 4982753, 7197145, 6566022, 5197349464, 14367014, 23780127, 12084051 #### [facility] [address] [place] [address] Globulin (S) [Mass/Vol] 2.8 g/dL Normal 1.4-4.0 [facility] Comment on above: Performed By: #### 2 647217, 1319670, 60741739, 4588303, 9701705, 5276561, 3013421, 1528416, 4514299972, 06381097, 25280009, 42601859 #### [facility] [address] [place] [address] Glucose [Mass/Vol] 164 mg/dL Normal 55-199 [facility] Comment on above: Result Comment: If t his glucose result represents a fasting glucose, interpretation should refer to the following reference range: 55-99 mg/dL Performed By: #### 2 899201, 8644697, 12542781, 2278568, 9402726, 8753094, 4246442, 8829982, 7586268837, 58680836, 14823125, 85938566 #### [facility] [address] [place] [address] Potassium [Moles/Vol] 3.8 mmol/L Normal 3.5-5.3 [facility] Comment on above: Performed By: #### 2 503426, 9784859, 93322357, 0560634, 0529433, 9759422, 1310714, 4266349, 6601442472, 28071522, 28431733, 77575492 #### [facility] [address] [place] [address] Protein [Mass/Vol] 5.8 g/dL Low 6.0-7.8 [facility] Comment on above: Performed By: #### 2 370519, 6167216, 71624455, 1042341, 3507703, 9156745, 7357453, 3986435, 5234789309, 67021483, 96290250, 22388937 #### [facility] [address] [place] [address] Sodium [Moles/Vol] 136 mmol/L Normal 135-145 [facility] Comment on above: Performed By: #### 2 032219, 4536693, 09707213, 8797094, 6098354, 4776330, 1134192, 0754271, 5133631228, 32980749, 91705732, 63094506 #### [facility] [address] [place] [address] Urea nitrogen [Mass/Vol] 18 mg/dL Normal 5-21 [facility] Comment on above: Performed By: #### 2 589891, 4963204, 76816907, 3738728, 4231358, 7924049, 2537621, 4058150, 1905539164, 75553878, 53903414, 76093606 #### [facility] [address] [place] [address] Urea nitrogen/Creatinine [Mass ratio] 30 No Units High - [facility] Comment on above: Performed By: #### 2 154496, 7699033, 21787970, 4177610, 1865598, 2376054, 3978032, 6678002, 1333346479, 83526427, 86443080, 56747873 #### [facility] [address] [place] [address] CRPon 04-30-2021 CRP [Mass/Vol] 1.3 mg/dL Normal <=1.9 [facility] Comment on above: Performed By: #### 2 619349, 9299562, 6141449, 1758948 #### [facility] [address] [place] [address] Consultation Noteon 04-30-20 Consultation Note Chief Complaint sob, weakness History of Present Illness Patient an 20y M with a past medical history significant for asthma who presented to the ED on 04/27 for worsening SOB over the past week or so. Pt reports that about 10 days ago he was evaluated at [facility] for muscle aches, chills, headache, cough, and anosmia. He tested positive for COVID-19 at that time. He was given a pulse oximeter and sent home. Since then he has experienced worsening symptoms and developed SOB over the past week. On presentation to the ED he was found to be hypoxemic. He was admitted to [facility] for further management of his symptoms. Pulmonary [...] agree with the documentation and plan. Normal [facility] Comment on above: Result Comment: Elec tronically Signed By: Rozina ROWE, Isabel Hughes\.br\Date and Time Signed: 04/29/21 23:30 EST D-Dimeron 04-30-2021 Fibrin D-dimer FEU (PPP) [Mass/Vol] 381 [id number] Normal 215-500 [facility] Comment on above: Result Comment: This assay [...] infections Liver cirrhosis Performed By: #### 2 651421, 7915210, 1359897, 3301352 #### [facility] [address] [place] [address] Ferritinon 04-30-2021 Ferritin [Mass/Vol] 283 ng/mL Normal 24-336 [facility] Comment on above: Result Comment: NORM ALS MEN <30 YRS 16-132 ng/mL MEN >30 YRS 8-338 ng/mL WOMEN (PREMEN) 6-104 ng/mL WOMEN (POSTMEN) 12-210 ng/mL Performed By: #### 2 816548, 4471076, 1544176, 6200460 #### [facility] [address] [place] [address] Interdisciplinary Note - Vic e Manageron 04-30-2021 Interdisciplinary Note - Adjunct Business Instructor CRM spoke with patient in room. Patient is alert and oriented and participates in discharge planning. No family in room. Patient white board updated, and CRM contact information provided. Patient is in isolation for COVID. Discussed CRM spoke with [facility] who saw patient earlier today and possible discharge home tomorrow. patient is on room air today. Patient denies any needs at discharge and he will update his mother. Normal [facility] Comment on above: Result Comment: Elec tronically Signed By: Med KIM, Yisel\.br\Date and Time Signed: 04/30/21 13:10 EST LDHon 04-30-2021 LDH [Catalytic activity/Vol] 190 Int._Unit/L Normal 93-218 [facility] Comment on above: Performed By: #### 2 387383, 3480690, 5559370, 6549139 #### [facility] [address] [place] [address] Monitor Recordon 04-30-2021 Monitor Record [id number]# 1.00CD:127 Normal [facility] Monitor Record [id number]# 1.00CD:127 Normal [facility] Progress Note-Physicianon Progress Note-Physician Assessment/Plan PLAN: 1. Acute hypoxemic respiratory failure due to COVID-19 (U07.1: COVID-19) -Symptoms started 9 days ago. Covid + at [facility] at that time. -SPO2 74% at [...] (E66.9: Obesity, unspecified) -BMI 37.33 -We will aids counselor on diet, exercise, weight loss and [...] mg/dL High (04/28/21 16:06:00) POC Device SN: [id number] (04/28/21 16:06:00) POC User ID: [id number] (04/28/21 16:06:00) POC Username: RONNIE VELASCO (04/28/21 16:06:00) Problem List/Past Medical History Ongoing No qualifying data Historical No qualifying data Medications Inpatient acetaminophen 325 mg Tab, 650 mg= 2 tab(s), Oral, q6hr, PRN albuterol HFA 90 mcg/inh MDI, 180 mcg= 2 puff(s), Inhalation, q4hr, PRN albuterol HFA 90 mcg/inh MDI, 180 m (more content not included)... Normal [facility] Comment on above: Result Comment: Elec tronically Signed By: Tamara GRAY\.br\Date and Time Signed: 04/29/21 10:52 EST\.br\Electronically Co-Signed By: Adalberto NIHCOLAS MD\.br\Date and Time Co-Signed: 04/30/21 07:41 EST eGFRon 04-30-2021 GFR/1.73 sq M.predicted among blacks MDRD (S/P/Bld) [Vol rate/Area] mL/min/{1.73_m2} Normal >=59 [facility] Comment on above: Order Comment: Order added by Discern Expert. Result Comment: eGFR is race adjusted. AA=. Performed By: #### 2 394256, 4754063, 70130633, 3835513, 5297265, 0054766, 9559090, 8489442, 1907129063, 05276439, 97301711, 16265297 #### [facility] [address] [place] [address] GFR/1.73 sq M.predicted among non-blacks MDRD (S/P/Bld) [Vol rate/Area] mL/min/{1.73_m2} Normal >=59 [facility] Comment on above: Order Comment: Order added by Discern Expert. Result Comment: Supervisor In Charge jaspreet kidney disease could be indicated at eGFR's of less than 60 mL/min/1.73m2. Kidney failure is indicated at less than 15 mL/min/1.73m2. Performed By: #### 2 453353, 4209771, 65490929, 8177298, 3240971, 7496949, 7405352, 5340044, 4405092164, 51471538, 12985318, 55972322 #### [facility] [address] [place] [address] CBC w/Indiceson 04-29-2021 Erythrocyte distribution width (RBC) [Ratio] 13.9 % Normal 10.9-14.2 [facility] Comment on above: Performed By: #### 2 083053, 4332996, 7057381, 5396050 #### [facility] [address] [place] [address] Hematocrit (Bld) [Volume fraction] 43.8 % Normal 37.7-49.0 [facility] Comment on above: Performed By: #### 2 845091, 8290189, 5792229, 9057135 #### [facility] [address] [place] [address] Hemoglobin (Bld) [Mass/Vol] 14.7 g/dL Normal 13.5-17.5 [facility] Comment on above: Performed By: #### 2 937153, 6555456, 7157139, 9122971 #### [facility] [address] [place] [address] MCH (RBC) [Entitic mass] 27.3 pg Normal 27.0-34.0 [facility] Comment on above: Performed By: #### 2 904991, 9930176, 6001576, 7466179 #### [facility] [address] [place] [address] MCHC (RBC) [Mass/Vol] 33.5 g/dL Normal 31.4-36.0 [facility] Comment on above: Performed By: #### 2 574925, 6250700, 1585887, 5479005 #### [facility] [address] [place] [address] MCV (RBC) [Entitic vol] 81.3 fL Normal 80.0-100.0 [facility] Comment on above: Performed By: #### 2 502281, 8318875, 0549448, 0710012 #### [facility] [address] [place] [address] Platelet mean volume (Bld) [Entitic vol] 7.1 fL Normal 6.4-10.8 [facility] Comment on above: Performed By: #### 2 582452, 6157361, 3309270, 8868291 #### [facility] [address] [place] [address] Platelets (Bld) [#/Vol] 369.0 E9/L Normal 150.0-500.0 [facility] Comment on above: Performed By: #### 2 447377, 5391083, 9007505, 0797740 #### [facility] [address] [place] [address] RBC (Bld) [#/Vol] 5.4 E12/L Normal 4.3-5.9 [facility] Comment on above: Performed By: #### 2 748315, 7646387, 5851441, 9325363 #### [facility] [address] [place] [address] WBC corrected for nucl RBC Auto (Bld) [#/Vol] 11.2 E9/L High 4.0-11.0 [facility] Comment on above: Performed By: #### 2 664626, 4528070, 1288951, 5329372 #### [facility] [address] [place] [address] CMPon 04-29-2021 Albumin [Mass/Vol] 3.1 g/dL Low 3.3-5.0 [facility] Comment on above: Performed By: #### 2 093390, 8783609, 7080750, 9243682 #### [facility] [address] [place] [address] Albumin/Globulin (S) [Mass conc ratio] 1.0 Low 1.1-2.2 [facility] Comment on above: Performed By: #### 2 183364, 0153764, 0564864, 6652567 #### [facility] [address] [place] [address] ALP [Catalytic activity/Vol] 72 Int._Unit/L Normal 21-98 [facility] Comment on above: Performed By: #### 2 221512, 8340736, 9710246, 8513198 #### [facility] [address] [place] [address] ALT No additional P-5'-P [Catalytic activity/Vol] 185 Int._Unit/L High 6-46 [facility] Comment on above: Performed By: #### 2 666664, 9830413, 5662260, 6001247 #### [facility] [address] [place] [address] Anion gap [Moles/Vol] 11 mmol/L Normal 6-16 [facility] Comment on above: Performed By: #### 2 391664, 2216685, 5715747, 7376438 #### [facility] [address] [place] [address] AST [Catalytic activity/Vol] 92 Int._Unit/L High 5-43 [facility] Comment on above: Performed By: #### 2 206358, 0852848, 7160405, 8203496 #### [facility] [address] [place] [address] Bilirubin [Mass/Vol] 0.5 mg/dL Normal 0.0-1.1 [facility] Comment on above: Performed By: #### 2 736553, 5207005, 1772413, 0737042 #### [facility] [address] [place] [address] Calcium [Mass/Vol] 8.5 mg/dL Low 8.9-11.1 [facility] Comment on above: Performed By: #### 2 768212, 8939966, 6734340, 9570154 #### [facility] [address] [place] [address] Chloride [Moles/Vol] 103 mmol/L Normal 101-111 [facility] Comment on above: Performed By: #### 2 514327, 4970774, 5609293, 4228238 #### [facility] [address] [place] [address] CO2 [Moles/Vol] 29 mmol/L Normal 21-31 [facility] Comment on above: Performed By: #### 2 148044, 0275753, 0192437, 5799563 #### [facility] [address] [place] [address] Creatinine [Mass/Vol] 0.8 mg/dL Normal 0.5-1.3 [facility] Comment on above: Performed By: #### 2 648451, 8841146, 9992730, 1503439 #### [facility] [address] [place] [address] Globulin (S) [Mass/Vol] 3.2 g/dL Normal 1.4-4.0 [facility] Comment on above: Performed By: #### 2 192199, 2762166, 2435092, 6588275 #### [facility] [address] [place] [address] Glucose [Mass/Vol] 106 mg/dL Normal 55-199 [facility] Comment on above: Result Comment: If t his glucose result represents a fasting glucose, interpretation should refer to the following reference range: 55-99 mg/dL Performed By: #### 2 687761, 8792281, 4455920, 7866202 #### [facility] [address] [place] [address] Potassium [Moles/Vol] 4.2 mmol/L Normal 3.5-5.3 [facility] Comment on above: Performed By: #### 2 800053, 9541133, 8927267, 1224173 #### [facility] [address] [place] [address] Protein [Mass/Vol] 6.3 g/dL Normal 6.0-7.8 [facility] Comment on above: Performed By: #### 2 380900, 3431821, 5790607, 0543728 #### [facility] [address] [place] [address] Sodium [Moles/Vol] 139 mmol/L Normal 135-145 [facility] Comment on above: Performed By: #### 2 513111, 7379711, 5486771, 8074504 #### [facility] [address] [place] [address] Urea nitrogen [Mass/Vol] 21 mg/dL Normal 5-21 [facility] Comment on above: Performed By: #### 2 165907, 7630697, 6693936, 5570115 #### [facility] [address] [place] [address] Urea nitrogen/Creatinine [Mass ratio] 26 No Units High 10-20 [facility] Comment on above: Performed By: #### 2 277687, 4744508, 5117177, 5487155 #### [facility] [address] [place] [address] CRPon 04-29-2021 CRP [Mass/Vol] 2.7 mg/dL High <=1.9 [facility] Comment on above: Performed By: #### 2 732595, 1220686, 4869220, 9968924 #### [facility] [address] [place] [address] Coding Queryon 04-29-2021 Coding Query - From: [...] been ruled out [___]Has been resolved [___]Per application support consultant/other treating provider documentation [___]Other: Treatment plan: [...] 12:17:47 EST Subject: RE: Coding Query Normal [facility] D-Dimeron 04-29-2021 Fibrin D-dimer FEU (PPP) [Mass/Vol] 407 [id number] Normal 215-500 [facility] Comment on above: Result Comment: This assay [...] infections Liver cirrhosis Performed By: #### 2 138134, 7633191, 9760493, 9930573 #### [facility] [address] [place] [address] Ferritinon 04-29-2021 Ferritin [Mass/Vol] 397 ng/mL High 24-336 [facility] Comment on above: Result Comment: NORM ALS MEN <30 YRS 16-132 ng/mL MEN >30 YRS 8-338 ng/mL WOMEN (PREMEN) 6-104 ng/mL WOMEN (POSTMEN) 12-210 ng/mL Performed By: #### 2 828614, 0141661, 0359969, 5641227 #### [facility] [address] [place] [address] Interdisciplinary Note - Vic e Manageron 04-29-2021 Interdisciplinary Note - Adjunct Business Instructor CRM spoke with patient in room. Patient is alert and oriented and participates in discharge planning. No family in room. Patient white board updated, and CRM contact information provided. Patient is in isolation for COVID. Discussed CRM spoke with [facility] who saw patient earlier today and will be a couple days yet. will need to wean oxygen and may need desat prior to discharge. Pulmonology to see also. Patient denies any needs at discharge. he will update his mother. Normal [facility] Comment on above: Result Comment: Elec tronically Signed By: Med KIM, Yisel\.br\Date and Time Signed: 04/29/21 09:57 EST LDHon 04-29-2021 LDH [Catalytic activity/Vol] 261 Int._Unit/L High 93-218 [facility] Comment on above: Performed By: #### 2 534673, 4728806, 6734078, 8303956 #### [facility] [address] [place] [address] Monitor Recordon 04-29-2021 Monitor Record [id number]# 1.00CD:127 Normal [facility] Progress Note-Physicianon Progress Note-Physician Subjective Patient an 20y M with a past medical history significant for asthma who presented to the ED on 04/27 for worsening SOB over the past week or so. Pt reports that about 10 days ago he was evaluated at [facility] for muscle aches, chills, headache, cough, and anosmia. He tested positive for COVID-19 at that time. He was given a pulse oximeter and sent home. Since then he has experienced worsening symptoms and developed SOB over the past week. On presentation to the ED he was found to be hypoxemic. He was admitted to [facility] for further management of his symptoms. Pulmonary [...] prophylactic measure (more content not included)... Normal [facility] Comment on above: Result Comment: Elec tronically Signed By: Celsa Olivares\.br\Date and Time Signed: 04/29/21 20:19 EST eGFRon 04-29-2021 GFR/1.73 sq M.predicted among blacks MDRD (S/P/Bld) [Vol rate/Area] mL/min/{1.73_m2} Normal >=59 [facility] Comment on above: Order Comment: Order added by Discern Expert. Result Comment: eGFR is race adjusted. AA=. Performed By: #### 2 002895, 9295278, 5435685, 5050707 #### [facility] [address] [place] [address] GFR/1.73 sq M.predicted among non-blacks MDRD (S/P/Bld) [Vol rate/Area] mL/min/{1.73_m2} Normal >=59 [facility] Comment on above: Order Comment: Order added by Discern Expert. Result Comment: Supervisor In Charge jaspreet kidney disease could be indicated at eGFR's of less than 60 mL/min/1.73m2. Kidney failure is indicated at less than 15 mL/min/1.73m2. Performed By: #### 2 762132, 0502598, 3038907, 1402451 #### [facility] [address] [place] [address] CRPon 04-28-2021 CRP [Mass/Vol] 7.1 mg/dL High <=1.9 [facility] Comment on above: Performed By: #### 2 348186, 9000388, 0288074, 4448382 #### [facility] [address] [place] [address] Capillary Glucose POCon 04-10 Glucose [Mass/Vol] 130 mg/dL High 55-99 [facility] Comment on above: Result Comment: Sara jose Meter Performed By: #### 2 [id number] ####[facility] [address] [place] [address] Glucose [Mass/Vol] 109 mg/dL High 55-99 [facility] Comment on above: Result Comment: Bessie fallon RN/ Cleaned Meter Performed By: #### 2 36403949 #### [facility] [address] [place] [address] Glucose [Mass/Vol] 116 mg/dL High 55-99 [facility] Comment on above: Result Comment: Sara jose Meter Performed By: #### 2 45539473 ####[facility] [address] [place] [address] D-Dimeron 04-28-2021 Fibrin D-dimer FEU (PPP) [Mass/Vol] 424 [id number] Normal 215-500 [facility] Comment on above: Result Comment: This assay [...] infections Liver cirrhosis Performed By: #### 2 165213, 9499862, 8482171, 2469996 #### [facility] [address] [place] [address] ECG Pediatricon 04-28-2021 ECG Pediatric The following ED Review was created for NAIDA CM: SINUS TACHYCARDIA NO STEMI NORMAL QTC ABNORMAL RHYTHM ECG Preliminary By: Donovan Moyer DO 04/26/2021 14:58:49 Inside Sales Associate has Agreed this ED Review Normal [facility] Ferritinon 04-28-2021 Ferritin [Mass/Vol] 324 ng/mL Normal 24-336 [facility] Comment on above: Result Comment: NORM ALS MEN <30 YRS 16-132 ng/mL MEN >30 YRS 8-338 ng/mL WOMEN (PREMEN) 6-104 ng/mL WOMEN (POSTMEN) 12-210 ng/mL Performed By: #### 2 896256, 9450218, 5790208, 4283227 #### [facility] [address] [place] [address] LDHon 04-28-2021 LDH [Catalytic activity/Vol] 212 Int._Unit/L Normal 93-218 [facility] Comment on above: Performed By: #### 2 820148, 8395650, 3484053, 0454918 #### [facility] [address] [place] [address] Monitor Recordon 04-28-2021 Monitor Record [id number]# 1.00CD:127 Normal [facility] Monitor Record [id number]# 1.00CD:127 Normal [facility] Monitor Record [id number]# 1.00CD:127 Normal [facility] Progress Note-Physicianon Progress Note-Physician Assessment/Plan PLAN: 1. Acute hypoxemic respiratory failure due to COVID-19 (U07.1: COVID-19) -Symptoms started 9 days ago. Covid + at [facility] at that time. -SPO2 74% at [...] (E66.9: Obesity, unspecified) -BMI 37.33 -We will aids counselor on diet, exercise, weight loss and [...] mg/dL High (04/28/21 16:06:00) POC Device SN: [id number] (04/28/21 16:06:00) POC User ID: [id number] (04/28/21 16:06:00) POC Username: RONNIE VELASCO (04/28/21 [...] IV Home No active home medications Normal [facility] Comment on above: Result Comment: Elec tronically Signed By: Tamara GRAY\.br\Date and Time Signed: 04/28/21 18:35 EST\.br\Electronically Co-Signed By: Adalberto NICHOLAS MD\.br\Date and Time Co-Signed: 04/28/21 18:57 EST Auto Diffon 04-27-2021 Basophils/100 WBC (Bld) 0.2 % Normal 0.0-2.0 [facility] Comment on above: Order Comment: Order Added by Discern Expert. Performed By: #### 2 806162, 9291885, 4154852, 5813827 #### [facility] [address] [place] [address] Basophils/Leukocytes Auto (Bld) [Pure # fraction] 0.0 E9/L Normal 0.0-0.2 [facility] Comment on above: Order Comment: Order Added by Discern Expert. Performed By: #### 2 582547, 2811001, 9191961, 6428362 #### [facility] [address] [place] [address] Eosinophils/100 WBC (Bld) 0.0 % Normal 0.0-8.0 [facility] Comment on above: Order Comment: Order Added by Discern Expert. Performed By: #### 2 039369, 6355776, 8273055, 5963281 #### [facility] [address] [place] [address] Eosinophils/Leukocyte s Auto (Bld) [Pure # fraction] 0.0 E9/L Normal 0.0-0.5 [facility] Comment on above: Order Comment: Order Added by Discern Expert. Performed By: #### 2 722749, 7660900, 3089442, 4789529 #### [facility] [address] [place] [address] Lymphocytes/100 WBC (Bld) 9.0 % Low 14.0-50.0 [facility] Comment on above: Order Comment: Order Added by Discern Expert. Performed By: #### 2 337413, 3278562, 3005346, 7828117 #### [facility] [address] [place] [address] Lymphocytes/Leukocyte s Auto (Bld) [Pure # fraction] 0.7 E9/L Low 1.0-4.0 [facility] Comment on above: Order Comment: Order Added by Discern Expert. Performed By: #### 2 132475, 7714223, 0638140, 7240655 #### [facility] [address] [place] [address] Monocytes/100 WBC (Bld) 4.4 % Normal 4.0-14.0 [facility] Comment on above: Order Comment: Order Added by Discern Expert. Performed By: #### 2 551203, 3729855, 8848681, 3722433 #### [facility] [address] [place] [address] Monocytes/Leukocytes Auto (Bld) [Pure # fraction] 0.3 E9/L Normal 0.2-1.0 [facility] Comment on above: Order Comment: Order Added by Discern Expert. Performed By: #### 2 900805, 9188698, 9694824, 6644593 #### [facility] [address] [place] [address] Neutrophils/100 WBC (Bld) 86.4 % High 36.0-75.0 [facility] Comment on above: Order Comment: Order Added by Discern Expert. Performed By: #### 2 189755, 6141699, 0598649, 0189292 #### [facility] [address] [place] [address] Neutrophils/Leukocyte s Auto (Bld) [Pure # fraction] 6.6 E9/L Normal 2.0-7.5 [facility] Comment on above: Order Comment: Order Added by Discern Expert. Performed By: #### 2 226097, 0059152, 5959636, 8426117 #### [facility] [address] [place] [address] CBC w/ Auto Diffon Erythrocyte distribution width (RBC) [Ratio] 14.1 % Normal 10.9-14.2 [facility] Comment on above: Performed By: #### 2 754564, 2988565, 6559951, 6711926 #### [facility] [address] [place] [address] Hematocrit (Bld) [Volume fraction] 42.2 % Normal 37.7-49.0 [facility] Comment on above: Performed By: #### 2 441535, 0883621, 2929989, 4213970 #### [facility] [address] [place] [address] Hemoglobin (Bld) [Mass/Vol] 13.8 g/dL Normal 13.5-17.5 [facility] Comment on above: Performed By: #### 2 184751, 3016473, 4958985, 7251276 #### [facility] [address] [place] [address] MCH (RBC) [Entitic mass] 27.0 pg Normal 27.0-34.0 [facility] Comment on above: Performed By: #### 2 221353, 1213019, 1734589, 8229146 #### [facility] [address] [place] [address] MCHC (RBC) [Mass/Vol] 32.7 g/dL Normal 31.4-36.0 [facility] Comment on above: Performed By: #### 2 332773, 3430398, 3947419, 9094012 #### [facility] [address] [place] [address] MCV (RBC) [Entitic vol] 82.3 fL Normal 80.0-100.0 [facility] Comment on above: Performed By: #### 2 446191, 8567129, 3479489, 2681861 #### [facility] [address] [place] [address] Platelet mean volume (Bld) [Entitic vol] 6.8 fL Normal 6.4-10.8 [facility] Comment on above: Performed By: #### 2 696450, 6165374, 0217092, 0982298 #### [facility] [address] [place] [address] Platelets (Bld) [#/Vol] 242.0 E9/L Normal 150.0-500.0 [facility] Comment on above: Performed By: #### 2 637522, 9217460, 8912768, 8797081 #### [facility] [address] [place] [address] RBC (Bld) [#/Vol] 5.1 E12/L Normal 4.3-5.9 [facility] Comment on above: Performed By: #### 2 249117, 1036602, 6810156, 7826043 #### [facility] [address] [place] [address] WBC corrected for nucl RBC Auto (Bld) [#/Vol] 7.7 E9/L Normal 4.0-11.0 [facility] Comment on above: Performed By: #### 2 995852, 4365849, 6833543, 0366272 #### [facility] [address] [place] [address] CKon 04-27-2021 CK [Catalytic activity/Vol] 458 Int._Unit/L Abnormal 14-261 [facility] Comment on above: Result Comment: Crit ical Result S_CK:458 Called to DOROTEO SHARMA AT by ERIN DOTSON and read back for confirmation at 04/27/2021 10:26:57\Critical Result verified by repeat analysis Performed By: #### 2 860996, 5022892, 6363968, 5698587 #### [facility] [address] [place] [address] CMPon 04-27-2021 Albumin/Globulin (S) [Mass conc ratio] 0.9 Low 1.1-2.2 [facility] Comment on above: Performed By: #### 2 465160, 9639956, 1870577, 7321221 #### [facility] [address] [place] [address] Anion gap [Moles/Vol] 13 mmol/L Normal 6-16 [facility] Comment on above: Performed By: #### 2 345740, 4204280, 6044315, 5020870 #### [facility] [address] [place] [address] Globulin (S) [Mass/Vol] 3.7 g/dL Normal 1.4-4.0 [facility] Comment on above: Performed By: #### 2 265578, 9243531, 9440244, 4693624 #### [facility] [address] [place] [address] Urea nitrogen/Creatinine [Mass ratio] 19 No Units Normal 10-20 [facility] Comment on above: Performed By: #### 2 277601, 8219094, 6562597, 3460840 #### [facility] [address] [place] [address] Albumin [Mass/Vol] 3.3 g/dL Normal 3.3-5.0 [facility] Comment on above: Performed By: #### 2 443189, 0988426, 3844399, 4173235 #### [facility] [address] [place] [address] ALP [Catalytic activity/Vol] 72 Int._Unit/L Normal 21-98 [facility] Comment on above: Performed By: #### 2 414008, 7621714, 9626173, 7738269 #### [facility] [address] [place] [address] ALT No additional P-5'-P [Catalytic activity/Vol] 73 Int._Unit/L High 6-46 [facility] Comment on above: Performed By: #### 2 411489, 1987245, 1688725, 2884279 #### [facility] [address] [place] [address] AST [Catalytic activity/Vol] 49 Int._Unit/L High 5-43 [facility] Comment on above: Performed By: #### 2 170531, 1438036, 5662819, 0216711 #### [facility] [address] [place] [address] Bilirubin [Mass/Vol] 0.8 mg/dL Normal 0.0-1.1 [facility] Comment on above: Performed By: #### 2 598252, 9068371, 4668477, 5757672 #### [facility] [address] [place] [address] Calcium [Mass/Vol] 8.4 mg/dL Low 8.9-11.1 [facility] Comment on above: Performed By: #### 2 529115, 1321046, 8062366, 5128184 #### [facility] [address] [place] [address] Chloride [Moles/Vol] 102 mmol/L Normal 101-111 [facility] Comment on above: Performed By: #### 2 953008, 7943919, 9372482, 0730554 #### [facility] [address] [place] [address] CO2 [Moles/Vol] 24 mmol/L Normal 21-31 [facility] Comment on above: Performed By: #### 2 616020, 0509600, 4427734, 1885331 #### [facility] [address] [place] [address] Creatinine [Mass/Vol] 0.7 mg/dL Normal 0.5-1.3 [facility] Comment on above: Performed By: #### 2 136349, 4780757, 2503803, 8390665 #### [facility] [address] [place] [address] Glucose [Mass/Vol] 122 mg/dL Normal 55-199 [facility] Comment on above: Result Comment: If t his glucose result represents a fasting glucose, interpretation should refer to the following reference range: 55-99 mg/dL Performed By: #### 2 125200, 0406336, 6972895, 5415179 #### [facility] [address] [place] [address] Potassium [Moles/Vol] 4.4 mmol/L Normal 3.5-5.3 [facility] Comment on above: Performed By: #### 2 270866, 5042469, 5683076, 6409219 #### [facility] [address] [place] [address] Protein [Mass/Vol] 7.0 g/dL Normal 6.0-7.8 [facility] Comment on above: Performed By: #### 2 347652, 9010207, 9730977, 7683194 #### [facility] [address] [place] [address] Sodium [Moles/Vol] 135 mmol/L Normal 135-145 [facility] Comment on above: Performed By: #### 2 756647, 8756041, 2820901, 7713949 #### [facility] [address] [place] [address] Urea nitrogen [Mass/Vol] 13 mg/dL Normal 5-21 [facility] Comment on above: Performed By: #### 2 090852, 3553655, 6943536, 5414226 #### [facility] [address] [place] [address] CRPon 04-27-2021 CRP [Mass/Vol] 18.1 mg/dL High <=1.9 [facility] Comment on above: Performed By: #### 2 070822, 6286341, 6994694, 4308602 #### [facility] [address] [place] [address] Capillary Glucose POCon 04-09 Glucose [Mass/Vol] 140 mg/dL High 55-99 [facility] Comment on above: Result Comment: Bessie fallon RN/ Performed By: #### 2 82612843 ####[facility] [address] [place] [address] D-Dimeron 04-27-2021 Fibrin D-dimer FEU (PPP) [Mass/Vol] 517 [id number] Abnormal 215-500 [facility] Comment on above: Result Comment: Resu lts [...] infections Liver cirrhosis Performed By: #### 2 256515, 4720889, 4110276, 8256067 #### [facility] [address] [place] [address] ED Clinical Summaryon 2020 ED Clinical Summary [address] [address] ED Clinical Summary Person Information Name: NAIDA CM Kori/[facility] Age: 20 Years : 2000 Sex: Male Language: Lithuanian PCP: JAMES SUH CNP Marital Status: Single Phone: [phone] Visit Id: Visit Reason: Cough; Weakness or fatigue; Shortness of breath; COVID+, SOB, WEAKNESS, Speciality: Acuity: 1 Enc Type: Emergency Med Service: Emergency Arrival: 04/26/2021 14:37:56 Discharge: LOS: 000 24:02 Checkin: 04/26/2021 14:37:56 Checkout: 04/27/2021 14:39:39 Dispo Type: Admitted as IP to this [facility] EVENTS: Event Name Event Status Request Date/Time [...] 04/27/2021 14:39:39 04/27/2021 14:39:39 04/27/2021 14:39:39 ADDRESS: [address] [place], [place] [address] [id number] PHYS DOC NOTES: MEDICAL INFORMATION: Prescriptions Given: PATIENT EDUCATION INFORMATION: Instructions: Follow up: DIAGNOSIS: 1:Acute hypoxemic respiratory failure due to COVID-19; 2:Asthma; 3:Weakness; 4:Dehydration; 5:Obesity; 6:DVT prophylaxis Normal [facility] ED Note-Physicianon 04-27-20 ED Note-Physician Basic Information Time Seen: Evie Joel PA-C 04/26/2021 14:47 Chief Complaint mother states that [...] Art, w (more content not included)... Normal [facility] Comment on above: Result Comment: Elec tronically Signed By: Evie Joel PA-C\.br\Date and Time Signed: 04/26/21 22:06 EST\.br\Electronically Co-Signed By: Donovan Moyer DO\.br\Date and Time Co-Signed: 04/27/21 00:10 EST ED Patient Education Noteon 04-27-2021 ED Patient Education Note Normal [facility] ED Patient Summaryon 021 ED Patient Summary [place] [id number] Patient Discharge Instructions Person Information Name: NAIDA CM Age: 20 Years Arrival Date: 04/26/2021 14:37:56 Discharge Diagnosis: 1:Acute hypoxemic respiratory failure due to COVID-19; 2:Asthma; 3:Weakness; 4:Dehydration; 5:Obesity; 6:DVT prophylaxis Primary Care Physician: JAMES SUH CNP Provider Information Primary Provider: Donovan Moyer DO Advanced Calibration Technician:None The exam and treatment you received in the Emergency Department were for an urgent problem and are not intended as complete care. It is important that you follow up with a doctor, nurse practitioner, or physician?s information services assistant for ongoing care. If your symptoms [...] opioids can be used to help relieve stxwqbmc-zg-miwqhk pain and are often prescribed following a [...] be struggling with addiction, tell your health child care nurse and ask for guidance or call [facility]?S National Helpline at 3-255-442-RQFN. l Source: [place] Department of Health and Human Services/Center for Disease Control (more content not included)... Normal [facility] Ferritinon 04-27-2021 Ferritin [Mass/Vol] 299 ng/mL Normal 24-336 [facility] Comment on above: Result Comment: NORM ALS MEN <30 YRS 16-132 ng/mL MEN >30 YRS 8-338 ng/mL WOMEN (PREMEN) 6-104 ng/mL WOMEN (POSTMEN) 12-210 ng/mL Performed By: #### 2 120561, 2651449, 8436245, 1448670 #### [facility] [address] [place] [address] LDHon 04-27-2021 LDH [Catalytic activity/Vol] 247 Int._Unit/L High 93-218 [facility] Comment on above: Performed By: #### 2 826434, 0424434, 6974827, 5442029 #### [facility] [address] [place] [address] Lactic Acidon 04-27-2021 Lactate [Mass/Vol] 1.2 mmol/L Normal 0.5-2.2 [facility] Comment on above: Performed By: #### 2 622715, 1012455, 1697632, 4638051 #### [facility] [address] [place] [address] Monitor Recordon 04-27-2021 Monitor Record [id number]# 1.00CD:127 Normal [facility] Procalcitoninon 04-27-2021 Procalcitonin <.05 Normal .00-.50 [facility] Comment on above: Result Comment: <0.5 [...] to 24 hours. Performed By: #### 2 308642, 7893297, 1504615, 8969024 #### [facility] [address] [place] [address] Progress Note-Nurseon 2020 Progress Note-Nurse Called nursing team supervisor for Remdesivir. Normal [facility] Progress Note-Physicianon Progress Note-Physician Assessment/Plan PLAN: 1. Acute hypoxemic respiratory failure due to COVID-19 (U07.1: COVID-19) -Symptoms started 9 days ago. Covid + at [facility] at that time. -SPO2 74% at [...] (E66.9: Obesity, unspecified) -BMI 37.33 -We will aids counselor on diet, exercise, weight loss and [...] Lymph Auto: 9 % Low (04/27/21 05:11:00) [place] Auto: 4.4 % (04/27/21 05:11:00) Eos Auto: 0 % (04/27/21 05:11:00) Basophil Auto: 0.2 % (04/27/21 05:11:00) Neutro Absolute: 6.6 E9/L (04/27/21 05:11:00) Lymph Absolute: 0.7 E9/L Low (04/27/21 05:11:00) [place] Absolute: 0.3 E9/L (04/27/21 05:11:00) Eos Absolute: [...] (04/27/21 05:11:00) (more content not included)... Normal [facility] Comment on above: Result Comment: Elec tronically Signed By: Tamara GRAY\.br\Date and Time Signed: 04/27/21 12:45 EST\.br\Electronically Co-Signed By: Man ROWE, Jens Mixon\.br\Date and Time Co-Signed: 04/27/21 14:34 EST TSH With T4fr Reflexon 04-27 TSH Qn 0.73 m[IU]/L Normal 0.34-5.60 [facility] Comment on above: Performed By: #### 2 291158, 0041162, 3429203, 3906495 #### [facility] [address] [place] [address] Troponin 9 Hr.on 04-27-2021 Troponin I.cardiac [Mass/Vol] 5.20 pg/mL Low 15.90-38.40 [facility] Comment on above: Result Comment: The 95% CI (Confidence Interval) PPV (Positive Predictive Value) for myocardial infarction in females is 38 pg/mL, in males 51 pg/mL. The results should be used in conjunction with clinical conditions of myocardial infarction. (Access High Sensitivity Troponin I Instructions For Use, Marta Ronal, December 2017) Performed By: #### 2 471788, 7629292, 4280154, 1740067 #### [facility] [address] [place] [address] eGFRon 04-27-2021 GFR/1.73 sq M.predicted among blacks MDRD (S/P/Bld) [Vol rate/Area] mL/min/{1.73_m2} Normal >=59 [facility] Comment on above: Order Comment: Order added by Discern Expert. Result Comment: eGFR is race adjusted. AA=. Performed By: #### 2 723375, 6868777, 8716821, 8840258 #### [facility] [address] [place] [address] GFR/1.73 sq M.predicted among non-blacks MDRD (S/P/Bld) [Vol rate/Area] mL/min/{1.73_m2} Normal >=59 [facility] Comment on above: Order Comment: Order added by Discern Expert. Result Comment: Supervisor In Charge jaspreet kidney disease could be indicated at eGFR's of less than 60 mL/min/1.73m2. Kidney failure is indicated at less than 15 mL/min/1.73m2. Performed By: #### 2 144176, 3059540, 8122458, 7350645 #### [facility] [address] [place] [address] Auto Diffon 04-26-2021 Basophils/100 WBC (Bld) 0.5 % Normal 0.0-2.0 [facility] Comment on above: Order Comment: Order Added by Discern Expert. Performed By: #### 2 616005, 4230907, 79154860, 6661246, 1498416, 8266047, 5384549, 5369507, 2972073712, 65573712, 72199441, 51125253 #### [facility] [address] [place] [address] Basophils/Leukocytes Auto (Bld) [Pure # fraction] 0.0 E9/L Normal 0.0-0.2 [facility] Comment on above: Order Comment: Order Added by Discern Expert. Performed By: #### 2 031878, 8676716, 47075817, 2551601, 3821033, 6760165, 3702885, 1964890, 7843822502, 31044093, 99679623, 87394151 #### [facility] [address] [place] [address] Eosinophils/100 WBC (Bld) 0.0 % Normal 0.0-8.0 [facility] Comment on above: Order Comment: Order Added by Discern Expert. Performed By: #### 2 560281, 2142169, 31104926, 9396958, 7779711, 9283613, 5766755, 3447884, 4494992624, 72670385, 04859019, 66826064 #### [facility] [address] [place] [address] Eosinophils/Leukocyte s Auto (Bld) [Pure # fraction] 0.0 E9/L Normal 0.0-0.5 [facility] Comment on above: Order Comment: Order Added by Discern Expert. Performed By: #### 2 558777, 9648788, 61382357, 6967660, 2336488, 4751370, 1137603, 5085707, 3849323742, 24706465, 07494207, 54977653 #### [facility] [address] [place] [address] Lymphocytes/100 WBC (Bld) 8.6 % Low 14.0-50.0 [facility] Comment on above: Order Comment: Order Added by Discern Expert. Performed By: #### 2 694218, 1380541, 60880422, 3265801, 1286116, 0704001, 1146164, 3131652, 0593240841, 07454377, 32785565, 80971628 #### [facility] [address] [place] [address] Lymphocytes/Leukocyte s Auto (Bld) [Pure # fraction] 0.9 E9/L Low 1.0-4.0 [facility] Comment on above: Order Comment: Order Added by Discern Expert. Performed By: #### 2 092334, 4520615, 43187154, 7277744, 3196615, 0056286, 1582051, 0976763, 7439658769, 75452933, 41878992, 46444083 #### [facility] [address] [place] [address] Monocytes/100 WBC (Bld) 5.1 % Normal 4.0-14.0 [facility] Comment on above: Order Comment: Order Added by Discern Expert. Performed By: #### 2 521726, 4921839, 76342500, 2985193, 9701451, 7901335, 4564427, 8797034, 5195867734, 95039917, 16438996, 63890591 #### [facility] [address] [place] [address] Monocytes/Leukocytes Auto (Bld) [Pure # fraction] 0.5 E9/L Normal 0.2-1.0 [facility] Comment on above: Order Comment: Order Added by Discern Expert. Performed By: #### 2 617263, 8468606, 44926846, 8134272, 1200301, 2050016, 1149360, 3485405, 9237047338, 85219527, 40282669, 59008690 #### [facility] [address] [place] [address] Neutrophils/100 WBC (Bld) 85.8 % High 36.0-75.0 [facility] Comment on above: Order Comment: Order Added by Discern Expert. Performed By: #### 2 257160, 1341211, 25779741, 6564253, 5771249, 3967341, 9420303, 2193703, 6950416588, 84909401, 24595501, 21667190 #### [facility] [address] [place] [address] Neutrophils/Leukocyte s Auto (Bld) [Pure # fraction] 8.5 E9/L High 2.0-7.5 [facility] Comment on above: Order Comment: Order Added by Discern Expert. Performed By: #### 2 660740, 3631956, 36263865, 7654912, 6374732, 2626233, 1084783, 8147680, 2402400180, 64338029, 37226095, 75746538 #### [facility] [address] [place] [address] BMPon 04-26-2021 Creatinine [Mass/Vol] 0.8 mg/dL Normal 0.5-1.3 [facility] Comment on above: Performed By: #### 2 842341, 0015911, 56387779, 5494027, 0095847, 1848825, 6443349, 3658397, 8388720611, 23997223, 92925602, 40211587 ####[facility] [address] [place] [address] Urea nitrogen [Mass/Vol] 13 mg/dL Normal 5-21 [facility] Comment on above: Performed By: #### 2 505408, 6372378, 32845740, 8275047, 9328071, 7831720, 9707721, 5892291, 3975253402, 93316834, 72248882, 18013003 ####[facility] [address] [place] [address] Urea nitrogen/Creatinine [Mass ratio] 16 No Units Normal 10-20 [facility] Comment on above: Performed By: #### 2 716596, 0637461, 63751283, 1705703, 0265045, 5773073, 5140169, 7346214, 9941558726, 82708243, 06305018, 08354224 ####[facility] [address] [place] [address] Anion gap [Moles/Vol] 14 mmol/L Normal 6-16 [facility] Comment on above: Performed By: #### 2 360424, 1075841, 00442686, 3066365, 8227238, 6342682, 7087219, 1595228, 3707422379, 34282064, 68867656, 72389027 ####[facility] [address] [place] [address] Calcium [Mass/Vol] 8.4 mg/dL Low 8.9-11.1 [facility] Comment on above: Performed By: #### 2 550250, 2132052, 84757983, 4803154, 7524262, 3794350, 5142725, 4707427, 7706012180, 23170336, 97895881, 57523980 ####[facility] [address] [place] [address] Chloride [Moles/Vol] 99 mmol/L Low 101-111 [facility] Comment on above: Performed By: #### 2 623802, 8625775, 35899624, 6266158, 9089483, 8570300, 2108250, 7615756, 3697843197, 14381902, 80108923, 11019087 ####[facility] [address] [place] [address] CO2 [Moles/Vol] 26 mmol/L Normal 21-31 [facility] Comment on above: Performed By: #### 2 408253, 6075975, 43682981, 2640191, 7981846, 8188931, 1419976, 5210991, 6504372354, 46023081, 50944334, 18033337 ####[facility] [address] [place] [address] Glucose [Mass/Vol] 130 mg/dL Normal 55-199 [facility] Comment on above: Result Comment: If t his glucose result represents a fasting glucose, interpretation should refer to the following reference range: 55-99 mg/dL Performed By: #### 2 704283, 7648844, 92919061, 6660066, 2149528, 5018230, 3504330, 0300624, 6772843530, 62942607, 91221531, 16231331 ####[facility] [address] [place] [address] Potassium [Moles/Vol] 3.8 mmol/L Normal 3.5-5.3 [facility] Comment on above: Performed By: #### 2 129437, 2729214, 54191168, 4402651, 8757033, 2426794, 9100581, 1320586, 4972940054, 64591215, 06865406, 40050371 ####[facility] [address] [place] [address] Sodium [Moles/Vol] 135 mmol/L Normal 135-145 [facility] Comment on above: Performed By: #### 2 518696, 3482153, 92157953, 3579789, 8003606, 5668081, 9473849, 3820763, 2153084439, 37663090, 49650730, 60413350 ####[facility] [address] [place] [address] BNPon 04-26-2021 Int Ctr BNP Pass Normal [facility] Comment on above: Performed By: #### 2 623398, 5840180, 10306182, 7869193, 2916917, 5328267, 2940657, 2751927, 8502457062, 45973295, 03957906, 56583363 ####[facility] [address] [place] [address] Natriuretic peptide B (Bld) [Mass/Vol] 17 pg/mL Normal 5-80 [facility] Comment on above: Performed By: #### 2 562360, 3940185, 06248720, 2459712, 5860943, 5214538, 3962752, 1779245, 3034361685, 08922569, 82289246, 40372712 ####[facility] [address] [place] [address] Blood Gas Art, with Lytes, G jm, [place] 04-26-2021 a/A Ratio Art 49.50 % Normal >=0.80 [facility] Comment on above: Performed By: #### 4 [id number] ####[facility] [address] [place] [address] AaDO2 Art 73.7 mmHg High 5.0-15.0 [facility] Comment on above: Performed By: #### 4 [id number] ####[facility] [address] [place] [address] Allens Test Positive Normal [facility] Comment on above: Performed By: #### 4 [id number] ####[facility] [address] [place] [address] Base Excess Arterial 4.1 mmol/L Normal >=2.8 [facility] Comment on above: Performed By: #### 4 [id number] ####[facility] [address] [place] [address] cCa2+ Art 4.59 mg/dL Normal 4.40-5.30 [facility] Comment on above: Performed By: #### 4 58078709 ####[facility] [address] [place] [address] cCl- Art 104.0 mmol/L Normal 101.0-111.0 [facility] Comment on above: Performed By: #### 4 14542614 ####[facility] [address] [place] [address] cGlu Art 126 mg/dL High 55-99 [facility] Comment on above: Performed By: #### 4 [id number] ####[facility] [address] [place] [address] cK+ Art 4.1 mmol/L Normal 3.5-5.3 [facility] Comment on above: Performed By: #### 4 41270828 ####[facility] [address] [place] [address] cLac Art .7 mmol/L Normal .5-2.2 [facility] Comment on above: Performed By: #### 4 65020007 ####[facility] [address] [place] [address] hammer runner+ Art 141.0 mmol/L Normal 135.0-145.0 [facility] Comment on above: Performed By: #### 4 [id number] ####[address] [address] Drawn by ss Invalid Interpretation Code [facility] Comment on above: Performed By: #### 4 [id number] ####[address] [address] FCOHb Art 1.2 % Low 1.5-4.9 [facility] Comment on above: Result Comment: Refe rence range Nonsmoker <1.5% Smoker <5.0% Heavy Smoker <9.0% Performed By: #### 4 65069050 ####[address] [address] FIO2 BG 21 Invalid Interpretation Code [facility] Comment on above: Performed By: #### 4 [id number] ####[address] [address] FMetHb Art 0.2 % Normal 0.0-1.9 [facility] Comment on above: Performed By: #### 4 13495243 ####[address] [address] FO2Hb Art 94.0 % Normal 93.0-100.0 [facility] Comment on above: Performed By: #### 4 31915716 ####[address] [address] HCO3 (Bld) [Moles/Vol] 28.0 mmol/L High 22.0-26.0 [facility] Comment on above: Performed By: #### 4 [id number] ####[address] [address] Hemoglobin (Bld) [Mass/Vol] 14.7 g/dL Normal 12.0-17.0 [facility] Comment on above: Performed By: #### 4 05377698 ####[facility] [place] [address] Oxygen saturation in Blood 95.4 % Normal 95.0-100.0 [facility] Comment on above: Performed By: #### 4 49724617 ####[address] [place] [address] P CO2 Arterial 42.1 mmHg Normal 35.0-45.0 [facility] Comment on above: Performed By: #### 4 25390644 ####[address] [place] [address] P O2 Arterial 72.2 mmHg Low 80.0-100.0 [facility] Comment on above: Performed By: #### 4 36439323 ####[address] [place] [address] pH Arterial 7.443 Normal 7.350-7.450 [facility] Comment on above: Performed By: #### 4 [id number] ####[address] [address] Sample Site R Radial Normal [facility] Comment on above: Performed By: #### 4 38630981 ####[address] [address] Sample Type Arterial Draw Normal [facility] Comment on above: Performed By: #### 4 [id number] ####[address] [place] [address] CBC w/ Auto Diffon 1 Erythrocyte distribution width (RBC) [Ratio] 13.9 % Normal 10.9-14.2 [facility] Comment on above: Performed By: #### 2 119628, 3353750, 33723086, 1788639, 0491601, 5080299, 5338618, 0791574, 2853980742, 46186399, 95403256, 09656479 #### [facility] [address] [place] [address] Hematocrit (Bld) [Volume fraction] 42.3 % Normal 37.7-49.0 [facility] Comment on above: Performed By: #### 2 330252, 0283287, 94020999, 2796873, 6585881, 3363472, 2943677, 0821061, 7724885210, 18210880, 54680767, 41462338 #### [facility] [address] [place] [address] Hemoglobin (Bld) [Mass/Vol] 14.6 g/dL Normal 13.5-17.5 [facility] Comment on above: Performed By: #### 2 820835, 2381020, 42467872, 6747089, 8678125, 5249353, 9942396, 6967270, 7752904266, 70247569, 26075160, 89756684 #### [facility] [address] [place] [address] MCH (RBC) [Entitic mass] 27.4 pg Normal 27.0-34.0 [facility] Comment on above: Performed By: #### 2 122348, 3337020, 98673635, 2909495, 5836575, 4344980, 5633641, 9101316, 4327125461, 07357492, 19133473, 70842478 #### [facility] [address] [place] [address] MCHC (RBC) [Mass/Vol] 34.5 g/dL Normal 31.4-36.0 [facility] Comment on above: Performed By: #### 2 732745, 1505517, 77305004, 9721241, 5221172, 1180797, 8777153, 1319871, 3917130315, 51037089, 31940439, 79581382 #### [facility] [address] [place] [address] MCV (RBC) [Entitic vol] 79.4 fL Low 80.0-100.0 [facility] Comment on above: Performed By: #### 2 633279, 9790072, 20024319, 9974688, 4576357, 0793216, 6643307, 7734999, 3311116933, 44506749, 56768087, 04959077 #### [facility] [address] [place] [address] Platelet mean volume (Bld) [Entitic vol] 6.9 fL Normal 6.4-10.8 [facility] Comment on above: Performed By: #### 2 560364, 6032214, 55120325, 0912053, 3732614, 9730300, 7219616, 7383854, 0316068004, 12871700, 78708349, 49900663 #### [facility] [address] [place] [address] Platelets (Bld) [#/Vol] 220.0 E9/L Normal 150.0-500.0 [facility] Comment on above: Performed By: #### 2 487883, 8866548, 28022972, 6514327, 6655452, 4607646, 5777741, 6644358, 0437003900, 18703098, 69834375, 51688157 #### [facility] [address] [place] [address] RBC (Bld) [#/Vol] 5.3 E12/L Normal 4.3-5.9 [facility] Comment on above: Performed By: #### 2 501848, 7794305, 73973219, 3886159, 5265542, 0241275, 7146824, 4937826, 2382433320, 24188242, 23314138, 94376948 #### [facility] [address] [place] [address] WBC corrected for nucl RBC Auto (Bld) [#/Vol] 9.9 E9/L Normal 4.0-11.0 [facility] Comment on above: Performed By: #### 2 011441, 4327507, 23751698, 8707145, 5825678, 1965903, 3575002, 9770481, 0192246946, 24081337, 52780900, 08199396 #### [facility] [address] [facility] [place] [address] CRPon 04-26-2021 CRP [Mass/Vol] 16.8 mg/dL High <=1.9 [facility] Comment on above: Performed By: #### 2 588176, 4577077, 87213747, 5713023, 5198116, 3526101, 7235088, 4352818, 8060013252, 24890029, 15396522, 30805947 ####[facility] [address] [place] [address] Consent for Treatmenton 04-09 Consent for Treatment [id number] 112 [id number] Normal [facility] D-Dimeron 04-26-2021 Fibrin D-dimer FEU (PPP) [Mass/Vol] 437 [id number] Normal 215-500 [facility] Comment on above: Result Comment: This assay [...] infections Liver cirrhosis Performed By: #### 2 729675, 5722151, 06951262, 4017457, 9491891, 3923472, 1029136, 0896889, 6134483743, 22438783, 34884722, 44864121 ####[facility] [address] [place] [address] ED Note-Nursingon 04-26-2021 ED Note-Nursing road test completed at this time. pt pulse ox decreased, at bedside and is aware. pt very anxious to ambulate. pt states SOB with ambulation. denies CP. denies needs. pt TBA and is aware. denies needs at this time. Normal [facility] LDHon 04-26-2021 LDH [Catalytic activity/Vol] 278 Int._Unit/L High 93-218 [facility] Comment on above: Performed By: #### 2 931623, 5658701, 23960142, 2331464, 8783996, 6065474, 6922730, 8109180, 1092026464, 38789896, 02941004, 77310088 ####[facility] [address] [place] [address] Lactic Acidon 04-26-2021 Lactate [Mass/Vol] 1.1 mmol/L Normal 0.5-2.2 [facility] Comment on above: Performed By: #### 2 098206, 4125149, 89908803, 3682836, 9189294, 9253607, 1121118, 3775237, 6214181292, 76726883, 53743611, 00805120 ####[facility] [address] [place] [address] PT & PTTon 04-26-2021 aPTT Coag (PPP) [Time] 30.6 second(s) Normal 25.1-36.5 [facility] Comment on above: Result Comment: Hepa rin therapeutic range (represented by Anti-Factor Xa activity of 0.2 - 0.4 U/mL) corresponds to PTT of 56.6 - 109.0 sec. Performed By: #### 2 063108, 7663583, 79993468, 2944869, 0401384, 5039973, 6836874, 7114240, 6050769703, 51492343, 23810646, 75613448 ####[facility] [address] [place] [address] INR Coag (PPP) [Relative time] 1.2 {INR} Invalid Interpretation Code [facility] Comment on above: Result Comment: INR results are specifically intended to assess patients stabilized on long-term Anticoagulation therapy suggested INR?s ?Less Intensive Anticoagulation? 2.0 ? 3.0 Conventional Range 3.0 ? 4.5 Performed By: #### 2 210862, 8803721, 66630572, 9324620, 8815707, 9407666, 0005288, 9712304, 6581461564, 38623542, 26653218, 91401312 ####[facility] [address] [place] [address] PT Coag (PPP) [Time] 14.1 second(s) High 10.2-12.9 [facility] Comment on above: Performed By: #### 2 401503, 8231828, 52820001, 5774337, 3395504, 5904654, 6823326, 0571139, 6402619898, 78634473, 82676357, 30682872 ####[facility] [address] [place] [address] Procalcitoninon 04-26-2021 Procalcitonin .09 ng/mL Normal .00-.50 [facility] Comment on above: Result Comment: <0.5 [...] to 24 hours. Performed By: #### 2 808576, 8585113, 33707949, 9161678, 6071521, 3540705, 0462599, 5986157, 5671523844, 62918590, 65656254, 77065066 ####[facility] [address] [place] [address] Troponin 0 Hr.on 04-26-2021 Troponin I.cardiac [Mass/Vol] 6.70 pg/mL Low 15.90-38.40 [facility] Comment on above: Result Comment: The 95% CI (Confidence Interval) PPV (Positive Predictive Value) for myocardial infarction in females is 38 pg/mL, in males 51 pg/mL. The results should be used in conjunction with clinical conditions of myocardial infarction. (Access High Sensitivity Troponin I Instructions For Use, [employer], December 2017) Performed By: #### 2 115290, 1066780, 76518057, 8620663, 3009526, 9108673, 9983010, 7939839, 7326900132, 12587745, 62804108, 76020485 ####[facility] [address] [place] [address] Troponin 3 Hr.on 04-26-2021 Troponin I.cardiac [Mass/Vol] 6.40 pg/mL Low 15.90-38.40 [facility] Comment on above: Result Comment: The 95% CI (Confidence Interval) PPV (Positive Predictive Value) for myocardial infarction in females is 38 pg/mL, in males 51 pg/mL. The results should be used in conjunction with clinical conditions of myocardial infarction. (Access High Sensitivity Troponin I Instructions For Use, [employer], December 2017) Performed By: #### 1 0915279 ####[facility] [address] [place] [address] Troponin 6 Hr.on 04-26-2021 Troponin I.cardiac [Mass/Vol] 5.50 pg/mL Low 15.90-38.40 [facility] Comment on above: Result Comment: The 95% CI (Confidence Interval) PPV (Positive Predictive Value) for myocardial infarction in females is 38 pg/mL, in males 51 pg/mL. The results should be used in conjunction with clinical conditions of myocardial infarction. (Access High Sensitivity Troponin I Instructions For Use, [employer], December 2017) Performed By: #### 2 538206, 2873620, 6561989, 6484368 #### [facility] [address] [place] [address] UA With Cult Reflexon 2020 Bacteria LM Ql (Urine sed) TRACE Normal Trace [facility] Comment on above: Performed By: #### 2 779987, 0502396, 1284945, 6293696 #### [facility] [address] [place] [address] Bilirubin Ql (U) Negative Normal Negative [facility] Comment on above: Performed By: #### 2 146025, 0626263, 5546499, 9899774 #### [facility] [address] [place] [address] Clarity (U) CLEAR Normal Clear [facility] Comment on above: Performed By: #### 2 261769, 2921856, 5299288, 4016655 #### [facility] [address] [place] [address] Color (U) YELLOW Normal Yellow [facility] Comment on above: Performed By: #### 2 282962, 9208181, 4651854, 4161327 #### [facility] [address] [place] [address] Epithelial cells.squamous LM.HPF (Urine sed) [#/Area] 0-2 Normal 0-2 [facility] Comment on above: Performed By: #### 2 226458, 8169774, 9112952, 6430273 #### [facility] [address] [place] [address] Glucose Test strip (U) [Mass/Vol] Negative Normal Negative [facility] Comment on above: Performed By: #### 2 399768, 1221624, 6153443, 9970621 #### [facility] [address] [place] [address] Hemoglobin Ql (U) TRACE Abnormal Negative [facility] Comment on above: Performed By: #### 2 522625, 2055629, 1895010, 0048041 #### [facility] [address] [place] [address] Ketones (U) [Mass/Vol] Negative Normal Negative [facility] Comment on above: Performed By: #### 2 447338, 7343882, 3997856, 4361173 #### [facility] [address] [place] [address] Teaticket.plasma/Lithiu m.RBC (Bld) [Mass ratio] 0-3 Normal 0-3 [facility] Comment on above: Performed By: #### 2 232171, 7789876, 0994088, 9953212 #### [facility] [address] [place] [address] Nitrite Ql (U) Negative Normal Negative [facility] Comment on above: Performed By: #### 2 367045, 2849783, 1989569, 4654966 #### [facility] [address] [place] [address] pH (U) 6.5 [pH] Invalid Interpretation Code 5.0-9.0 [facility] Comment on above: Performed By: #### 2 448706, 8140792, 8352023, 7344208 #### [facility] [address] [place] [address] Protein (U) [Mass/Vol] TRACE Abnormal Negative [facility] Comment on above: Performed By: #### 2 904154, 2384849, 2744627, 8058009 #### [facility] [address] [place] [address] Specific gravity (U) [Rel density] 1.020 Invalid Interpretation Code 1.005-1.030 [facility] Comment on above: Performed By: #### 2 247197, 1801389, 8684787, 8367037 #### [facility] [address] [place] [address] Type of Urine collection method Clean Catch Normal [facility] Comment on above: Performed By: #### 2 965250, 4534839, 5512458, 2795267 #### [facility] [address] [place] [address] Urobilinogen Qn (U) 1.0 {Kathy'U}/dL Normal 0.0-1.0 [facility] Comment on above: Performed By: #### 2 407267, 0077975, 8145551, 8854491 #### [facility] [address] [place] [address] WBC Auto Ql (U) Negative Normal Negative [facility] Comment on above: Performed By: #### 2 454827, 1625561, 7686636, 0821842 #### [facility] [address] [place] [address] WBC LM.HPF (Urine sed) [#/Area] 0-5 Normal 0-5 [facility] Comment on above: Performed By: #### 2 049957, 4598549, 3924728, 8768278 #### [facility] [address] [place] [address] XR Chest Single Viewon 04-26 XR Chest [...] MD Transcribed by: KATHI Technologist: MICHEAL Normal [facility] eGFRon 04-26-2021 GFR/1.73 sq M.predicted among blacks MDRD (S/P/Bld) [Vol rate/Area] mL/min/{1.73_m2} Normal >=59 [facility] Comment on above: Order Comment: Order added by Discern Expert. Result Comment: eGFR is race adjusted. AA=. Performed By: #### 2 218540, 7815847, 22823111, 5718995, 0856479, 9330132, 9760077, 3702926, 7024474774, 92423886, 08599671, 91067757 ####[facility] [address] [place] [address] GFR/1.73 sq M.predicted among non-blacks MDRD (S/P/Bld) [Vol rate/Area] mL/min/{1.73_m2} Normal >=59 [facility] Comment on above: Order Comment: Order added by Discern Expert. Result Comment: Supervisor In Charge jaspreet kidney disease could be indicated at eGFR's of less than 60 mL/min/1.73m2. Kidney failure is indicated at less than 15 mL/min/1.73m2. Performed By: #### 2 102928, 7524325, 14597264, 7012116, 8037035, 7420224, 0920766, 9294126, 0708189147, 77917674, 78487941, 50606409 ####[facility] [address] [place] [address] CARDIAC JIM ADMITon 021 CK >1600 Critically high 55-170 [facility] Comment on above: Result Comment: test repeated, critical value verified Performed By: #### L IPA, CMP, TSH, CMADM #### [facility] [address] [address] [address] Darrius Lindsey CK.MB [Mass/Vol] 6.32 ng/mL Critically high <=2.37 [facility] Comment on above: Performed By: #### L IPA, CMP, TSH, CMADM #### [facility] [address] [address] [address] Darrius Lindsey HSTROP 20.3 pg/mL Normal 4.0-42.2 [facility] Comment on above: Result Comment: CUT- OFF POINTS HAVE BEEN ESTABLISHED BASED ON THE FOURTH UNIVERSAL DEFINITIONS OF MYOCARDIAL INFARCTION. THE UPPER REFERENCE LIMIT (URL) OF TROPONIN, DEFINED THE 99TH PERCENTILE OF cTnI DISTRIBUTION IN A REFERENCE POPULATION, HAS BEEN CONFIRMED THE DECISION THRESHOLD FOR PA DIAGNOSIS. Performed By: #### L IPA, CMP, TSH, CMADM #### [facility] [address] [address] [address] Darrius Lindsey REY 710.0 ng/mL Critically high <=121.0 [facility] Comment on above: Performed By: #### L IPA, CMP, TSH, CMADM #### [facility] [address] [address] [address] Darrius Lindsey CBC AUTO DIFFon 04-25-2021 BASO # 0.0 103/ul Normal 0.0-0.1 [facility] Comment on above: Performed By: #### C BC ####[facility] [address] [address]Dr. Darrius Lindsey Basophils/100 WBC (Bld) 0.1 % Critically low 0.2-2.0 [facility] Comment on above: Performed By: #### C BC ####[facility] [address] [place], [place] [address]DrMandy Lindsey EO # 0.0 103/ul Normal 0.0-0.[address] [facility] Comment on above: Performed By: #### C BC ####[facility] [address] [place], [place] [address]Dr. Darrius Lindsey Eosinophils/100 WBC (Bld) 0.0 % Critically low 0.9-7.0 [facility] Comment on above: Performed By: #### C BC ####[facility] [address] [place], [place] [address]Dr. Darrius Lindsey Erythrocyte distribution width (RBC) [Ratio] 13.2 % Normal 11.0-15.0 [facility] Comment on above: Performed By: #### C BC ####[facility] [address] [place], [place] [address]Dr. Darrius Lindsey Hematocrit (Bld) [Volume fraction] 47.4 % Normal 42.0-54.0 [facility] Comment on above: Performed By: #### C BC ####[facility] [address] [place], [place] [address]Dr. Darrius Lindsey Hemoglobin (Bld) [Mass/Vol] 15.5 g/dL Normal 14.0-18.[address] [facility] Comment on above: Performed By: #### C BC ####[facility] [address] [place], [place] [address]DrMandy Lindsey IG # 0.04 10e3/ul Critically high 0.00-0.03 [facility] Comment on above: Performed By: #### C BC ####[facility] [address] [place], [place] [address]Dr. Darrius Lindsey IG % 0.5 % Normal 0.0-0.5 [facility] Comment on above: Performed By: #### C BC ####[facility] [address] [address]DrMandy Lindsey LYMPH # 0.7 103/ul Critically low 1.2-3.8 [facility] Comment on above: Performed By: #### C BC ####[facility] [address] [address]DrMandy Lindsey Lymphocytes/100 WBC (Bld) 8.8 % Critically low 20.5-60.[address] [facility] Comment on above: Performed By: #### C BC ####[facility] [address] [place], [place] [address]DrMandy Lindsey MANUAL DIFF REQ NO Normal [facility] Comment on above: Performed By: #### C BC ####[facility] [address] [address]DrMandy Lindsey MCH (RBC) [Entitic mass] 27.1 pg Normal 25.9-34.[address] [facility] Comment on above: Performed By: #### C BC ####[facility] [address] [place], [place] [address]DrMandy Lindsey MCHC (RBC) [Mass/Vol] 32.7 g/dL Normal 29.9-35.[address] [facility] Comment on above: Performed By: #### C BC ####[facility] [address] [place], [place] [address]DrMandy Lindesy MCV (RBC) [Entitic vol] 83.0 fL Normal 80.0-94.[address] [facility] Comment on above: Performed By: #### C BC ####[facility] [address] [place], [place] [address]DrMandy Lindsey MONO # 0.5 103/ul Normal 0.3-0.[address] [facility] Comment on above: Performed By: #### C BC ####[facility] [address] [place], [place] [address]DrMandy Lindsey Monocytes/100 WBC (Bld) 5.8 % Normal 1.7-12.[address] [facility] Comment on above: Performed By: #### C BC ####[facility] [address] [address]Dr. Darrius Lindsey NEUT # 6.8 103/ul Critically high 1.4-6.5 [facility] Comment on above: Performed By: #### C BC ####[facility] [address] [address]Dr. Darrius Lindsey Neutrophils/100 WBC (Bld) 84.8 % Critically high 43.0-75.0 The [facility] Comment on above: Performed By: #### C BC ####[facility] [address] [address]Dr. Darrius Lindsey Platelet mean volume (Bld) [Entitic vol] 8.8 fL Critically low 9.5-13.[address] [facility] Comment on above: Performed By: #### C BC ####[facility] [address] [address]Dr. Darrius Lindsey PLT 197 103/ul Normal 150-[address] [facility] Comment on above: Performed By: #### C BC ####[facility] [address] [address]Dr. Darrius Lindsey RBC 5.71 106/ul Normal 4.70-6.[address] [facility] Comment on above: Performed By: #### C BC ####[facility] [id number] [place], [place] [id number]. Darrius Lindsey WBC 8.0 103/ul Normal 4.0-11.[address] [facility] Comment on above: Performed By: #### C BC ####[facility] [address] [address]Dr. Darrius Lindsey LIPASEon 04-25-2021 Lipase [Catalytic activity/Vol] 75.0 U/L Normal 23.0-300.[address] [facility] Comment on above: Performed By: #### L IPA, CMP, TSH, CMADM #### [facility] [address] [address] [address] Darrius Lindsey PROF 14(COMP METB)on 021 Albumin [Mass/Vol] 3.5 g/dL Normal 3.5-5.0 [facility] Comment on above: Performed By: #### L IPA, CMP, TSH, CMADM #### [facility] [address] [address] [address] Darrius Lindsey Albumin/Globulin [Mass ratio] 0.8 {ratio} Normal [facility] Comment on above: Performed By: #### L IPA, CMP, TSH, CMADM #### [facility] [address] [address] [address] Darrius Lindsey ALP [Catalytic activity/Vol] 103 U/L Normal 38-126 [facility] Comment on above: Performed By: #### L IPA, CMP, TSH, CMADM #### [facility] [address] [address] [address] Darrius Lindsey ALT [Catalytic activity/Vol] 62 U/L Normal 21-72 [facility] Comment on above: Performed By: #### L IPA, CMP, TSH, CMADM #### [facility] [address] [address] [address] Darrius Lindsey Anion gap [Moles/Vol] 14.8 mmol/L Normal [facility] Comment on above: Performed By: #### L IPA, CMP, TSH, CMADM #### [facility] [address] [address] [address] Darrius Lindsey AST [Catalytic activity/Vol] 87 U/L Critically high 17-59 [facility] Comment on above: Performed By: #### L IPA, CMP, TSH, CMADM #### [facility] [address] [address] [address] Darrius Lindsey Bilirubin [Mass/Vol] 0.6 mg/dL Normal 0.2-1.3 [facility] Comment on above: Performed By: #### L IPA, CMP, TSH, CMADM #### [facility] [address] [address] [address] Darrius Lindsey Calcium [Mass/Vol] 9.3 mg/dL Normal 8.4-10.2 [facility] Comment on above: Performed By: #### L IPA, CMP, TSH, CMADM #### [facility] [address] [address] [address] Darrius Lindsey Chloride [Moles/Vol] 101 mmol/L Normal 98-107 [facility] Comment on above: Performed By: #### L IPA, CMP, TSH, CMADM #### [facility] [address] [address] [address] Darrius Lindsey CO2 [Moles/Vol] 28.8 mmol/L Normal 22.0-30.0 [facility] Comment on above: Performed By: #### L IPA, CMP, TSH, CMADM #### [facility] [address] [place] [address] Dr. Darrius Lindsey Creatinine [Mass/Vol] 0.99 mg/dL Normal 0.66-1.25 [facility] Comment on above: Performed By: #### L IPA, CMP, TSH, CMADM #### [facility] [address] [place] [address] Dr. Darrius Lindsey EGFR-AF CAMEROONIAN >60 Normal >=60 [facility] Comment on above: Performed By: #### L IPA, CMP, TSH, CMADM #### [facility] [address] [address] [address] Darrius Lindsey EGFR-NON AF CAMEROONIAN >60 Normal >=60 [facility] Comment on above: Performed By: #### L IPA, CMP, TSH, CMADM #### [facility] [address] [address] [address] Darrius Lindsey Globulin (S) [Mass/Vol] 4.5 g/dL Normal [facility] Comment on above: Performed By: #### L IPA, CMP, TSH, CMADM #### [facility] [address] [address] [address] Darrius Lindsey Glucose [Mass/Vol] 128 mg/dL Critically high 74-106 [facility] Comment on above: Performed By: #### L IPA, CMP, TSH, CMADM #### [facility] [address] [place] [address] Dr. Darrius Lindsey Potassium [Moles/Vol] 4.6 mmol/L Normal 3.4-5.[address] [facility] Comment on above: Performed By: #### L IPA, CMP, TSH, CMADM #### [facility] [address] [place] [address] Dr. Darrius Lindsey Protein [Mass/Vol] 8.0 g/dL Normal 6.1-8.2 [facility] Comment on above: Performed By: #### L IPA, CMP, TSH, CMADM #### [facility] [address] [place] [address] Dr. Darrius Lindsey Sodium [Moles/Vol] 140 mmol/L Normal 137-145 [facility] Comment on above: Performed By: #### L IPA, CMP, TSH, CMADM #### [facility] [address] [place] [address] Dr. Darrius Lindsey Urea nitrogen [Mass/Vol] 16.0 mg/dL Normal 6.4-19.3 [facility] Comment on above: Performed By: #### L IPA, CMP, TSH, CMADM #### [facility] [address] [place] [address] Dr. Darrius Lindsey Urea nitrogen/Creatinine [Mass ratio] 16.2 mg/mg Normal [facility] Comment on above: Performed By: #### L IPA, CMP, TSH, CMADM #### [facility] [address] [place] [address] Dr. Darrius Lindsey TSHon 04-25-2021 TSH 1.381 uIU/mL Normal 0.430-3.750 [facility] Comment on above: Performed By: #### L IPA, CMP, TSH, CMADM #### [facility] [address] [place] [address] Dr. Darrius Lindsey TSH RANGE SEE BELOW Normal The [facility] Comment on above: Result Comment: <0.3 4 UIU/ml HYPERTHYROID 0.34-5.60 UIU/ml EUTHYROID >5.60 UIU/ml HYPOTHYROID Performed By: #### L IPA, CMP, TSH, CMADM #### [facility] [address] [address] [address] Darrius Lindsey XR CHEST 1 Von [...] CHRISSIE MARRERO Date: 2021-04-25 11:30 Normal [address] [facility] Covid-19 PCR (CVDTB)on SARS-CoV-2 (COVID-19) RNA ROSIE+probe Ql (Unsp spec) Detected Critically abnormal NOT DETECTED The [facility] Comment on above: Result Comment: This test is not yet approved or cleared by the [place] FDA. When there are no FDA-approved or cleared tests available, and other criteria are met, FDA can make tests available under an emergency access mechanism called an Emergency Use Authorization (EUA). The EUA for this test is supported by the [place] of Health and Human Service's (HHS's) declaration [...] longer be used). Performed By: #### C VDTB #### [facility] [id number] Darrius Lindsey XR ABD FLAT UP_PA [...] ALEXIS GOMEZ Date: 2020-10-11 22:21 Normal [address] [facility] CBC AUTO DIFFon 10-11-2020 BASO # 0.1 103/ul Normal 0.0-0.1 [facility] Comment on above: Performed By: #### C BC #### [facility] [address] [place], [place] [address] Mary Kay Suzie Basophils/100 WBC (Bld) 0.8 % Normal 0.2-2.0 [facility] Comment on above: Performed By: #### C BC #### [facility] [address] [place], [place] [address] Mary Kay Suzie EO # 0.3 103/ul Normal 0.0-0.7 [facility] Comment on above: Performed By: #### C BC #### [facility] [address] [place], [place] [address] Mary Kay Suzie Eosinophils/100 WBC (Bld) 3.1 % Normal 0.9-7.0 [facility] Comment on above: Performed By: #### C BC #### [facility] [address] [place], [place] [address] Mary Kay Suzie Erythrocyte distribution width (RBC) [Ratio] 13.2 % Normal 11.0-15.[address] [facility] Comment on above: Performed By: #### C BC #### [facility] [address] [place], [place] [address] Mary Kay Suzie Hematocrit (Bld) [Volume fraction] 42.1 % Normal 42.0-54.0 [facility] Comment on above: Performed By: #### C BC #### [facility] [address] [place], [place] [address] Mary Kay Suzie Hemoglobin (Bld) [Mass/Vol] 14.1 g/dL Normal 14.0-18.0 [facility] Comment on above: Performed By: #### C BC #### [facility] [address] [place] [address] Mary Kaymolly Larsen IG # 0.03 10e3/ul Normal 0.00-0.03 [facility] Comment on above: Performed By: #### C BC #### [facility] [address] [place] [address] Mary Kay Suzie IG % 0.3 % Normal 0.0-0.5 [facility] Comment on above: Performed By: #### C BC #### [facility] [address] [place] [address] Mary Kay Suzie LYMPH # 3.2 103/ul Normal 1.2-3.8 [facility] Comment on above: Performed By: #### C BC #### [facility] [address] [place] [address] Mary Kay Suzie Lymphocytes/100 WBC (Bld) 30.5 % Normal 20.5-60.0 [facility] Comment on above: Performed By: #### C BC #### [facility] [address] [place] [address] Mary Kay Suzie MANUAL DIFF REQ NO Normal [facility] Comment on above: Performed By: #### C BC #### [facility] [address] [place] [address] Mary Kay Suzie MCH (RBC) [Entitic mass] 26.9 pg Normal 25.9-34.0 [facility] Comment on above: Performed By: #### C BC #### [facility] [address] [place] [address] Mary Kay Suzie MCHC (RBC) [Mass/Vol] 33.5 g/dL Normal 29.9-35.2 [facility] Comment on above: Performed By: #### C BC #### [facility] [address] [place] [address] Mary Kay Suzie MCV (RBC) [Entitic vol] 80.3 fL Normal 76.3-90.1 [facility] Comment on above: Performed By: #### C BC #### [facility] [address] [id number] Mary Kay Suzie MONO # 0.6 103/ul Normal 0.3-0.8 [facility] Comment on above: Performed By: #### C BC #### [facility] [address] [id number] Mary Kay Suzie Monocytes/100 WBC (Bld) 6.0 % Normal 1.7-12.0 [facility] Comment on above: Performed By: #### C BC #### [facility] [address] [place] [address] Mary Kay Suzie NEUT # 6.1 103/ul Normal 1.4-6.[address] [facility] Comment on above: Performed By: #### C BC #### [facility] [address] [place] [address] Mary Kay Suzie Neutrophils/100 WBC (Bld) 59.3 % Normal 43.0-75.0 [facility] Comment on above: Performed By: #### C BC #### [facility] [address] [place], [place] [address] Mary Kay Suzei Platelet mean volume (Bld) [Entitic vol] 9.2 fL Critically low 9.5-13.5 [facility] Comment on above: Performed By: #### C BC #### [facility] [address] [place], [place] [address] Mary Kay Suzie PLT 259 103/ul Normal 150-[address] [facility] Comment on above: Performed By: #### C BC #### [facility] [address] [place] [address] Mary Kay Suzie RBC 5.24 106/ul Normal 3.30-5.[address] [facility] Comment on above: Performed By: #### C BC #### [facility] [address] [place], [place] [address] Mary Kay Suzie WBC 10.3 103/ul Normal 4.0-11.[address] [facility] Comment on above: Performed By: #### C BC #### [facility] [address] [place], [place] [address] Mary Kay Suzie ER URINE PROFILEon 1 Bilirubin Ql (U) Negative Normal NEGATIVE [facility] Comment on above: Performed By: #### E RUR #### [facility] [address] [place], [place] [address] Mary Kay Suzie Clarity (U) CLOUDY Abnormal CLEAR [facility] Comment on above: Performed By: #### E RUR #### [facility] [address] [place] [address] Mary Kay Suzie Color (U) LT. YELLOW Normal YELLOW [facility] Comment on above: Performed By: #### E RUR #### [facility] [address] [place], [place] [address] Mary Kay Suzie ERUAHD A micrscopic examination will be performed if indicated. Normal [facility] Comment on above: Performed By: #### E RUR #### [facility] [address] [place] [address] Mary Kay Suzie Glucose Ql (U) Negative Normal NEGATIVE [facility] Comment on above: Performed By: #### E RUR #### [facility] [address] [place] [address] Mary Kay Suzie Hemoglobin Ql (U) Negative Normal NEGATIVE [facility] Comment on above: Performed By: #### E RUR #### [facility] [address] [place] [address] Mary Kay Suzie Ketones Ql (U) Negative Normal NEGATIVE [facility] Comment on above: Performed By: #### E RUR #### [facility] [address] [place] [address] Mary Kay Suzie LEUKOCYTES Negative Normal NEGATIVE [facility] Comment on above: Performed By: #### E RUR #### [facility] [address] [place], [place] [address] Mary Kay Suzie Nitrite Ql (U) Negative Normal NEGATIVE [facility] Comment on above: Performed By: #### E RUR #### [facility] [address] [place] [address] Mary Kay Suzie pH (U) 7.5 [pH] Normal 5-[address] [facility] Comment on above: Performed By: #### E RUR #### [facility] [address] [place], [place] [address] Mary Kay Larsen SPEC GRAVITY 1.020 Normal 1.005-<=1.025 [facility] Comment on above: Performed By: #### E RUR #### [facility] [address] [place], [place] [address] Mary Kaymolly Larsen UA PROTEIN Negative Normal NEGATIVE/ TRACE [facility] Comment on above: Performed By: #### E RUR #### [facility] [address] [place], [place] [address] Mary Kay Larsen UR MICRO IND NOT INDICATED Normal [facility] Comment on above: Performed By: #### E RUR #### [facility] [address] [place], [place] [address] Mary Kay Larsen Urobilinogen Qn (U) 2.0 {Kathy'U}/dL Abnormal 0.2 - 1. 0 [facility] Comment on above: Performed By: #### E RUR #### [facility] [address] [place], [place] [address] Mary Kay Larsen PROF 14(COMP METB)on 021 Albumin [Mass/Vol] 4.0 g/dL Normal 3.5-5.0 [facility] Comment on above: Performed By: #### C MP #### [facility] [address] [place], [place] [address] Mary Kaymolly Larsen Albumin/Globulin [Mass ratio] 1.2 {ratio} Normal [facility] Comment on above: Performed By: #### C MP #### [facility] [address] [place], [place] [address] Mary Kay Suzie ALP [Catalytic activity/Vol] 159 U/L Normal 65-[address] [facility] Comment on above: Performed By: #### C MP #### [facility] [address] [place], [place] [address] Mary Kay Suzie ALT [Catalytic activity/Vol] 47 U/L Normal 21-72 [facility] Comment on above: Performed By: #### C MP #### [facility] [address] [address] Mary Kay Suzie Anion gap [Moles/Vol] 13.4 mmol/L Normal [facility] Comment on above: Performed By: #### C MP #### [facility] [address] [place], [place] [address] Mary Kay Suzie AST [Catalytic activity/Vol] 26 U/L Normal 17-[address] [facility] Comment on above: Performed By: #### C MP #### [facility] [address] [address] Mary Kay Suzie Bilirubin [Mass/Vol] 0.5 mg/dL Normal 0.2-1.[address] [facility] Comment on above: Performed By: #### C MP #### [facility] [address] [place] [address] Mary Kay Suzie Calcium [Mass/Vol] 9.0 mg/dL Normal 8.4-10.2 [facility] Comment on above: Performed By: #### C MP #### [facility] [address] [place] [address] Mary Kay Suzie Chloride [Moles/Vol] 107 mmol/L Normal 98-107 [facility] Comment on above: Performed By: #### C MP #### [facility] [address] [place] [address] Mary Kay Suzie CO2 [Moles/Vol] 29.7 mmol/L Normal 22.0-30.0 [facility] Comment on above: Performed By: #### C MP #### [facility] [address] [place] [address] Mary Kay Suzie Creatinine [Mass/Vol] 0.97 mg/dL Normal 0.66-1.25 [facility] Comment on above: Performed By: #### C MP #### [facility] [address] [place], [place] [address] Mary Kay Suzie Globulin (S) [Mass/Vol] 3.4 g/dL Normal [facility] Comment on above: Performed By: #### C MP #### [facility] [address] [place], [place] [address] Mary Kay Suzie Glucose [Mass/Vol] 99 mg/dL Normal 74-106 [facility] Comment on above: Performed By: #### C MP #### [facility] [address] [id number] Mary Kay Suzie Potassium [Moles/Vol] 4.1 mmol/L Normal 3.4-5.0 [facility] Comment on above: Performed By: #### C MP #### [facility] [address] [address] Mary Kay Suzie Protein [Mass/Vol] 7.4 g/dL Normal 6.1-8.2 [facility] Comment on above: Performed By: #### C MP #### [facility] [address] [address] Mary Kay Suzie Sodium [Moles/Vol] 146 mmol/L Critically high 137-145 [facility] Comment on above: Performed By: #### C MP #### [facility] [address] [address] Mary Kay Suzie Urea nitrogen [Mass/Vol] 15.0 mg/dL Normal 6.4-19.3 [facility] Comment on above: Performed By: #### C MP #### [facility] [address] [address] Mary Kay Suzie Urea nitrogen/Creatinine [Mass ratio] 15.5 mg/mg Normal [facility] Comment on above: Performed By: #### C MP #### [facility] [address] [place], [place] [address] Mary Kay Suzie Encounters Encounter Date Encounter Type Care Provider Facility Start: 04-05-2024 End: 04-05-2024 ambulatory Jessica Leach Facility:[facility] Start: 06-07-2023 End: 06-07-2023 ambulatory KARISSA VILLATORO Not Available Start: 04-25-2021 End: 04-25-[address] JERRY PETERSEN Facility:[facility] Start: 04-23-2021 End: 04-23-2021 ambulatory NICOLASA PEDROZA Facility:[facility] Start: 04-17-2021 End: 04-17-[address] JIM GRANDE Facility:[facility] Start: 10-11-2020 End: 2020 ambulatory KIMBERLYN MELCHOR Facility:[facility] Payers Date Payer Category Payer Self-pay 2022 Medicaid [id number] 2002 Unknown [id number] 2.16.84 [id number] 1981 Unknown [id number] 2.16.84 [id number] 1981 Unknown [id number] 2.16.84 [id number] 1981 Unknown [id number] 2.16.84 [id number] 1981 Unknown [id number] 2.16.84 [id number] 1959 Unknown [id number] Unknown [id number] [id number] [id number] Clinical Note 05-03-2021 Note Date & Type Note Facility 05-03-2021 Note Microbiology PROCEDURE: Blood Culture Charcoal [R1] SOURCE: Blood BODY SITE: Arm R COLLECTED DATE/TIME: 04/26/2021 15:13 EST RECEIVED DATE/TIME: 04/26/2021 15:35 EST START DATE/TIME: 04/26/2021 15:35 EST FREE TEXT SOURCE: MARV Joel PA-C, Evie Joel PA-C, Evie Baez. FINAL REPORTS Final Report [] Verified Date/Time: 05/03/2021 18:00 EST No growth at 7 days. Performing Locations R1: This test was performed at: [facility], [address] [place] [address], [id number] , , [facility] Comment on above: Performed By: #### 1 [id number] ####[facility] [id number] [place] [address] Clinical Note 05-03-2021 Note Date & Type Note Facility 05-03-2021 Note Microbiology PROCEDURE: Blood Culture Charcoal [R1] SOURCE: Blood BODY SITE: Arm L COLLECTED DATE/TIME: 04/26/2021 15:05 EST RECEIVED DATE/TIME: 04/26/2021 15:35 EST START DATE/TIME: 04/26/2021 15:35 EST FREE TEXT SOURCE: IV marisela Joel PA-C, Evie Joel PA-C, Evie Astudillo FINAL REPORTS Final Report [] Verified Date/Time: 05/03/2021 18:00 EST No growth at 7 days. Performing Locations R1: This test was performed at: [facility], [address] [place] [address], [facility]- , , [facility] Comment on above: Performed By: #### 2 [id number], [id number] #### [facility] [address] [place] [address] Discharge summary note 05-02-2021 Note Date & [...] be reviewed and discussed with PCP or cardiac surgeon MD once the hospital assistant press operator offset is able to reach him/her. I spent [...] made to ensure accuracy, however, inadvertently computerized rehabilitation psychologist mistakes may be present. Significant Findings No [...] COVID-19 (U07.1: COVID-19) + COVID 19 at [facility] -> Unvaccinated -CXR: COVID 19 PNA -Initial [...] hygiene. All equipment was properly cleansed. Ordered: [facility] Prescription, Nebulizer, 1 machine w/ approp. tubing/mask, [...] Asthma (J45.909: Unspecified (more content not included)... [facility] Comment on above: Result Comment: Elec tronically [...] needs. Ant dc TBD. CRM to follow. [facility] Comment on above: Result Comment: Elec tronically [...] oximeter after he tested positive at the [facility] 9 days prior. He states his [...] room air. I did question the emergency physics department chair if this was on room air as documented but she was uncertain. While being observed in the emergency department at one point his pulse ox was 91% on room air. With further questioning patient advises me that he has been to the [place] emergency department on 3 other occasions over the past week did not feel satisfied with no improvement in his symptoms thus came to this facility. I was advised by the emergency physics department chair that the patient's parents brought him in [...] no longer a (more content not included)... [facility] Comment on above: Result Comment: Elec tronically [...] Records FoundNo Status Records FoundNo Status Records FoundNo Status Records Found INFORMATION SOURCE (unrecogn ized section and content) DATE CREATED AUTHOR 04/29/2021 [facility] DATE CREATED AUTHOR AUTHOR'S ORGANIZ ATION 05/06/2021 [facility] DATE CREATED AUTHOR AUTHOR'S ORGANIZ ATION 06/08/2023 [facility] DATE CREATED AUTHOR AUTHOR'S ORGANIZ ATION 05/02/2024 [facility] FOR RECORDS PERTAINING TO PATIENTS WHO ARE [...] BE BASED ON THE PRIMARY CLINICAL RECORDS. [facility]. provides no warranty or guarantee of the accuracy or completeness of information in this document.
[2024-05-21 08:08] LABS: Anion Gap 13.9; BUN Creatinine Ratio 7.8; Calcium 8.7 mg/dL (8.5-10.1); Carbon Dioxide 26.7 mmol/L (21.0-32.0); Chloride 102 mmol/L (98-107); Estimated GFR (African America >60 (>=60 mL/min/1.73m^2); Estimated GFR (Non-African Ame >60 (>=60 mL/min/1.73m^2); Glucose 114 mg/dL (74-106); Potassium 3.6 mmol/L (3.5-5.1); Sodium 139 mmol/L (136-145); Troponin I High Sensitivity 49.3 pg/mL (4.0-76.1)
[2024-05-21] MEDS: 0.9 % SODIUM CHLORIDE 1,000 ML 1000 ML IV (08:22)
[2024-05-21 08:27] LABS: D Dimer 0.96 mg/L FEU (<=0.59)
[2024-05-21] MEDS: ACETAMINOPHEN 325 MG TABLET 650 MG PO (08:42)
[2024-05-21] MEDS: CEFTRIAXONE 1,000 MG in 0.9 % SODIUM CHLORIDE 50 ML 100 MG IV (08:42)
--- NOTE | 2024-05-21 08:59 | CT_ITS ---
[place] [id number] Patient Name: NAIDA CM MRN: [id number] date: 2000 Sex: M Assigned Patient Location: ER Current Patient Location: [place] Accession/Order Number: [id number] Exam Date: 05/21/2024 09:22 Report Date: 05/21/2024 11:54 At the request of: CEDRIC AUSTIN Procedure: CT angio chest CT CHEST ANGIOGRAPHY FOR PULMONARY EMBOLUS: 05/21/2024 9:22 AM EST Clinical Data: hypoxia, tachycardia, elevated D-dimer Comparison: No previous Contrast enhanced helically acquired data per pulmonary CTA protocol. Volumetric recons in MIP mode were generated and reviewed. FINDINGS: AXILLAE: No acute finding. SUPRACLAVICULAR: No acute finding. MEDIASTINUM: Several nonenlarged anterior and middle mediastinal nodes. There is a 15 mm right paratracheal node. There is an elongated prominent subcarinal node. MARTINE: Unremarkable on the left. Prominent nodes on the right HEART: Normal in size. No pericardial effusion. VASCULAR: SYSTEMIC: Some pulsation artifact makes evaluation less than optimal. No distinct evidence of thoracic aortic aneurysm PULMONARY: Main pulmonary artery is clear. Right and left pulmonary arteries are clear. Proximal to mid branches are free of meniscal filling defects. LUNGS: Clear on the left. Extensive right lower lobe airspace disease. Patchy areas of somewhat nodular infiltration further superiorly in the right lower lobe and in aspects of the right upper and middle lobes. PLEURA: No pleural effusion. No pneumothorax. CHEST WALL: No focal soft tissue prominence. BONES: No acute finding UPPER ABD: No acute finding OTHER: None CT/CT angio chest IMPRESSION: 1. Extensive airspace disease in the right lower lobe. Slight areas of nodular infiltration further superiorly in the right lobe and, to a lesser extent, in aspects right middle and lower lobe. The leading consideration is infectious pneumonitis. 2. Associated prominent right hilar and mediastinal lymph nodes. 3. No evidence of acute pulmonary embolic disease. Electronically authenticated by: ROMINA FORTUNE Date: 05/21/2024 11:54
[2024-05-21 09:12] LABS: Magnesium 1.7 mg/dL (1.8-2.4)
--- NOTE | 2024-05-21 09:14 | PM.HP ---
HPI H&P: HPI History of Present Illness Chief complaint: SOB, HEART RACING, RIGHT LOWER LOBE PNEUMONIA Narrative: Patient is a 23 year old male with no past medical history other than childhood asthma, and recent palpitations that is in the process of being worked up had a normal 3 day holter monitor. He presented to the ER today with increased HR, shortness of breath, fever and chills that started a few days ago. Covid and flu testing was negative. Chest X-ray showed right lower lobe infiltrate. Patient was treated with IVF, Rocephin and Azithromycin. He has maintained oxygen saturations >90% on room air, HR has been 130's with increased respiratory rate 21. Troponin normal 49. elevated temp 100.8. Patient also had elevated D-dimer. Patient denies smoking or drug use history. No other medical history. Patient was admitted for Community Acquired Pneumonia to the hospitalist service for further work up. Opioid HPI Opioid Management Most Recent Pain and Opioid Data: Last Pain Scale 0 05/21/24 12:02 05/21/24 Last Pain Assessment 05/21/24 13:18 Last MAR Pain Assessment 05/21/24 11:48 Last ORT Total Score 4 05/21/24 09:51 05/21/24 Last ORT Risk Category Moderate Risk 05/21/24 09:51 05/21/24 Review of Systems ROS Narrative ROS: a complete review of systems were reviewed with patient and are positive as below or listed in History of Chief Complaint. General:fever, chills, no night sweats Head: no headache, trauma, visual changes, nausea or vomiting Skin: no reported rashes, itching or sores Eyes: no blurriness of vision Ears: no reported hearing loss, vertigo, earache, or tinnitus Throat: no sore throat, hoarseness, swelling of neck, or tongue pain Heart: no chest pain Lungs: shortness of breath and cough GI: no diarrhea or vomiting/nausea Urinary: no urinary urgency, frequency or pain Neuro: no numbness or tingling HEM: no bleeding issues or bruising ENDO: no thyroid problems Psych: no anxiety or depression [facility] Medical History (Updated 05/21/24 @ 10:35 by Kallie Thompson) 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 - Other postprocedural complications and disorders of genitourinary system (ICD-10) ?N47.5 - Adhesions of prepuce and glans penis (ICD-10) Pneumonia ?J18.9 - Pneumonia, unspecified organism (ICD-10) Palpitations ?R00.2 - Palpitations (ICD-10) Surgical History (Updated 05/21/24 @ 10:35 by Kallie Thompson) History of placement of ear tubes ?Z96.22 - Myringotomy tube(s) status (ICD-10) Family History (Updated 05/21/24 @ 10:36 by Kallie Thompson) Father Family history of cancer Aunt Family history of cancer Mother Family history of diabetes mellitus Family history of hypertension Social History (Updated 05/21/24 @ 10:38 by Kallie Thompson) Within the past year, how often did you have a drink containing alcohol: monthly or less Within the past year, how many standard drinks containing alcohol did you have on a typical day: 1 or 2 Within the past year, how often did you have six or more drinks on one occasion: less than monthly Total score: 1 Score interpretation: A score less than 4 is consistent with normal alcohol consumption. 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 Known occupational exposures/hazards: No Highest level of school completed/degree received: Associate degree: occupational, technical, vocational program Do you want help with school or training: No Are you now , , , , never or living with a partner: never In a typical week, how many times do you talk on the telephone with family, friends, or neighbors: 3 or more times per week How often do you get together with friends or relatives: 3 or more times per week How often do you attend orthodox or mosque services: never Do you belong to any clubs or organizations such as orthodox groups unions, fraternal or athletic groups, or school groups: no Total score: 1 Score interpretation: A score of less than or equal to 1 indicates the most socially isolated. Little interest or pleasure in doing things: not at all Feeling down, depressed, or hopeless: not at all Feel stressed/tense/nervous/anxious/difficulty sleeping: not at all Due to disability, difficulty making decisions: No Do you think of yourself as: straight/heterosexual Gender Identity: male Meds Home Medications and Allergies Home Medications ?Medication ?Instructions ?Recorded ?Confirmed ?Type No Known Home Medications 05/21/24 05/21/24 History Allergies Allergy/AdvReac Type Severity Reaction Status Date / Time No Known Drug Allergies Allergy Verified 05/21/24 07:43 Exam Narrative Exam Narrative: General: Patient is alert, and oriented to person, place and time with normal affect, proper hygiene Skin: no visible rashes, or ulcers Head: atraumatic, acephalic Eyes: PERRLA, no nystagmus present, conjunctiva clear, no scleral icterus Ears: normal Tympanic Membrane, normal gross auditory acuity Nose: symmetric, no discharge, no maxillary or frontal sinus tenderness Mouth/Throat: no erythema, exudate, or tonsillar enlargement, normal dentition Neck: no masses palpated, normal thyroid, no JVD or audible carotid bruits Heart: Normal rate and rhythm, no murmurs/rubs/gallops Lungs: audible wheezes, no crackles and diminished breath sounds all lung [place] Abdomen: Normal audible bowel sounds, no distension, No palpable masses, no organomegaly, no rebound/guarding/ or rigidity Musculoskeletal: no swelling bilateral lower extremities Neuro: CN II-X grossly intact Constitutional Vital Signs, click to edit/add: Last Vital Signs Temp 100.8 F H 05/21/24 08:25 Pulse 136 H 05/21/24 08:50 Resp 21 H 05/21/24 08:50 BP 116/86 05/21/24 08:31 Pulse Ox 96 05/21/24 08:50 O2 Del Method Room Air 05/21/24 07:35 Results Labs Labs: Short CBC 05/21/24 Range/Units 07:41 WBC 6.2 (4.0-11.0) 10^3/uL Hgb 13.6 L (14.0-18.0) g/dL Hct 40.7 L (42.0-54.0) % Plt Count 218 (150-450) 10^3/uL BMP 05/21/24 07:41 Sodium 139 Potassium 3.6 Chloride 102 Carbon Dioxide 26.7 BUN 9.0 Creatinine 1.15 Glucose 114 H Calcium 8.7 Assessment and Plan Assessment and Plan (1) Right lower lobe pneumonia: Assessment and Plan: will continue with azithromycin, rocephin IV, duonebs, OPEP. CXR consistent with RLL pneumonia. Monitor the need for oxygen. currently requiring 2L NC oxygen to maintain oxygen saturations >90%. CTA negative for PE. Will add solumedrol with his history of Asthma Qualifiers: Pneumonia type: due to unspecified organism Qualified Code(s): J18.9 - Pneumonia, unspecified organism (2) Sinus tachycardia: Assessment and Plan: most likely secondary to fever and illness, no sign of PE on CTA (3) Elevated d-dimer: Assessment and Plan: CTA chest showed no PE, infectious cause Plan patient is a full code Lovenox for DVT prophylaxis, once CTA back will stop if negative Patient is in observation status and is expected to stay 1 night for treatment of his CAP.
[2024-05-21] MEDS: AZITHROMYCIN 500 MG in 0.9 % SODIUM CHLORIDE 250 ML 250 MG IV (09:15)
--- OUTSIDE RECORDS SUMMARY | 2024-05-21 09:45 | XMS_ITS | CCD ---
Author Organization [facility] Inform ion [facility] Care Team Providers Care Rn Occupational Health Name Role Phone KIMBERLYN MELCHOR Consulting Unavailable [facility] Care Unavaila jer GRANDE, DR JIM De Dios Attending Unavailable HARJINDER, DR JIM De Dios Admitting Unavailable Benjamin, Alexis Consulting Unavailable HARJINDER, DR JIM De Dios Admitting Unavailable [facility] Unavaila ble HARJINDER, DR JIM De Dios Attending Unavailable HARJINDER, DR JIM De Dios Consulting Unavailable KASIA, NICOLASA Admitting Unavailable KASIA, NICOLASA Attending Unavailable KASIA, NICOLASA Consulting Unavailable [facility] Unavaila ble PAY, DR EDWARDS Attending Unavailable PAY, DR EDWARDS Consulting Unavailable [facility] Unavaila ble PAY, DR EDWARDS Admitting Unavailable Michelle, Chrissie Consulting Unavailable KARISSA VILLATORO Attending Unavailable PAY, JERRY Referring Unavailable Hany, Jessica Peterson Attending Unavailable Jessica Leach Admitting [facility] Un[facility] Problems Active [...] Range Facility Coding Summary.on 05-06-2021 Coding Summary. [id number] h0bWw+PGhlYWQ+ZK2ZWIR [id number] NGHXYDWGRK3XVL5ccOP1H WxvG4NzmkGi AjvgtFKdVD93QGx3NQO2q DvhUGvijH8vvBUkW9p7Zy JkDP12aA99WTnbIQWxMgF 3LjZpbjsgbWFy E7poUmRfqILgHwk+PHRhY mxlIHdpZHRoPScxMDAlJy WltPcjSY6aQk0nFAWoKVG vbGxhcHNlOiBj c8lzIGZiPVxmSN5oqJxvA 6AkkWQ1JIDsv6n8Ch12pJ I+JDHbUYN6yKbjYVptx57 6JrQpa0hxUPS9 hEAvKStkZYL8I46fh3T2Z DHvYFFkBZW3aTG2aZ2qsL crbibsJ1NqdZNcBhB2VFQ 0tOAecD6zjRww twuqtP2rIkj+X80MPO2YZ NPBYB1LRav3V8UpExaogK I+TO65AFEyLD14mHSuaYQ ew0tzaYw7XaUz TLQeFIZ4qCqtYPbdi6TnQ PUoU35qvGZkk0G2JNEeoN yvlAMuEyDqyEQ8nR4wMGm dmkfny6nuxlkt Jadju2umxw80zB49Z85dN GnnDGGpBFU2HKSzXPXxtA xdej6mvX8cCl3+YDuhe2v os3qwwXy1MgIw MVKxteExbXxaDHF5z2AvF p38H8RbnMwvw5PmAgo2tr 51pPWmj1O5rLS4KEmhMVO rhW3mHYdiPlU2 SGYhSqCtjU38hFClKAhyW b2rwEipuFrmBI0lZEHrap pfAYKfmR3xYLXigGQebGh bLN6mIRAybbsd l464JkDrUDT0SCFvkXUvD 9BybU3gLrKmSUGhXMViB5 OjxJKiSYomX028IQuwZiN 8QNNbseLeZ6Qe ETAcgHqhFuJ7s2Q1Qc7Oi 3FckcrmVLA8LRspMZYtPr L2UdSjMfF0D3YnGwd9KGZ ngMrqFA7qZ2Yi RRXmaoqspzyzjBO1CPZgO LIouV84qRRyXKmfEv8zg3 R3j846BXVyAKKrbH50Tz8 udDogMTBwdCBU nE4dwgtbm8ofhujdClMbC QDfZHq7NQm6UPYemErrUo AfBGG4IsL6VXZ5pIJicT0 xlUbgoshvtQ8r Oyc+X36mvY0fIMD9VIB0z xwkGTEsfbVyUM47XC25E5 RyPjwvdGFibGU+PGRpdiB imKrtNC0eGiYx q7dnu6VrCBfmN5BiVHLwA SudIai8TGBfDFI2mDR6iL 3aUJPmCBpbf2T3fOT8C8A kxgVwyu0cb0pc CZRlKTbtN86aoDJpn5V6T WOgiEK4IWFznOupQfOqaC 93Oyc+UIOklFhgy7LmHzp fc1tez8spcDa8 AwRrSCGmqfKybGddAYU6y 7WjWt33Z05pGJddKMTjMR HiTNTyZFMfiYkgsm7vhM9 wIi8+PGNvbCB3 mMP2uU1sAEBtBrO7SNsnL 319DzTbvHVkEjeoj3wvo5 mvbWv2EyQcQRUlpzWqoWt xAWW0n6HuWg24 D58uEDzqFXXpXFYeFLBtG GKpgErjor4qsV8gNf7+PC 3lo9kuys03iO48dYF+PHR dTVE0uDbhRDop MJEaqE3xIJweKvA5BJMhX jBmnQ11rMEiDTejHh5ojG paySbdUU8yQMGzetljy43 1AcPef7wbWDFo lXRhIXpqISK6L00kk7H2D MOeDSHdLWC0yBL0vZ8fpQ lnbjogbGVmdDsgdmVydGl lVKcjLFxaS621 IHRvcDsnPlBhdGllbnQgT bFfTQw1F8VuUdz4JFXxbF roUJ4raPRgRGwiGc6hcYe suCjtMD6mPOZp tzxzf300IrXiw8vrUBXxb TVnMFimMVA6C16an2E3RY CnOALgNZY1bVK2iI3ncCt nbjogbGVmdDsg ukGzgBihSEylDJvpW611L HRvcDsnPkJpcnRoIERhdG Q2GE21UJ11oRJmh1I1uNL 6E4UqGHCqqhyb miyzoKE9PTDlQKQqhF40Y j5joDhkNi0aIWQuETI3IC FvdVByF9AjlF9oJxIvUIB fKIMmO4OipYFq VLqcY032KYfoUsS3RRHrn gJpQ5FcXFEdvXnfTkJ0v2 I4Xb0FF7T5VU86DF60mJW cq8M6lPS0R1De QIExeenmeuoudQW9BJPgL VQrdP57Qz0pcHwnCf7sDV OmCJL1JQOxxRQdV4DgvZ3 yOiAjMDAwMDAw X8DngGMfJTrxR844GNbiI uE1QRLyyzDiP1XfPPEylK vdXqU6t3A2Lb3KQOn6QN8 6XE53tTTtj8E7 qMA4P5AyJIAmiebxbacha MX2SKAhBTEaxS18Ti7tkO wdIv7pYZBzCDD3XQJarBQ vO2UiaB2aJaVh JUIkREWtZ2QltXOfXPrzZ 220OOclQuV0XCSggqRfZ0 BlXWAgrXeqMxI4i1I2Bl2 TDXSwTZ42BZI0 hNK1XM70YH41F0JyFreab GFibGU+PHRhYmxlIHdpZH RoPScxMDAlJyBzdHlsZT0 vYk6aKOIyGAZk oYdjmGBbArMgs0jdUGZzC MirFO3ggNzpY0QwbFG9SH Phi6y4Rk67X09eI9UswZE +FQDwsNW7aYP9 lM6tPzFeEhV2ZYruD481F dBfnUBpPofki5wpf5hpoA a4ZpD6XATqrlCscRrvEEC 8c6IgNs62X40z IHdpZHRoPSIxNSUiIHZhb Flqun4miM3wZh6+PGNvbC I3wBJ0jN0hWyQvXiV0ONw eT393VeJzoDJn Tiokl2opr6esoCd7DhPxZ KLnkvPwsCynYYV0f8KuHv 52D1QhbLhey4WpSih0dx4 4eEMuq8Q4fQA6 R0DhAQHkhdsydZShiXpgC V0cPDYikfuqLHDvjC1uHM ZlH4l8TcOoQbA8BOzoE8N obvC1ICJevVIg TOptGKW5I65kg1I7UVHqL GYfEQL3kYS8mG4gwQkvjc ogbGVmdDsgdmVydGljYWw tTGjwJ040OJBd iPczODKguO3oALJeoQFxh TwvMF1cSVSdnfxxBnBBSB 3JFnslCb5SQLQZKHwVVM8 6TT44hRUuj9S8 qEV4S1TeXYRdpllnxvnic CM3RZGvEGMbsK99jGTcTX mmQg7hp5F1d666KDKpQHZ ctQ29Vm0tzZwh QQSrmNLUmD7zbarfl1mjs wpcLaLiJBPeGKx8ZKp4GK OzlGrpTgNlWPN8LzS4FBP 8nHFjvQ7nbFnh jjgszR5xKpd+MDYvMDUvM jAwMzwvdGQ+ZCLcNOX7vE ceSDkkIMEmgM9vOJUjS7n 7RlCzShR2BHxu N3LbZPEkhsowXt90vZ6vW hIkMgK1AQyvQ9UfmdC4CJ FbqENnAAxvTFI3U38hl6N 5NEZhJAMiPHU1 dAK7yM3xtEpfhxcksBXiq DsgdmVydGljYWwtYWxpZ2 53XFOfaAfsLmJ6TFgoTWR iUS15CP90hCHc y3T0iYO0N6ZuRYAboyhwe zeddYF7VRJqUTYklR60rW TjMYalAg7ws5D9t882WMV qCWHakI33Kf1b zAvwIHQesNXXzQ5tfqknm 0vbdfhmXsYaKZWuOZs2PG w5JBKdsPgpTgPiMYK9UiQ 1VQK4kOOifO0z jTuaruazkB3zEpf+TWFsZ TwvdGQ+KFOnMYQ9kJuqIB mjHAHcvW0eMSPuG5o0BaH pNpY0HTfmW7Do PNAcupdlWx30wV2mDfGcA qT0BBdzA9DubgG5KCTjjX YbSCdeGZY8V75ik8S5FZS uCAQbDVO4kKU8 yD9lmDoaudiukDRsvDgcc bDlwKrmYTgyRXusS302LT JtyFksGlcwmLN2gNRlbSn vdGQ+IP92fg20 F9DfEljyEsr9RHEhYKE1j CP7bP2xLXNdNDgen0B7tZ J2K4KktvGpkn4kl0vlTFA jSJreU63bhBSa o8S7OXIyfBK7WFHfxNahL kFtlP50Tns+PGNvbGdyb3 SiTcgiv4qvf8wppVb6KgD wJSIgdmFsaWdu RUS3h1YdVw28P53bBBtlR HRoPSIzMCUiIHZhbGlnbj 8eiM8zQm5+EDMuxUS8qCJ 4pF7oCzUiYfO2 ZImcZ635SfAbuZAfVshts 7rfz6tqcEc0LdYuBPGofo TdrEcqIQY6h8FrJy56V2D jiJzjz4GqOez5 yc12tXSgq0F6uPH2A7PvU XNxfxrunGNamZywIK9tUY SfzyziGUXshK0zZZJtX3h 7FeAwTdX6JHic D8IllfS4WXErfMBgGUGwh NQRnQ2seatsq4pipelaPw NmDDScEEj3GYw5MQOwtAi vAxTzYVI4WkT1 WGC4qRJuxZ1kdAhledidb G9wOyc+OHs7o5srbSNeGJ 1tzNJ0WR12UY54yPNrq9Z 7rSU8O9YkTUIu ssjgwptztYO4NCQzWTWse X51Zr3sqGmfMz6rZJNkVP S4HWQrnNNeT3IpfF6kHzV iTDNlOJUpG6Dl nZAyFSxpS028GMsoLnD6O SGlegEhI3MqEORrjTlbGh I9o5N8Xj2FHO15QW84AD3 5wKPux6H2jQF6 T2CaJOZvdpcqnqdmqTS4R KKzCEXaxY39He8opUqbPh 7zDMGuWLT7WCJljZMgB3D ngH8xPwAfASWo ZTAwB7BrdHHmCAoyY298Z IqfOkJ4EMMqnyXkQ8SoAN DkgAwiUvV5j3B7Zn4RIe0 9NN45EY55pVUj w7I9kZV6Q4KjNQKcvvgur yejxDV7LIYyYSYcqP73Ec 1niEgaEv5wDKTmNPW8GDX mhQApE1GbdQ8r IoTtWBRfYLRiY1CmePPlF GrhH480CIizXtC4PZOryx BpM5OcFNXcfTgeFcY8w2V 5Od7SONcbjrz4 W5NkEvinhHL+QS19IXUwM Q47pOHueUNaa2ljvWj7Yv BvBYYlGHS3wHcaQXnwv1C zMTJdB54maCEt c2U6 (more content not included)... Normal [facility] .Manual Abson 05-01-2021 Basophils/Leukocytes Manual cnt (Bld) [Pure # fraction] 0.0 E9/L Normal 0.0-0.2 [facility] Comment on above: Performed By: #### 2 688305, 5192287, 5558722, 5207649 #### [facility] [address] [place] [address] Eosinophils/Leukocyte s Manual cnt (Bld) [Pure # fraction] 0.1 E9/L Normal 0.0-0.5 [facility] Comment on above: Performed By: #### 2 340332, 9001455, 3688804, 9440676 #### [facility] [address] [place] [address] Lymphocytes/Leukocyte s Manual cnt (Bld) [Pure # fraction] 5.2 E9/L High 1.0-4.0 [facility] Comment on above: Performed By: #### 2 446353, 4152772, 9360253, 3172147 #### [facility] [address] [place] [address] Monocytes/Leukocytes Manual cnt (Bld) [Pure # fraction] 1.3 E9/L High 0.2-1.0 [facility] Comment on above: Performed By: #### 2 699958, 5027330, 7211335, 9711455 #### [facility] [address] [place] [address] Neutrophils/Leukocyte s Auto (Bld) [Pure # fraction] 7.4 E9/L Normal 2.0-7.5 [facility] Comment on above: Performed By: #### 2 066202, 4053845, 0023074, 7055614 #### [facility] [address] [place] [address] CBC w/ Auto Diffon Erythrocyte distribution width (RBC) [Ratio] 13.6 % Normal 10.9-14.2 [facility] Comment on above: Performed By: #### 2 102204, 9178917, 7033522, 2479182 #### [facility] [address] [place] [address] Hematocrit (Bld) [Volume fraction] 42.7 % Normal 37.7-49.0 [facility] Comment on above: Performed By: #### 2 079943, 3109109, 8855578, 4683659 #### [facility] [address] [place] [address] Hemoglobin (Bld) [Mass/Vol] 14.6 g/dL Normal 13.5-17.5 [facility] Comment on above: Performed By: #### 2 914913, 6951629, 8408406, 4904344 #### [facility] [address] [place] [address] MCH (RBC) [Entitic mass] 27.5 pg Normal 27.0-34.0 [facility] Comment on above: Performed By: #### 2 398106, 1989415, 2476972, 5027227 #### [facility] [address] [place] [address] MCHC (RBC) [Mass/Vol] 34.2 g/dL Normal 31.4-36.0 [facility] Comment on above: Performed By: #### 2 458978, 3875108, 1407895, 7220217 #### [facility] [address] [place] [address] MCV (RBC) [Entitic vol] 80.4 fL Normal 80.0-100.0 [facility] Comment on above: Performed By: #### 2 595685, 7641173, 3531739, 5105338 #### [facility] [address] [place] [address] Platelet mean volume (Bld) [Entitic vol] 7.0 fL Normal 6.4-10.8 [facility] Comment on above: Performed By: #### 2 122235, 6989213, 2571777, 0239897 #### [facility] [address] [place] [address] Platelets (Bld) [#/Vol] 371.0 E9/L Normal 150.0-500.0 [facility] Comment on above: Performed By: #### 2 117017, 6732612, 7613063, 4819146 #### [facility] [address] [place] [address] RBC (Bld) [#/Vol] 5.3 E12/L Normal 4.3-5.9 [facility] Comment on above: Performed By: #### 2 055149, 6665471, 2399088, 1749181 #### [facility] [address] [place] [address] WBC corrected for nucl RBC Auto (Bld) [#/Vol] 14.5 E9/L High 4.0-11.0 [facility] Comment on above: Performed By: #### 2 226185, 6829073, 8550497, 0117877 #### [facility] [address] [place] [address] CMPon 05-01-2021 Albumin/Globulin (S) [Mass conc ratio] 1.1 Normal 1.1-2.2 [facility] Comment on above: Performed By: #### 2 399227, 5992459, 6446823, 8756368 #### [facility] [address] [place] [address] Globulin (S) [Mass/Vol] 2.9 g/dL Normal 1.4-4.0 [facility] Comment on above: Performed By: #### 2 680209, 3654791, 2247138, 4241290 #### [facility] [address] [place] [address] Urea nitrogen/Creatinine [Mass ratio] 26 No Units High 10-20 [facility] Comment on above: Performed By: #### 2 340655, 3763565, 9704863, 8892276 #### [facility] [address] [place] [address] Albumin [Mass/Vol] 3.1 g/dL Low 3.3-5.0 [facility] Comment on above: Performed By: #### 2 172999, 2404161, 3084953, 3674584 #### [facility] [address] [place] [address] ALP [Catalytic activity/Vol] 88 Int._Unit/L Normal 21-98 [facility] Comment on above: Performed By: #### 2 699372, 1641039, 7558621, 4060413 #### [facility] [address] [place] [address] ALT No additional P-5'-P [Catalytic activity/Vol] 173 Int._Unit/L High 6-46 [facility] Comment on above: Performed By: #### 2 232980, 0964874, 4510320, 6522453 #### [facility] [address] [place] [address] Anion gap [Moles/Vol] 10 mmol/L Normal 6-16 [facility] Comment on above: Performed By: #### 2 875984, 3820562, 4075636, 4436810 #### [facility] [address] [place] [address] AST [Catalytic activity/Vol] 52 Int._Unit/L High 5-43 [facility] Comment on above: Performed By: #### 2 403676, 5905397, 4025648, 4046654 #### [facility] [address] [place] [address] Bilirubin [Mass/Vol] 0.4 mg/dL Normal 0.0-1.1 [facility] Comment on above: Performed By: #### 2 687722, 0015430, 0462264, 7481140 #### [facility] [address] [place] [address] Calcium [Mass/Vol] 8.4 mg/dL Low 8.9-11.1 [facility] Comment on above: Performed By: #### 2 151562, 1216203, 4088347, 6974921 #### [facility] [address] [place] [address] Chloride [Moles/Vol] 104 mmol/L Normal 101-111 [facility] Comment on above: Performed By: #### 2 494428, 6768918, 8829266, 0811911 #### [facility] [address] [place] [address] CO2 [Moles/Vol] 27 mmol/L Normal 21-31 [facility] Comment on above: Performed By: #### 2 069474, 8516550, 2745020, 7805960 #### [facility] [address] [place] [address] Creatinine [Mass/Vol] 0.7 mg/dL Normal 0.5-1.3 [facility] Comment on above: Performed By: #### 2 528231, 5435133, 7261875, 8367413 #### [facility] [address] [place] [address] Glucose [Mass/Vol] 127 mg/dL Normal 55-199 [facility] Comment on above: Result Comment: If t his glucose result represents a fasting glucose, interpretation should refer to the following reference range: 55-99 mg/dL Performed By: #### 2 031218, 7714806, 9662478, 5116780 #### [facility] [address] [place] [address] Potassium [Moles/Vol] 3.9 mmol/L Normal 3.5-5.3 [facility] Comment on above: Performed By: #### 2 363739, 7726521, 6947535, 1904916 #### [facility] [address] [place] [address] Protein [Mass/Vol] 6.0 g/dL Normal 6.0-7.8 [facility] Comment on above: Performed By: #### 2 179755, 7794955, 9657627, 0237865 #### [facility] [address] [place] [address] Sodium [Moles/Vol] 137 mmol/L Normal 135-145 [facility] Comment on above: Performed By: #### 2 318047, 9942499, 9832911, 8999098 #### [facility] [address] [place] [address] Urea nitrogen [Mass/Vol] 18 mg/dL Normal 5-21 [facility] Comment on above: Performed By: #### 2 901995, 1677562, 3079147, 5765541 #### [facility] [address] [place] [address] CRPon 05-01-2021 CRP [Mass/Vol] 1.3 mg/dL Normal <=1.9 [facility] Comment on above: Performed By: #### 2 682928, 5805501, 2595402, 0094298 #### [facility] [address] [place] [address] D-Dimeron 05-01-2021 Fibrin D-dimer FEU (PPP) [Mass/Vol] 403 [id number] Normal 215-500 [facility] Comment on above: Result Comment: This [...] infections Liver cirrhosis Performed By: #### 2 620893, 6159813, 4185913, 4853552 #### [facility] [address] [place] [address] Discharge Instructionson Discharge Instructions [id number]# 1.00CD:127 Normal [facility] Ferritinon 05-01-2021 Ferritin [Mass/Vol] 304 ng/mL Normal 24-336 [facility] Comment on above: Result Comment: NORM ALS MEN <30 YRS 16-132 ng/mL MEN >30 YRS 8-338 ng/mL WOMEN (PREMEN) 6-104 ng/mL WOMEN (POSTMEN) 12-210 ng/mL Performed By: #### 2 309105, 4525597, 6356171, 8188150 #### [facility] [address] [place] [address] Inpatient Clinical Summaryon 05-01-2021 Inpatient Clinical Summary [address] [address] Clinical Summary Person Information: Name: NAIDA CM Age: 20 Years : 2000 Sex: Male PCP: JAMES SUH CNP Marital Status: Single Phone: [phone] Race: White Ethnicity: Non- or Language: Nepali Visit Id: Visit Reason: Cough; Weakness or fatigue; Shortness of breath; acute respiratory failure with hypoxia due to COVID Speciality: Acuity: Enc Type: Inpatient Med Service: Medical Arrival: 04/26/2021 14:37:56 Discharge: Dispo Type: Admitted as IP to this Hosp Address: [facility] [place] [id number] Provider Notes: Diagnosis: 1:Acute hypoxemic respiratory failure [...] With: Address: When: JAMESAnn-Marie SUH [address] [place] [address] 05/08/2021 1:15 PM Comments: Appointment will be with Jessica Leach, as James Suh is on maternity leave. Patient Education Information: Dehydration, Adult, Aecj-gf-Oomf; COVID-19: How to Protect Yourself and Others - CDC; COVID-19 Frequently Asked Questions; COVID-19 Albuterol (Eqv-Proventil HFA), dexamethasone 4 mg Tab, Mucinex Normal [facility] Inpatient Patient Summaryon 05-01-2021 Inpatient Patient Summary [address] [address] Patient Discharge Instructions PERSON INFORMATION [...] With: Address: When: JAMES [facility] [address] [place] [address] 05/08/2021 1:15 PM Comments: Appointment will be [...] tubing/mask. Refills: 0. [facility] Information: [facility] Comment: PATIENT EDUCATION INFORMATION Instructions: Dehydration, [...] mouth. ? (more content not included)... Normal [facility] Interdisciplinary Note - Vic e Manageron 05-01-2021 Interdisciplinary Note - [employer] CRM spoke with patient in room. Patient [...] told patient will dc today. CRM called [employer] Steph and verified and she now says will dc today after Remdesivir dose given. Patient and his mother updated. Normal [facility] Comment on above: Result Comment: Elec tronically Signed By: Med KIM, Yisel\.br\Date and Time Signed: 05/01/21 10:41 EST LDHon 05-01-2021 LDH [Catalytic activity/Vol] 195 Int._Unit/L Normal 93-218 [facility] Comment on above: Performed By: #### 2 522475, 2836465, 4431917, 8364545 #### [facility] [address] [place] [address] Manual Diffon 05-01-2021 Band form neutrophils/100 WBC (Bld) 6 % Normal 0-10 [facility] Comment on above: Order Comment: Order Added by Discern Expert. Performed By: #### 2 087554, 7490749, 1985405, 8984802 #### [facility] [address] [place] [address] Basophils/100 WBC (Bld) 0 % Normal 0-2 [facility] Comment on above: Order Comment: Order Added by Discern Expert. Performed By: #### 2 500022, 7947840, 5141951, 3280227 #### [facility] [address] [place] [address] Eosinophils/100 WBC (Bld) 1 % Normal 0-8 [facility] Comment on above: Order Comment: Order Added by Discern Expert. Performed By: #### 2 153424, 9707244, 9838864, 8865310 #### [facility] [address] [place] [address] Lymphocytes/100 WBC (Bld) 31 % Normal 14-50 [facility] Comment on above: Order Comment: Order Added by Discern Expert. Performed By: #### 2 434896, 1561367, 0151664, 4471072 #### [facility] [address] [place] [address] Metamyelocytes/Leukoc ytes Manual cnt (Bld) [Pure # fraction] 1 % High <=0 [facility] Comment on above: Order Comment: Order Added by Discern Expert. Performed By: #### 2 065260, 5987039, 7761693, 8774687 #### [facility] [address] [place] [address] Monocytes/100 WBC (Bld) 9 % Normal 4-14 [facility] Comment on above: Order Comment: Order Added by Kerry Expert. Performed By: #### 2 914728, 4476328, 5055802, 9942684 #### [facility] [address] [place] [address] Myelocytes/100 WBC (Bld) 2 % High <=0 [facility] Comment on above: Order Comment: Order Added by Kerry Expert. Performed By: #### 2 655885, 8958887, 3006877, 9193046 #### [facility] [address] [place] [address] Segmented neutrophils/100 WBC (Bld) 45 % Normal 36-75 [facility] Comment on above: Order Comment: Order Added by Discern Expert. Performed By: #### 2 797861, 7653452, 1720353, 5114010 #### [facility] [address] [place] [address] Variant lymphocytes LM Ql (Bld) 5 % Invalid Interpretation Code [facility] Comment on above: Order Comment: Order Added by Kerry Expert. Performed By: #### 2 524983, 0540495, 6066299, 9698229 #### [facility] [address] [place] [address] Monitor Recordon 05-01-2021 Monitor Record [id number]# 1.00CD:127 Normal [facility] Monitor Record [id number]# 1.00CD:127 Normal [facility] Monitor Record [id number]# 1.00CD:127 Normal [facility] Monitor Record [id number]# 1.00CD:127 Normal [facility] Monitor Record [id number]# 1.00CD:127 Normal [facility] Progress Note-Physicianon Progress Note-Physician Subjective Patient an 20y M with a past medical history significant for asthma who presented to the ED on 04/27 for worsening SOB over the past week or so. Pt reports that about 10 days ago he was evaluated at [facility] for muscle aches, chills, headache, cough, [...] in a. (more content not included)... Normal [facility] Comment on above: Result Comment: Elec tronically Signed By: Rozina ROWE, Isabel Hughes\.br\Date and Time Signed: 04/30/21 23:56 EST eGFRon 05-01-2021 GFR/1.73 sq M.predicted among blacks MDRD (S/P/Bld) [Vol rate/Area] mL/min/{1.73_m2} Normal >=59 [facility] Comment on above: Order Comment: Order added by Discern Expert. Result Comment: eGFR is race adjusted. AA=. Performed By: #### 2 [id number], [id number], [id number], [id number] #### [facility] [address] [place] [address] GFR/1.73 sq M.predicted among non-blacks MDRD (S/P/Bld) [Vol rate/Area] mL/min/{1.73_m2} Normal >=59 [facility] Comment on above: Order Comment: Order added by Discern Expert. Result Comment: Microelectronics Engineer jaspreet kidney disease could be indicated at eGFR's of less than 60 mL/min/1.73m2. Kidney failure is indicated at less than 15 mL/min/1.73m2. Performed By: #### 2 [id number], [id number], [id number], [id number] #### [facility] [address] [place] [address] CBC w/Indiceson 04-30-2021 Erythrocyte distribution width (RBC) [Ratio] 13.6 % Normal 10.9-14.2 [facility] Comment on above: Performed By: #### 2 [id number], [id number], [id number], [id number] #### [facility] [address] [place] [address] Hematocrit (Bld) [Volume fraction] 41.5 % Normal 37.7-49.0 [facility] Comment on above: Performed By: #### 2 170263, 0837008, 1570335, [id number] #### [facility] [address] [place] [address] Hemoglobin (Bld) [Mass/Vol] 14.0 g/dL Normal 13.5-17.5 [facility] Comment on above: Performed By: #### 2 892660, 9148821, 4834195, [id number] #### [facility] [address] [place] [address] MCH (RBC) [Entitic mass] 26.9 pg Low 27.0-34.0 [facility] Comment on above: Performed By: #### 2 [id number], 2227462, 9908599, 2384416 #### [facility] [address] [place] [address]69 MCHC (RBC) [Mass/Vol] 33.8 g/dL Normal 31.4-36.0 [facility] Comment on above: Performed By: #### 2 851584, 8673297, 6369605, 5678314 #### [facility] [address] [place] [address] MCV (RBC) [Entitic vol] 79.6 fL Low 80.0-100.0 [facility] Comment on above: Performed By: #### 2 741926, 5276079, 6575055, [id number] #### [facility] [address] [place] [address] Platelet mean volume (Bld) [Entitic vol] 6.8 fL Normal 6.4-10.8 [facility] Comment on above: Performed By: #### 2 449542, 9906797, 3448996, 1064589 #### [facility] [address] [place] [address] Platelets (Bld) [#/Vol] 343.0 E9/L Normal 150.0-500.0 [facility] Comment on above: Performed By: #### 2 921995, 8677671, 9114429, 1726916 #### [facility] [address] [place] [address] RBC (Bld) [#/Vol] 5.2 E12/L Normal 4.3-5.9 [facility] Comment on above: Performed By: #### 2 739900, 1645797, 4603243, 9846207 #### [facility] [address] [place] [address] WBC corrected for nucl RBC Auto (Bld) [#/Vol] 11.8 E9/L High 4.0-11.0 [facility] [facility] Comment on above: Performed By: #### 2 133972, 5954119, 0188188, 6092294 #### [facility] [address] [place] [address] CMPon 04-30-2021 Albumin [Mass/Vol] 3.0 g/dL Low 3.3-5.0 [facility] Comment on above: Performed By: #### 2 354781, 5420561, 47084214, 5839714, 7111699, 8181683, 4611322, 2644089, 5255945737, 21319034, 14377789, 45186968 #### [facility] [address] [place] [address] Albumin/Globulin (S) [Mass conc ratio] 1.1 Normal 1.1-2.2 [facility] Comment on above: Performed By: #### 2 280856, 6383632, 39933932, 2751607, 6115365, 2067083, 2999253, 2840039, 0637404175, 65199176, 39897614, 46524236 #### [facility] [address] [place] [address] ALP [Catalytic activity/Vol] 78 Int._Unit/L Normal 21-98 [facility] Comment on above: Performed By: #### 2 198034, 4819847, 78744352, 5848305, 7566511, 8097195, 4378064, 5065378, 7011249601, 33877680, 28551565, 73117750 #### [facility] [address] [place] [address] ALT No additional P-5'-P [Catalytic activity/Vol] 161 Int._Unit/L High 6-46 [facility] Comment on above: Performed By: #### 2 444420, 9191773, 42014851, 6206376, 7776616, 7195515, 6406348, 9533130, 4501581143, 14001631, 16148771, 76092547 #### [facility] [address] [place] [address] Anion gap [Moles/Vol] 14 mmol/L Normal 6-16 [facility] Comment on above: Performed By: #### 2 496462, 6254637, 70580779, 8954311, 6199153, 4021253, 0827708, 5917048, 5798980413, 83525976, 43913102, 95376716 #### [facility] [address] [place] [address] AST [Catalytic activity/Vol] 50 Int._Unit/L High 5-43 [facility] Comment on above: Performed By: #### 2 000629, 5777100, 30252195, 1167488, 9174882, 8936067, 4485967, 9992329, 9546747965, 41424582, 85232719, 49508956 #### [facility] [address] [place] [address] Bilirubin [Mass/Vol] 0.5 mg/dL Normal 0.0-1.1 [facility] Comment on above: Performed By: #### 2 788218, 8774517, 11807224, 8822064, 0380977, 7871024, 8695843, 8970264, 5930404560, 34534356, 74268375, 20977827 #### [facility] [address] [place] [address] Calcium [Mass/Vol] 8.2 mg/dL Low 8.9-11.1 [facility] Comment on above: Performed By: #### 2 726770, 9136741, 00305604, 5523086, 0261105, 0166732, 6713009, 5851699, 5452215668, 96540091, 76870204, 13892559 #### [facility] [address] [place] [address] Chloride [Moles/Vol] 101 mmol/L Normal 101-111 [facility] Comment on above: Performed By: #### 2 688125, 7836502, 48119629, 6855329, 2337526, 9522040, 6738999, 7641367, 2128315333, 10652669, 36156018, 60939242 #### [facility] [address] [place] [address] CO2 [Moles/Vol] 25 mmol/L Normal 21-31 [facility] Comment on above: Performed By: #### 2 506575, 8777476, 06425980, 9409996, 4516780, 5750282, 1538634, 2787856, 5545941344, 74701548, 27114794, 44725756 #### [facility] [address] [place] [address] Creatinine [Mass/Vol] 0.6 mg/dL Normal 0.5-1.3 [facility] Comment on above: Performed By: #### 2 889161, 7047287, 37148814, 2020272, 1776896, 2674405, 5253361, 6492788, 4981582732, 23961395, 99519138, 56713075 #### [facility] [address] [place] [address] Globulin (S) [Mass/Vol] 2.8 g/dL Normal 1.4-4.0 [facility] Comment on above: Performed By: #### 2 396222, 7305607, 91699881, 6733221, 1825653, 0647679, 0244515, 5997694, 1550338308, 39613700, 78882812, 73426819 #### [facility] [address] [place] [address] Glucose [Mass/Vol] 164 mg/dL Normal 55-199 [facility] Comment on above: Result Comment: If t his glucose result represents a fasting glucose, interpretation should refer to the following reference range: 55-99 mg/dL Performed By: #### 2 389639, 4656916, 67075666, 6727026, 1415409, 0809807, 8878054, 1978372, 4272111451, 83548705, 21524014, 06235759 #### [facility] [address] [place] [address] Potassium [Moles/Vol] 3.8 mmol/L Normal 3.5-5.3 [facility] Comment on above: Performed By: #### 2 938205, 2368694, 64233328, 5407609, 9235301, 6494594, 8208837, 6744891, 0284532882, 45816845, 43964587, 84895401 #### [facility] [address] [place] [address] Protein [Mass/Vol] 5.8 g/dL Low 6.0-7.8 [facility] Comment on above: Performed By: #### 2 084417, 7681634, 66274710, 1334576, 0852567, 8447348, 8691753, 4968075, 1008331805, 02326858, 79444522, 68507266 #### [facility] [address] [place] [address] Sodium [Moles/Vol] 136 mmol/L Normal 135-145 [facility] Comment on above: Performed By: #### 2 666425, 1527165, 34512718, 2626322, 4056700, 1360932, 1569808, 5042315, 7643451102, 50537702, 98620359, 83903247 #### [facility] [address] [place] [address] Urea nitrogen [Mass/Vol] 18 mg/dL Normal 5-21 [facility] Comment on above: Performed By: #### 2 099974, 5843793, 80811942, 5255955, 8123177, 8388077, 1209160, 4946865, 9810957854, 00500146, 98348172, 32015121 #### [facility] [address] [place] [address] Urea nitrogen/Creatinine [Mass ratio] 30 No Units High - [facility] Comment on above: Performed By: #### 2 487356, 7693365, 11934152, 6323735, 8884401, 7098843, 6318561, 6764643, 1773557472, 73914699, 48349934, 44296275 #### [facility] [address] [place] [address] CRPon 04-30-2021 CRP [Mass/Vol] 1.3 mg/dL Normal <=1.9 [facility] Comment on above: Performed By: #### 2 996401, 4056240, 2172297, 2868615 #### [facility] [address] [place] [address] Consultation Noteon 04-30-20 Consultation Note Chief Complaint sob, weakness History of Present Illness Patient an 20y M with a past medical history significant for asthma who presented to the ED on 04/27 for worsening SOB over the past week or so. Pt reports that about 10 days ago he was evaluated at [facility] for muscle aches, chills, headache, cough, [...] agree with the documentation and plan. Normal [facility] Comment on above: Result Comment: Elec tronically Signed By: Rozina ROWE, Isabel Hughes\.br\Date and Time Signed: 04/29/21 23:30 EST D-Dimeron 04-30-2021 Fibrin D-dimer FEU (PPP) [Mass/Vol] 381 [id number] Normal 215-500 [facility] Comment on above: Result Comment: This [...] infections Liver cirrhosis Performed By: #### 2 501786, 1393782, 8025101, 4968283 #### [facility] [address] [place] [address] Ferritinon 04-30-2021 Ferritin [Mass/Vol] 283 ng/mL Normal 24-336 [facility] Comment on above: Result Comment: NORM ALS MEN <30 YRS 16-132 ng/mL MEN >30 YRS 8-338 ng/mL WOMEN (PREMEN) 6-104 ng/mL WOMEN (POSTMEN) 12-210 ng/mL Performed By: #### 2 147822, 9625681, 7632871, 3648980 #### [facility] [address] [place] [address] Interdisciplinary Note - Vic e Manageron 04-30-2021 Interdisciplinary Note - Stiff Straw Hat Washer CRM spoke with patient in room. Patient is alert and oriented and participates in discharge planning. No family in room. Patient white board updated, and CRM contact information provided. Patient is in isolation for COVID. Discussed CRM spoke with [facility] who saw patient earlier today and possible discharge home tomorrow. patient is on room air today. Patient denies any needs at discharge and he will update his mother. Normal [facility] Comment on above: Result Comment: Elec tronically Signed By: Med KIM, Yisel\.br\Date and Time Signed: 04/30/21 13:10 EST LDHon 04-30-2021 LDH [Catalytic activity/Vol] 190 Int._Unit/L Normal 93-218 [facility] Comment on above: Performed By: #### 2 925965, 9221286, 6635799, 6046817 #### [facility] [address] [place] [address] Monitor Recordon 04-30-2021 Monitor Record [id number]# 1.00CD:127 Normal [facility] Monitor Record [id number]# 1.00CD:127 Normal [facility] Progress Note-Physicianon Progress Note-Physician Assessment/Plan PLAN: 1. Acute hypoxemic respiratory failure due to COVID-19 (U07.1: COVID-19) -Symptoms started 9 days ago. Covid + at [facility] at that time. -SPO2 74% at [...] (E66.9: Obesity, unspecified) -BMI 37.33 -We will scholarship counselor on diet, exercise, weight loss and [...] mg/dL High (04/28/21 16:06:00) POC Device SN: [id number] (04/28/21 16:06:00) POC User ID: [id number] (04/28/21 16:06:00) POC Username: RONNIE VELASCO (04/28/21 16:06:00) Problem List/Past Medical History Ongoing No qualifying data Historical No qualifying data Medications Inpatient acetaminophen 325 mg Tab, 650 mg= 2 tab(s), Oral, q6hr, PRN albuterol HFA 90 mcg/inh MDI, 180 mcg= 2 puff(s), Inhalation, q4hr, PRN albuterol HFA 90 mcg/inh MDI, 180 m (more content not included)... Normal [facility] Comment on above: Result Comment: Elec tronically Signed By: Tamara GRAY\.br\Date and Time Signed: 04/29/21 10:52 EST\.br\Electronically Co-Signed By: Adalberto NICHOLAS MD\.br\Date and Time Co-Signed: 04/30/21 07:41 EST eGFRon 04-30-2021 GFR/1.73 sq M.predicted among blacks MDRD (S/P/Bld) [Vol rate/Area] mL/min/{1.73_m2} Normal >=59 [facility] Comment on above: Order Comment: Order added by Discern Expert. Result Comment: eGFR is race adjusted. AA=. Performed By: #### 2 907857, 4099449, 11011387, 7847165, 5910400, 0204503, 7103968, 3840908, 8443098580, 47710116, 40989555, 12113524 #### [facility] [address] [place] [address] GFR/1.73 sq M.predicted among non-blacks MDRD (S/P/Bld) [Vol rate/Area] mL/min/{1.73_m2} Normal >=59 [facility] Comment on above: Order Comment: Order added by Discern Expert. Result Comment: Microelectronics Engineer jaspreet kidney disease could be indicated at eGFR's of less than 60 mL/min/1.73m2. Kidney failure is indicated at less than 15 mL/min/1.73m2. Performed By: #### 2 868159, 2814744, 98929963, 4657623, 0271550, 0458059, 3770622, 0995409, 1516497199, 11142426, 24647974, 18646112 #### [facility] [address] [place] [address] CBC w/Indiceson 04-29-2021 Erythrocyte distribution width (RBC) [Ratio] 13.9 % Normal 10.9-14.2 [facility] Comment on above: Performed By: #### 2 242521, 1932944, 6198022, 4434649 #### [facility] [address] [place] [address] Hematocrit (Bld) [Volume fraction] 43.8 % Normal 37.7-49.0 [facility] Comment on above: Performed By: #### 2 971649, 7827982, 6213965, 8913646 #### [facility] [address] [place] [address] Hemoglobin (Bld) [Mass/Vol] 14.7 g/dL Normal 13.5-17.5 [facility] Comment on above: Performed By: #### 2 960108, 5373238, 8385262, 8959372 #### [facility] [address] [place] [address] MCH (RBC) [Entitic mass] 27.3 pg Normal 27.0-34.0 [facility] Comment on above: Performed By: #### 2 611789, 2197013, 5818921, 7890780 #### [facility] [address] [place] [address] MCHC (RBC) [Mass/Vol] 33.5 g/dL Normal 31.4-36.0 [facility] Comment on above: Performed By: #### 2 023394, 9367646, 1022669, 0785084 #### [facility] [address] [place] [address] MCV (RBC) [Entitic vol] 81.3 fL Normal 80.0-100.0 [facility] Comment on above: Performed By: #### 2 626966, 0179685, 6309596, 4622291 #### [facility] [address] [place] [address] Platelet mean volume (Bld) [Entitic vol] 7.1 fL Normal 6.4-10.8 [facility] Comment on above: Performed By: #### 2 932686, 9623389, 4932381, 5554783 #### [facility] [address] [place] [address] Platelets (Bld) [#/Vol] 369.0 E9/L Normal 150.0-500.0 [facility] Comment on above: Performed By: #### 2 442963, 6454511, 0246495, 1600838 #### [facility] [address] [place] [address] RBC (Bld) [#/Vol] 5.4 E12/L Normal 4.3-5.9 [facility] Comment on above: Performed By: #### 2 534168, 1719911, 1230137, 2325748 #### [facility] [address] [place] [address] WBC corrected for nucl RBC Auto (Bld) [#/Vol] 11.2 E9/L High 4.0-11.0 [facility] Comment on above: Performed By: #### 2 966276, 8431098, 7812702, 9827047 #### [facility] [address] [place] [address] CMPon 04-29-2021 Albumin [Mass/Vol] 3.1 g/dL Low 3.3-5.0 [facility] Comment on above: Performed By: #### 2 132512, 3200446, 7717845, 3529255 #### [facility] [address] [place] [address] Albumin/Globulin (S) [Mass conc ratio] 1.0 Low 1.1-2.2 [facility] Comment on above: Performed By: #### 2 621942, 1322218, 4711735, 4270651 #### [facility] [address] [place] [address] ALP [Catalytic activity/Vol] 72 Int._Unit/L Normal 21-98 [facility] Comment on above: Performed By: #### 2 471437, 7756187, 4561555, 6494607 #### [facility] [address] [place] [address] ALT No additional P-5'-P [Catalytic activity/Vol] 185 Int._Unit/L High 6-46 [facility] Comment on above: Performed By: #### 2 382075, 5049093, 0237812, 7874672 #### [facility] [address] [place] [address] Anion gap [Moles/Vol] 11 mmol/L Normal 6-16 [facility] Comment on above: Performed By: #### 2 532815, 9166845, 9606828, 5418085 #### [facility] [address] [place] [address] AST [Catalytic activity/Vol] 92 Int._Unit/L High 5-43 [facility] Comment on above: Performed By: #### 2 060931, 9913532, 5574683, 2682722 #### [facility] [address] [place] [address] Bilirubin [Mass/Vol] 0.5 mg/dL Normal 0.0-1.1 [facility] Comment on above: Performed By: #### 2 039958, 1856948, 6225051, 2640881 #### [facility] [address] [place] [address] Calcium [Mass/Vol] 8.5 mg/dL Low 8.9-11.1 [facility] Comment on above: Performed By: #### 2 831743, 6211383, 7181643, 9177622 #### [facility] [address] [place] [address] Chloride [Moles/Vol] 103 mmol/L Normal 101-111 [facility] Comment on above: Performed By: #### 2 576417, 3112654, 0048306, 7679897 #### [facility] [address] [place] [address] CO2 [Moles/Vol] 29 mmol/L Normal 21-31 [facility] Comment on above: Performed By: #### 2 118149, 8607031, 4218010, 8484758 #### [facility] [address] [place] [address] Creatinine [Mass/Vol] 0.8 mg/dL Normal 0.5-1.3 [facility] Comment on above: Performed By: #### 2 141684, 3361965, 6633687, 8527900 #### [facility] [address] [place] [address] Globulin (S) [Mass/Vol] 3.2 g/dL Normal 1.4-4.0 [facility] Comment on above: Performed By: #### 2 810247, 8884560, 1959727, 6173180 #### [facility] [address] [place] [address] Glucose [Mass/Vol] 106 mg/dL Normal 55-199 [facility] Comment on above: Result Comment: If t his glucose result represents a fasting glucose, interpretation should refer to the following reference range: 55-99 mg/dL Performed By: #### 2 568122, 0786243, 5925188, 1304969 #### [facility] [address] [place] [address] Potassium [Moles/Vol] 4.2 mmol/L Normal 3.5-5.3 [facility] Comment on above: Performed By: #### 2 357825, 4559449, 0564153, 6205013 #### [facility] [address] [place] [address] Protein [Mass/Vol] 6.3 g/dL Normal 6.0-7.8 [facility] Comment on above: Performed By: #### 2 817931, 2807485, 5011641, 5102687 #### [facility] [address] [place] [address] Sodium [Moles/Vol] 139 mmol/L Normal 135-145 [facility] Comment on above: Performed By: #### 2 945028, 2773261, 0034120, 0694082 #### [facility] [address] [place] [address] Urea nitrogen [Mass/Vol] 21 mg/dL Normal 5-21 [facility] Comment on above: Performed By: #### 2 305242, 7450070, 1472938, 0870697 #### [facility] [address] [place] [address] Urea nitrogen/Creatinine [Mass ratio] 26 No Units High 10-20 [facility] Comment on above: Performed By: #### 2 711243, 4498122, 0940542, 4329897 #### [facility] [address] [place] [address] CRPon 04-29-2021 CRP [Mass/Vol] 2.7 mg/dL High <=1.9 [facility] Comment on above: Performed By: #### 2 436460, 2715351, 7916496, 0804895 #### [facility] [address] [place] [address] Coding Queryon 04-29-2021 Coding Query - From: [...] been ruled out [___]Has been resolved [___]Per strategy planning consultant/other treating provider documentation [___]Other: Treatment plan: [...] 12:17:47 EST Subject: RE: Coding Query Normal [facility] D-Dimeron 04-29-2021 Fibrin D-dimer FEU (PPP) [Mass/Vol] 407 [id number] Normal 215-500 [facility] Comment on above: Result Comment: This [...] infections Liver cirrhosis Performed By: #### 2 208072, 7791279, 8453449, 1851180 #### [facility] [address] [place] [address] Ferritinon 04-29-2021 Ferritin [Mass/Vol] 397 ng/mL High 24-336 [facility] Comment on above: Result Comment: NORM ALS MEN <30 YRS 16-132 ng/mL MEN >30 YRS 8-338 ng/mL WOMEN (PREMEN) 6-104 ng/mL WOMEN (POSTMEN) 12-210 ng/mL Performed By: #### 2 217347, 3013820, 0841907, 2997477 #### [facility] [address] [place] [address] Interdisciplinary Note - Vic e Manageron 04-29-2021 Interdisciplinary Note - Stiff Straw Hat Washer CRM spoke with patient in room. Patient is alert and oriented and participates in discharge planning. No family in room. Patient white board updated, and CRM contact information provided. Patient is in isolation for COVID. Discussed CRM spoke with [facility] who saw patient earlier today and will be a couple days yet. will need to wean oxygen and may need desat prior to discharge. Pulmonology to see also. Patient denies any needs at discharge. he will update his mother. Normal [facility] Comment on above: Result Comment: Elec tronically Signed By: Med KIM, Yisel\.br\Date and Time Signed: 04/29/21 09:57 EST LDHon 04-29-2021 LDH [Catalytic activity/Vol] 261 Int._Unit/L High 93-218 [facility] Comment on above: Performed By: #### 2 245883, 3363350, 2096497, 2078471 #### [facility] [address] [place] [address] Monitor Recordon 04-29-2021 Monitor Record [id number]# 1.00CD:127 Normal [facility] Progress Note-Physicianon Progress Note-Physician Subjective Patient an 20y M with a past medical history significant for asthma who presented to the ED on 04/27 for worsening SOB over the past week or so. Pt reports that about 10 days ago he was evaluated at [facility] for muscle aches, chills, headache, cough, [...] prophylactic measure (more content not included)... Normal [facility] Comment on above: Result Comment: Elec tronically Signed By: Celsa Olivares\.br\Date and Time Signed: 04/29/21 20:19 EST eGFRon 04-29-2021 GFR/1.73 sq M.predicted among blacks MDRD (S/P/Bld) [Vol rate/Area] mL/min/{1.73_m2} Normal >=59 [facility] Comment on above: Order Comment: Order added by Discern Expert. Result Comment: eGFR is race adjusted. AA=. Performed By: #### 2 890874, 4709842, 1060339, 5112769 #### [facility] [address] [place] [address] GFR/1.73 sq M.predicted among non-blacks MDRD (S/P/Bld) [Vol rate/Area] mL/min/{1.73_m2} Normal >=59 [facility] Comment on above: Order Comment: Order added by Discern Expert. Result Comment: Microelectronics Engineer jaspreet kidney disease could be indicated at eGFR's of less than 60 mL/min/1.73m2. Kidney failure is indicated at less than 15 mL/min/1.73m2. Performed By: #### 2 837082, 0695310, 1192625, 8083835 #### [facility] [address] [place] [address] CRPon 04-28-2021 CRP [Mass/Vol] 7.1 mg/dL High <=1.9 [facility] Comment on above: Performed By: #### 2 645268, 5973346, 2923501, 8186439 #### [facility] [address] [place] [address] Capillary Glucose POCon 04-10 Glucose [Mass/Vol] 130 mg/dL High 55-99 [facility] Comment on above: Result Comment: Sara jose Meter Performed By: #### 2 37694381 ####[facility] [address] [place] [address] Glucose [Mass/Vol] 109 mg/dL High 55-99 [facility] Comment on above: Result Comment: Bessie fallon RN/ Cleaned Meter Performed By: #### 2 59364548 #### [facility] [address] [place] [address] Glucose [Mass/Vol] 116 mg/dL High 55-99 [facility] Comment on above: Result Comment: Sara jose Meter Performed By: #### 2 28157679 ####[facility] [address] [place] [address] D-Dimeron 04-28-2021 Fibrin D-dimer FEU (PPP) [Mass/Vol] 424 [id number] Normal 215-500 [facility] Comment on above: Result Comment: This [...] infections Liver cirrhosis Performed By: #### 2 171730, 9733924, 5989032, 1896175 #### [facility] [address] [place] [address] ECG Pediatricon 04-28-2021 ECG Pediatric The following ED Review was created for NAIDA CM: SINUS TACHYCARDIA NO STEMI NORMAL QTC ABNORMAL RHYTHM ECG Preliminary By: Donovan Moyer DO 04/26/2021 14:58:49 Rn Night has Agreed this ED Review Normal [facility] Ferritinon 04-28-2021 Ferritin [Mass/Vol] 324 ng/mL Normal 24-336 [facility] Comment on above: Result Comment: NORM ALS MEN <30 YRS 16-132 ng/mL MEN >30 YRS 8-338 ng/mL WOMEN (PREMEN) 6-104 ng/mL WOMEN (POSTMEN) 12-210 ng/mL Performed By: #### 2 806666, 6904104, 0052588, 0603091 #### [facility] [address] [place] [address] LDHon 04-28-2021 LDH [Catalytic activity/Vol] 212 Int._Unit/L Normal 93-218 [facility] Comment on above: Performed By: #### 2 189597, 2531244, 8780523, 9067577 #### [facility] [address] [place] [address] Monitor Recordon 04-28-2021 Monitor Record [id number]# 1.00CD:127 Normal [facility] Monitor Record [id number]# 1.00CD:127 Normal [facility] Monitor Record [id number]# 1.00CD:127 Normal [facility] Progress Note-Physicianon Progress Note-Physician Assessment/Plan PLAN: 1. Acute hypoxemic respiratory failure due to COVID-19 (U07.1: COVID-19) -Symptoms started 9 days ago. Covid + at [facility] at that time. -SPO2 74% at [...] (E66.9: Obesity, unspecified) -BMI 37.33 -We will scholarship counselor on diet, exercise, weight loss and [...] mg/dL High (04/28/21 16:06:00) POC Device SN: [id number] (04/28/21 16:06:00) POC User ID: [id number] (04/28/21 16:06:00) POC Username: RONNIE VELASCO (04/28/21 [...] IV Home No active home medications Normal [facility] Comment on above: Result Comment: Elec tronically Signed By: Tamara GRAY\.br\Date and Time Signed: 04/28/21 18:35 EST\.br\Electronically Co-Signed By: Adalberto NICHOLAS MD\.br\Date and Time Co-Signed: 04/28/21 18:57 EST Auto Diffon 04-27-2021 Basophils/100 WBC (Bld) 0.2 % Normal 0.0-2.0 [facility] Comment on above: Order Comment: Order Added by Discern Expert. Performed By: #### 2 372742, 6440507, 0007196, 8504476 #### [facility] Laboratory [address] [place] [address] Basophils/Leukocytes Auto (Bld) [Pure # fraction] 0.0 E9/L Normal 0.0-0.2 [facility] Comment on above: Order Comment: Order Added by Discern Expert. Performed By: #### 2 249932, 4125391, 3416418, 9514438 #### [facility] Laboratory [address] [place] [address] Eosinophils/100 WBC (Bld) 0.0 % Normal 0.0-8.0 [facility] Comment on above: Order Comment: Order Added by Discern Expert. Performed By: #### 2 925189, 2168818, 9679252, 2999124 #### [facility] Laboratory [address] [place] [address] Eosinophils/Leukocyte s Auto (Bld) [Pure # fraction] 0.0 E9/L Normal 0.0-0.5 [facility] Comment on above: Order Comment: Order Added by Discern Expert. Performed By: #### 2 618956, 3257745, 9682776, 6592240 #### [facility] Laboratory [address] [place] [address] Lymphocytes/100 WBC (Bld) 9.0 % Low 14.0-50.0 [facility] Comment on above: Order Comment: Order Added by Discern Expert. Performed By: #### 2 851801, 2534072, 8732352, 3499848 #### [facility] Laboratory [address] [place] [address] Lymphocytes/Leukocyte s Auto (Bld) [Pure # fraction] 0.7 E9/L Low 1.0-4.0 [facility] Comment on above: Order Comment: Order Added by Discern Expert. Performed By: #### 2 528349, 4645623, 7123128, 0442019 #### [facility] Laboratory [address] [place] [address] Monocytes/100 WBC (Bld) 4.4 % Normal 4.0-14.0 [facility] Comment on above: Order Comment: Order Added by Discern Expert. Performed By: #### 2 777671, 1448982, 2154836, 1323924 #### [facility] Laboratory [address] [place] [address] Monocytes/Leukocytes Auto (Bld) [Pure # fraction] 0.3 E9/L Normal 0.2-1.0 [facility] Comment on above: Order Comment: Order Added by Discern Expert. Performed By: #### 2 395011, 4429334, 5517953, 2805978 #### [facility] Laboratory [address] [place] [address] Neutrophils/100 WBC (Bld) 86.4 % High 36.0-75.0 [facility] Comment on above: Order Comment: Order Added by Discern Expert. Performed By: #### 2 173181, 3124690, 7921035, 1798306 #### [facility] Laboratory [address] [place] [address] Neutrophils/Leukocyte s Auto (Bld) [Pure # fraction] 6.6 E9/L Normal 2.0-7.5 [facility] Comment on above: Order Comment: Order Added by Discern Expert. Performed By: #### 2 220721, 6583410, 0777564, 5047854 #### [facility] Laboratory [address] [place] [address] CBC w/ Auto Diffon Erythrocyte distribution width (RBC) [Ratio] 14.1 % Normal 10.9-14.2 [facility] Comment on above: Performed By: #### 2 086002, 2084811, 6473045, 2610810 #### [facility] Laboratory [address] [place] [address] Hematocrit (Bld) [Volume fraction] 42.2 % Normal 37.7-49.0 [facility] Comment on above: Performed By: #### 2 239983, 9773245, 7169345, 8030058 #### [facility] [address] [place] [address] Hemoglobin (Bld) [Mass/Vol] 13.8 g/dL Normal 13.5-17.5 [facility] Comment on above: Performed By: #### 2 204633, 3555005, 6125599, 6663642 #### [facility] [address] [place] [address] MCH (RBC) [Entitic mass] 27.0 pg Normal 27.0-34.0 [facility] Comment on above: Performed By: #### 2 082390, 2654736, 7580916, 2342585 #### [facility] Laboratory [address] [place] [address] MCHC (RBC) [Mass/Vol] 32.7 g/dL Normal 31.4-36.0 [facility] Comment on above: Performed By: #### 2 744240, 9048237, 3513294, 3869027 #### [facility] Laboratory [address] [place] [address] MCV (RBC) [Entitic vol] 82.3 fL Normal 80.0-100.0 [facility] Comment on above: Performed By: #### 2 518488, 2906068, 4154419, 0138020 #### [facility] Laboratory [address] [place] [address] Platelet mean volume (Bld) [Entitic vol] 6.8 fL Normal 6.4-10.8 [facility] Comment on above: Performed By: #### 2 893474, 3247375, 3575146, 1097989 #### [facility] Laboratory [address] [place] [address] Platelets (Bld) [#/Vol] 242.0 E9/L Normal 150.0-500.0 [facility] Comment on above: Performed By: #### 2 207353, 5575296, 2617002, 4912433 #### [facility] Laboratory [address] [place] [address] RBC (Bld) [#/Vol] 5.1 E12/L Normal 4.3-5.9 [facility] Comment on above: Performed By: #### 2 696249, 0598265, 1756711, 3167740 #### [facility] Laboratory [address] [place] [address] WBC corrected for nucl RBC Auto (Bld) [#/Vol] 7.7 E9/L Normal 4.0-11.0 [facility] Comment on above: Performed By: #### 2 649264, 1887585, 1424791, 8944382 #### [facility] Laboratory [address] [place] [address] CKon 04-27-2021 CK [Catalytic activity/Vol] 458 Int._Unit/L Abnormal 14-261 [facility] Comment on above: Result Comment: Crit ical Result S_CK:[id number] Called to DOROTEO SHARMA AT by ERIN DOTSON and read back for confirmation at 04/27/2021 10:26:57\Critical Result verified by repeat analysis Performed By: #### 2 141002, 3020631, 7855926, 6818350 #### [facility] Laboratory [address] [place] [address] CMPon 04-27-2021 Albumin/Globulin (S) [Mass conc ratio] 0.9 Low 1.1-2.2 [facility] Comment on above: Performed By: #### 2 070861, 3781162, 8728498, 8683638 #### [facility] Laboratory [address] [place] [address] Anion gap [Moles/Vol] 13 mmol/L Normal 6-16 [facility] Comment on above: Performed By: #### 2 549252, 3572641, 8079425, 0704759 #### [facility] [address] [place] [address] Globulin (S) [Mass/Vol] 3.7 g/dL Normal 1.4-4.0 [facility] Comment on above: Performed By: #### 2 483166, 6333324, 6157364, 8216327 #### [facility] Laboratory [address] [place] [address] Urea nitrogen/Creatinine [Mass ratio] 19 No Units Normal 10-20 [facility] Comment on above: Performed By: #### 2 664217, 2420414, 0322458, 0799745 #### [facility] Laboratory [address] [place] [address] Albumin [Mass/Vol] 3.3 g/dL Normal 3.3-5.0 [facility] Comment on above: Performed By: #### 2 898675, 3174765, 0198199, 6509652 #### [facility] [address] [place] [address] ALP [Catalytic activity/Vol] 72 Int._Unit/L Normal 21-98 [facility] Comment on above: Performed By: #### 2 396495, 3600154, 2893304, 2944522 #### [facility] [address] [place] [address] ALT No additional P-5'-P [Catalytic activity/Vol] 73 Int._Unit/L High 6-46 [facility] Comment on above: Performed By: #### 2 715839, 6104985, 6499683, 0138209 #### [facility] [address] [place] [address] AST [Catalytic activity/Vol] 49 Int._Unit/L High 5-43 [facility] Comment on above: Performed By: #### 2 851841, 1968534, 8672310, 3966889 #### [facility] [address] [place] [address] Bilirubin [Mass/Vol] 0.8 mg/dL Normal 0.0-1.1 [facility] Comment on above: Performed By: #### 2 910999, 5918610, 4262045, 5270855 #### [facility] [address] [place] [address] Calcium [Mass/Vol] 8.4 mg/dL Low 8.9-11.1 [facility] Comment on above: Performed By: #### 2 136254, 6903663, 8253942, 0040697 #### [facility] [address] [place] [address] Chloride [Moles/Vol] 102 mmol/L Normal 101-111 [facility] Comment on above: Performed By: #### 2 388454, 6853089, 8741023, 1638293 #### [facility] [address] [place] [address] CO2 [Moles/Vol] 24 mmol/L Normal 21-31 [facility] Comment on above: Performed By: #### 2 673042, 1729217, 7640267, 5635103 #### [facility] [address] [place] [address] Creatinine [Mass/Vol] 0.7 mg/dL Normal 0.5-1.3 [facility] Comment on above: Performed By: #### 2 000419, 3145810, 0346608, 0579061 #### [facility] [address] [place] [address] Glucose [Mass/Vol] 122 mg/dL Normal 55-199 [facility] Comment on above: Result Comment: If t his glucose result represents a fasting glucose, interpretation should refer to the following reference range: 55-99 mg/dL Performed By: #### 2 066609, 8455413, 6666001, 0378117 #### [facility] [address] [place] [address] Potassium [Moles/Vol] 4.4 mmol/L Normal 3.5-5.3 [facility] Comment on above: Performed By: #### 2 453864, 8472863, 1654343, 8816361 #### [facility] [address] [place] [address] Protein [Mass/Vol] 7.0 g/dL Normal 6.0-7.8 [facility] Comment on above: Performed By: #### 2 051891, 4684831, 2909232, 6492104 #### [facility] [address] [place] [address] Sodium [Moles/Vol] 135 mmol/L Normal 135-145 [facility] Comment on above: Performed By: #### 2 902360, 5073495, 5561038, 0257056 #### [facility] [address] [place] [address] Urea nitrogen [Mass/Vol] 13 mg/dL Normal 5-21 [facility] Comment on above: Performed By: #### 2 736094, 8533099, 7174810, 5923035 #### [facility] [address] [place] [address] CRPon 04-27-2021 CRP [Mass/Vol] 18.1 mg/dL High <=1.9 [facility] Comment on above: Performed By: #### 2 292588, 6022946, 1867979, 6552404 #### [facility] [address] [place] [address] Capillary Glucose POCon 04-09 Glucose [Mass/Vol] 140 mg/dL High 55-99 [facility] Comment on above: Result Comment: Bessie fallon RN/ Performed By: #### 2 [id number] ####[facility] [address] [place] [address] D-Dimeron 04-27-2021 Fibrin D-dimer FEU (PPP) [Mass/Vol] 517 [id number] Abnormal 215-500 [facility] Comment on above: Result Comment: Resu lts Verified By Repeat Analysis Results Called To ER/aPu Lucas By LW And Read Back For [...] infections Liver cirrhosis Performed By: #### 2 175347, 6040216, 6527761, 4111917 #### [facility] Laboratory [address] [place] [address] ED Clinical Summaryon 2020 ED Clinical Summary [address] [address] ED Clinical Summary Person Information Name: NAIDA CM Kori/[facility] Age: 20 Years : 2000 Sex: Male Language: Nepali PCP: JAMES SUH CNP Marital Status: Single Phone: [phone] Visit Id: Visit Reason: Cough; Weakness or fatigue; Shortness of breath; COVID+, SOB, WEAKNESS, Speciality: Acuity: 1 Enc Type: Emergency Med Service: Emergency Arrival: 04/26/2021 14:37:56 Discharge: LOS: 000 24:02 Checkin: 04/26/2021 14:37:56 Checkout: 04/27/2021 14:39:39 Dispo Type: Admitted as IP to this [facility] EVENTS: Event Name Event Status [...] 04/27/2021 14:39:39 04/27/2021 14:39:39 04/27/2021 14:39:39 ADDRESS: [address] [place], [place] [address] [id number] PHYS DOC NOTES: MEDICAL INFORMATION: Prescriptions Given: PATIENT EDUCATION INFORMATION: Instructions: Follow up: DIAGNOSIS: 1:Acute hypoxemic respiratory failure due to COVID-19; 2:Asthma; 3:Weakness; 4:Dehydration; 5:Obesity; 6:DVT prophylaxis Normal [facility] ED Note-Physicianon 04-27-20 ED Note-Physician Basic [...] Art, w (more content not included)... Normal [facility] Comment on above: Result Comment: Elec tronically Signed By: Evie Joel PA-C\.br\Date and Time Signed: 04/26/21 22:06 EST\.br\Electronically Co-Signed By: Donovan Moyer DO\.br\Date and Time Co-Signed: 04/27/21 00:10 EST ED Patient Education Noteon 04-27-2021 ED Patient Education Note Normal [facility] ED Patient Summaryon 021 ED Patient Summary [place] [id number] Patient Discharge Instructions Person Information Name: NAIDA CM Age: 20 Years Arrival Date: 04/26/2021 14:37:56 Discharge Diagnosis: 1:Acute hypoxemic respiratory failure due to COVID-19; 2:Asthma; 3:Weakness; 4:Dehydration; 5:Obesity; 6:DVT prophylaxis Primary Care Physician: JAMES SUH CNP Provider Information Primary Provider: Donovan Moyer DO [employer] Inventory Specialist:None The exam and treatment you received in the Emergency Department were for an urgent problem and are not intended as complete care. It is important that you follow up with a doctor, nurse practitioner, or physician?s medical billing assistant for ongoing care. If your symptoms [...] opioids can be used to help relieve qemsqjpc-ee-zearny pain and are often prescribed following a [...] be struggling with addiction, tell your health assistant child care teacher and ask for guidance or call [facility]?S National Helpline at 7-552-728-FHZS. i Source: [place] Department of Health and Human Services/Center for Disease Control (more content not included)... Normal [facility] Ferritinon 04-27-2021 Ferritin [Mass/Vol] 299 ng/mL Normal 24-336 [facility] Comment on above: Result Comment: NORM ALS MEN <30 YRS 16-132 ng/mL MEN >30 YRS 8-338 ng/mL WOMEN (PREMEN) 6-104 ng/mL WOMEN (POSTMEN) 12-210 ng/mL Performed By: #### 2 249116, 7679751, 3966406, 9026689 #### [facility] Laboratory [address] [place] [address] LDHon 04-27-2021 LDH [Catalytic activity/Vol] 247 Int._Unit/L High 93-218 [facility] Comment on above: Performed By: #### 2 968635, 7002823, 5710638, 2457003 #### [facility] Laboratory [address] [place] [address] Lactic Acidon 04-27-2021 Lactate [Mass/Vol] 1.2 mmol/L Normal 0.5-2.2 [facility] Comment on above: Performed By: #### 2 100437, 8842780, 5372165, 7960045 #### [facility] Laboratory [address] [place] [address] Monitor Recordon 04-27-2021 Monitor Record [id number]# 1.00CD:127 Normal [facility] Procalcitoninon 04-27-2021 Procalcitonin <.05 Normal .00-.50 [facility] Comment on above: Result Comment: <0.5 [...] to 24 hours. Performed By: #### 2 042599, 4140992, 0108546, 0185189 #### [facility] Laboratory [address] [place] [address] Progress Note-Nurseon 2020 Progress Note-Nurse Called nursing supervisor lead refinery for Remdesivir. Normal [facility] Progress Note-Physicianon Progress Note-Physician Assessment/Plan PLAN: 1. Acute hypoxemic respiratory failure due to COVID-19 (U07.1: COVID-19) -Symptoms started 9 days ago. Covid + at [facility] at that time. -SPO2 74% at [...] (E66.9: Obesity, unspecified) -BMI 37.33 -We will scholarship counselor on diet, exercise, weight loss and [...] Lymph Auto: 9 % Low (04/27/21 05:11:00) [place] Auto: 4.4 % (04/27/21 05:11:00) Eos Auto: 0 % (04/27/21 05:11:00) Basophil Auto: 0.2 % (04/27/21 05:11:00) Neutro Absolute: 6.6 E9/L (04/27/21 05:11:00) Lymph Absolute: 0.7 E9/L Low (04/27/21 05:11:00) [place] Absolute: 0.3 E9/L (04/27/21 05:11:00) Eos Absolute: [...] (04/27/21 05:11:00) (more content not included)... Normal [facility] Comment on above: Result Comment: Elec tronically Signed By: Tamara GRAY\.br\Date and Time Signed: 04/27/21 12:45 EST\.br\Electronically Co-Signed By: Man ROWE, Jens Mixon\.br\Date and Time Co-Signed: 04/27/21 14:34 EST TSH With T4fr Reflexon 04-27 TSH Qn 0.73 m[IU]/L Normal 0.34-5.60 [facility] Comment on above: Performed By: #### 2 070022, 6731529, 1454615, 3341092 #### [facility] Laboratory [address] [place] [address] Troponin 9 Hr.on 04-27-2021 Troponin I.cardiac [Mass/Vol] 5.20 pg/mL Low 15.90-38.40 [facility] Comment on above: Result Comment: The 95% CI (Confidence Interval) PPV (Positive Predictive Value) for myocardial infarction in females is 38 pg/mL, in males 51 pg/mL. The results should be used in conjunction with clinical conditions of myocardial infarction. (Access High Sensitivity Troponin I Instructions For Use, Marta Ronal, December 2017) Performed By: #### 2 319472, 4806055, 2000656, 7537809 #### [facility] Laboratory [address] [place] [address] eGFRon 04-27-2021 GFR/1.73 sq M.predicted among blacks MDRD (S/P/Bld) [Vol rate/Area] mL/min/{1.73_m2} Normal >=59 [facility] Comment on above: Order Comment: Order added by Discern Expert. Result Comment: eGFR is race adjusted. AA=. Performed By: #### 2 975580, 9522059, 8850097, 1788060 #### [facility] Laboratory [address] [place] [address] GFR/1.73 sq M.predicted among non-blacks MDRD (S/P/Bld) [Vol rate/Area] mL/min/{1.73_m2} Normal >=59 [facility] Comment on above: Order Comment: Order added by Discern Expert. Result Comment: Microelectronics Engineer jaspreet kidney disease could be indicated at eGFR's of less than 60 mL/min/1.73m2. Kidney failure is indicated at less than 15 mL/min/1.73m2. Performed By: #### 2 506705, 9524464, 2224606, 3921773 #### [facility] [address] [place] [address] Auto Diffon 04-26-2021 Basophils/100 WBC (Bld) 0.5 % Normal 0.0-2.0 [facility] Comment on above: Order Comment: Order Added by Discern Expert. Performed By: #### 2 766930, 7545472, 12543192, 6750930, 1845186, 7349782, 0111080, 5279411, 8573408503, 38588085, 14823235, 72431131 #### [facility] [address] [place] [address] Basophils/Leukocytes Auto (Bld) [Pure # fraction] 0.0 E9/L Normal 0.0-0.2 [facility] Comment on above: Order Comment: Order Added by Discern Expert. Performed By: #### 2 418537, 3834639, 12735332, 6421688, 2856149, 4238097, 0883117, 0308174, 4605865594, 52954532, 47043723, 26356225 #### [facility] [address] [place] [address] Eosinophils/100 WBC (Bld) 0.0 % Normal 0.0-8.0 [facility] Comment on above: Order Comment: Order Added by Discern Expert. Performed By: #### 2 693425, 0204101, 27247565, 2666072, 7368499, 8250494, 1054369, 2109050, 4227257537, 25895279, 65791974, 70411371 #### [facility] [address] [place] [address] Eosinophils/Leukocyte s Auto (Bld) [Pure # fraction] 0.0 E9/L Normal 0.0-0.5 [facility] Comment on above: Order Comment: Order Added by Discern Expert. Performed By: #### 2 310827, 4450279, 59037866, 4642620, 6352762, 3505264, 3420166, 3631972, 1983989518, 16708969, 00653557, 30687811 #### [facility] [address] [place] [address] Lymphocytes/100 WBC (Bld) 8.6 % Low 14.0-50.0 [facility] Comment on above: Order Comment: Order Added by Discern Expert. Performed By: #### 2 427221, 7491107, 91288525, 3692749, 5176175, 0160319, 8657962, 3717567, 6910304622, 77790937, 56242200, 23241363 #### [facility] Laboratory [address] [place] [address] Lymphocytes/Leukocyte s Auto (Bld) [Pure # fraction] 0.9 E9/L Low 1.0-4.0 [facility] Comment on above: Order Comment: Order Added by Discern Expert. Performed By: #### 2 675212, 6813395, 20723183, 8529139, 8713566, 3120133, 8421312, 2028916, 8268650722, 90468226, 94838305, 02154688 #### [facility] Laboratory [address] [place] [address] Monocytes/100 WBC (Bld) 5.1 % Normal 4.0-14.0 [facility] Comment on above: Order Comment: Order Added by Discern Expert. Performed By: #### 2 209983, 6165577, 82574449, 7621880, 3856246, 6428537, 8932925, 0041644, 9313573058, 82720750, 95333485, 54585178 #### [facility] [address] [place] [address] Monocytes/Leukocytes Auto (Bld) [Pure # fraction] 0.5 E9/L Normal 0.2-1.0 [facility] Comment on above: Order Comment: Order Added by Discern Expert. Performed By: #### 2 116620, 0080367, 70037935, 8851383, 6966385, 0844590, 6591681, 0562145, 0174261861, 54063208, 00448639, 72230707 #### [facility] [address] [place] [address] Neutrophils/100 WBC (Bld) 85.8 % High 36.0-75.0 [facility] Comment on above: Order Comment: Order Added by Discern Expert. Performed By: #### 2 950591, 9379317, 56700553, 2837965, 7144071, 8025101, 2017980, 9897850, 5681307976, 16056608, 90816573, 79896890 #### [facility] [address] [place] [address] Neutrophils/Leukocyte s Auto (Bld) [Pure # fraction] 8.5 E9/L High 2.0-7.5 [facility] Comment on above: Order Comment: Order Added by Discern Expert. Performed By: #### 2 336826, 9793875, 34276605, 8154311, 7268290, 0344011, 1975670, 5972262, 8558394066, 65336738, 40852634, 27809995 #### [facility] [address] [place] [address] BMPon 04-26-2021 Creatinine [Mass/Vol] 0.8 mg/dL Normal 0.5-1.3 [facility] Comment on above: Performed By: #### 2 535273, 7801292, 75897794, 1587304, 8317450, 7462755, 2687671, 4155471, 3829838792, 00019789, 17931794, 37379135 ####[facility] [address] [place] [address] Urea nitrogen [Mass/Vol] 13 mg/dL Normal 5-21 [facility] Comment on above: Performed By: #### 2 410988, 1038118, 80774898, 8515828, 5417009, 7144188, 1398920, 4689232, 9170201747, 27260859, 38304334, 57292989 ####[facility] [address] [place] [address] Urea nitrogen/Creatinine [Mass ratio] 16 No Units Normal 10-20 [facility] Comment on above: Performed By: #### 2 290086, 6811301, 63196025, 7700497, 8957053, 9467292, 7621805, 0091767, 6205573063, 68942348, 13270379, 90486882 ####[facility] [address] [place] [address] Anion gap [Moles/Vol] 14 mmol/L Normal 6-16 [facility] Comment on above: Performed By: #### 2 299541, 6503783, 49236228, 4707533, 3893355, 2736406, 8266512, 6957615, 4610926358, 50983374, 01229823, 57185947 ####[facility] [address] [place] [address] Calcium [Mass/Vol] 8.4 mg/dL Low 8.9-11.1 [facility] Comment on above: Performed By: #### 2 274373, 7904478, 77532847, 8300962, 5340069, 0010782, 4827169, 9371429, 3876254229, 41487756, 47478123, 62467586 ####[facility] [address] [place] [address] Chloride [Moles/Vol] 99 mmol/L Low 101-111 [facility] Comment on above: Performed By: #### 2 892647, 6636585, 44440822, 9359155, 5501360, 0003925, 1368481, 2393984, 6517372554, 82701311, 77586068, 14320507 ####[facility] [address] [place] [address] CO2 [Moles/Vol] 26 mmol/L Normal 21-31 [facility] Comment on above: Performed By: #### 2 854694, 5357665, 13849745, 7486742, 6390075, 9476893, 9090883, 2293582, 0406188313, 78989862, 48865153, 67629626 ####[facility] [address] [place] [address] Glucose [Mass/Vol] 130 mg/dL Normal 55-199 [facility] Comment on above: Result Comment: If t his glucose result represents a fasting glucose, interpretation should refer to the following reference range: 55-99 mg/dL Performed By: #### 2 097273, 4810074, 21296161, 1399366, 9597644, 0063028, 2741893, 9434879, 2941424688, 76708371, 04039036, 02502347 ####[facility] [address] [place] [address] Potassium [Moles/Vol] 3.8 mmol/L Normal 3.5-5.3 [facility] Comment on above: Performed By: #### 2 776174, 3265993, 86250432, 0670796, 6454766, 3810432, 7229676, 9492327, 4752926464, 68048911, 19412205, 49350326 ####[facility] [address] [place] [address] Sodium [Moles/Vol] 135 mmol/L Normal 135-145 [facility] Comment on above: Performed By: #### 2 923809, 7496619, 88609326, 2851878, 4856327, 8183389, 0418694, 4267294, 6283302316, 46796007, 97137102, 88857568 ####[facility] [address] [place] [address] BNPon 04-26-2021 Int Ctr BNP Pass Normal [facility] Comment on above: Performed By: #### 2 071799, 3554128, 89477848, 2611114, 5701801, 7150732, 3956114, 0979660, 3117412183, 76103336, 97099360, 03129866 ####[facility] [address] [place] [address] Natriuretic peptide B (Bld) [Mass/Vol] 17 pg/mL Normal 5-80 [facility] [facility] Comment on above: Performed By: #### 2 085777, 7989457, 11857133, 3395005, 7994789, 3326742, 4846337, 6587792, 3035594272, 97928073, 93614111, 46713382 ####[facility] [address] [place] [address] Blood Gas Art, with Lytes, G jm, [place] 04-26-2021 a/A Ratio Art 49.50 % Normal >=0.80 [facility] Comment on above: Performed By: #### 4 [id number] ####[facility] [address] [place] [address] AaDO2 Art 73.7 mmHg High 5.0-15.0 [facility] Comment on above: Performed By: #### 4 [id number] ####[facility] [address] [place] [address] Allens Test Positive Normal [facility] Comment on above: Performed By: #### 4 [id number] ####[facility] [address] [place] [address] Base Excess Arterial 4.1 mmol/L Normal >=2.8 [facility] Comment on above: Performed By: #### 4 [id number] ####[facility] [address] [place] [address] cCa2+ Art 4.59 mg/dL Normal 4.40-5.30 [facility] Comment on above: Performed By: #### 4 [id number] ####[facility] [address] [place] [address] cCl- Art 104.0 mmol/L Normal 101.0-111.0 [facility] Comment on above: Performed By: #### 4 [id number] ####[facility] [address] [place] [address] cGlu Art 126 mg/dL High 55-99 [facility] Comment on above: Performed By: #### 4 [id number] ####[facility] [address] [place] [address] cK+ Art 4.1 mmol/L Normal 3.5-5.3 [facility] Comment on above: Performed By: #### 4 [id number] ####[facility] [address] [facility] [place] [address] cLac Art .7 mmol/L Normal .5-2.2 [facility] Comment on above: Performed By: #### 4 [id number] ####[facility] [address] [place] [address] live ammunition inspector+ Art 141.0 mmol/L Normal 135.0-145.0 [facility] Comment on above: Performed By: #### 4 [id number] ####[address] [address] Drawn by ss Invalid Interpretation Code [facility] Comment on above: Performed By: #### 4 [id number] ####[address] [address] FCOHb Art 1.2 % Low 1.5-4.9 [facility] Comment on above: Result Comment: Refe rence range Nonsmoker <1.5% Smoker <5.0% Heavy Smoker <9.0% Performed By: #### 4 [id number] ####[address] [address] FIO2 BG 21 Invalid Interpretation Code [facility] Comment on above: Performed By: #### 4 [id number] ####[address] [address] FMetHb Art 0.2 % Normal 0.0-1.9 [facility] Comment on above: Performed By: #### 4 [id number] ####[address] [address] FO2Hb Art 94.0 % Normal 93.0-100.0 [facility] Comment on above: Performed By: #### 4 [id number] ####[address] [address] HCO3 (Bld) [Moles/Vol] 28.0 mmol/L High 22.0-26.0 [facility] Comment on above: Performed By: #### 4 [id number] ####[address] [address] Hemoglobin (Bld) [Mass/Vol] 14.7 g/dL Normal 12.0-17.0 [facility] Comment on above: Performed By: #### 4 [id number] ####[facility] [place] [address] Oxygen saturation in Blood 95.4 % Normal 95.0-100.0 [facility] Comment on above: Performed By: #### 4 [id number] ####[address] [place] [address] P CO2 Arterial 42.1 mmHg Normal 35.0-45.0 [facility] Comment on above: Performed By: #### 4 [id number] ####[address] [place] [address] P O2 Arterial 72.2 mmHg Low 80.0-100.0 [facility] Comment on above: Performed By: #### 4 [id number] ####[address] [place] [address] pH Arterial 7.443 Normal 7.350-7.450 [facility] Comment on above: Performed By: #### 4 [id number] ####[address] [address] Sample Site R Radial Normal [facility] Comment on above: Performed By: #### 4 [id number] ####[address] [address] Sample Type Arterial Draw Normal [facility] Comment on above: Performed By: #### 4 [id number] ####[address] [place] [address] CBC w/ Auto Diffon 1 Erythrocyte distribution width (RBC) [Ratio] 13.9 % Normal 10.9-14.2 [facility] Comment on above: Performed By: #### 2 860178, 7523562, 64337300, 5972105, 0733169, 8112521, 1688581, 1749196, 9124573887, 44420298, 37273085, 92756079 #### [facility] [address] [place] [address] Hematocrit (Bld) [Volume fraction] 42.3 % Normal 37.7-49.0 [facility] Comment on above: Performed By: #### 2 560201, 7143342, 49968285, 2598074, 4128157, 4554448, 3328758, 9338639, 9074644018, 35854219, 18891640, 22570468 #### [facility] [address] [place] [address] Hemoglobin (Bld) [Mass/Vol] 14.6 g/dL Normal 13.5-17.5 [facility] Comment on above: Performed By: #### 2 341177, 9071991, 08695163, 5073569, 1596190, 8015258, 4234458, 8704722, 3645623443, 72547746, 26676640, 01052027 #### [facility] [address] [place] [address] MCH (RBC) [Entitic mass] 27.4 pg Normal 27.0-34.0 [facility] Comment on above: Performed By: #### 2 644514, 0229755, 13959161, 5269028, 3553296, 1154097, 1796325, 9961396, 4573539786, 81929478, 60619855, 95557631 #### [facility] [address] [place] [address] MCHC (RBC) [Mass/Vol] 34.5 g/dL Normal 31.4-36.0 [facility] Comment on above: Performed By: #### 2 438729, 2099821, 88010072, 4907511, 6486920, 4720443, 3379000, 4546767, 5535596406, 39138178, 44391422, 67037693 #### [facility] [address] [place] [address] MCV (RBC) [Entitic vol] 79.4 fL Low 80.0-100.0 [facility] Comment on above: Performed By: #### 2 165125, 3299706, 03298273, 9990896, 6766071, 1624673, 6737639, 2627161, 1485054993, 41659161, 62636471, 67555831 #### [facility] [address] [place] [address] Platelet mean volume (Bld) [Entitic vol] 6.9 fL Normal 6.4-10.8 [facility] Comment on above: Performed By: #### 2 054822, 2986944, 00383069, 6304619, 8993244, 9900312, 9597491, 0287590, 2591890665, 45215608, 65828524, 85523985 #### [facility] [address] [place] [address] Platelets (Bld) [#/Vol] 220.0 E9/L Normal 150.0-500.0 [facility] Comment on above: Performed By: #### 2 983002, 4943563, 14160602, 3312963, 2910425, 3834299, 9747509, 1086950, 4192010224, 88078183, 24612202, 24374367 #### [facility] [address] [place] [address] RBC (Bld) [#/Vol] 5.3 E12/L Normal 4.3-5.9 [facility] Comment on above: Performed By: #### 2 799124, 3491303, 97773999, 8946100, 4872417, 7279031, 2607305, 3640554, 2816547544, 24277859, 45897194, 11727001 #### [facility] [address] [place] [address] WBC corrected for nucl RBC Auto (Bld) [#/Vol] 9.9 E9/L Normal 4.0-11.0 [facility] Comment on above: Performed By: #### 2 026848, 5815225, 57075131, 4892494, 1057824, 4875256, 0518451, 0771818, 3825401629, 26242862, 40796855, 10623782 #### [facility] [address] [facility] [place] [address] CRPon 04-26-2021 CRP [Mass/Vol] 16.8 mg/dL High <=1.9 [facility] Comment on above: Performed By: #### 2 031706, 8599691, 19686482, 3183295, 1110541, 0584779, 1513528, 5405497, 3460007693, 77522364, 73641000, 33760724 ####[facility] [address] [place] [address] Consent for Treatmenton 04-09 Consent for Treatment [id number] 112 [id number] Normal [facility] D-Dimeron 04-26-2021 Fibrin D-dimer FEU (PPP) [Mass/Vol] 437 [id number] Normal 215-500 [facility] Comment on above: Result Comment: This [...] infections Liver cirrhosis Performed By: #### 2 949265, 7320101, 20111155, 0540528, 0067535, 4907068, 9887404, 1415226, 3957924050, 85510040, 68030249, 30438319 ####[facility] [address] [place] [address] ED Note-Nursingon 04-26-2021 ED Note-Nursing road test completed at this time. pt pulse ox decreased, at bedside and is aware. pt very anxious to ambulate. pt states SOB with ambulation. denies CP. denies needs. pt TBA and is aware. denies needs at this time. Normal [facility] LDHon 04-26-2021 LDH [Catalytic activity/Vol] 278 Int._Unit/L High 93-218 [facility] Comment on above: Performed By: #### 2 614669, 7710864, 46875033, 1237255, 9437946, 6043010, 7908360, 4535877, 7475007483, 38958303, 43355281, 58300854 ####[facility] [address] [place] [address] Lactic Acidon 04-26-2021 Lactate [Mass/Vol] 1.1 mmol/L Normal 0.5-2.2 [facility] Comment on above: Performed By: #### 2 452780, 5291636, 44991709, 5203760, 0815104, 6466661, 2975073, 4736273, 5199484354, 98355512, 98810844, 11881675 ####[facility] [address] [place] [address] PT & PTTon 04-26-2021 aPTT Coag (PPP) [Time] 30.6 second(s) Normal 25.1-36.5 [facility] Comment on above: Result Comment: Hepa rin therapeutic range (represented by Anti-Factor Xa activity of 0.2 - 0.4 U/mL) corresponds to PTT of 56.6 - 109.0 sec. Performed By: #### 2 929375, 6754327, 74031693, 0102202, 4141238, 5432827, 1730754, 8014641, 9019235868, 17318919, 42213167, 87942978 ####[facility] [address] [place] [address] INR Coag (PPP) [Relative time] 1.2 {INR} Invalid Interpretation Code [facility] Comment on above: Result Comment: INR results are specifically intended to assess patients stabilized on long-term Anticoagulation therapy suggested INR?s ?Less Intensive Anticoagulation? 2.0 ? 3.0 Conventional Range 3.0 ? 4.5 Performed By: #### 2 056002, 8630504, 18375491, 7541779, 0360514, 9833424, 9614070, 3255616, 2823393861, 36144715, 76515400, 07821673 ####[facility] [address] [place] [address] PT Coag (PPP) [Time] 14.1 second(s) High 10.2-12.9 [facility] Comment on above: Performed By: #### 2 214182, 4641792, 08932154, 5077182, 1203709, 9401345, 0474452, 0240782, 2876143709, 48796275, 86735978, 21031580 ####[facility] [address] [place] [address] Procalcitoninon 04-26-2021 Procalcitonin .09 ng/mL Normal .00-.50 [facility] Comment on above: Result Comment: <0.5 [...] to 24 hours. Performed By: #### 2 158344, 4431352, 85514659, 2743028, 0814978, 6516730, 4502316, 4011141, 5872521495, 63044271, 98425659, 63504935 ####[facility] [address] [place] [address] Troponin 0 Hr.on 04-26-2021 Troponin I.cardiac [Mass/Vol] 6.70 pg/mL Low 15.90-38.40 [facility] Comment on above: Result Comment: The 95% CI (Confidence Interval) PPV (Positive Predictive Value) for myocardial infarction in females is 38 pg/mL, in males 51 pg/mL. The results should be used in conjunction with clinical conditions of myocardial infarction. (Access High Sensitivity Troponin I Instructions For Use, TERMINALFOUR, December 2017) Performed By: #### 2 250241, 1522582, 78139581, 4596008, 6452719, 5710390, 8839263, 6526516, 5548263769, 00517264, 52662425, 03113473 ####[facility] [address] [place] [address] Troponin 3 Hr.on 04-26-2021 Troponin I.cardiac [Mass/Vol] 6.40 pg/mL Low 15.90-38.40 [facility] Comment on above: Result Comment: The 95% CI (Confidence Interval) PPV (Positive Predictive Value) for myocardial infarction in females is 38 pg/mL, in males 51 pg/mL. The results should be used in conjunction with clinical conditions of myocardial infarction. (Access High Sensitivity Troponin I Instructions For Use, TERMINALFOUR, December 2017) Performed By: #### 1 [id number] ####[facility] [address] [place] [address] Troponin 6 Hr.on 04-26-2021 Troponin I.cardiac [Mass/Vol] 5.50 pg/mL Low 15.90-38.40 [facility] Comment on above: Result Comment: The 95% CI (Confidence Interval) PPV (Positive Predictive Value) for myocardial infarction in females is 38 pg/mL, in males 51 pg/mL. The results should be used in conjunction with clinical conditions of myocardial infarction. (Access High Sensitivity Troponin I Instructions For Use, TERMINALFOUR, December 2017) Performed By: #### 2 279835, 1231404, 2655868, 5643531 #### [facility] [address] [place] [address] UA With Cult Reflexon 2020 Bacteria LM Ql (Urine sed) TRACE Normal Trace [facility] Comment on above: Performed By: #### 2 672561, 3262755, 0874552, 2269811 #### [facility] [address] [place] [address] Bilirubin Ql (U) Negative Normal Negative [facility] Comment on above: Performed By: #### 2 097092, 4934656, 8138103, 1803210 #### [facility] [address] [place] [address] Clarity (U) CLEAR Normal Clear [facility] Comment on above: Performed By: #### 2 404527, 2097660, 9579408, 7549355 #### [facility] [address] [place] [address] Color (U) YELLOW Normal Yellow [facility] Comment on above: Performed By: #### 2 352121, 0056696, 4824912, 3457165 #### [facility] [address] [place] [address] Epithelial cells.squamous LM.HPF (Urine sed) [#/Area] 0-2 Normal 0-2 [facility] Comment on above: Performed By: #### 2 340232, 5744922, 8600849, 1542422 #### [facility] [address] [place] [address] Glucose Test strip (U) [Mass/Vol] Negative Normal Negative [facility] Comment on above: Performed By: #### 2 279198, 7427353, 1087484, 0494993 #### [facility] [address] [place] [address] Hemoglobin Ql (U) TRACE Abnormal Negative [facility] Comment on above: Performed By: #### 2 559167, 2953414, 9990481, 6142097 #### [facility] [address] [place] [address] Ketones (U) [Mass/Vol] Negative Normal Negative [facility] Comment on above: Performed By: #### 2 217461, 2403262, 0476643, 3324245 #### [facility] [address] [place] [address] [place].plasma/Lithiu m.RBC (Bld) [Mass ratio] 0-3 Normal 0-3 [facility] Comment on above: Performed By: #### 2 982529, 7240836, 6827769, 9222347 #### [facility] [address] [place] [address] Nitrite Ql (U) Negative Normal Negative [facility] Comment on above: Performed By: #### 2 666040, 3078429, 6640817, 5096929 #### [facility] [address] [place] [address] pH (U) 6.5 [pH] Invalid Interpretation Code 5.0-9.0 [facility] Comment on above: Performed By: #### 2 219946, 2631028, 2447183, 3601196 #### [facility] [address] [place] [address] Protein (U) [Mass/Vol] TRACE Abnormal Negative [facility] Comment on above: Performed By: #### 2 808649, 2674523, 5422626, 5767426 #### [facility] [address] [place] [address] Specific gravity (U) [Rel density] 1.020 Invalid Interpretation Code 1.005-1.030 [facility] Comment on above: Performed By: #### 2 818677, 2240610, 8057138, 7143583 #### [facility] [address] [place] [address] Type of Urine collection method Clean Catch Normal [facility] Comment on above: Performed By: #### 2 591888, 8211709, 9119016, 2893061 #### [facility] [address] [place] [address] Urobilinogen Qn (U) 1.0 {Kathy'U}/dL Normal 0.0-1.0 [facility] Comment on above: Performed By: #### 2 925589, 1200632, 5652296, 5860904 #### [facility] [address] [place] [address] WBC Auto Ql (U) Negative Normal Negative [facility] Comment on above: Performed By: #### 2 212658, 2133339, 2272811, 7190594 #### [facility] [address] [place] [address] WBC LM.HPF (Urine sed) [#/Area] 0-5 Normal 0-5 [facility] Comment on above: Performed By: #### 2 763892, 5075254, 2346218, 1052948 #### [facility] [address] [place] [address] XR Chest Single Viewon 04-26 XR Chest [...] MD Transcribed by: KATHI Technologist: MICHEAL Normal [facility] eGFRon 04-26-2021 GFR/1.73 sq M.predicted among blacks MDRD (S/P/Bld) [Vol rate/Area] mL/min/{1.73_m2} Normal >=59 [facility] Comment on above: Order Comment: Order added by Discern Expert. Result Comment: eGFR is race adjusted. AA=. Performed By: #### 2 149013, 7031098, 49791389, 1811309, 6053391, 5526521, 5662388, 2969539, 9252542704, 55021126, 93154210, 56096481 ####[facility] [address] [place] [address] GFR/1.73 sq M.predicted among non-blacks MDRD (S/P/Bld) [Vol rate/Area] mL/min/{1.73_m2} Normal >=59 [facility] Comment on above: Order Comment: Order added by Discern Expert. Result Comment: Microelectronics Engineer jaspreet kidney disease could be indicated at eGFR's of less than 60 mL/min/1.73m2. Kidney failure is indicated at less than 15 mL/min/1.73m2. Performed By: #### 2 688078, 1534662, 64254813, 0502721, 0754655, 2168628, 6558645, 7473813, 2710886050, 38145127, 01914067, 10897551 ####[facility] [address] [place] [address] CARDIAC JIM ADMITon 021 CK >1600 Critically high 55-170 [facility] Comment on above: Result Comment: test repeated, critical value verified Performed By: #### L IPA, CMP, TSH, CMADM #### [facility] [address] [address] [address] Darrius Lindsey CK.MB [Mass/Vol] 6.32 ng/mL Critically high <=2.37 [facility] Comment on above: Performed By: #### L IPA, CMP, TSH, CMADM #### [facility] [address] [address] [address] Darrius Lindsey HSTROP 20.3 pg/mL Normal 4.0-42.2 [facility] Comment on above: Result Comment: CUT- OFF POINTS HAVE BEEN ESTABLISHED BASED ON THE FOURTH UNIVERSAL DEFINITIONS OF MYOCARDIAL INFARCTION. THE UPPER REFERENCE LIMIT (URL) OF TROPONIN, DEFINED THE 99TH PERCENTILE OF cTnI DISTRIBUTION IN A REFERENCE POPULATION, HAS BEEN CONFIRMED THE DECISION THRESHOLD FOR RI DIAGNOSIS. Performed By: #### L IPA, CMP, TSH, CMADM #### [facility] [address] [address] [address] Darrius Lindsey REY 710.0 ng/mL Critically high <=121.0 [facility] Comment on above: Performed By: #### L IPA, CMP, TSH, CMADM #### [facility] [address] [address] [address] Darrius Lindsey CBC AUTO DIFFon 04-25-2021 BASO # 0.0 103/ul Normal 0.0-0.1 [facility] Comment on above: Performed By: #### C BC ####[facility] [address] [address]Dr[address] Darrius Lindsey Basophils/100 WBC (Bld) 0.1 % Critically low 0.2-2.0 [facility] Comment on above: Performed By: #### C BC ####[facility] [address] [place], [place] [address]DrMandy Lindsey EO # 0.0 103/ul Normal 0.0-0.7 [facility] Comment on above: Performed By: #### C BC ####[facility] [address] [place], [place] [address]Dr. Darrius Lindsey Eosinophils/100 WBC (Bld) 0.0 % Critically low 0.9-7.0 [facility] Comment on above: Performed By: #### C BC ####[facility] [address] [place], [place] [address]Dr. Darrius Lindsey Erythrocyte distribution width (RBC) [Ratio] 13.2 % Normal 11.0-15.0 [facility] Comment on above: Performed By: #### C BC ####[facility] [address] [place], [place] [address]Dr. Darrius Lindsey Hematocrit (Bld) [Volume fraction] 47.4 % Normal 42.0-54.0 [facility] Comment on above: Performed By: #### C BC ####[facility] [address] [place], [place] [address]Dr. Darrius Lindsey Hemoglobin (Bld) [Mass/Vol] 15.5 g/dL Normal 14.0-18.0 [facility] Comment on above: Performed By: #### C BC ####[facility] [address] [place], [place] [address]DrMandy Lindsey IG # 0.04 10e3/ul Critically high 0.00-0.03 [facility] Comment on above: Performed By: #### C BC ####[facility] [address] [place], [place] [address]Dr. Darrius Lindsey IG % 0.5 % Normal 0.0-0.5 [facility] Comment on above: Performed By: #### C BC ####[facility] [address] [address]DrMandy Lindsey LYMPH # 0.7 103/ul Critically low 1.2-3.8 [facility] Comment on above: Performed By: #### C BC ####[facility] [address] [address]DrMandy Lindsey Lymphocytes/100 WBC (Bld) 8.8 % Critically low 20.5-60.0 [facility] Comment on above: Performed By: #### C BC ####[facility] [address] [place], [place] [address]DrMandy Lindsey MANUAL DIFF REQ NO Normal [facility] Comment on above: Performed By: #### C BC ####[facility] [address] [address]DrMandy Lindsey MCH (RBC) [Entitic mass] 27.1 pg Normal 25.9-34.0 [facility] Comment on above: Performed By: #### C BC ####[facility] [address] [place], [place] [address]DrMandy Lindsey MCHC (RBC) [Mass/Vol] 32.7 g/dL Normal 29.9-35.2 [facility] Comment on above: Performed By: #### C BC ####[facility] [address] [place], [place] [address]DrMandy Lindsey MCV (RBC) [Entitic vol] 83.0 fL Normal 80.0-94.0 [facility] Comment on above: Performed By: #### C BC ####[facility] [address] [place], [place] [address]DrMandy Lindsey MONO # 0.5 103/ul Normal 0.3-0.8 [facility] Comment on above: Performed By: #### C BC ####[facility] [address] [place], [place] [address]DrMandy Lindsey Monocytes/100 WBC (Bld) 5.8 % Normal 1.7-12.0 [facility] Comment on above: Performed By: #### C BC ####[facility] [address] [address]Dr. Darrius Lindsey NEUT # 6.8 103/ul Critically high 1.4-6.5 [facility] Comment on above: Performed By: #### C BC ####[facility] [address] [address]Dr. Darrius Lindsey Neutrophils/100 WBC (Bld) 84.8 % Critically high 43.0-75.0 [facility] Comment on above: Performed By: #### C BC ####[facility] [address] [address]Dr. Darrius Lindsey Platelet mean volume (Bld) [Entitic vol] 8.8 fL Critically low 9.5-13.5 [facility] Comment on above: Performed By: #### C BC ####[facility] [address] [address]Dr. Darrius Lindsey PLT 197 103/ul Normal 150-450 [facility] Comment on above: Performed By: #### C BC ####[facility] [address] [address]Dr. Darrius Lindsey RBC 5.71 106/ul Normal 4.70-6.10 [facility] Comment on above: Performed By: #### C BC ####[facility] [address] [place], [place] [address]Dr. Darrius Lindsey WBC 8.0 103/ul Normal 4.0-11.0 [facility] Comment on above: Performed By: #### C BC ####[facility] [address] [address]Dr. Darrius Lindsey LIPASEon 04-25-2021 Lipase [Catalytic activity/Vol] 75.0 U/L Normal 23.0-300.0 [facility] Comment on above: Performed By: #### L IPA, CMP, TSH, CMADM #### [facility] [address] [address] [address] Darrius Lindsey PROF 14(COMP METB)on 021 Albumin [Mass/Vol] 3.5 g/dL Normal 3.5-5.0 [facility] Comment on above: Performed By: #### L IPA, CMP, TSH, CMADM #### [facility] [address] [address] [address] Darrius Lindsey Albumin/Globulin [Mass ratio] 0.8 {ratio} Normal [facility] Comment on above: Performed By: #### L IPA, CMP, TSH, CMADM #### [facility] Laboratory [address] [address] [address] Darrius Lindsey ALP [Catalytic activity/Vol] 103 U/L Normal 38-126 [facility] Comment on above: Performed By: #### L IPA, CMP, TSH, CMADM #### [facility] [address] [address] [address] Darrius Lindsey ALT [Catalytic activity/Vol] 62 U/L Normal 21-72 [facility] Comment on above: Performed By: #### L IPA, CMP, TSH, CMADM #### [facility] [address] [address] [address] Darrius Lindsey Anion gap [Moles/Vol] 14.8 mmol/L Normal [facility] Comment on above: Performed By: #### L IPA, CMP, TSH, CMADM #### [facility] [address] [address] [address] Darrius Lindsey AST [Catalytic activity/Vol] 87 U/L Critically high 17-59 [facility] Comment on above: Performed By: #### L IPA, CMP, TSH, CMADM #### [facility] [address] [address] [address] Darrius Lindsye Bilirubin [Mass/Vol] 0.6 mg/dL Normal 0.2-1.3 [facility] Comment on above: Performed By: #### L IPA, CMP, TSH, CMADM #### [facility] [address] [address] [address] Darrius Lindsey Calcium [Mass/Vol] 9.3 mg/dL Normal 8.4-10.2 [facility] Comment on above: Performed By: #### L IPA, CMP, TSH, CMADM #### [facility] [address] [address] [address] Darrius Lindsey Chloride [Moles/Vol] 101 mmol/L Normal 98-107 [facility] Comment on above: Performed By: #### L IPA, CMP, TSH, CMADM #### [facility] [address] [address] [address] Darrius Lindsey CO2 [Moles/Vol] 28.8 mmol/L Normal 22.0-30.0 [facility] Comment on above: Performed By: #### L IPA, CMP, TSH, CMADM #### [facility] [address] [place] [address] Dr. Darrius Lindsey Creatinine [Mass/Vol] 0.99 mg/dL Normal 0.66-1.25 [facility] Comment on above: Performed By: #### L IPA, CMP, TSH, CMADM #### [facility] [address] [place] [address] Dr. Darrius Lindsey EGFR-AF BRAZILIAN >60 Normal >=60 [facility] Comment on above: Performed By: #### L IPA, CMP, TSH, CMADM #### [facility] [address] [address] [address] Darrius Lindsey EGFR-NON AF BRAZILIAN >60 Normal >=60 [facility] Comment on above: Performed By: #### L IPA, CMP, TSH, CMADM #### [facility] [address] [address] [address] Darrius Lindsey Globulin (S) [Mass/Vol] 4.5 g/dL Normal [facility] Comment on above: Performed By: #### L IPA, CMP, TSH, CMADM #### [facility] [address] [address] [address] Darrius Lindsey Glucose [Mass/Vol] 128 mg/dL Critically high 74-106 T [facility] Comment on above: Performed By: #### L IPA, CMP, TSH, CMADM #### [facility] [address] [place] [address] Dr. Darrius Lindsey Potassium [Moles/Vol] 4.6 mmol/L Normal 3.4-5.0 The [facility] Comment on above: Performed By: #### L IPA, CMP, TSH, CMADM #### [facility] [address] [place] [address] Dr. Darrius Lindsey Protein [Mass/Vol] 8.0 g/dL Normal 6.1-8.2 The [facility] Comment on above: Performed By: #### L IPA, CMP, TSH, CMADM #### [facility] [address] [place] [address] Dr. Darrius Linsdey Sodium [Moles/Vol] 140 mmol/L Normal 137-145 [facility] Comment on above: Performed By: #### L IPA, CMP, TSH, CMADM #### [facility] [address] [place] [address] Dr. Darrius Lindsey Urea nitrogen [Mass/Vol] 16.0 mg/dL Normal 6.4-19.3 [facility] Comment on above: Performed By: #### L IPA, CMP, TSH, CMADM #### [facility] [address] [place] [address] Dr. Darrius Lindsey Urea nitrogen/Creatinine [Mass ratio] 16.2 mg/mg Normal [facility] Comment on above: Performed By: #### L IPA, CMP, TSH, CMADM #### [facility] [address] [place] [address] Dr. Darrius Lindsey TSHon 04-25-2021 TSH 1.381 uIU/mL Normal 0.430-3.750 The [facility] Comment on above: Performed By: #### L IPA, CMP, TSH, CMADM #### [facility] [address] [place] [address] Dr. Darrius Lindsey TSH RANGE SEE BELOW Normal The [facility] Comment on above: Result Comment: <0.3 4 UIU/ml HYPERTHYROID 0.34-5.60 UIU/ml EUTHYROID >5.60 UIU/ml HYPOTHYROID Performed By: #### L IPA, CMP, TSH, CMADM #### [facility] [address] [address] [address] Darrius Lindsey XR CHEST 1 Von [...] CHRISSIE MARRERO Date: 2021-04-25 11:30 Normal The [facility] Covid-19 PCR (CVDTB)on SARS-CoV-2 (COVID-19) RNA ROSIE+probe Ql (Unsp spec) Detected Critically abnormal NOT DETECTED The [facility] Comment on above: Result Comment: This test is not yet approved or cleared by the [place] FDA. When there are no FDA-approved or cleared tests available, and other criteria are met, FDA can make tests available under an emergency access mechanism called an Emergency Use Authorization (EUA). The EUA for this test is supported by the [place] of Health and Human Service's (HHS's) declaration [...] used). Performed By: #### C VDTB #### [facility] [id number] Darrius Lindsey XR ABD FLAT UP_PA [...] ALEXIS GOMEZ Date: 2020-10-11 22:21 Normal The [facility] CBC AUTO DIFFon 10-11-2020 BASO # 0.1 103/ul Normal 0.0-0.1 [facility] Comment on above: Performed By: #### C BC #### [facility] [address] [place], [place] [id number] Mary Kay Suzie Basophils/100 WBC (Bld) 0.8 % Normal 0.2-2.0 [facility] Comment on above: Performed By: #### C BC #### [facility] [address] [place], [place] [address] Mary Kay Suzie EO # 0.3 103/ul Normal 0.0-0.7 [facility] Comment on above: Performed By: #### C BC #### [facility] [address] [place], [place] [address] Mary Kay Suzie Eosinophils/100 WBC (Bld) 3.1 % Normal 0.9-7.0 [facility] Comment on above: Performed By: #### C BC #### [facility] [address] [place], [place] [address] Mary Kay Suzie Erythrocyte distribution width (RBC) [Ratio] 13.2 % Normal 11.0-15.0 The [facility] Comment on above: Performed By: #### C BC #### [facility] [address] [place], [place] [address] Mary Kay Suzie Hematocrit (Bld) [Volume fraction] 42.1 % Normal 42.0-54.0 [facility] Comment on above: Performed By: #### C BC #### [facility] [address] [place], [place] [address] Mary Kay Suzie Hemoglobin (Bld) [Mass/Vol] 14.1 g/dL Normal 14.0-18.0 [facility] Comment on above: Performed By: #### C BC #### [facility] [address] [place] [address] Mary Kaymolly Larsen IG # 0.03 10e3/ul Normal 0.00-0.03 [facility] Comment on above: Performed By: #### C BC #### [facility] [address] [place] [address] Mary Kay Suzie IG % 0.3 % Normal 0.0-0.5 [facility] Comment on above: Performed By: #### C BC #### [facility] [address] [place] [address] Mary Kay Suzie LYMPH # 3.2 103/ul Normal 1.2-3.8 [facility] Comment on above: Performed By: #### C BC #### [facility] [address] [place] [address] Mary Kay Suzie Lymphocytes/100 WBC (Bld) 30.5 % Normal 20.5-60.0 [facility] Comment on above: Performed By: #### C BC #### [facility] [address] [place] [address] Mary Kay Suzie MANUAL DIFF REQ NO Normal [facility] Comment on above: Performed By: #### C BC #### [facility] [address] [place] [address] Mary Kay Suzie MCH (RBC) [Entitic mass] 26.9 pg Normal 25.9-34.0 [facility] Comment on above: Performed By: #### C BC #### [facility] [address] [place] [address] Mary Kay Suzie MCHC (RBC) [Mass/Vol] 33.5 g/dL Normal 29.9-35.2 [facility] Comment on above: Performed By: #### C BC #### [facility] [address] [place] [address] Mary Kay Suzie MCV (RBC) [Entitic vol] 80.3 fL Normal 76.3-90.1 [facility] Comment on above: Performed By: #### C BC #### [facility] [address] [id number] Mary Kay Suzie MONO # 0.6 103/ul Normal 0.3-0.8 [facility] Comment on above: Performed By: #### C BC #### [facility] [address] [id number] Mary Kay Suzie Monocytes/100 WBC (Bld) 6.0 % Normal 1.7-12.0 [facility] Comment on above: Performed By: #### C BC #### [facility] [address] [place] [address] Mary Kay Suzie NEUT # 6.1 103/ul Normal 1.4-6.5 The [facility] Comment on above: Performed By: #### C BC #### [facility] [address] [place] [address] Mary Kay Suzie Neutrophils/100 WBC (Bld) 59.3 % Normal 43.0-75.0 [facility] Comment on above: Performed By: #### C BC #### [facility] [address] [place], [place] [address] Mary Kay Suzie Platelet mean volume (Bld) [Entitic vol] 9.2 fL Critically low 9.5-13.5 [facility] Comment on above: Performed By: #### C BC #### [facility] [address] [place], [place] [address] Mary Kay Suzie PLT 259 103/ul Normal 150-450 [facility] Comment on above: Performed By: #### C BC #### [facility] [address] [place] [address] Mary Kay Suzie RBC 5.24 106/ul Normal 3.30-5.40 The [facility] Comment on above: Performed By: #### C BC #### [facility] [address] [place], [place] [address] Mary Kay Suzie WBC 10.3 103/ul Normal 4.0-11.0 The [facility] Comment on above: Performed By: #### C BC #### [facility] [address] [place], [place] [address] Mary Kay Suzie ER URINE PROFILEon 1 Bilirubin Ql (U) Negative Normal NEGATIVE The [facility] Comment on above: Performed By: #### E RUR #### [facility] [address] [place], [place] [address] Mary Kay Suzie Clarity (U) CLOUDY Abnormal CLEAR [facility] Comment on above: Performed By: #### E RUR #### [facility] [address] [place] [address] Mary Kay Suzie Color (U) LT. YELLOW Normal YELLOW [facility] Comment on above: Performed By: #### E RUR #### [facility] [address] [place], [place] [address] Mary Kay Suzie ERUAHD A micrscopic examination will be performed if indicated. Normal The [facility] Comment on above: Performed By: #### E RUR #### [facility] [address] [place] [address] Mary Kay Suzie Glucose Ql (U) Negative Normal NEGATIVE The [facility] Comment on above: Performed By: #### E RUR #### [facility] [address] [place] [address] Mary Kay Suzie Hemoglobin Ql (U) Negative Normal NEGATIVE The [facility] Comment on above: Performed By: #### E RUR #### [facility] [address] [place] [address] Mary Kay Suzie Ketones Ql (U) Negative Normal NEGATIVE [facility] Comment on above: Performed By: #### E RUR #### [facility] [address] [place] [address] Mary Kay Suzie LEUKOCYTES Negative Normal NEGATIVE The [facility] Comment on above: Performed By: #### E RUR #### [facility] [address] [place], [place] [address] Mary Kay Suzie Nitrite Ql (U) Negative Normal NEGATIVE [facility] Comment on above: Performed By: #### E RUR #### [facility] [address] [place] [address] Mary Kay Suzie pH (U) 7.5 [pH] Normal 5-9 The [facility] Comment on above: Performed By: #### E RUR #### [facility] [address] [place], [place] [address] Mary Kay Larsen SPEC GRAVITY 1.020 Normal 1.005-<=1.025 The [facility] Comment on above: Performed By: #### E RUR #### [facility] [address] [place], [place] [address] Mary Kaymolly Larsen UA PROTEIN Negative Normal NEGATIVE/ TRACE The [facility] Comment on above: Performed By: #### E RUR #### [facility] [address] [place], [place] [address] Mary Kay Larsen UR MICRO IND NOT INDICATED Normal The [facility] Comment on above: Performed By: #### E RUR #### [facility] [address] [place], [place] [address] Mary Kay Larsen Urobilinogen Qn (U) 2.0 {Kathy'U}/dL Abnormal 0.2 - 1. 0 [facility] Comment on above: Performed By: #### E RUR #### [facility] [address] [place], [place] [address] Mary Kay Larsen PROF 14(COMP METB)on 021 Albumin [Mass/Vol] 4.0 g/dL Normal 3.5-5.0 [facility] Comment on above: Performed By: #### C MP #### [facility] [address] [place], [place] [address] Mary Kaymolly Larsen Albumin/Globulin [Mass ratio] 1.2 {ratio} Normal [facility] Comment on above: Performed By: #### C MP #### [facility] [address] [place], [place] [address] Mary Kay Suzie ALP [Catalytic activity/Vol] 159 U/L Normal 65-260 The [facility] Comment on above: Performed By: #### C MP #### [facility] [address] [place], [place] [address] Mary Kay Suzie ALT [Catalytic activity/Vol] 47 U/L Normal 21-72 [facility] Comment on above: Performed By: #### C MP #### [facility] [address] [address] Mary Kay Suzie Anion gap [Moles/Vol] 13.4 mmol/L Normal [facility] Comment on above: Performed By: #### C MP #### [facility] [address] [place], [place] [address] Mary Kay Suzie AST [Catalytic activity/Vol] 26 U/L Normal 17-59 The [facility] Comment on above: Performed By: #### C MP #### [facility] [address] [address] Mary Kay Suzie Bilirubin [Mass/Vol] 0.5 mg/dL Normal 0.2-1.3 The [facility] Comment on above: Performed By: #### C MP #### [facility] [address] [place] [address] Mary Kay Suzie Calcium [Mass/Vol] 9.0 mg/dL Normal 8.4-10.2 [facility] Comment on above: Performed By: #### C MP #### [facility] [address] [place] [address] Mary Kay Suzie Chloride [Moles/Vol] 107 mmol/L Normal 98-107 [facility] Comment on above: Performed By: #### C MP #### [facility] [address] [place] [address] Mary Kay Suzie CO2 [Moles/Vol] 29.7 mmol/L Normal 22.0-30.0 The [facility] Comment on above: Performed By: #### C MP #### [facility] [address] [place] [address] Mary Kay Suzie Creatinine [Mass/Vol] 0.97 mg/dL Normal 0.66-1.25 [facility] Comment on above: Performed By: #### C MP #### [facility] [address] [place], [place] [address] Mary Kay Suzie Globulin (S) [Mass/Vol] 3.4 g/dL Normal [facility] Comment on above: Performed By: #### C MP #### [facility] [address] [place], [place] [address] Mary Kay Suzie Glucose [Mass/Vol] 99 mg/dL Normal 74-106 [facility] Comment on above: Performed By: #### C MP #### [facility] [address] [id number] Mary Kay Suzie Potassium [Moles/Vol] 4.1 mmol/L Normal 3.4-5.0 [facility] Comment on above: Performed By: #### C MP #### [facility] [address] [id number] Mary Kay Suzie Protein [Mass/Vol] 7.4 g/dL Normal 6.1-8.2 [facility] Comment on above: Performed By: #### C MP #### [facility] [address] [address] Mary Kay Suzie Sodium [Moles/Vol] 146 mmol/L Critically high 137-145 [facility] Comment on above: Performed By: #### C MP #### [facility] [address] [address] Mary Kay Suzie Urea nitrogen [Mass/Vol] 15.0 mg/dL Normal 6.4-19.3 [facility] Comment on above: Performed By: #### C MP #### [facility] [address] [id number] Mary Kay Suzie Urea nitrogen/Creatinine [Mass ratio] 15.5 mg/mg Normal [facility] Comment on above: Performed By: #### C MP #### [facility] [address] [place], [place] [address] Mary Kay Suzie Encounters Encounter Date Encounter Type Care Provider Facility Start: 04-05-2024 End: 04-05-2024 ambulatory Jessica Leach Facility:[facility] Start: 06-07-2023 End: 06-07-2023 ambulatory KARISSA VILLATORO Not Available Start: 04-25-2021 End: 04-25-[address] JERRY PETERSEN Facility:[facility] Start: 04-23-2021 End: 04-23-2021 ambulatory NICLOASA PEDROZA Facility:[facility] Start: 04-17-2021 End: 04-17-[address] JIM GRANDE Facility:[facility] Start: 10-11-2020 End: 2020 ambulatory KIMBERLYN MELCHOR Facility:[facility] Payers Date Payer Category Payer Self-pay 2022 Medicaid [id number] 2002 Unknown [id number] [id number] [id number] 1981 Unknown [id number] 2.16.84 [id number] 1981 Unknown [id number] 2.16.84 [id number] 1981 Unknown [id number] 2.16.84 [id number] 1981 Unknown [id number] 2.16.84 [id number] 1959 Unknown [id number] Unknown [id number] 2.16.8 [id number] Clinical Note 05-03-2021 Note Date & Type [...] R1: This test was performed at: [facility], [address] [place] [address], [id number] , , [facility] Comment on above: Performed By: #### 1 [id number] ####[facility] [address] [place] [address] Clinical Note 05-03-2021 Note Date & Type [...] Locations R1: This test was performed at: [facility], [address] [place] [address], [facility]- , , [facility] Comment on above: Performed By: #### 2 [id number] #### [facility] [address] [place] [address] Discharge summary note 05-02-2021 Note Date & [...] be reviewed and discussed with PCP or diamond cleaver MD once the hospital multiple slide operator is able to reach him/her. I [...] made to ensure accuracy, however, inadvertently computerized salt lifter mistakes may be present. Significant Findings No [...] COVID-19 (U07.1: COVID-19) + COVID 19 at [facility] -> Unvaccinated -CXR: COVID 19 PNA [...] hygiene. All equipment was properly cleansed. Ordered: [facility] Prescription, Nebulizer, 1 machine w/ approp. tubing/mask, [...] Asthma (J45.909: Unspecified (more content not included)... [facility] Comment on above: Result Comment: Elec [...] needs. Ant dc TBD. CRM to follow. [facility] Comment on above: Result Comment: Elec [...] oximeter after he tested positive at the [facility] 9 days prior. He states his [...] room air. I did question the emergency wall mirror department supervisor if this was on room air as documented but she was uncertain. While being observed in the emergency department at one point his pulse ox was 91% on room air. With further questioning patient advises me that he has been to the [facility] emergency department on 3 other occasions over the past week did not feel satisfied with no improvement in his symptoms thus came to this facility. I was advised by the emergency wall mirror department supervisor that the patient's parents brought [...] no longer a (more content not included)... [facility] Comment on above: Result Comment: Elec [...] content) DATE CREATED AUTHOR 04/29/2021 [facility] DATE CREATED AUTHOR AUTHOR'S ORGANIZ ATION 05/06/2021 [facility] DATE CREATED AUTHOR AUTHOR'S ORGANIZ ATION 06/08/2023 [facility] DATE CREATED AUTHOR AUTHOR'S ORGANIZ ATION 05/02/2024 [facility] FOR RECORDS PERTAINING TO PATIENTS [...] BE BASED ON THE PRIMARY CLINICAL RECORDS. [facility]. provides no warranty or guarantee of the accuracy or completeness of information in this document.
[2024-05-21] MEDS: LACTATED RINGER'S SOLUTION 1,000 ML 125 ML IV ×2 (10:29→17:18)
[2024-05-21] MEDS: ENOXAPARIN SODIUM 40 MG/0.4 ML SYRINGE SUBQ (10:32)
[2024-05-21] MEDS: ACETAMINOPHEN 500 MG TABLET 1000 MG PO (10:32)
[2024-05-21] MEDS: IPRATROPIUM/ALBUTEROL SULFATE 3 ML AMPUL.NEB IH ×3 (10:54→23:47)
[2024-05-21] MEDS: METHYLPREDNISOLONE SOD SUCC PF 40 MG/ML VIAL IVP ×2 (14:17→21:34)
[2024-05-21] MEDS: IBUPROFEN 400 MG TABLET PO (21:38)
[2024-05-21] MEDS: GUAIFENESIN 200 MG/DEXTROMETHORPHAN 20 MG 10 ML UNIT DOSE CUP PO (21:38)
[2024-05-22] VITALS (23 sets, daily range): BP systolic 121–144; BP diastolic 67–85; PULSE 86–122; TEMP 36.5–37.3; O2SAT 90–98
[2024-05-22] MEDS: METHYLPREDNISOLONE SOD SUCC PF 40 MG/ML VIAL IVP ×3 (03:59→21:44)
[2024-05-22] MEDS: GUAIFENESIN 200 MG/DEXTROMETHORPHAN 20 MG 10 ML UNIT DOSE CUP PO ×2 (04:00→22:33)
[2024-05-22] MEDS: IPRATROPIUM/ALBUTEROL SULFATE 3 ML AMPUL.NEB IH ×4 (04:02→23:51)
--- OUTSIDE RECORDS SUMMARY | 2024-05-22 06:06 | XMS_ITS | CCD ---
Author Organization [facility] Inform ion [facility] Care Team Providers Care Paper Sorter And Counter Name Role Phone KIMBERLYN MELCHOR Consulting Unavailable [facility] Care Unavaila jer GRANDE, DR JIM De Dios Attending Unavailable HARJINDER, DR JIM De Dios Admitting Unavailable Benjamin, Alexis Consulting Unavailable HARJINDER, DR JIM De Dios Admitting Unavailable [facility] Unavaila ble HARJINDER, DR JIM De Dios Attending Unavailable HARJINDER, DR JIM De Dios Consulting Unavailable KASIA, NICOLASA Admitting Unavailable KASIA, NICOLASA Attending Unavailable KASIA, NICOLASA Consulting Unavailable [facility] Unavaila ble PAY, DR EDWARDS Attending Unavailable PAY, DR EDWARDS Consulting Unavailable [facility] Unavaila ble PAY, DR EDWARDS Admitting Unavailable Michelle, Chrissie Consulting Unavailable KARISSA VILLATORO Attending Unavailable PAY, JERRY Referring Unavailable Hany, Jessica Peterson Attending Unavailable [facility] Leach [facility]mitting [facility] Un[facility] Problems Active [...] Range Facility Coding Summary.on 05-06-2021 Coding Summary. CD:[id number] h0bWw+PGhlYWQ+JC5XJCD xE70hjBVbiM0RO0pDOF2K RMKFOLTJWI6MLT5yoMU1T BreN5FzcdIk RvciqBOhFI81UNy1WLB0y TuwSNalvX5gkYArF9t3Lh GuXV89eY98ZDwhUETpJtT 3LjZpbjsgbWFy Z6kzBwOhrBCcGvc+PHRhY mxlIHdpZHRoPScxMDAlJy MsrHhaKW6jPb8eRBOiGWY vbGxhcHNlOiBj n7vlWAVqPPxmZM4azCmoT 9UonEL0VVLzw6w3Wh56wQ I+IIKxQQW0iXkySYsvo30 1VrZzr5yhKFF9 iVLyNQjrRZX4V19mq1D4Z JMdTBXbLKS0xAQ3fE2uqG kxlgncX1FbyFGuTiI4XPA 0rOQydP3swEkf wfavcD2pXgl+O28YFA1PY XLSGH4FNru3W5ImSzpasO I+RF78EHIlJK60hQQhcDP im8owiTd2AmBx NTNrXXC0qBoiRPtou5GuE GYqP14zvYXfw1V7WBRovZ sstELmSuOiiGR1uL9gNFn ylbpof6daedyg Kyrjw1zpwd20cJ78G79sH WfdXIYuAFQ6ZRKlTWJqqH uphv8jvA0yDi4+DPbzi4a av2griAo3AoRo BBJrlhBgiPsmOEU9u1IbA x11B7DhqHlzo9FyByh2sb 85wZYdx4R5mTG8TZifXXR pxS1nQLwdYvJ0 ZIGpBlKzgO22fHUkWSxhZ f7nuVzjuGiuHQ2oSLKzho moTGBhpR1sBCYaxNZyxEt hSK7aMDLfitaf r659HcBkTDW6VFGkbTYmO 3RwuL2lQeAaWVCwZYHgA5 YpxRSaLUbdU759BNukUoR 0XFNlidUfB3Vf JRPiaKprHiE3x0Q5Sm2Ia 7KvtnuoDZK7IPpmWEEsLi O7ZyXuCgA4M8YvFmo4HPD eqUnzTM5hS3Do CZWrfdlgnvzyvRH1HLAcC UYedA14bHDxQUeyIf4pl0 V5c933RNNvPBJhtX97Vx1 udDogMTBwdCBU kP6zwefui5ioibvoNtHaQ HVqPDq3QPm6CPMmwFtmCq KsOTD5GaM5WTJ2aFXlvI6 vbKegozhqvC0r Oyc+Y19faX1dINT7VEH5l pgaHIGhsaToAE64NR22J8 RyPjwvdGFibGU+PGRpdiB xfGvbSQ9dNxIe s7ayn9UhXXmkK9WnDAYyG VdoPtm3OMHcDBO0hAV8xG 9kNOWmRYphb9R9pQO3X0J eztHaxb1ry1th IQOhFJeuS18lxXCyn8L6Z GMllLE6CFKrcOypCyLalR 93Oyc+SJNnxHupy2DqNdf tw5oot7tfdVp0 OkPtGSKsxuIynEfxYRJ0e 0YoCe55V54sYRdsSWDmRW PrCLFgXSSrtImadc3coZ2 wIi8+PGNvbCB3 fEH8oU4gGYAjCqK8PUuqL 625KpUtnAPsLgqel4cfm2 sxzVz5RzLgOBQwbsVtzSp oCUB4e2YiFa60 G43xYJfiNJPcEAFlDLInJ CXwmIrqmd0qgJ9dUm6+PC 0mv0janj13bL95hXQ+PHR wXML7uBzhJUhd CJWhmK5dBVvpMcA2LNFzA rUwgJ84mMUuVGraUl1phS pqnQgmLN4xCSAznetaw39 2RjYtn4qfZUEp cRPfBThwJAE7G31rl2V5V LJnJLAfLFW2uIB5dU8mqA lnbjogbGVmdDsgdmVydGl mNZnoDAquA603 IHRvcDsnPlBhdGllbnQgT cUkAHk4Y1RiAwx6CMBrtI ndQH8luEPmEBmjTy1rxSi nkAicWR0dRPCf xiplm930OcEnp2gvLEFxb DXxXSrhCXL2N39np8S9IE LzIIFcDFN6rVO8nA5lxTw nbjogbGVmdDsg ecGjfNkuBQhjKZnhY301P HRvcDsnPkJpcnRoIERhdG F2KX71UE56wLEzb1R5yDI 8I2LtCZHnwjoc zhtiiIF5OSXlGXBkgN40T u6rdNszPs6bCCCxWPK4HY QkqHPaH4PatH7eAsNzPGR pZHMtU5NijZJu ILflT627GMkbUoC3QWCzh rNqD7ZfTOGyiUfxCoP4e9 T2Nk2ZN7H2CV25WT41wEU wq4I9xFD0C8Oh HLTxohmilfrhyAM9JHFqQ EXgiO97Zu4dlYlxHq1aJS LnFNN1IWHszHOhN7LlgY3 yOiAjMDAwMDAw B2IbpRRaPCgtM431FYozA iR2ZFFugbJoS0AtHOVjaA fkDvH4h1H9Hu0AQBa1AL8 2NC44kUWpj8S0 fCL6U5NkUVGtgxxxwqtkf OD3SGDoQTSauL10Qf5yhN iyWg9fZJRpXGX1BZJksDG rF0KjxG7uLjLt YPNzPQLtE7XlrRGwWXbiY 774ODamKgY8DEJzaeTwJ0 PjKLDhmWfjTaO5d0E2Fk9 MZNBzKJ50RTY8 aZQ5RO68SU86T4LoWayqd GFibGU+PHRhYmxlIHdpZH RoPScxMDAlJyBzdHlsZT0 yRn2kEEUqNDUh kVlgmCXjAvYpl7vqBTFwU PzgOM6zpArsF0KvcDE2BZ Jtt9z4Pl21M21hU5RvbQT +MWChxUX1nVK3 mE5lZpYpSuP9PUqnH179O oMkiHSgRdajq5saj5yziA w4EeL3IQPguuRqfIfbAYA 8e3GdMk48D60c IHdpZHRoPSIxNSUiIHZhb Uccmn8elW4zQs6+PGNvbC O8rQQ4vW7sLqKvZiD4LJr qT378JgQaqKYw Zickv7iiz8qxuAi9PuLlN OIxhrXomIsaMFX9h1FlAp 86I9HqgTeld2GjVbg3mr1 7yBKig4V0nIT1 N8AcXGZlkinqnAFlwMlfB E5eUTWbpqzwCKDbpL4rDN ZuF8u8RlXyVkB0LPebM7N znnN3YHJtrCYp XLgnYBG3Z16fr2O2YUJbL FWgABE4xQQ5aF7eyTajmk ogbGVmdDsgdmVydGljYWw uMRkyP072IICo gUkoIIYciZ4hJPBlxXBug XnbLC2xPHTpjolgNyQGJS 9HGqpzMv9QTLUGJQqCJL6 0OC44uVDne6M0 kKW7H2MqRFXcgmtllkmjx JN1TXToWRBcgQ12pXKdCX azJf1yf9L0z196NCSsASF cfQ26Ey5jmVqo RREarNDDaT1umjodf3kbc asvHlKpXDBlDXv4LKz4JJ IqdBnoFkTiXFI1UpK3EOH 6bXMnaD6uaCau ywlebG0xDeq+MDYvMDUvM jAwMzwvdGQ+AQKtTCQ4zZ qiLQrpPRKeuM3tMBKqM3q 1ZmCyUlD3WLzw O1ZsVJGrvmcrKu99gO0yB hFrAeX0GPndR6GijtR3ZP ZasQOlFSdeNKS1J98nb4O 5XAAdCUZiBAF0 qOW0cC4vhDbmclyxmJGsd DsgdmVydGljYWwtYWxpZ2 33JYWmuUqhPkO2PSkbKAX wCB04MD45pZTx u1T1dZM7F6IbSIKixiqot gsgbLZ4CWUqYSBbpF23fK WbGFloJx0ow0H2s177SLJ fAGVuhJ64Ds1r vSlaPDLtnPGCqV2zhrrxn 2bwcjjlDoFmJQMmZHz5EP d7UAKdkVirCsJcZNW5MtV 9KCP9jFNdeJ3i oJbeyzufdI5oYbx+TWFsZ TwvdGQ+OJOhFQB9yOtmCJ fhNJQwtE4vGQYmI3g8AgH eGbA2ZTacD0Hu ZAMjwumfXs68fN2rKpPeP bL9ZXxeY6BpwbL4UFAieI NdRCrvGFZ0W68xk6Z7HFV lJVRlKBN5qIV4 dJ7cwFxaiiwjzBWwsOsdy hSgiKueSJqfSWmhC337CC KrjFekBqutpZL6mFZyvDs vdGQ+ON16hj65 I7MuPcqmEfk4MKYmHKE5x NO2rG6yWIWoBRvxt1U2dZ A3Q5CxhmRzfc2jy2zrIWQ rEStvA23glBWn m2C1PYVdfLB1ZQYdjYxtQ nJnuO72Anx+PGNvbGdyb3 XqYddam6gvo0mkaPr5RmL wJSIgdmFsaWdu WCI5j4JbLv73M09eIEhgL HRoPSIzMCUiIHZhbGlnbj 7fnI3tHu0+FMHvqMG6uNH 5lJ8uPgQaQnW4 FFjqS135FvFfhFIpGshrk 2cwu6ewlZf7UgUhJGQqkx NdcWbvXYC3i4IrLu98E8P fnWnir7LwYuf6 sd64xJIcv6U0hYB2V4UsT RPvwvbezRLvtUtpDX2fEP EmfgbgPZAwvL6fNOLsD0k 4DjDsPqX6IEkt U7ZikgW7YBOibDPjYQGij MVIqN5pbhjcl3nkxkcxJa SlNCJzFVi2OLr0BNFtnHt oKnVvJEL2UpS9 OQW4cDZszC9wxLxyzcjby G9wOyc+NFd6b2xxdHExJE 3whEL2EH75MX49bHBpe6X 8nUK4H2SvMWNf qydaanxlyUJ5EVCrHOToe A13Za7qnRygDi3qVCMkLR L6OZUobHFrO9XfhW8wDjR lOPFxGQIxX3Aj jBMcHBukN174YQwfSfS1T TVchdQnY8ObHSUvuTyvEf O8f8Y4Vj8JZJ60SW79GL8 3gNJdm6W9wUA2 O2HvZQIrthhqdpalwHF6L KLjRVCkpA12Lm4fzLtrEp 9oIZNvIOE6CJAbfDJlD3Y bdJ6lBiQoJPPv MBAhW5LmfTGoDMolN436E RifOjX1JEVugnGvX0ByNQ ZftAgvYzW4f1M4Ub0FVb4 4GD09EL74pYAe s5N7lJF4S5VbTMDnenqtl brvfHT1OFEoKTRtzH23Ua 5qxOsyOu6yULAnEGN6DXB jgTHpU0NxaB6w IrRyNPGbXKChH0MfrRInU PldO814SChyYmR9ALLrsh TeC2IkUKZnaMclYlI5f6L 8Fv1GELxqvum1 S5YbYzjwjUN+MI14CRBzQ N69jLKqzNGxo9ugmLu6Rs LsKEIyPIG4tOzxXSgpf1V zTGEsZ05ptRAu c2U6 (more content not included)... Normal [facility] .Manual Abson 05-01-2021 Basophils/Leukocytes Manual cnt (Bld) [Pure # fraction] 0.0 E9/L Normal 0.0-0.2 [facility] Comment on above: Performed By: #### 2 476459, 3979995, 1396507, 5329690 #### [facility] [address] [place] [address] Eosinophils/Leukocyte s Manual cnt (Bld) [Pure # fraction] 0.1 E9/L Normal 0.0-0.5 [facility] Comment on above: Performed By: #### 2 946513, 8194683, 5127134, 8938388 #### [facility] [address] [place] [address] Lymphocytes/Leukocyte s Manual cnt (Bld) [Pure # fraction] 5.2 E9/L High 1.0-4.0 [facility] Comment on above: Performed By: #### 2 816334, 5804119, 5554126, 6289147 #### [facility] [address] [place] [address] Monocytes/Leukocytes Manual cnt (Bld) [Pure # fraction] 1.3 E9/L High 0.2-1.0 [facility] Comment on above: Performed By: #### 2 568523, 6673807, 9271415, 4694773 #### [facility] [address] [place] [address] Neutrophils/Leukocyte s Auto (Bld) [Pure # fraction] 7.4 E9/L Normal 2.0-7.5 [facility] Comment on above: Performed By: #### 2 870914, 0085854, 1717032, 2630187 #### [facility] [address] [place] [address] CBC w/ Auto Diffon Erythrocyte distribution width (RBC) [Ratio] 13.6 % Normal 10.9-14.2 [facility] Comment on above: Performed By: #### 2 351901, 8139555, 3060951, 1826912 #### [facility] [address] [place] [address] Hematocrit (Bld) [Volume fraction] 42.7 % Normal 37.7-49.0 [facility] Comment on above: Performed By: #### 2 150947, 5745850, 0472188, 1956730 #### [facility] [address] [place] [address] Hemoglobin (Bld) [Mass/Vol] 14.6 g/dL Normal 13.5-17.5 [facility] Comment on above: Performed By: #### 2 148099, 3994819, 5985219, 1534354 #### [facility] [address] [place] [address] MCH (RBC) [Entitic mass] 27.5 pg Normal 27.0-34.0 [facility] Comment on above: Performed By: #### 2 636239, 8131041, 1118442, 2130725 #### [facility] [address] [place] [address] MCHC (RBC) [Mass/Vol] 34.2 g/dL Normal 31.4-36.0 [facility] Comment on above: Performed By: #### 2 352349, 4428795, 0413032, 4577235 #### [facility] [address] [place] [address] MCV (RBC) [Entitic vol] 80.4 fL Normal 80.0-100.0 [facility] Comment on above: Performed By: #### 2 770241, 4754004, 8818840, 9160550 #### [facility] [address] [place] [address] Platelet mean volume (Bld) [Entitic vol] 7.0 fL Normal 6.4-10.8 [facility] Comment on above: Performed By: #### 2 744638, 9986444, 6735891, 4938018 #### [facility] [address] [place] [address] Platelets (Bld) [#/Vol] 371.0 E9/L Normal 150.0-500.0 [facility] Comment on above: Performed By: #### 2 314011, 0498651, 9117472, 2202598 #### [facility] [address] [place] [address] RBC (Bld) [#/Vol] 5.3 E12/L Normal 4.3-5.9 [facility] Comment on above: Performed By: #### 2 601616, 9214816, 6142631, 4127593 #### [facility] [address] [place] [address] WBC corrected for nucl RBC Auto (Bld) [#/Vol] 14.5 E9/L High 4.0-11.0 [facility] Comment on above: Performed By: #### 2 676246, 1573295, 0968626, 9903493 #### [facility] [address] [place] [address] CMPon 05-01-2021 Albumin/Globulin (S) [Mass conc ratio] 1.1 Normal 1.1-2.2 [facility] Comment on above: Performed By: #### 2 106827, 4396879, 1737461, 5198501 #### [facility] [address] [place] [address] Globulin (S) [Mass/Vol] 2.9 g/dL Normal 1.4-4.0 [facility] Comment on above: Performed By: #### 2 748225, 8586389, 3196363, 1417130 #### [facility] [address] [place] [address] Urea nitrogen/Creatinine [Mass ratio] 26 No Units High 10-20 [facility] Comment on above: Performed By: #### 2 872429, 4648218, 6307373, 8426385 #### [facility] [address] [place] [address] Albumin [Mass/Vol] 3.1 g/dL Low 3.3-5.0 [facility] Comment on above: Performed By: #### 2 610373, 2487832, 0021784, 2966585 #### [facility] [address] [place] [address] ALP [Catalytic activity/Vol] 88 Int._Unit/L Normal 21-98 [facility] Comment on above: Performed By: #### 2 289492, 2992258, 0672997, 7577901 #### [facility] [address] [place] [address] ALT No additional P-5'-P [Catalytic activity/Vol] 173 Int._Unit/L High 6-46 [facility] Comment on above: Performed By: #### 2 792209, 4032755, 0646348, 8890678 #### [facility] [address] [place] [address] Anion gap [Moles/Vol] 10 mmol/L Normal 6-16 [facility] Comment on above: Performed By: #### 2 632862, 1482263, 4407961, 3263919 #### [facility] [address] [place] [address] AST [Catalytic activity/Vol] 52 Int._Unit/L High 5-43 [facility] Comment on above: Performed By: #### 2 935530, 0092089, 7041236, 5092177 #### [facility] [address] [place] [address] Bilirubin [Mass/Vol] 0.4 mg/dL Normal 0.0-1.1 [facility] Comment on above: Performed By: #### 2 027196, 0490281, 1064045, 6824424 #### [facility] [address] [place] [address] Calcium [Mass/Vol] 8.4 mg/dL Low 8.9-11.1 [facility] Comment on above: Performed By: #### 2 210022, 0863114, 7101532, 3971565 #### [facility] [address] [place] [address] Chloride [Moles/Vol] 104 mmol/L Normal 101-111 [facility] Comment on above: Performed By: #### 2 700346, 9667381, 2535116, 4984178 #### [facility] [address] [place] [address] CO2 [Moles/Vol] 27 mmol/L Normal 21-31 [facility] Comment on above: Performed By: #### 2 998099, 1662879, 2127371, 6595685 #### [facility] [address] [place] [address] Creatinine [Mass/Vol] 0.7 mg/dL Normal 0.5-1.3 [facility] Comment on above: Performed By: #### 2 927481, 1054207, 9144180, 4498742 #### [facility] [address] [place] [address] Glucose [Mass/Vol] 127 mg/dL Normal 55-199 [facility] Comment on above: Result Comment: If t his glucose result represents a fasting glucose, interpretation should refer to the following reference range: 55-99 mg/dL Performed By: #### 2 657800, 1467050, 6079913, 6705778 #### [facility] [address] [place] [address] Potassium [Moles/Vol] 3.9 mmol/L Normal 3.5-5.3 [facility] Comment on above: Performed By: #### 2 443585, 5770420, 5767203, 6362668 #### [facility] [address] [place] [address] Protein [Mass/Vol] 6.0 g/dL Normal 6.0-7.8 [facility] Comment on above: Performed By: #### 2 966451, 3240455, 8750417, 1056025 #### [facility] [address] [place] [address] Sodium [Moles/Vol] 137 mmol/L Normal 135-145 [facility] Comment on above: Performed By: #### 2 915005, 9794760, 0614888, 2412570 #### [facility] [address] [place] [address] Urea nitrogen [Mass/Vol] 18 mg/dL Normal 5-21 [facility] Comment on above: Performed By: #### 2 642622, 2192987, 8709858, 9553648 #### [facility] [address] [place] [address] CRPon 05-01-2021 CRP [Mass/Vol] 1.3 mg/dL Normal <=1.9 [facility] Comment on above: Performed By: #### 2 756551, 4875041, 5747077, 5729633 #### [facility] [address] [place] [address] D-Dimeron 05-01-2021 Fibrin D-dimer FEU (PPP) [Mass/Vol] 403 [id number] Normal 215-500 [facility] Comment on above: Result Comment: This [...] infections Liver cirrhosis Performed By: #### 2 454288, 4157377, 2941209, 1981654 #### [facility] [address] [place] [address] Discharge Instructionson Discharge Instructions [id number]# 1.00CD:127 Normal [facility] Ferritinon 05-01-2021 Ferritin [Mass/Vol] 304 ng/mL Normal 24-336 [facility] Comment on above: Result Comment: NORM ALS MEN <30 YRS 16-132 ng/mL MEN >30 YRS 8-338 ng/mL WOMEN (PREMEN) 6-104 ng/mL WOMEN (POSTMEN) 12-210 ng/mL Performed By: #### 2 886414, 6651039, 1004931, 1705575 #### [facility] [address] [place] [address] Inpatient Clinical Summaryon 05-01-2021 Inpatient Clinical Summary [address] [address] Clinical Summary Person Information: Name: NAIDA CM Age: 20 Years : 2000 Sex: Male PCP: JAMES SUH CNP Marital Status: Single Phone: [phone] Race: White Ethnicity: Non- or Language: German Visit Id: Visit Reason: Cough; Weakness or fatigue; Shortness of breath; acute respiratory failure with hypoxia due to COVID Speciality: Acuity: Enc Type: Inpatient Med Service: Medical Arrival: 04/26/2021 14:37:56 Discharge: Dispo Type: Admitted as IP to this Hosp Address: [facility] [address] [id number] Provider Notes: Diagnosis: 1:Acute hypoxemic respiratory failure [...] With: Address: When: JAMESAnn-Marie [facility] [address] [place] [address] 05/08/2021 1:15 PM Comments: Appointment will be with Jessica Leach, as James Suh is on maternity leave. Patient Education Information: Dehydration, Adult, Gswm-nb-Olre; COVID-19: How to Protect Yourself and Others - CDC; COVID-19 Frequently Asked Questions; COVID-19 Albuterol (Eqv-Proventil HFA), dexamethasone 4 mg Tab, Mucinex Normal [facility] Inpatient Patient Summaryon 05-01-2021 Inpatient Patient Summary [address] [address] Patient Discharge Instructions PERSON INFORMATION [...] With: Address: When: JAMES [facility] [address] [place] [address] 05/08/2021 1:15 PM Comments: Appointment will be [...] tubing/mask. Refills: 0. [facility] Information: [facility] Comment: PATIENT EDUCATION INFORMATION Instructions: Dehydration, Adult [...] mouth. ? (more content not included)... Normal [facility] Interdisciplinary Note - Vic e Manageron 05-01-2021 Interdisciplinary Note - Web Programmer CRM spoke with patient in room. Patient [...] told patient will dc today. CRM called [employer] Steph and verified and she now says will dc today after Remdesivir dose given. Patient and his mother updated. Normal [facility] Comment on above: Result Comment: Elec tronically Signed By: Med KIM, Yisel\.br\Date and Time Signed: 05/01/21 10:41 EST LDHon 05-01-2021 LDH [Catalytic activity/Vol] 195 Int._Unit/L Normal 93-218 [facility] Comment on above: Performed By: #### 2 711823, 4463385, 3614793, 6306186 #### [facility] [address] [place] [address] Manual Diffon 05-01-2021 Band form neutrophils/100 WBC (Bld) 6 % Normal 0-10 [facility] Comment on above: Order Comment: Order Added by Discern Expert. Performed By: #### 2 997713, 7099918, 8648341, 4836939 #### [facility] [address] [place] [address] Basophils/100 WBC (Bld) 0 % Normal 0-2 [facility] Comment on above: Order Comment: Order Added by Discern Expert. Performed By: #### 2 990977, 1840216, 5463721, 2235543 #### [facility] [address] [place] [address] Eosinophils/100 WBC (Bld) 1 % Normal 0-8 [facility] Comment on above: Order Comment: Order Added by Discern Expert. Performed By: #### 2 901495, 2518528, 3557659, 8308237 #### [facility] [address] [place] [address] Lymphocytes/100 WBC (Bld) 31 % Normal 14-50 [facility] Comment on above: Order Comment: Order Added by Discern Expert. Performed By: #### 2 978251, 5338036, 8921082, 0600080 #### [facility] [address] [place] [address] Metamyelocytes/Leukoc ytes Manual cnt (Bld) [Pure # fraction] 1 % High <=0 [facility] Comment on above: Order Comment: Order Added by Discern Expert. Performed By: #### 2 857830, 2291796, 2203319, 3430190 #### [facility] [address] [place] [address] Monocytes/100 WBC (Bld) 9 % Normal 4-14 [facility] Comment on above: Order Comment: Order Added by Kerry Expert. Performed By: #### 2 445559, 5401007, 6861452, 7218416 #### [facility] [address] [place] [address] Myelocytes/100 WBC (Bld) 2 % High <=0 [facility] Comment on above: Order Comment: Order Added by Kerry Expert. Performed By: #### 2 774497, 6787952, 8137960, 9649593 #### [facility] [address] [place] [address] Segmented neutrophils/100 WBC (Bld) 45 % Normal 36-75 [facility] Comment on above: Order Comment: Order Added by Discern Expert. Performed By: #### 2 414027, 6948815, 5014286, 2212191 #### [facility] [address] [place] [address] Variant lymphocytes LM Ql (Bld) 5 % Invalid Interpretation Code [facility] Comment on above: Order Comment: Order Added by Kerry Expert. Performed By: #### 2 658006, 0103583, 3590349, 9008307 #### [facility] [address] [place] [address] Monitor Recordon 05-01-2021 Monitor Record [id number]# 1.00CD:127 Normal [facility] Monitor Record [id number]# 1.00CD:127 Normal [facility] Monitor Record [id number]# 1.00CD:127 Normal [facility] Monitor Record [id number]# 1.00CD:127 Normal [facility] Monitor Record [id number] 2 [id number]# 1.00CD:127 Normal [facility] Progress Note-Physicianon Progress Note-Physician Subjective Patient an 20y M with a past medical history significant for asthma who presented to the ED on 04/27 for worsening SOB over the past week or so. Pt reports that about 10 days ago he was evaluated at [facility] for muscle aches, chills, headache, cough, and anosmia. He tested positive for COVID-19 at that time. He was given a pulse oximeter and sent home. Since then he has experienced worsening symptoms and developed SOB over the past week. On presentation to the ED he was found to be hypoxemic. He was admitted to [facility] for further management of his symptoms. Pulmonary [...] in a. (more content not included)... Normal [facility] Comment on above: Result Comment: Elec tronically Signed By: Rozina ROWE, Isabel Hughes\.br\Date and Time Signed: 04/30/21 23:56 EST eGFRon 05-01-2021 GFR/1.73 sq M.predicted among blacks MDRD (S/P/Bld) [Vol rate/Area] mL/min/{1.73_m2} Normal >=59 [facility] Comment on above: Order Comment: Order added by Discern Expert. Result Comment: eGFR is race adjusted. AA=. Performed By: #### 2 [id number], [id number], [id number], [id number] #### [facility] [address] [place] [address] GFR/1.73 sq M.predicted among non-blacks MDRD (S/P/Bld) [Vol rate/Area] mL/min/{1.73_m2} Normal >=59 [facility] Comment on above: Order Comment: Order added by Discern Expert. Result Comment: External [employer] jaspreet kidney disease could be indicated at eGFR's of less than 60 mL/min/1.73m2. Kidney failure is indicated at less than 15 mL/min/1.73m2. Performed By: #### 2 [id number], [id number], [id number], [id number] #### [facility] [address] [place] [address] CBC w/Indiceson 04-30-2021 Erythrocyte distribution width (RBC) [Ratio] 13.6 % Normal 10.9-14.2 [facility] Comment on above: Performed By: #### 2 [id number], [id number], [id number], [id number] #### [facility] [address] [place] [address] Hematocrit (Bld) [Volume fraction] 41.5 % Normal 37.7-49.0 [facility] Comment on above: Performed By: #### 2 [id number], [id number], [id number], [id number] #### [facility] [address] [place] [address] Hemoglobin (Bld) [Mass/Vol] 14.0 g/dL Normal 13.5-17.5 [facility] Comment on above: Performed By: #### 2 [id number], [id number], [id number], [id number] #### [facility] [address] [place] [address] MCH (RBC) [Entitic mass] 26.9 pg Low 27.0-34.0 [facility] Comment on above: Performed By: #### 2 [id number], 1328802, 9355835, [id number] #### [facility] [address] [place] [address]49 MCHC (RBC) [Mass/Vol] 33.8 g/dL Normal 31.4-36.0 [facility] Comment on above: Performed By: #### 2 [id number], [id number], 1565043, [id number] #### [facility] [address] [place] [address]1972 MCV (RBC) [Entitic vol] 79.6 fL Low 80.0-100.0 [facility] Comment on above: Performed By: #### 2 [id number], [id number], 5808724, [id number] #### [facility] [address] [place] [address] Platelet mean volume (Bld) [Entitic vol] 6.8 fL Normal 6.4-10.8 [facility] Comment on above: Performed By: #### 2 002935, [id number], 1122787, [id number] #### [facility] [address], [place] [address] Platelets (Bld) [#/Vol] 343.0 E9/L Normal 150.0-500.0 [facility] Comment on above: Performed By: #### 2 424277, 4807096, 0515955, 3782659 #### [facility] [address] [place] [address] RBC (Bld) [#/Vol] 5.2 E12/L Normal 4.3-5.9 [facility] Comment on above: Performed By: #### 2 531929, 6055935, 3058995, 0392017 #### [facility] [address] [place] [address] WBC corrected for nucl RBC Auto (Bld) [#/Vol] 11.8 E9/L High 4.0-11.0 [facility] Comment on above: Performed By: #### 2 524458, 4420506, 1685755, 9099349 #### [facility] [address] [place] [address] CMPon 04-30-2021 Albumin [Mass/Vol] 3.0 g/dL Low 3.3-5.0 [facility] Comment on above: Performed By: #### 2 792900, 2931341, 71602115, 2069333, 9338575, 2514494, 8416641, 7554320, 1544583281, 63519034, 93598830, 76579931 #### [facility] [address] [place] [address] Albumin/Globulin (S) [Mass conc ratio] 1.1 Normal 1.1-2.2 [facility] Comment on above: Performed By: #### 2 917201, 6091365, 76115456, 5472760, 3704774, 3430053, 3632456, 9780211, 8542627663, 88166244, 25089261, 21051227 #### [facility] [address] [place] [address] ALP [Catalytic activity/Vol] 78 Int._Unit/L Normal 21-98 [facility] Comment on above: Performed By: #### 2 218083, 6828727, 61026710, 3764900, 1012161, 4054265, 3628672, 7749906, 2974630446, 13225890, 53111692, 12886178 #### [facility] [address] [place] [address] ALT No additional P-5'-P [Catalytic activity/Vol] 161 Int._Unit/L High 6-46 [facility] Comment on above: Performed By: #### 2 003202, 0182692, 04309030, 9460085, 3463443, 1850823, 9536475, 9716950, 6898409811, 78857349, 95836574, 03111234 #### [facility] [address] [place] [address] Anion gap [Moles/Vol] 14 mmol/L Normal 6-16 [facility] Comment on above: Performed By: #### 2 619067, 6079737, 06738633, 9792706, 8240759, 4469679, 6617589, 9946956, 6501293394, 02253189, 35612542, 56965597 #### [facility] [address] [place] [address] AST [Catalytic activity/Vol] 50 Int._Unit/L High 5-43 [facility] Comment on above: Performed By: #### 2 702689, 9421860, 16265411, 5938126, 9466030, 6927584, 6471437, 2211330, 2544437134, 38173469, 64048646, 93090044 #### [facility] [address] [place] [address] Bilirubin [Mass/Vol] 0.5 mg/dL Normal 0.0-1.1 [facility] Comment on above: Performed By: #### 2 156919, 5867265, 31368008, 8294211, 5932138, 0599253, 0481504, 6847631, 8276744858, 06163324, 59001949, 70287844 #### [facility] [address] [place] [address] Calcium [Mass/Vol] 8.2 mg/dL Low 8.9-11.1 [facility] Comment on above: Performed By: #### 2 912648, 2459814, 23720898, 7490835, 4121775, 7915343, 1187387, 9517737, 1608895725, 53942470, 92085447, 49990677 #### [facility] [address] [place] [address] Chloride [Moles/Vol] 101 mmol/L Normal 101-111 [facility] Comment on above: Performed By: #### 2 675632, 2006690, 24205569, 1825837, 1308068, 1165999, 9946059, 4705373, 6019318638, 43713939, 82135239, 71994178 #### [facility] [address] [place] [address] CO2 [Moles/Vol] 25 mmol/L Normal 21-31 [facility] Comment on above: Performed By: #### 2 942256, 9006003, 94815612, 8899109, 6108292, 5071506, 3109364, 6035240, 9811979701, 27439012, 94390421, 59645436 #### [facility] [address] [place] [address] Creatinine [Mass/Vol] 0.6 mg/dL Normal 0.5-1.3 [facility] Comment on above: Performed By: #### 2 044497, 0024243, 64469573, 4162706, 2655186, 8636545, 5895337, 9620399, 1218347899, 85831508, 86143702, 68303401 #### [facility] [address] [place] [address] Globulin (S) [Mass/Vol] 2.8 g/dL Normal 1.4-4.0 [facility] Comment on above: Performed By: #### 2 365328, 2648293, 80760538, 9089340, 0130730, 7591759, 9381511, 2813624, 4754721613, 42239774, 45721365, 56896669 #### [facility] [address] [place] [address] Glucose [Mass/Vol] 164 mg/dL Normal 55-199 [facility] Comment on above: Result Comment: If t his glucose result represents a fasting glucose, interpretation should refer to the following reference range: 55-99 mg/dL Performed By: #### 2 281733, 5064827, 82433777, 9382620, 0931519, 3797556, 1236163, 5206299, 8234654573, 45448147, 66097000, 85077774 #### [facility] [address] [place] [address] Potassium [Moles/Vol] 3.8 mmol/L Normal 3.5-5.3 [facility] Comment on above: Performed By: #### 2 698317, 2886936, 93020990, 4491798, 8555143, 9480855, 4424249, 0899318, 7158339341, 92985928, 21814200, 01095098 #### [facility] [address] [place] [address] Protein [Mass/Vol] 5.8 g/dL Low 6.0-7.8 [facility] Comment on above: Performed By: #### 2 653736, 3667219, 66098476, 2453585, 3510901, 6684181, 3495545, 8031511, 6511724250, 25646492, 42265580, 35069446 #### [facility] [address] [place] [address] Sodium [Moles/Vol] 136 mmol/L Normal 135-145 [facility] Comment on above: Performed By: #### 2 681093, 8211817, 14978393, 4401952, 1084298, 9466925, 1469921, 1756360, 8081960427, 88700664, 70685578, 37542204 #### [facility] [address] [place] [address] Urea nitrogen [Mass/Vol] 18 mg/dL Normal 5-21 [facility] Comment on above: Performed By: #### 2 628795, 2995239, 84314217, 7914519, 5316561, 2710922, 0553483, 5898699, 7898135709, 35264332, 47446706, 76126254 #### [facility] [address] [place] [address] Urea nitrogen/Creatinine [Mass ratio] 30 No Units High - [facility] Comment on above: Performed By: #### 2 774701, 9174005, 56241535, 4011479, 9364589, 1195982, 9351980, 0595472, 6738507106, 05808036, 55118604, 93333566 #### [facility] [address] [place] [address] CRPon 04-30-2021 CRP [Mass/Vol] 1.3 mg/dL Normal <=1.9 [facility] Comment on above: Performed By: #### 2 590526, 9359680, 7170267, 8513458 #### [facility] [address] [place] [address] Consultation Noteon 04-30-20 Consultation Note Chief Complaint sob, weakness History of Present Illness Patient an 20y M with a past medical history significant for asthma who presented to the ED on 04/27 for worsening SOB over the past week or so. Pt reports that about 10 days ago he was evaluated at [facility] for muscle aches, chills, headache, cough, and anosmia. He tested positive for COVID-19 at that time. He was given a pulse oximeter and sent home. Since then he has experienced worsening symptoms and developed SOB over the past week. On presentation to the ED he was found to be hypoxemic. He was admitted to [facility] for further management of his symptoms. Pulmonary [...] agree with the documentation and plan. Normal [facility] Comment on above: Result Comment: Elec tronically Signed By: Rozina ROWE, Isabel Hughes\.br\Date and Time Signed: 04/29/21 23:30 EST D-Dimeron 04-30-2021 Fibrin D-dimer FEU (PPP) [Mass/Vol] 381 [id number] Normal 215-500 [facility] Comment on above: Result Comment: This [...] infections Liver cirrhosis Performed By: #### 2 859656, 3816474, 9601978, 1325289 #### [facility] [address] [place] [address] Ferritinon 04-30-2021 Ferritin [Mass/Vol] 283 ng/mL Normal 24-336 [facility] Comment on above: Result Comment: NORM ALS MEN <30 YRS 16-132 ng/mL MEN >30 YRS 8-338 ng/mL WOMEN (PREMEN) 6-104 ng/mL WOMEN (POSTMEN) 12-210 ng/mL Performed By: #### 2 614895, 4029269, 6235424, 6596174 #### [facility] [address] [place] [address] Interdisciplinary Note - Vic e Manageron 04-30-2021 Interdisciplinary Note - Web Programmer CRM spoke with patient in room. Patient is alert and oriented and participates in discharge planning. No family in room. Patient white board updated, and CRM contact information provided. Patient is in isolation for COVID. Discussed CRM spoke with [facility] who saw patient earlier today and possible discharge home tomorrow. patient is on room air today. Patient denies any needs at discharge and he will update his mother. Normal [facility] Comment on above: Result Comment: Elec tronically Signed By: Med KIM, Yisel\.br\Date and Time Signed: 04/30/21 13:10 EST LDHon 04-30-2021 LDH [Catalytic activity/Vol] 190 Int._Unit/L Normal 93-218 [facility] Comment on above: Performed By: #### 2 107140, 5289934, 6307827, 4189490 #### [facility] [address] [place] [address] Monitor Recordon 04-30-2021 Monitor Record [id number]# 1.00CD:127 Normal [facility] Monitor Record [id number]# 1.00CD:127 Normal [facility] Progress Note-Physicianon Progress Note-Physician Assessment/Plan PLAN: 1. Acute hypoxemic respiratory failure due to COVID-19 (U07.1: COVID-19) -Symptoms started 9 days ago. Covid + at [facility] at that time. -SPO2 74% at [...] (E66.9: Obesity, unspecified) -BMI 37.33 -We will psychotherapist counselor on diet, exercise, weight loss and [...] mg/dL High (04/28/21 16:06:00) POC Device SN: [id number] (04/28/21 16:06:00) POC User ID: [id number] (04/28/21 16:06:00) POC Username: RONNIE VELASCO (04/28/21 16:06:00) Problem List/Past Medical History Ongoing No qualifying data Historical No qualifying data Medications Inpatient acetaminophen 325 mg Tab, 650 mg= 2 tab(s), Oral, q6hr, PRN albuterol HFA 90 mcg/inh MDI, 180 mcg= 2 puff(s), Inhalation, q4hr, PRN albuterol HFA 90 mcg/inh MDI, 180 m (more content not included)... Normal [facility] Comment on above: Result Comment: Elec tronically Signed By: Tamara GRAY\.br\Date and Time Signed: 04/29/21 10:52 EST\.br\Electronically Co-Signed By: Adalberto NICHOLAS MD\.br\Date and Time Co-Signed: 04/30/21 07:41 EST eGFRon 04-30-2021 GFR/1.73 sq M.predicted among blacks MDRD (S/P/Bld) [Vol rate/Area] mL/min/{1.73_m2} Normal >=59 [facility] Comment on above: Order Comment: Order added by Discern Expert. Result Comment: eGFR is race adjusted. AA=. Performed By: #### 2 072413, 7933593, 77823968, 5931990, 9209296, 5438313, 5029004, 9654605, 4047000578, 88930261, 88405220, 17708187 #### [facility] [address] [place] [address] GFR/1.73 sq M.predicted among non-blacks MDRD (S/P/Bld) [Vol rate/Area] mL/min/{1.73_m2} Normal >=59 [facility] Comment on above: Order Comment: Order added by Discern Expert. Result Comment: External Grinder Tool jaspreet kidney disease could be indicated at eGFR's of less than 60 mL/min/1.73m2. Kidney failure is indicated at less than 15 mL/min/1.73m2. Performed By: #### 2 898141, 2077118, 70506280, 1269075, 6638830, 5503337, 9911977, 5726766, 7205663809, 45610209, 54581156, 34664269 #### [facility] [address] [place] [address] CBC w/Indiceson 04-29-2021 Erythrocyte distribution width (RBC) [Ratio] 13.9 % Normal 10.9-14.2 [facility] Comment on above: Performed By: #### 2 426379, 8816062, 6962092, 8203113 #### [facility] [address] [place] [address] Hematocrit (Bld) [Volume fraction] 43.8 % Normal 37.7-49.0 [facility] Comment on above: Performed By: #### 2 405339, 0270831, 3747699, 0382062 #### [facility] [address] [place] [address] Hemoglobin (Bld) [Mass/Vol] 14.7 g/dL Normal 13.5-17.5 [facility] Comment on above: Performed By: #### 2 359397, 3323326, 1633994, 8174497 #### [facility] [address] [place] [address] MCH (RBC) [Entitic mass] 27.3 pg Normal 27.0-34.0 [facility] Comment on above: Performed By: #### 2 738496, 6111460, 1444738, 2040030 #### [facility] [address] [place] [address] MCHC (RBC) [Mass/Vol] 33.5 g/dL Normal 31.4-36.0 [facility] Comment on above: Performed By: #### 2 095299, 6242960, 8377841, 6632817 #### [facility] [address] [place] [address] MCV (RBC) [Entitic vol] 81.3 fL Normal 80.0-100.0 [facility] Comment on above: Performed By: #### 2 516152, 5899129, 4437950, 4726533 #### [facility] [address] [place] [address] Platelet mean volume (Bld) [Entitic vol] 7.1 fL Normal 6.4-10.8 [facility] Comment on above: Performed By: #### 2 435768, 8013994, 2757947, 5211541 #### [facility] [address] [place] [address] Platelets (Bld) [#/Vol] 369.0 E9/L Normal 150.0-500.0 [facility] Comment on above: Performed By: #### 2 062718, 8145464, 3433965, 9582210 #### [facility] [address] [place] [address] RBC (Bld) [#/Vol] 5.4 E12/L Normal 4.3-5.9 [facility] Comment on above: Performed By: #### 2 343167, 3109763, 9512892, 2688745 #### [facility] [address] [place] [address] WBC corrected for nucl RBC Auto (Bld) [#/Vol] 11.2 E9/L High 4.0-11.0 [facility] Comment on above: Performed By: #### 2 728930, 8541710, 1884958, 1202026 #### [facility] [address] [place] [address] CMPon 04-29-2021 Albumin [Mass/Vol] 3.1 g/dL Low 3.3-5.0 [facility] Comment on above: Performed By: #### 2 613824, 9231939, 2109743, 1603084 #### [facility] [address] [place] [address] Albumin/Globulin (S) [Mass conc ratio] 1.0 Low 1.1-2.2 [facility] Comment on above: Performed By: #### 2 271876, 2945156, 7288011, 3280433 #### [facility] [address] [place] [address] ALP [Catalytic activity/Vol] 72 Int._Unit/L Normal 21-98 [facility] Comment on above: Performed By: #### 2 279090, 7817287, 9911056, 6443037 #### [facility] [address] [place] [address] ALT No additional P-5'-P [Catalytic activity/Vol] 185 Int._Unit/L High 6-46 [facility] Comment on above: Performed By: #### 2 877312, 2703767, 1247490, 8448857 #### [facility] [address] [place] [address] Anion gap [Moles/Vol] 11 mmol/L Normal 6-16 [facility] Comment on above: Performed By: #### 2 951121, 7048340, 1394744, 7376651 #### [facility] [address] [place] [address] AST [Catalytic activity/Vol] 92 Int._Unit/L High 5-43 [facility] Comment on above: Performed By: #### 2 362430, 4385768, 0092996, 1484397 #### [facility] [address] [place] [address] Bilirubin [Mass/Vol] 0.5 mg/dL Normal 0.0-1.1 [facility] Comment on above: Performed By: #### 2 860369, 4180405, 5246786, 1803111 #### [facility] [address] [place] [address] Calcium [Mass/Vol] 8.5 mg/dL Low 8.9-11.1 [facility] Comment on above: Performed By: #### 2 231858, 5771806, 8612230, 4086719 #### [facility] [address] [place] [address] Chloride [Moles/Vol] 103 mmol/L Normal 101-111 [facility] Comment on above: Performed By: #### 2 256240, 6625267, 1654896, 6899032 #### [facility] [address] [place] [address] CO2 [Moles/Vol] 29 mmol/L Normal 21-31 [facility] Comment on above: Performed By: #### 2 627484, 3009683, 2912699, 4418664 #### [facility] [address] [place] [address] Creatinine [Mass/Vol] 0.8 mg/dL Normal 0.5-1.3 [facility] Comment on above: Performed By: #### 2 482713, 8812186, 3649268, 0269884 #### [facility] [address] [place] [address] Globulin (S) [Mass/Vol] 3.2 g/dL Normal 1.4-4.0 [facility] Comment on above: Performed By: #### 2 239778, 1414180, 1271278, 0360606 #### [facility] [address] [place] [address] Glucose [Mass/Vol] 106 mg/dL Normal 55-199 [facility] Comment on above: Result Comment: If t his glucose result represents a fasting glucose, interpretation should refer to the following reference range: 55-99 mg/dL Performed By: #### 2 108848, 0706870, 6605701, 5256633 #### [facility] [address] [place] [address] Potassium [Moles/Vol] 4.2 mmol/L Normal 3.5-5.3 [facility] Comment on above: Performed By: #### 2 974689, 1899371, 4639083, 0306687 #### [facility] [address] [place] [address] Protein [Mass/Vol] 6.3 g/dL Normal 6.0-7.8 [facility] Comment on above: Performed By: #### 2 247661, 4926824, 2818603, 6376288 #### [facility] [address] [place] [address] Sodium [Moles/Vol] 139 mmol/L Normal 135-145 [facility] Comment on above: Performed By: #### 2 194177, 5952928, 5101004, 6175863 #### [facility] [address] [place] [address] Urea nitrogen [Mass/Vol] 21 mg/dL Normal 5-21 [facility] Comment on above: Performed By: #### 2 943249, 4837075, 0421012, 7526880 #### [facility] [address] [place] [address] Urea nitrogen/Creatinine [Mass ratio] 26 No Units High 10-20 [facility] Comment on above: Performed By: #### 2 679168, 0317637, 5165261, 7210318 #### [facility] [address] [place] [address] CRPon 04-29-2021 CRP [Mass/Vol] 2.7 mg/dL High <=1.9 [facility] Comment on above: Performed By: #### 2 072057, 3966623, 3185346, 2595254 #### [facility] [address] [place] [address] Coding Queryon 04-29-2021 Coding Query - From: [...] been ruled out [___]Has been resolved [___]Per parts consultant/other treating provider documentation [___]Other: Treatment plan: [...] 12:17:47 EST Subject: RE: Coding Query Normal [facility] D-Dimeron 04-29-2021 Fibrin D-dimer FEU (PPP) [Mass/Vol] 407 [id number] Normal 215-500 [facility] Comment on above: Result Comment: This [...] infections Liver cirrhosis Performed By: #### 2 511179, 5707716, 3946338, 9760384 #### [facility] [address] [place] [address] Ferritinon 04-29-2021 Ferritin [Mass/Vol] 397 ng/mL High 24-336 [facility] Comment on above: Result Comment: NORM ALS MEN <30 YRS 16-132 ng/mL MEN >30 YRS 8-338 ng/mL WOMEN (PREMEN) 6-104 ng/mL WOMEN (POSTMEN) 12-210 ng/mL Performed By: #### 2 572625, 7625335, 2801227, 5435154 #### [facility] [address] [place] [address] Interdisciplinary Note - Vic e Manageron 04-29-2021 Interdisciplinary Note - Web Programmer CRM spoke with patient in room. Patient is alert and oriented and participates in discharge planning. No family in room. Patient white board updated, and CRM contact information provided. Patient is in isolation for COVID. Discussed CRM spoke with [facility] who saw patient earlier today and will be a couple days yet. will need to wean oxygen and may need desat prior to discharge. Pulmonology to see also. Patient denies any needs at discharge. he will update his mother. Normal [facility] Comment on above: Result Comment: Elec tronically Signed By: Med KIM, Yisel\.br\Date and Time Signed: 04/29/21 09:57 EST LDHon 04-29-2021 LDH [Catalytic activity/Vol] 261 Int._Unit/L High 93-218 [facility] Comment on above: Performed By: #### 2 584830, 1552904, 2879518, 6075674 #### [facility] [address] [place] [address] Monitor Recordon 04-29-2021 Monitor Record [id number]# 1.00CD:127 Normal [facility] Progress Note-Physicianon Progress Note-Physician Subjective Patient an 20y M with a past medical history significant for asthma who presented to the ED on 04/27 for worsening SOB over the past week or so. Pt reports that about 10 days ago he was evaluated at [facility] for muscle aches, chills, headache, cough, and anosmia. He tested positive for COVID-19 at that time. He was given a pulse oximeter and sent home. Since then he has experienced worsening symptoms and developed SOB over the past week. On presentation to the ED he was found to be hypoxemic. He was admitted to [facility] for further management of his symptoms. Pulmonary [...] prophylactic measure (more content not included)... Normal [facility] Comment on above: Result Comment: Elec tronically Signed By: Celsa Olivares\.br\Date and Time Signed: 04/29/21 20:19 EST eGFRon 04-29-2021 GFR/1.73 sq M.predicted among blacks MDRD (S/P/Bld) [Vol rate/Area] mL/min/{1.73_m2} Normal >=59 [facility] Comment on above: Order Comment: Order added by Discern Expert. Result Comment: eGFR is race adjusted. AA=. Performed By: #### 2 989314, 3474803, 6388742, 6564882 #### [facility] [address] [place] [address] GFR/1.73 sq M.predicted among non-blacks MDRD (S/P/Bld) [Vol rate/Area] mL/min/{1.73_m2} Normal >=59 [facility] Comment on above: Order Comment: Order added by Discern Expert. Result Comment: External Grinder Tool jaspreet kidney disease could be indicated at eGFR's of less than 60 mL/min/1.73m2. Kidney failure is indicated at less than 15 mL/min/1.73m2. Performed By: #### 2 740622, 0346531, 9064040, 4727755 #### [facility] [address] [place] [address] CRPon 04-28-2021 CRP [Mass/Vol] 7.1 mg/dL High <=1.9 [facility] Comment on above: Performed By: #### 2 069526, 6906438, 9012649, 3783214 #### [facility] [address] [place] [address] Capillary Glucose POCon 04-10 Glucose [Mass/Vol] 130 mg/dL High 55-99 [facility] Comment on above: Result Comment: Sara jose Meter Performed By: #### 2 [id number] ####[facility] [address] [place] [address] Glucose [Mass/Vol] 109 mg/dL High 55-99 [facility] Comment on above: Result Comment: Bessie fallon RN/ Cleaned Meter Performed By: #### 2 20194784 #### [facility] [address] [place] [address] Glucose [Mass/Vol] 116 mg/dL High 55-99 [facility] Comment on above: Result Comment: Sara jose Meter Performed By: #### 2 [id number] ####[facility] [address] [place] [address] D-Dimeron 04-28-2021 Fibrin D-dimer FEU (PPP) [Mass/Vol] 424 [id number] Normal 215-500 [facility] Comment on above: Result Comment: This [...] infections Liver cirrhosis Performed By: #### 2 631059, 6788738, 0140045, 2719218 #### [facility] [address] [place] [address] ECG Pediatricon 04-28-2021 ECG Pediatric The following ED Review was created for NAIDA CM: SINUS TACHYCARDIA NO STEMI NORMAL QTC ABNORMAL RHYTHM ECG Preliminary By: Donovan Moyer DO 04/26/2021 14:58:49 [employer] Technical Director has Agreed this ED Review Normal [facility] Ferritinon 04-28-2021 Ferritin [Mass/Vol] 324 ng/mL Normal 24-336 [facility] Comment on above: Result Comment: NORM ALS MEN <30 YRS 16-132 ng/mL MEN >30 YRS 8-338 ng/mL WOMEN (PREMEN) 6-104 ng/mL WOMEN (POSTMEN) 12-210 ng/mL Performed By: #### 2 588122, 3185088, 6161526, 4960067 #### [facility] [address] [place] [address] LDHon 04-28-2021 LDH [Catalytic activity/Vol] 212 Int._Unit/L Normal 93-218 [facility] Comment on above: Performed By: #### 2 263880, 4495933, 2196808, 8903197 #### [facility] [facility] [address] [place] [address] Monitor Recordon 04-28-2021 Monitor Record [id number]# 1.00CD:127 Normal [facility] Monitor Record [id number]# 1.00CD:127 Normal [facility] Monitor Record [id number]# 1.00CD:127 Normal [facility] Progress Note-Physicianon Progress Note-Physician Assessment/Plan PLAN: 1. Acute hypoxemic respiratory failure due to COVID-19 (U07.1: COVID-19) -Symptoms started 9 days ago. Covid + at [facility] at that time. -SPO2 74% at [...] (E66.9: Obesity, unspecified) -BMI 37.33 -We will psychotherapist counselor on diet, exercise, weight loss and [...] mg/dL High (04/28/21 16:06:00) POC Device SN: [id number] (04/28/21 16:06:00) POC User ID: [id number] (04/28/21 16:06:00) POC Username: RONNIE VELASCO (04/28/21 [...] IV Home No active home medications Normal [facility] Comment on above: Result Comment: Elec tronically Signed By: Tamara GRAY\.br\Date and Time Signed: 04/28/21 18:35 EST\.br\Electronically Co-Signed By: Adalberto NICHOLAS MD\.br\Date and Time Co-Signed: 04/28/21 18:57 EST Auto Diffon 04-27-2021 Basophils/100 WBC (Bld) 0.2 % Normal 0.0-2.0 [facility] Comment on above: Order Comment: Order Added by Discern Expert. Performed By: #### 2 790138, 5457005, 3844878, 1264883 #### [facility] [address] [place] [address] Basophils/Leukocytes Auto (Bld) [Pure # fraction] 0.0 E9/L Normal 0.0-0.2 [facility] Comment on above: Order Comment: Order Added by Discern Expert. Performed By: #### 2 710762, 2593635, 4579850, 0507608 #### [facility] [address] [place] [address] Eosinophils/100 WBC (Bld) 0.0 % Normal 0.0-8.0 [facility] Comment on above: Order Comment: Order Added by Discern Expert. Performed By: #### 2 902542, 2306340, 2362956, 9269815 #### [facility] [address] [place] [address] Eosinophils/Leukocyte s Auto (Bld) [Pure # fraction] 0.0 E9/L Normal 0.0-0.5 [facility] Comment on above: Order Comment: Order Added by Discern Expert. Performed By: #### 2 064860, 8553871, 1206870, 7432490 #### [facility] [address] [place] [address] Lymphocytes/100 WBC (Bld) 9.0 % Low 14.0-50.0 [facility] Comment on above: Order Comment: Order Added by Discern Expert. Performed By: #### 2 565939, 1821862, 2995673, 8446307 #### [facility] [address] [place] [address] Lymphocytes/Leukocyte s Auto (Bld) [Pure # fraction] 0.7 E9/L Low 1.0-4.0 [facility] Comment on above: Order Comment: Order Added by Discern Expert. Performed By: #### 2 368448, 1216507, 7054710, 2524517 #### [facility] [address] [place] [address] Monocytes/100 WBC (Bld) 4.4 % Normal 4.0-14.0 [facility] Comment on above: Order Comment: Order Added by Discern Expert. Performed By: #### 2 001492, 3149278, 0849148, 4633660 #### [facility] [address] [place] [address] Monocytes/Leukocytes Auto (Bld) [Pure # fraction] 0.3 E9/L Normal 0.2-1.0 [facility] Comment on above: Order Comment: Order Added by Discern Expert. Performed By: #### 2 646550, 5576825, 5404922, 3439016 #### [facility] [address] [place] [address] Neutrophils/100 WBC (Bld) 86.4 % High 36.0-75.0 [facility] Comment on above: Order Comment: Order Added by Discern Expert. Performed By: #### 2 756930, 1687863, 8186966, 4476949 #### [facility] [address] [place] [address] Neutrophils/Leukocyte s Auto (Bld) [Pure # fraction] 6.6 E9/L Normal 2.0-7.5 [facility] Comment on above: Order Comment: Order Added by Discern Expert. Performed By: #### 2 810041, 8216319, 3566643, 3209053 #### [facility] [address] [place] [address] CBC w/ Auto Diffon Erythrocyte distribution width (RBC) [Ratio] 14.1 % Normal 10.9-14.2 [facility] Comment on above: Performed By: #### 2 527497, 4245175, 7798673, 7278332 #### [facility] [address] [place] [address] Hematocrit (Bld) [Volume fraction] 42.2 % Normal 37.7-49.0 [facility] Comment on above: Performed By: #### 2 743804, 6207004, 5921895, 5753906 #### [facility] [address] [place] [address] Hemoglobin (Bld) [Mass/Vol] 13.8 g/dL Normal 13.5-17.5 [facility] Comment on above: Performed By: #### 2 648993, 3007274, 2797939, 2588051 #### [facility] [address] [place] [address] MCH (RBC) [Entitic mass] 27.0 pg Normal 27.0-34.0 [facility] Comment on above: Performed By: #### 2 906785, 0215685, 1862946, 5796863 #### [facility] [address] [place] [address] MCHC (RBC) [Mass/Vol] 32.7 g/dL Normal 31.4-36.0 [facility] Comment on above: Performed By: #### 2 481160, 3313460, 4098814, 5454016 #### [facility] [address] [place] [address] MCV (RBC) [Entitic vol] 82.3 fL Normal 80.0-100.0 [facility] Comment on above: Performed By: #### 2 369228, 0750513, 9381139, 8217817 #### [facility] [address] [place] [address] Platelet mean volume (Bld) [Entitic vol] 6.8 fL Normal 6.4-10.8 [facility] Comment on above: Performed By: #### 2 025847, 2600334, 2492170, 8575439 #### [facility] [address] [place] [address] Platelets (Bld) [#/Vol] 242.0 E9/L Normal 150.0-500.0 [facility] Comment on above: Performed By: #### 2 630137, 6824562, 9103395, 4648486 #### [facility] [address] [place] [address] RBC (Bld) [#/Vol] 5.1 E12/L Normal 4.3-5.9 [facility] Comment on above: Performed By: #### 2 696369, 1008891, 4719340, 1208102 #### [facility] [address] [place] [address] WBC corrected for nucl RBC Auto (Bld) [#/Vol] 7.7 E9/L Normal 4.0-11.0 [facility] Comment on above: Performed By: #### 2 728982, 2099603, 2412806, 7928121 #### [facility] [address] [place] [address] CKon 04-27-2021 CK [Catalytic activity/Vol] 458 Int._Unit/L Abnormal 14-261 [facility] Comment on above: Result Comment: Crit ical Result S_CK:[id number] Called to DOROTEO SHARMA AT by ERIN DOTSON and read back for confirmation at 04/27/2021 10:26:57\Critical Result verified by repeat analysis Performed By: #### 2 727112, 8261015, 3347018, 0925701 #### [facility] [address] [place] [address] CMPon 04-27-2021 Albumin/Globulin (S) [Mass conc ratio] 0.9 Low 1.1-2.2 [facility] Comment on above: Performed By: #### 2 627957, 4048649, 1569163, 4269358 #### [facility] [address] [place] [address] Anion gap [Moles/Vol] 13 mmol/L Normal 6-16 [facility] Comment on above: Performed By: #### 2 915229, 2767426, 0339812, 0800253 #### [facility] [address] [place] [address] Globulin (S) [Mass/Vol] 3.7 g/dL Normal 1.4-4.0 [facility] Comment on above: Performed By: #### 2 871470, 9676036, 4055885, 9595865 #### [facility] [address] [place] [address] Urea nitrogen/Creatinine [Mass ratio] 19 No Units Normal 10-20 [facility] Comment on above: Performed By: #### 2 952010, 9231583, 3465688, 0011945 #### [facility] [address] [place] [address] Albumin [Mass/Vol] 3.3 g/dL Normal 3.3-5.0 [facility] Comment on above: Performed By: #### 2 263020, 2095723, 6492070, 8534134 #### [facility] [address] [place] [address] ALP [Catalytic activity/Vol] 72 Int._Unit/L Normal 21-98 [facility] Comment on above: Performed By: #### 2 446683, 2554117, 4813374, 2531378 #### [facility] [address] [place] [address] ALT No additional P-5'-P [Catalytic activity/Vol] 73 Int._Unit/L High 6-46 [facility] Comment on above: Performed By: #### 2 591395, 2044734, 0356323, 8962762 #### [facility] [address] [place] [address] AST [Catalytic activity/Vol] 49 Int._Unit/L High 5-43 [facility] Comment on above: Performed By: #### 2 835095, 0810564, 1166780, 3881465 #### [facility] [address] [place] [address] Bilirubin [Mass/Vol] 0.8 mg/dL Normal 0.0-1.1 [facility] Comment on above: Performed By: #### 2 833064, 9687709, 9590238, 3817354 #### [facility] [address] [place] [address] Calcium [Mass/Vol] 8.4 mg/dL Low 8.9-11.1 [facility] Comment on above: Performed By: #### 2 417607, 9958404, 4626201, 3935732 #### [facility] [address] [place] [address] Chloride [Moles/Vol] 102 mmol/L Normal 101-111 [facility] Comment on above: Performed By: #### 2 735769, 2143277, 4410186, 8279859 #### [facility] [address] [place] [address] CO2 [Moles/Vol] 24 mmol/L Normal 21-31 [facility] Comment on above: Performed By: #### 2 112286, 3200556, 2899068, 1583724 #### [facility] [address] [place] [address] Creatinine [Mass/Vol] 0.7 mg/dL Normal 0.5-1.3 [facility] Comment on above: Performed By: #### 2 391511, 5064971, 9428394, 2707323 #### [facility] [address] [place] [address] Glucose [Mass/Vol] 122 mg/dL Normal 55-199 [facility] Comment on above: Result Comment: If t his glucose result represents a fasting glucose, interpretation should refer to the following reference range: 55-99 mg/dL Performed By: #### 2 976990, 3280591, 4721863, 4673120 #### [facility] [address] [place] [address] Potassium [Moles/Vol] 4.4 mmol/L Normal 3.5-5.3 [facility] Comment on above: Performed By: #### 2 907424, 7349790, 8633082, 3218631 #### [facility] [address] [place] [address] Protein [Mass/Vol] 7.0 g/dL Normal 6.0-7.8 [facility] Comment on above: Performed By: #### 2 241174, 0536080, 9267344, 2589095 #### [facility] [address] [place] [address] Sodium [Moles/Vol] 135 mmol/L Normal 135-145 [facility] Comment on above: Performed By: #### 2 793931, 1765987, 8553221, 1077088 #### [facility] [address] [place] [address] Urea nitrogen [Mass/Vol] 13 mg/dL Normal 5-21 [facility] Comment on above: Performed By: #### 2 893040, 3514513, 9284177, 3253390 #### [facility] [address] [place] [address] CRPon 04-27-2021 CRP [Mass/Vol] 18.1 mg/dL High <=1.9 [facility] Comment on above: Performed By: #### 2 320924, 7482584, 5968488, 7067413 #### [facility] [address] [place] [address] Capillary Glucose POCon 04-09 Glucose [Mass/Vol] 140 mg/dL High 55-99 [facility] Comment on above: Result Comment: Bessie fallon RN/ Performed By: #### 2 21071785 ####[facility] [address] [place] [address] D-Dimeron 04-27-2021 Fibrin D-dimer FEU (PPP) [Mass/Vol] 517 [id number] Abnormal 215-500 [facility] Comment on above: Result Comment: Resu [...] infections Liver cirrhosis Performed By: #### 2 602157, 1743863, 3153191, 2439543 #### [facility] [address] [place] [address] ED Clinical Summaryon 2020 ED Clinical Summary [address] [address] ED Clinical Summary Person Information Name: NAIDA CM Kori/[facility] Age: 20 Years : 2000 Sex: Male Language: German PCP: JAMES SUH CNP Marital Status: Single Phone: [phone] Visit Id: Visit Reason: Cough; Weakness or fatigue; Shortness of breath; COVID+, SOB, WEAKNESS, Speciality: Acuity: 1 Enc Type: Emergency Med Service: Emergency Arrival: 04/26/2021 14:37:56 Discharge: LOS: 000 24:02 Checkin: 04/26/2021 14:37:56 Checkout: 04/27/2021 14:39:39 Dispo Type: Admitted as IP to this [facility] EVENTS: Event Name Event Status [...] 04/27/2021 14:39:39 04/27/2021 14:39:39 04/27/2021 14:39:39 ADDRESS: [address] [place], [place] [address] [id number] PHYS DOC NOTES: MEDICAL INFORMATION: Prescriptions Given: PATIENT EDUCATION INFORMATION: Instructions: Follow up: DIAGNOSIS: 1:Acute hypoxemic respiratory failure due to COVID-19; 2:Asthma; 3:Weakness; 4:Dehydration; 5:Obesity; 6:DVT prophylaxis Normal [facility] ED Note-Physicianon 04-27-20 ED Note-Physician Basic [...] Art, w (more content not included)... Normal [facility] Comment on above: Result Comment: Elec tronically Signed By: Evie Joel PA-C\.br\Date and Time Signed: 04/26/21 22:06 EST\.br\Electronically Co-Signed By: Donovan Moyer DO\.br\Date and Time Co-Signed: 04/27/21 00:10 EST ED Patient Education Noteon 04-27-2021 ED Patient Education Note Normal [facility] ED Patient Summaryon 021 ED Patient Summary [place] [id number] Patient Discharge Instructions Person Information Name: NAIDA CM Age: 20 Years Arrival Date: 04/26/2021 14:37:56 Discharge Diagnosis: 1:Acute hypoxemic respiratory failure due to COVID-19; 2:Asthma; 3:Weakness; 4:Dehydration; 5:Obesity; 6:DVT prophylaxis Primary Care Physician: JAMES SUH CNP Provider Information Primary Provider: Donovan Moyer DO [employer] Sales Representative:None The exam and treatment you received in the Emergency Department were for an urgent problem and are not intended as complete care. It is important that you follow up with a doctor, nurse practitioner, or physician?s gallery assistant for ongoing care. If your symptoms [...] opioids can be used to help relieve sqbfrcon-xq-bvohlx pain and are often prescribed following a [...] be struggling with addiction, tell your health healthcare architect and ask for guidance or call [facility]?S National Helpline at 2-864-341-KPDT. u Source: [place] Department of Health and Human Services/Center for Disease Control (more content not included)... Normal [facility] Ferritinon 04-27-2021 Ferritin [Mass/Vol] 299 ng/mL Normal 24-336 [facility] Comment on above: Result Comment: NORM ALS MEN <30 YRS 16-132 ng/mL MEN >30 YRS 8-338 ng/mL WOMEN (PREMEN) 6-104 ng/mL WOMEN (POSTMEN) 12-210 ng/mL Performed By: #### 2 795235, 2871972, 3225603, 6443570 #### [facility] [address] [place] [address] LDHon 04-27-2021 LDH [Catalytic activity/Vol] 247 Int._Unit/L High 93-218 [facility] Comment on above: Performed By: #### 2 878741, 5443682, 2007046, 7314440 #### [facility] [address] [place] [address] Lactic Acidon 04-27-2021 Lactate [Mass/Vol] 1.2 mmol/L Normal 0.5-2.2 [facility] Comment on above: Performed By: #### 2 799389, 7774432, 7324976, 7572540 #### [facility] [address] [place] [address] Monitor Recordon 04-27-2021 Monitor Record [id number]# 1.00CD:127 Normal [facility] Procalcitoninon 04-27-2021 Procalcitonin <.05 Normal .00-.50 [facility] Comment on above: Result Comment: <0.5 ng/mL [...] to 24 hours. 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 Normal [facility] Progress Note-Physicianon Progress Note-Physician Assessment/Plan PLAN: 1. Acute hypoxemic respiratory failure due to COVID-19 (U07.1: COVID-19) -Symptoms started 9 days ago. Covid + at [facility] at that time. -SPO2 74% at [...] (E66.9: Obesity, unspecified) -BMI 37.33 -We will psychotherapist counselor on diet, exercise, weight loss and [...] Lymph Auto: 9 % Low (04/27/21 05:11:00) [place] Auto: 4.4 % (04/27/21 05:11:00) Eos Auto: 0 % (04/27/21 05:11:00) Basophil Auto: 0.2 % (04/27/21 05:11:00) Neutro Absolute: 6.6 E9/L (04/27/21 05:11:00) Lymph Absolute: 0.7 E9/L Low (04/27/21 05:11:00) [place] Absolute: 0.3 E9/L (04/27/21 05:11:00) Eos Absolute: [...] (04/27/21 05:11:00) (more content not included)... Normal [facility] Comment on above: Result Comment: Elec tronically Signed By: Tamara GRAY\.br\Date and Time Signed: 04/27/21 12:45 EST\.br\Electronically Co-Signed By: Man ROWE, Jens Mixon\.br\Date and Time Co-Signed: 04/27/21 14:34 EST TSH With T4fr Reflexon 04-27 TSH Qn 0.73 m[IU]/L Normal 0.34-5.60 [facility] Comment on above: Performed By: #### 2 070900, 9506073, 6072544, 5242482 #### [facility] [address] [place] [address] Troponin 9 Hr.on 04-27-2021 Troponin I.cardiac [Mass/Vol] 5.20 pg/mL Low 15.90-38.40 [facility] Comment on above: Result Comment: The 95% CI (Confidence Interval) PPV (Positive Predictive Value) for myocardial infarction in females is 38 pg/mL, in males 51 pg/mL. The results should be used in conjunction with clinical conditions of myocardial infarction. (Access High Sensitivity Troponin I Instructions For Use, Marta Ronal, December 2017) Performed By: #### 2 301755, 6921037, 2756477, 5474311 #### [facility] [address] [place] [address] eGFRon 04-27-2021 GFR/1.73 sq M.predicted among blacks MDRD (S/P/Bld) [Vol rate/Area] mL/min/{1.73_m2} Normal >=59 [facility] Comment on above: Order Comment: Order added by Discern Expert. Result Comment: eGFR is race adjusted. AA=. Performed By: #### 2 084368, 7398157, 8658890, 0269830 #### [facility] [address] [place] [address] GFR/1.73 sq M.predicted among non-blacks MDRD (S/P/Bld) [Vol rate/Area] mL/min/{1.73_m2} Normal >=59 [facility] Comment on above: Order Comment: Order added by Discern Expert. Result Comment: External Grinder [employer] jaspreet kidney disease could be indicated at eGFR's of less than 60 mL/min/1.73m2. Kidney failure is indicated at less than 15 mL/min/1.73m2. Performed By: #### 2 267796, 0955942, 0147022, 3862206 #### [facility] [address] [place] [address] Auto Diffon 04-26-2021 Basophils/100 WBC (Bld) 0.5 % Normal 0.0-2.0 [facility] Comment on above: Order Comment: Order Added by Discern Expert. Performed By: #### 2 688493, 8608372, 44346392, 1879674, 0071199, 0472301, 7404661, 7095798, 5929713707, 32031798, 82745145, 29812152 #### [facility] [address] [place] [address] Basophils/Leukocytes Auto (Bld) [Pure # fraction] 0.0 E9/L Normal 0.0-0.2 [facility] Comment on above: Order Comment: Order Added by Discern Expert. Performed By: #### 2 596411, 0198546, 48658654, 9940755, 7646495, 0774126, 7304274, 3940550, 3107284387, 83673593, 71289749, 39701332 #### [facility] [address] [place] [address] Eosinophils/100 WBC (Bld) 0.0 % Normal 0.0-8.0 [facility] Comment on above: Order Comment: Order Added by Discern Expert. Performed By: #### 2 895510, 0731126, 85010861, 1409541, 2289984, 2285245, 8917194, 4179359, 7475315085, 70130461, 23159751, 44811384 #### [facility] [address] [place] [address] Eosinophils/Leukocyte s Auto (Bld) [Pure # fraction] 0.0 E9/L Normal 0.0-0.5 [facility] Comment on above: Order Comment: Order Added by Discern Expert. Performed By: #### 2 156029, 4968090, 27447126, 5903620, 7968511, 6002644, 5177888, 2638366, 1424373770, 50194744, 65412952, 34779391 #### [facility] [address] [place] [address] Lymphocytes/100 WBC (Bld) 8.6 % Low 14.0-50.0 [facility] Comment on above: Order Comment: Order Added by Discern Expert. Performed By: #### 2 623547, 6107858, 76358958, 6579807, 2780519, 1476641, 0643104, 5847190, 5771493096, 02974792, 63309788, 38633597 #### [facility] [address] [place] [address] Lymphocytes/Leukocyte s Auto (Bld) [Pure # fraction] 0.9 E9/L Low 1.0-4.0 [facility] Comment on above: Order Comment: Order Added by Discern Expert. Performed By: #### 2 186969, 5969057, 00561594, 5569476, 9471075, 8775720, 0179256, 3082398, 6176381696, 10315806, 48694244, 87234442 #### [facility] [address] [place] [address] Monocytes/100 WBC (Bld) 5.1 % Normal 4.0-14.0 [facility] Comment on above: Order Comment: Order Added by Discern Expert. Performed By: #### 2 073477, 3445988, 82675320, 3598944, 5167213, 9732979, 5581843, 8968615, 3812789884, 61276157, 40240166, 21772550 #### [facility] [address] [place] [address] Monocytes/Leukocytes Auto (Bld) [Pure # fraction] 0.5 E9/L Normal 0.2-1.0 [facility] Comment on above: Order Comment: Order Added by Discern Expert. Performed By: #### 2 943889, 1665406, 88706677, 0107468, 0335592, 9165754, 8644361, 6434614, 6952038750, 25663029, 37767722, 69062367 #### [facility] [address] [place] [address] Neutrophils/100 WBC (Bld) 85.8 % High 36.0-75.0 [facility] Comment on above: Order Comment: Order Added by Discern Expert. Performed By: #### 2 496327, 7996474, 48795525, 5737879, 0546865, 9201630, 5299931, 9930991, 6446922132, 79214762, 78333707, 03375994 #### [facility] [address] [place] [address] Neutrophils/Leukocyte s Auto (Bld) [Pure # fraction] 8.5 E9/L High 2.0-7.5 [facility] Comment on above: Order Comment: Order Added by Discern Expert. Performed By: #### 2 124273, 4465915, 31336520, 8948950, 9905857, 6711950, 0959263, 4882462, 9437980605, 90348251, 28097553, 10207173 #### [facility] [address] [place] [address] BMPon 04-26-2021 Creatinine [Mass/Vol] 0.8 mg/dL Normal 0.5-1.3 [facility] Comment on above: Performed By: #### 2 353420, 7489094, 65606739, 6194201, 3764129, 5277585, 9414380, 5454038, 8490721930, 73686644, 99701703, 30532333 ####[facility] [address] [place] [address] Urea nitrogen [Mass/Vol] 13 mg/dL Normal 5-21 [facility] Comment on above: Performed By: #### 2 237106, 0578272, 26800750, 1945831, 1838051, 4795457, 8556514, 8718859, 9874325851, 83907192, 59450256, 18695975 ####[facility] [address] [place] [address] Urea nitrogen/Creatinine [Mass ratio] 16 No Units Normal 10-20 [facility] Comment on above: Performed By: #### 2 083684, 0400851, 13728187, 4523259, 0323303, 6850001, 3628589, 8421658, 7429248606, 42064383, 71376247, 34283602 ####[facility] [address] [place] [address] Anion gap [Moles/Vol] 14 mmol/L Normal 6-16 [facility] Comment on above: Performed By: #### 2 433433, 5474167, 17289838, 8203822, 8052257, 9549215, 2213744, 1148550, 8285276532, 89991844, 63501255, 78562659 ####[facility] [address] [place] [address] Calcium [Mass/Vol] 8.4 mg/dL Low 8.9-11.1 [facility] Comment on above: Performed By: #### 2 368188, 5100210, 92973025, 7066989, 4051169, 6857089, 7196776, 4981543, 5141942147, 21809429, 19082469, 00361948 ####[facility] [address] [place] [address] Chloride [Moles/Vol] 99 mmol/L Low 101-111 [facility] Comment on above: Performed By: #### 2 576757, 7823015, 54850825, 0784812, 4239753, 8566860, 5229046, 6776533, 4781569762, 39458249, 88301617, 79794164 ####[facility] [address] [place] [address] CO2 [Moles/Vol] 26 mmol/L Normal 21-31 [facility] Comment on above: Performed By: #### 2 647186, 3336488, 87620630, 8638764, 4047293, 7186854, 3127931, 2674127, 9697008265, 84086326, 24139351, 96697432 ####[facility] [address] [place] [address] Glucose [Mass/Vol] 130 mg/dL Normal 55-199 [facility] Comment on above: Result Comment: If t his glucose result represents a fasting glucose, interpretation should refer to the following reference range: 55-99 mg/dL Performed By: #### 2 935015, 0205083, 70762475, 9797331, 6204526, 5831683, 2874892, 6697524, 4477590980, 88273160, 85190081, 00278243 ####[facility] [address] [place] [address] Potassium [Moles/Vol] 3.8 mmol/L Normal 3.5-5.3 [facility] Comment on above: Performed By: #### 2 506372, 9224840, 04257758, 3218164, 7048184, 9298563, 0399814, 3847032, 5667519005, 11687470, 11356252, 85904754 ####[facility] [address] [place] [address] Sodium [Moles/Vol] 135 mmol/L Normal 135-145 [facility] Comment on above: Performed By: #### 2 681558, 9030409, 53529317, 0119772, 8608145, 6225585, 3055105, 3004113, 4317135338, 87010495, 31818557, 60649690 ####[facility] [address] [place] [address] BNPon 04-26-2021 Int Ctr BNP Pass Normal [facility] Comment on above: Performed By: #### 2 576556, 9644416, 20100513, 5627200, 2748903, 2631524, 4208224, 0283453, 6393633537, 91302695, 74576331, 98246158 ####[facility] [address] [place] [address] Natriuretic peptide B (Bld) [Mass/Vol] 17 pg/mL Normal 5-80 [facility] Comment on above: Performed By: #### 2 899722, 4671451, 61002412, 7453518, 1489085, 4824142, 0214438, 7201609, 0368816774, 16884039, 75801756, 22272368 ####[facility] [address] [place] [address] Blood Gas Art, with Lytes, G jm, [place] 04-26-2021 a/A Ratio Art 49.50 % Normal >=0.80 [facility] Comment on above: Performed By: #### 4 [id number] ####[facility] [address] [place] [address] AaDO2 Art 73.7 mmHg High 5.0-15.0 [facility] Comment on above: Performed By: #### 4 13678159 ####[facility] [address] [place] [address] Allens Test Positive Normal [facility] Comment on above: Performed By: #### 4 [id number] ####[facility] [address] [place] [address] Base Excess Arterial 4.1 mmol/L Normal >=2.8 [facility] Comment on above: Performed By: #### 4 [id number] ####[facility] [address] [place] [address] cCa2+ Art 4.59 mg/dL Normal 4.40-5.30 [facility] Comment on above: Performed By: #### 4 54671523 ####[facility] [address] [place] [address] cCl- Art 104.0 mmol/L Normal 101.0-111.0 [facility] Comment on above: Performed By: #### 4 47311266 ####[facility] [address] [place] [address] cGlu Art 126 mg/dL High 55-99 [facility] Comment on above: Performed By: #### 4 [id number] ####[facility] [address] [place] [address] cK+ Art 4.1 mmol/L Normal 3.5-5.3 [facility] Comment on above: Performed By: #### 4 [id number] ####[facility] [address] [place] [address] cLac Art .7 mmol/L Normal .5-2.2 [facility] Comment on above: Performed By: #### 4 09686509 ####[facility] [address] [place] [address] field pipelines supervisor+ Art 141.0 mmol/L Normal 135.0-145.0 [facility] Comment on above: Performed By: #### 4 [id number] ####[address] [address] Drawn by ss Invalid Interpretation Code [facility] Comment on above: Performed By: #### 4 [id number] ####[address] [address] FCOHb Art 1.2 % Low 1.5-4.9 [facility] Comment on above: Result Comment: Refe rence range Nonsmoker <1.5% Smoker <5.0% Heavy Smoker <9.0% Performed By: #### 4 10292433 ####[address] [address] FIO2 BG 21 Invalid Interpretation Code [facility] Comment on above: Performed By: #### 4 [id number] ####[address] [address] FMetHb Art 0.2 % Normal 0.0-1.9 [facility] Comment on above: Performed By: #### 4 [id number] ####[address] [address] FO2Hb Art 94.0 % Normal 93.0-100.0 [facility] Comment on above: Performed By: #### 4 39792049 ####[address] [address] HCO3 (Bld) [Moles/Vol] 28.0 mmol/L High 22.0-26.0 [facility] Comment on above: Performed By: #### 4 [id number] ####[address] [address] Hemoglobin (Bld) [Mass/Vol] 14.7 g/dL Normal 12.0-17.0 [facility] Comment on above: Performed By: #### 4 [id number] ####[facility] [place] [address] Oxygen saturation in Blood 95.4 % Normal 95.0-100.0 [facility] Comment on above: Performed By: #### 4 30089158 ####[address] [place] [address] P CO2 Arterial 42.1 mmHg Normal 35.0-45.0 [facility] Comment on above: Performed By: #### 4 87785592 ####[address] [place] [address] P O2 Arterial 72.2 mmHg Low 80.0-100.0 [facility] Comment on above: Performed By: #### 4 54690097 ####[address] [place] [address] pH Arterial 7.443 Normal 7.350-7.450 [facility] Comment on above: Performed By: #### 4 [id number] ####[address] [address] Sample Site R Radial Normal [facility] Comment on above: Performed By: #### 4 [id number] ####[address] [address] Sample Type Arterial Draw Normal [facility] Comment on above: Performed By: #### 4 52899120 ####[address] [place] [address] CBC w/ Auto Diffon 1 Erythrocyte distribution width (RBC) [Ratio] 13.9 % Normal 10.9-14.2 [facility] Comment on above: Performed By: #### 2 841378, 6698049, 75782223, 4622967, 3589992, 7518862, 8019057, 8631652, 3046655109, 72636428, 80579086, 10135671 #### [facility] [address] [place] [address] Hematocrit (Bld) [Volume fraction] 42.3 % Normal 37.7-49.0 [facility] Comment on above: Performed By: #### 2 390399, 2870311, 51550229, 3453648, 4332431, 2205389, 1957640, 7928838, 3304047259, 93947620, 94003527, 35661654 #### [facility] [address] [place] [address] Hemoglobin (Bld) [Mass/Vol] 14.6 g/dL Normal 13.5-17.5 [facility] Comment on above: Performed By: #### 2 140245, 8103700, 49112056, 5684898, 7219111, 7442964, 9932429, 9151971, 8487433969, 27787983, 28232350, 43908020 #### [facility] [address] [place] [address] MCH (RBC) [Entitic mass] 27.4 pg Normal 27.0-34.0 [facility] Comment on above: Performed By: #### 2 018181, 0882979, 99015751, 2874697, 1716419, 4257282, 4689763, 4991812, 0339900993, 64610285, 36478766, 99692874 #### [facility] [address] [place] [address] MCHC (RBC) [Mass/Vol] 34.5 g/dL Normal 31.4-36.0 [facility] Comment on above: Performed By: #### 2 053826, 1093175, 20572156, 1046301, 4540009, 8247025, 6670261, 3579635, 1660538984, 67429991, 78152117, 59843396 #### [facility] [address] [place] [address] MCV (RBC) [Entitic vol] 79.4 fL Low 80.0-100.0 [facility] Comment on above: Performed By: #### 2 557625, 6376651, 17879063, 0086918, 3425058, 4782999, 3986070, 7409369, 0805460048, 20195101, 42845330, 44499384 #### [facility] [address] [place] [address] Platelet mean volume (Bld) [Entitic vol] 6.9 fL Normal 6.4-10.8 [facility] Comment on above: Performed By: #### 2 183979, 6744198, 83716210, 5499428, 2729772, 8384827, 2315188, 0318077, 8413545713, 88109730, 96481014, 13679130 #### [facility] [address] [place] [address] Platelets (Bld) [#/Vol] 220.0 E9/L Normal 150.0-500.0 [facility] Comment on above: Performed By: #### 2 980226, 0385684, 41303017, 3035760, 2201279, 4668727, 8125009, 6350667, 9571829989, 89078097, 27980614, 21940544 #### [facility] [address] [place] [address] RBC (Bld) [#/Vol] 5.3 E12/L Normal 4.3-5.9 [facility] Comment on above: Performed By: #### 2 668866, 4974761, 16262592, 3326288, 0311737, 1896765, 1355248, 0309691, 1607011943, 18931010, 09185512, 08539307 #### [facility] [address] [place] [address] WBC corrected for nucl RBC Auto (Bld) [#/Vol] 9.9 E9/L Normal 4.0-11.0 [facility] Comment on above: Performed By: #### 2 025846, 6084744, 47630183, 9394572, 2498584, 5100285, 7904829, 8722372, 5373080755, 23266468, 31017901, 90608741 #### [facility] [address] [facility] [place] [address] CRPon 04-26-2021 CRP [Mass/Vol] 16.8 mg/dL High <=1.9 [facility] Comment on above: Performed By: #### 2 843746, 6061425, 58258824, 2480436, 6672429, 2548182, 3556734, 0401667, 3730526603, 34477837, 67182505, 74454282 ####[facility] [address] [place] [address] Consent for Treatmenton 04-09 Consent for Treatment [id number] 112 [id number]:127 Normal [facility] D-Dimeron 04-26-2021 Fibrin D-dimer FEU (PPP) [Mass/Vol] 437 [id number] Normal 215-500 [facility] Comment on above: Result Comment: This [...] infections Liver cirrhosis Performed By: #### 2 652798, 1191133, 08423037, 4608944, 4846181, 6754004, 0395229, 9321882, 5155172365, 30664723, 50331168, 08075314 ####[facility] [address] [place] [address] ED Note-Nursingon 04-26-2021 ED Note-Nursing road test completed at this time. pt pulse ox decreased, at bedside and is aware. pt very anxious to ambulate. pt states SOB with ambulation. denies CP. denies needs. pt TBA and is aware. denies needs at this time. Normal [facility] LDHon 04-26-2021 LDH [Catalytic activity/Vol] 278 Int._Unit/L High 93-218 [facility] Comment on above: Performed By: #### 2 884783, 4685312, 42123736, 3716273, 6054397, 6971598, 8949806, 2734994, 1045781075, 37857626, 32630892, 88077190 ####[facility] [address] [place] [address] Lactic Acidon 04-26-2021 Lactate [Mass/Vol] 1.1 mmol/L Normal 0.5-2.2 [facility] Comment on above: Performed By: #### 2 331673, 3360694, 50571513, 3824980, 3712796, 0529994, 9715464, 0633032, 4738960762, 51224232, 47683484, 50255194 ####[facility] [address] [place] [address] PT & PTTon 04-26-2021 aPTT Coag (PPP) [Time] 30.6 second(s) Normal 25.1-36.5 [facility] Comment on above: Result Comment: Hepa rin therapeutic range (represented by Anti-Factor Xa activity of 0.2 - 0.4 U/mL) corresponds to PTT of 56.6 - 109.0 sec. Performed By: #### 2 288826, 3829320, 00578020, 8141419, 2961867, 0599424, 3929796, 2692797, 4255324759, 95113783, 53432293, 12219426 ####[facility] [address] [place] [address] INR Coag (PPP) [Relative time] 1.2 {INR} Invalid Interpretation Code [facility] Comment on above: Result Comment: INR results are specifically intended to assess patients stabilized on long-term Anticoagulation therapy suggested INR?s ?Less Intensive Anticoagulation? 2.0 ? 3.0 Conventional Range 3.0 ? 4.5 Performed By: #### 2 379162, 3935467, 76141946, 8238285, 2698318, 6754427, 9241288, 9473184, 2442393042, 55956367, 34584683, 49241070 ####[facility] [address] [place] [address] PT Coag (PPP) [Time] 14.1 second(s) High 10.2-12.9 [facility] Comment on above: Performed By: #### 2 957287, 8352567, 21049026, 9987597, 4249325, 1909862, 7144271, 8816436, 6615452497, 17411837, 63118695, 30013129 ####[facility] [address] [place] [address] Procalcitoninon 04-26-2021 Procalcitonin .09 ng/mL Normal .00-.50 [facility] Comment on above: Result Comment: <0.5 ng/mL [...] to 24 hours. Performed By: #### 2 822532, 3776368, 52237371, 5322788, 6494898, 1157684, 9889908, 9302916, 2950904860, 60246366, 03756106, 85464175 ####[facility] [address] [place] [address] Troponin 0 Hr.on 04-26-2021 Troponin I.cardiac [Mass/Vol] 6.70 pg/mL Low 15.90-38.40 [facility] Comment on above: Result Comment: The 95% CI (Confidence Interval) PPV (Positive Predictive Value) for myocardial infarction in females is 38 pg/mL, in males 51 pg/mL. The results should be used in conjunction with clinical conditions of myocardial infarction. (Access High Sensitivity Troponin I Instructions For Use, [employer], December 2017) Performed By: #### 2 560338, 1473258, 88070127, 9002826, 2592716, 6260785, 5763184, 3510700, 4028146339, 43883442, 94937498, 16532346 ####[facility] [address] [place] [address] Troponin 3 Hr.on 04-26-2021 Troponin I.cardiac [Mass/Vol] 6.40 pg/mL Low 15.90-38.40 [facility] Comment on above: Result Comment: The 95% CI (Confidence Interval) PPV (Positive Predictive Value) for myocardial infarction in females is 38 pg/mL, in males 51 pg/mL. The results should be used in conjunction with clinical conditions of myocardial infarction. (Access High Sensitivity Troponin I Instructions For Use, [employer], December 2017) Performed By: #### 1 3037686 ####[facility] [address] [place] [address] Troponin 6 Hr.on 04-26-2021 Troponin I.cardiac [Mass/Vol] 5.50 pg/mL Low 15.90-38.40 [facility] Comment on above: Result Comment: The 95% CI (Confidence Interval) PPV (Positive Predictive Value) for myocardial infarction in females is 38 pg/mL, in males 51 pg/mL. The results should be used in conjunction with clinical conditions of myocardial infarction. (Access High Sensitivity Troponin I Instructions For Use, [employer], December 2017) Performed By: #### 2 600928, 7223338, 8879469, 2414212 #### [facility] [address] [place] [address] UA With Cult Reflexon 2020 Bacteria LM Ql (Urine sed) TRACE Normal Trace [facility] Comment on above: Performed By: #### 2 677827, 2018629, 8871678, 3180356 #### [facility] [address] [place] [address] Bilirubin Ql (U) Negative Normal Negative [facility] Comment on above: Performed By: #### 2 206988, 7456826, 9554447, 1301485 #### [facility] [address] [place] [address] Clarity (U) CLEAR Normal Clear [facility] Comment on above: Performed By: #### 2 774704, 5992268, 9442357, 8158671 #### [facility] [address] [place] [address] Color (U) YELLOW Normal Yellow [facility] Comment on above: Performed By: #### 2 593686, 1296282, 7912440, 4143514 #### [facility] [address] [place] [address] Epithelial cells.squamous LM.HPF (Urine sed) [#/Area] 0-2 Normal 0-2 [facility] Comment on above: Performed By: #### 2 083251, 0424419, 2397689, 0687206 #### [facility] [address] [place] [address] Glucose Test strip (U) [Mass/Vol] Negative Normal Negative [facility] Comment on above: Performed By: #### 2 228682, 8295317, 2417847, 8917195 #### [facility] [address] [place] [address] Hemoglobin Ql (U) TRACE Abnormal Negative [facility] Comment on above: Performed By: #### 2 279520, 4878472, 9912878, 5181963 #### [facility] [address] [place] [address] Ketones (U) [Mass/Vol] Negative Normal Negative [facility] Comment on above: Performed By: #### 2 971661, 4476518, 0168647, 3940254 #### [facility] [address] [place] [address] [place].plasma/Lithiu m.RBC (Bld) [Mass ratio] 0-3 Normal 0-3 [facility] Comment on above: Performed By: #### 2 387743, 9544851, 0551419, 1053762 #### [facility] [address] [place] [address] Nitrite Ql (U) Negative Normal Negative [facility] Comment on above: Performed By: #### 2 246397, 5171854, 8695168, 3890638 #### [facility] [address] [place] [address] pH (U) 6.5 [pH] Invalid Interpretation Code 5.0-9.0 [facility] Comment on above: Performed By: #### 2 483186, 0313515, 7939544, 0234199 #### [facility] [address] [place] [address] Protein (U) [Mass/Vol] TRACE Abnormal Negative [facility] Comment on above: Performed By: #### 2 462991, 5695330, 6315191, 3871521 #### [facility] [address] [place] [address] Specific gravity (U) [Rel density] 1.020 Invalid Interpretation Code 1.005-1.030 [facility] Comment on above: Performed By: #### 2 335697, 6546571, 9687934, 8329687 #### [facility] [address] [place] [address] Type of Urine collection method Clean Catch Normal [facility] Comment on above: Performed By: #### 2 863391, 3769446, 2985915, 5083796 #### [facility] [address] [place] [address] Urobilinogen Qn (U) 1.0 {Kathy'U}/dL Normal 0.0-1.0 [facility] Comment on above: Performed By: #### 2 327085, 0684404, 5928108, 0538662 #### [facility] [address] [place] [address] WBC Auto Ql (U) Negative Normal Negative [facility] Comment on above: Performed By: #### 2 601729, 9302968, 5311151, 9603692 #### [facility] [address] [place] [address] WBC LM.HPF (Urine sed) [#/Area] 0-5 Normal 0-5 [facility] Comment on above: Performed By: #### 2 224482, 1004556, 4642955, 0189350 #### [facility] [address] [place] [address] XR Chest Single Viewon 04-26 XR Chest [...] MD Transcribed by: KATHI Technologist: MICHEAL Normal [facility] eGFRon 04-26-2021 GFR/1.73 sq M.predicted among blacks MDRD (S/P/Bld) [Vol rate/Area] mL/min/{1.73_m2} Normal >=59 [facility] Comment on above: Order Comment: Order added by Discern Expert. Result Comment: eGFR is race adjusted. AA=. Performed By: #### 2 825668, 7275843, 02784268, 5213103, 7869920, 4891428, 7098356, 0528829, 4353681518, 54358455, 78062078, 33991963 ####[facility] [address] [place] [address] GFR/1.73 sq M.predicted among non-blacks MDRD (S/P/Bld) [Vol rate/Area] mL/min/{1.73_m2} Normal >=59 [facility] Comment on above: Order Comment: Order added by Discern Expert. Result Comment: External Grinder Tool jaspreet kidney disease could be indicated at eGFR's of less than 60 mL/min/1.73m2. Kidney failure is indicated at less than 15 mL/min/1.73m2. Performed By: #### 2 943584, 7027771, 00416451, 7834634, 6278170, 5726134, 9654180, 3935094, 7426653813, 52659410, 29116959, 46673956 ####[facility] [address] [place] [address] CARDIAC JIM ADMITon 021 CK >1600 Critically high 55-170 [facility] Comment on above: Result Comment: test repeated, critical value verified Performed By: #### L IPA, CMP, TSH, CMADM #### [facility] [address] [address] [address] Darrius Lindsey CK.MB [Mass/Vol] 6.32 ng/mL Critically high <=2.37 [facility] Comment on above: Performed By: #### L IPA, CMP, TSH, CMADM #### [facility] [address] [address] [address] Darrius Lindsey HSTROP 20.3 pg/mL Normal 4.0-42.2 [facility] Comment on above: Result Comment: CUT- OFF POINTS HAVE BEEN ESTABLISHED BASED ON THE FOURTH UNIVERSAL DEFINITIONS OF MYOCARDIAL INFARCTION. THE UPPER REFERENCE LIMIT (URL) OF TROPONIN, DEFINED THE 99TH PERCENTILE OF cTnI DISTRIBUTION IN A REFERENCE POPULATION, HAS BEEN CONFIRMED THE DECISION THRESHOLD FOR NE DIAGNOSIS. Performed By: #### L IPA, CMP, TSH, CMADM #### [facility] [address] [address] [address] Darrius Lindsey REY 710.0 ng/mL Critically high <=121.0 [facility] Comment on above: Performed By: #### L IPA, CMP, TSH, CMADM #### [facility] [address] [address] [address] Darrius Lindsey CBC AUTO DIFFon 04-25-2021 BASO # 0.0 103/ul Normal 0.0-0.1 [facility] Comment on above: Performed By: #### C BC ####[facility] [address] [address]Dr[address] Darrius Lindsey Basophils/100 WBC (Bld) 0.1 % Critically low 0.2-2.0 [facility] Comment on above: Performed By: #### C BC ####[facility] [address] [place], [place] [address]DrMandy Lindsey EO # 0.0 103/ul Normal 0.0-0.7 [facility] Comment on above: Performed By: #### C BC ####[facility] [address] [place], [place] [address]Dr. Darrius Lindsey Eosinophils/100 WBC (Bld) 0.0 % Critically low 0.9-7.0 [facility] Comment on above: Performed By: #### C BC ####[facility] [address] [place], [place] [address]Dr. Darrius Lindsey Erythrocyte distribution width (RBC) [Ratio] 13.2 % Normal 11.0-15.0 [facility] Comment on above: Performed By: #### C BC ####[facility] [address] [place], [place] [address]Dr. Darrius Lindsey Hematocrit (Bld) [Volume fraction] 47.4 % Normal 42.0-54.0 [facility] Comment on above: Performed By: #### C BC ####[facility] [address] [place], [place] [address]Dr. Darrius Lindsey Hemoglobin (Bld) [Mass/Vol] 15.5 g/dL Normal 14.0-18.0 [facility] Comment on above: Performed By: #### C BC ####[facility] [address] [place], [place] [address]DrMandy Lindsey IG # 0.04 10e3/ul Critically high 0.00-0.03 [facility] Comment on above: Performed By: #### C BC ####[facility] [address] [place], [place] [address]Dr. Darrius Lindsey IG % 0.5 % Normal 0.0-0.5 [facility] Comment on above: Performed By: #### C BC ####[facility] [address] [address]DrMandy Lindsey LYMPH # 0.7 103/ul Critically low 1.2-3.8 [facility] Comment on above: Performed By: #### C BC ####[facility] [address] [address]DrMandy Lindsey Lymphocytes/100 WBC (Bld) 8.8 % Critically low 20.5-60.0 [facility] Comment on above: Performed By: #### C BC ####[facility] [address] [place], [place] [address]DrMandy Lindsey MANUAL DIFF REQ NO Normal [facility] Comment on above: Performed By: #### C BC ####[facility] [address] [address]DrMandy Lindsey MCH (RBC) [Entitic mass] 27.1 pg Normal 25.9-34.0 [facility] Comment on above: Performed By: #### C BC ####[facility] [address] [place], [place] [address]DrMandy Lindsey MCHC (RBC) [Mass/Vol] 32.7 g/dL Normal 29.9-35.2 [facility] Comment on above: Performed By: #### C BC ####[facility] [address] [place], [place] [address]DrMandy Lindsey MCV (RBC) [Entitic vol] 83.0 fL Normal 80.0-94.0 [facility] Comment on above: Performed By: #### C BC ####[facility] [address] [place], [place] [address]DrMandy Lindsey MONO # 0.5 103/ul Normal 0.3-0.8 [facility] Comment on above: Performed By: #### C BC ####[facility] [address] [place], [place] [address]DrMandy Lindsey Monocytes/100 WBC (Bld) 5.8 % Normal 1.7-12.0 [facility] Comment on above: Performed By: #### C BC ####[facility] [address] [address]Dr. Darrius Lindsey NEUT # 6.8 103/ul Critically high 1.4-6.5 [facility] Comment on above: Performed By: #### C BC ####[facility] [address] [address]Dr. Darrius Lindsey Neutrophils/100 WBC (Bld) 84.8 % Critically high 43.0-75.0 [facility] Comment on above: Performed By: #### C BC ####[facility] [address] [address]Dr. Darrius Lindsey Platelet mean volume (Bld) [Entitic vol] 8.8 fL Critically low 9.5-13.5 [facility] Comment on above: Performed By: #### C BC ####[facility] [address] [address]Dr. Darrius Lindsey PLT 197 103/ul Normal 150-450 [facility] Comment on above: Performed By: #### C BC ####[facility] [address] [address]Dr. Darrius Lindsey RBC 5.71 106/ul Normal 4.70-6.10 [facility] Comment on above: Performed By: #### C BC ####[facility] [address] [place], [place] [id number]. Darrius Lindsey WBC 8.0 103/ul Normal 4.0-11.0 [facility] Comment on above: Performed By: #### C BC ####[facility] [address] [address]Dr. Darrius Lindsey LIPASEon 04-25-2021 Lipase [Catalytic activity/Vol] 75.0 U/L Normal 23.0-300.0 [facility] Comment on above: Performed By: #### L IPA, CMP, TSH, CMADM #### [facility] [address] [address] [address] Darrius Lindsey PROF 14(COMP METB)on 021 Albumin [Mass/Vol] 3.5 g/dL Normal 3.5-5.0 [facility] Comment on above: Performed By: #### L IPA, CMP, TSH, CMADM #### [facility] [address] [address] [address] Darrius Lindsey Albumin/Globulin [Mass ratio] 0.8 {ratio} Normal [facility] Comment on above: Performed By: #### L IPA, CMP, TSH, CMADM #### [facility] [address] [address] [address] Darrius Lindsey ALP [Catalytic activity/Vol] 103 U/L Normal 38-126 [facility] Comment on above: Performed By: #### L IPA, CMP, TSH, CMADM #### [facility] [address] [address] [address] Darrius Lindsey ALT [Catalytic activity/Vol] 62 U/L Normal 21-72 [facility] Comment on above: Performed By: #### L IPA, CMP, TSH, CMADM #### [facility] [address] [address] [address] Darrius Lindsey Anion gap [Moles/Vol] 14.8 mmol/L Normal [facility] Comment on above: Performed By: #### L IPA, CMP, TSH, CMADM #### [facility] [address] [address] [address] Darrius Lindsey AST [Catalytic activity/Vol] 87 U/L Critically high 17-59 [facility] Comment on above: Performed By: #### L IPA, CMP, TSH, CMADM #### [facility] [address] [address] [address] Darrius Lindsey Bilirubin [Mass/Vol] 0.6 mg/dL Normal 0.2-1.3 [facility] Comment on above: Performed By: #### L IPA, CMP, TSH, CMADM #### [facility] [address] [address] [address] Darrius Lindsey Calcium [Mass/Vol] 9.3 mg/dL Normal 8.4-10.2 [facility] Comment on above: Performed By: #### L IPA, CMP, TSH, CMADM #### [facility] [address] [address] [address] Darrius Lindsey Chloride [Moles/Vol] 101 mmol/L Normal 98-107 [facility] Comment on above: Performed By: #### L IPA, CMP, TSH, CMADM #### [facility] [address] [address] [address] Darrius Lindsey CO2 [Moles/Vol] 28.8 mmol/L Normal 22.0-30.0 [facility] Comment on above: Performed By: #### L IPA, CMP, TSH, CMADM #### [facility] [address] [place] [address] Dr. Darrius Lindsey Creatinine [Mass/Vol] 0.99 mg/dL Normal 0.66-1.25 [facility] Comment on above: Performed By: #### L IPA, CMP, TSH, CMADM #### [facility] [address] [place] [address] Dr. Darrius Lindsey EGFR-AF GUYANESE >60 Normal >=60 [facility] Comment on above: Performed By: #### L IPA, CMP, TSH, CMADM #### [facility] [address] [address] [address] Darrius Lindsey EGFR-NON AF GUYANESE >60 Normal >=60 [facility] Comment on above: Performed By: #### L IPA, CMP, TSH, CMADM #### [facility] [address] [address] [address] Darrius Lindsey Globulin (S) [Mass/Vol] 4.5 g/dL Normal [facility] Comment on above: Performed By: #### L IPA, CMP, TSH, CMADM #### [facility] [address] [address] [address] Darrius Lindsey Glucose [Mass/Vol] 128 mg/dL Critically high 74-106 [facility] Comment on above: Performed By: #### L IPA, CMP, TSH, CMADM #### [facility] [address] [place] [address] Dr. Darrius Lindsey Potassium [Moles/Vol] 4.6 mmol/L Normal 3.4-5.0 [facility] Comment on above: Performed By: #### L IPA, CMP, TSH, CMADM #### [facility] [address] [place] [address] Dr. Darrius Lindsey Protein [Mass/Vol] 8.0 g/dL Normal 6.1-8.2 [facility] Comment on above: Performed By: #### L IPA, CMP, TSH, CMADM #### [facility] [address] [place] [address] Dr. Darrius Lindsey Sodium [Moles/Vol] 140 mmol/L Normal 137-145 [facility] Comment on above: Performed By: #### L IPA, CMP, TSH, CMADM #### [facility] [address] [place] [address] Dr. Darrius Lindsey Urea nitrogen [Mass/Vol] 16.0 mg/dL Normal 6.4-19.3 [facility] Comment on above: Performed By: #### L IPA, CMP, TSH, CMADM #### [facility] [address] [place] [address] Dr. Darrius Lindsey Urea nitrogen/Creatinine [Mass ratio] 16.2 mg/mg Normal [facility] Comment on above: Performed By: #### L IPA, CMP, TSH, CMADM #### [facility] [address] [place] [address] Dr. Darrius Lindsey TSHon 04-25-2021 TSH 1.381 uIU/mL Normal 0.430-3.750 [facility] Comment on above: Performed By: #### L IPA, CMP, TSH, CMADM #### [facility] [address] [place] [address] Dr. Darrius Lindsey TSH RANGE SEE BELOW Normal [facility] Comment on above: Result Comment: <0.3 4 UIU/ml HYPERTHYROID 0.34-5.60 UIU/ml EUTHYROID >5.60 UIU/ml HYPOTHYROID Performed By: #### L IPA, CMP, TSH, CMADM #### [facility] [address] [address] [address] Darrius Lindsey XR CHEST 1 Von [...] CHRISSIE MARRERO Date: 2021-04-25 11:30 Normal [facility] Covid-19 PCR (CVDTB)on SARS-CoV-2 (COVID-19) RNA ROSIE+probe Ql (Unsp spec) Detected Critically abnormal NOT DETECTED [facility] Comment on above: Result Comment: This test is not yet approved or cleared by the [place] FDA. When there are no FDA-approved or cleared tests available, and other criteria are met, FDA can make tests available under an emergency access mechanism called an Emergency Use Authorization (EUA). The EUA for this test is supported by the [place] of Health and Human Service's (HHS's) declaration [...] used). Performed By: #### C VDTB #### [facility] [address] [id number] Darrius Lindsey XR ABD FLAT UP_PA [...] ALEXIS GOMEZ Date: 2020-10-11 22:21 Normal [facility] CBC AUTO DIFFon 10-11-2020 BASO # 0.1 103/ul Normal 0.0-0.1 [facility] Comment on above: Performed By: #### C BC #### [facility] [address] [place], [place] [id number] Mary Kay Suzie Basophils/100 WBC (Bld) 0.8 % Normal 0.2-2.0 [facility] Comment on above: Performed By: #### C BC #### [facility] [address] [place], [place] [address] Mary Kay Suzie EO # 0.3 103/ul Normal 0.0-0.7 [facility] Comment on above: Performed By: #### C BC #### [facility] [address] [place], [place] [id number] Mary Kay Suzie Eosinophils/100 WBC (Bld) 3.1 % Normal 0.9-7.0 [facility] Comment on above: Performed By: #### C BC #### [facility] [address] [place], [place] [address] Mary Kay Suzie Erythrocyte distribution width (RBC) [Ratio] 13.2 % Normal 11.0-15.0 [facility] Comment on above: Performed By: #### C BC #### [facility] [address] [place], [place] [address] Mary Kay Suzie Hematocrit (Bld) [Volume fraction] 42.1 % Normal 42.0-54.0 [facility] Comment on above: Performed By: #### C BC #### [facility] [address] [place], [place] [address] Mary Kay Suzie Hemoglobin (Bld) [Mass/Vol] 14.1 g/dL Normal 14.0-18.0 [facility] Comment on above: Performed By: #### C BC #### [facility] [address] [place] [address] Mary Kaymolly Larsen IG # 0.03 10e3/ul Normal 0.00-0.03 [facility] Comment on above: Performed By: #### C BC #### [facility] [address] [place] [address] Mary Kay Suzie IG % 0.3 % Normal 0.0-0.5 [facility] Comment on above: Performed By: #### C BC #### [facility] [address] [place] [address] Mary Kay Suzie LYMPH # 3.2 103/ul Normal 1.2-3.8 [facility] Comment on above: Performed By: #### C BC #### [facility] [address] [place] [address] Mary Kay Suzie Lymphocytes/100 WBC (Bld) 30.5 % Normal 20.5-60.0 [facility] Comment on above: Performed By: #### C BC #### [facility] [address] [place] [address] Mary Kay Suzie MANUAL DIFF REQ NO Normal [facility] Comment on above: Performed By: #### C BC #### [facility] [address] [place] [address] Mary Kay Suzie MCH (RBC) [Entitic mass] 26.9 pg Normal 25.9-34.0 [facility] Comment on above: Performed By: #### C BC #### [facility] [address] [place] [address] Mary Kay Suzie MCHC (RBC) [Mass/Vol] 33.5 g/dL Normal 29.9-35.2 [facility] Comment on above: Performed By: #### C BC #### [facility] [address] [place] [address] Mary Kay Suzie MCV (RBC) [Entitic vol] 80.3 fL Normal 76.3-90.1 [facility] Comment on above: Performed By: #### C BC #### [facility] [address] [id number] Mary Kay Suzie MONO # 0.6 103/ul Normal 0.3-0.8 [facility] Comment on above: Performed By: #### C BC #### [facility] [address] [id number] Mary Kay Suzie Monocytes/100 WBC (Bld) 6.0 % Normal 1.7-12.0 [facility] Comment on above: Performed By: #### C BC #### [facility] [address] [place] [address] Mary Kay Suzie NEUT # 6.1 103/ul Normal 1.4-6.5 [facility] Comment on above: Performed By: #### C BC #### [facility] [address] [place] [address] Mary Kay Suzie Neutrophils/100 WBC (Bld) 59.3 % Normal 43.0-75.0 [facility] Comment on above: Performed By: #### C BC #### [facility] [address] [place], [place] [address] Mary Kay Suzie Platelet mean volume (Bld) [Entitic vol] 9.2 fL Critically low 9.5-13.5 [facility] Comment on above: Performed By: #### C BC #### [facility] [address] [place], [place] [address] Mary Kay Suzie PLT 259 103/ul Normal 150-450 [facility] Comment on above: Performed By: #### C BC #### [facility] [address] [place] [address] Mary Kay Suzie RBC 5.24 106/ul Normal 3.30-5.40 [facility] Comment on above: Performed By: #### C BC #### [facility] [address] [place], [place] [address] Mary Kay Suzie WBC 10.3 103/ul Normal 4.0-11.0 [facility] Comment on above: Performed By: #### C BC #### [facility] [address] [place], [place] [address] Mary Kay Suzie ER URINE PROFILEon 1 Bilirubin Ql (U) Negative Normal NEGATIVE [facility] Comment on above: Performed By: #### E RUR #### [facility] [address] [place], [place] [address] Mary Kay Suzie Clarity (U) CLOUDY Abnormal CLEAR [facility] Comment on above: Performed By: #### E RUR #### [facility] [address] [place] [address] Mary Kay Suzie Color (U) LT. YELLOW Normal YELLOW [facility] Comment on above: Performed By: #### E RUR #### [facility] [address] [place], [place] [address] Mary Kay Suzie ERUAHD A micrscopic examination will be performed if indicated. Normal [facility] Comment on above: Performed By: #### E RUR #### [facility] [address] [place] [address] Mary Kay Suzie Glucose Ql (U) Negative Normal NEGATIVE [facility] Comment on above: Performed By: #### E RUR #### [facility] [address] [place] [address] Mary Kay Suzie Hemoglobin Ql (U) Negative Normal NEGATIVE [facility] Comment on above: Performed By: #### E RUR #### [facility] [address] [place] [address] Mary Kay Suzie Ketones Ql (U) Negative Normal NEGATIVE [facility] Comment on above: Performed By: #### E RUR #### [facility] [address] [place] [address] Mary Kay Suzie LEUKOCYTES Negative Normal NEGATIVE [facility] Comment on above: Performed By: #### E RUR #### [facility] [address] [place], [place] [address] Mary Kay Suzie Nitrite Ql (U) Negative Normal NEGATIVE [facility] Comment on above: Performed By: #### E RUR #### [facility] [address] [place] [address] Mary Kay Suzie pH (U) 7.5 [pH] Normal 5-9 [facility] Comment on above: Performed By: #### E RUR #### [facility] [address] [place], [place] [address] Mary Kay Larsen SPEC GRAVITY 1.020 Normal 1.005-<=1.025 [facility] Comment on above: Performed By: #### E RUR #### [facility] [address] [place], [place] [address] Mary Kaymolly Larsen UA PROTEIN Negative Normal NEGATIVE/ TRACE [facility] Comment on above: Performed By: #### E RUR #### [facility] [address] [place], [place] [address] Mary Kay Larsen UR MICRO IND NOT INDICATED Normal [facility] Comment on above: Performed By: #### E RUR #### [facility] [address] [place], [place] [address] Mary Kay Larsen Urobilinogen Qn (U) 2.0 {Kathy'U}/dL Abnormal 0.2 - 1. 0 [facility] Comment on above: Performed By: #### E RUR #### [facility] [address] [place], [place] [address] Mary Kay Larsen PROF 14(COMP METB)on 021 Albumin [Mass/Vol] 4.0 g/dL Normal 3.5-5.0 [facility] Comment on above: Performed By: #### C MP #### [facility] [address] [place], [place] [address] Mary Kaymolly Larsen Albumin/Globulin [Mass ratio] 1.2 {ratio} Normal [facility] Comment on above: Performed By: #### C MP #### [facility] [address] [place], [place] [address] Mary Kay Suzie ALP [Catalytic activity/Vol] 159 U/L Normal 65-260 [facility] Comment on above: Performed By: #### C MP #### [facility] [address] [place], [place] [address] Mary Kay Suzie ALT [Catalytic activity/Vol] 47 U/L Normal 21-72 [facility] Comment on above: Performed By: #### C MP #### [facility] [address] [address] Mary Kay Suzie Anion gap [Moles/Vol] 13.4 mmol/L Normal [facility] Comment on above: Performed By: #### C MP #### [facility] [address] [place], [place] [address] Mary Kay Suzie AST [Catalytic activity/Vol] 26 U/L Normal 17-59 [facility] Comment on above: Performed By: #### C MP #### [facility] [address] [address] Mary Kay Suzie Bilirubin [Mass/Vol] 0.5 mg/dL Normal 0.2-1.3 [facility] Comment on above: Performed By: #### C MP #### [facility] [address] [place] [address] Mary Kay Suzie Calcium [Mass/Vol] 9.0 mg/dL Normal 8.4-10.2 [facility] Comment on above: Performed By: #### C MP #### [facility] [address] [place] [address] Mary Kay Suzie Chloride [Moles/Vol] 107 mmol/L Normal 98-107 [facility] Comment on above: Performed By: #### C MP #### [facility] [address] [place] [address] Mary Kay Suzie CO2 [Moles/Vol] 29.7 mmol/L Normal 22.0-30.0 [facility] Comment on above: Performed By: #### C MP #### [facility] [address] [place] [address] Mary Kay Suzie Creatinine [Mass/Vol] 0.97 mg/dL Normal 0.66-1.25 [facility] Comment on above: Performed By: #### C MP #### [facility] [address] [place], [place] [address] Mary Kay Suzie Globulin (S) [Mass/Vol] 3.4 g/dL Normal [facility] Comment on above: Performed By: #### C MP #### [facility] [address] [place], [place] [address] Mary Kay Suzie Glucose [Mass/Vol] 99 mg/dL Normal 74-106 [facility] Comment on above: Performed By: #### C MP #### [facility] [address] [id number] Mary Kay Suzie Potassium [Moles/Vol] 4.1 mmol/L Normal 3.4-5.0 [facility] Comment on above: Performed By: #### C MP #### [facility] [address] [id number] Mary Kay Suzie Protein [Mass/Vol] 7.4 g/dL Normal 6.1-8.2 [facility] Comment on above: Performed By: #### C MP #### [facility] [address] [address] Mary Kay Suzie Sodium [Moles/Vol] 146 mmol/L Critically high 137-145 [facility] Comment on above: Performed By: #### C MP #### [facility] [address] [address] Mary Kay Suzie Urea nitrogen [Mass/Vol] 15.0 mg/dL Normal 6.4-19.3 [facility] Comment on above: Performed By: #### C MP #### [facility] [address] [id number] Mary Kay Suzie Urea nitrogen/Creatinine [Mass ratio] 15.5 mg/mg Normal [facility] Comment on above: Performed By: #### C MP #### [facility] [address] [place], [place] [address] Mary Kay Suzie Encounters Encounter Date Encounter Type Care Provider Facility Start: 04-05-2024 End: 04-05-2024 ambulatory Jessica Leach Facility:[facility] Start: 06-07-2023 End: 06-07-2023 ambulatory KARISSA VILLATORO Not Available Start: 04-25-2021 End: 04-25-[address] JERRY PETERSEN Facility:[facility] Start: 04-23-2021 End: 04-23-2021 ambulatory NICOLASA PEDROZA Facility:[facility] Start: 04-17-2021 End: 04-17-[address] JIM GRANDE Facility:[facility] Start: 10-11-2020 End: 2020 ambulatory KIMBERLYN MELCHOR Facility:[facility] Payers Date Payer Category Payer Self-pay 2022 Medicaid [id number] 2002 Unknown [id number] 2.16.84 [id number] 1981 Unknown [id number] 2.16.84 [id number] 1981 Unknown [id number] 2.16.84 [id number] 1981 Unknown [id number] 2.16.84 [id number] 1981 Unknown [id number] 2.16.84 [id number] 1959 Unknown [id number] Unknown [id number] 2.16.8 [id number] Clinical Note 05-03-2021 Note Date & Type [...] R1: This test was performed at: [facility], [address] [place] [address], [id number] , , [facility] Comment on above: Performed By: #### 1 [id number] ####[facility] [id number] [place] [address] Clinical Note 05-03-2021 Note Date & Type [...] Locations R1: This test was performed at: [facility], [address] [place] [address], [facility]- , , [facility] Comment on above: Performed By: #### 2 [id number] #### [facility] [address] [place] [address] Discharge summary note 05-02-2021 Note Date & [...] be reviewed and discussed with PCP or military communications specialist MD once the hospital dry house operator is able to reach him/her. I [...] made to ensure accuracy, however, inadvertently computerized transfer car operator mistakes may be present. Significant Findings No [...] COVID-19 (U07.1: COVID-19) + COVID 19 at [facility] -> Unvaccinated -CXR: COVID 19 PNA [...] hygiene. All equipment was properly cleansed. Ordered: [facility], Nebulizer, 1 machine w/ approp. tubing/mask, [...] Asthma (J45.909: Unspecified (more content not included)... [facility] Comment on above: Result Comment: Elec [...] needs. Ant dc TBD. CRM to follow. [facility] Comment on above: Result Comment: Elec [...] oximeter after he tested positive at the [facility] 9 days prior. He states his [...] room air. I did question the emergency manager massage department if this was on room air as documented but she was uncertain. While being observed in the emergency department at one point his pulse ox was 91% on room air. With further questioning patient advises me that he has been to the [place] emergency department on 3 other occasions over the past week did not feel satisfied with no improvement in his symptoms thus came to this facility. I was advised by the emergency manager massage department that the patient's parents brought him in [...] no longer a (more content not included)... [facility] Comment on above: Result Comment: Elec [...] content) DATE CREATED AUTHOR 04/29/2021 [facility] DATE CREATED AUTHOR AUTHOR'S ORGANIZ ATION 05/06/2021 [facility] DATE CREATED AUTHOR AUTHOR'S ORGANIZ ATION 06/08/2023 [facility] DATE CREATED AUTHOR AUTHOR'S ORGANIZ ATION 05/02/2024 [facility] FOR RECORDS PERTAINING TO [...] BE BASED ON THE PRIMARY CLINICAL RECORDS. [facility]. provides no warranty or guarantee of the accuracy or completeness of information in this document.
[2024-05-22 06:47] LABS: Basophils Percent Auto 0.3 % (0.2-2.0); Hematocrit 40.9 % (42.0-54.0); Hemoglobin 13.5 g/dL (14.0-18.0); Immature Granulocytes Abs Auto 0.08 10^3/uL (0.00-0.03); Lymphocytes Absolute Auto 0.9 10^3/uL (1.2-3.8); Lymphocytes Percent Auto 10.9 % (20.5-60.0); Mean Corpuscular Hemoglobin 27.6 pg (25.9-34.0); Mean Corpuscular Volume 83.5 fL (80.0-94.0); Mean Platelet Volume 8.7 fL (9.5-13.5); Monocytes Absolute Auto 0.4 10^3/uL (0.3-0.8); Monocytes Percent Auto 4.9 % (1.7-12.0); Neutrophils Absolute Auto 6.5 10^3/uL (1.4-6.5); Neutrophils Percent Auto 82.9 % (43.0-75.0); Platelet Count 256 10^3/uL (150-450); White Blood Count 7.8 10^3/uL (4.0-11.0)
[2024-05-22 07:05] LABS: Alanine Aminotransferase 40 U/L (16-63); Albumin Globulin Ratio 0.7; Albumin Level 3.1 g/dL (3.4-5.0); Alkaline Phosphatase 135 U/L (46-116); Anion Gap 16.5; Aspartate Amino Transferase 27 U/L (15-37); BUN Creatinine Ratio 3.4; Bilirubin Total 0.3 mg/dL (0.2-1.0); Calcium 9.2 mg/dL (8.5-10.1); Carbon Dioxide 26.2 mmol/L (21.0-32.0); Chloride 105 mmol/L (98-107); Estimated GFR (African America >60 (>=60 mL/min/1.73m^2); Estimated GFR (Non-African Ame >60 (>=60 mL/min/1.73m^2); Globulin 4.5 g/dL; Glucose 172 mg/dL (74-106); Potassium 3.7 mmol/L (3.5-5.1); Sodium 144 mmol/L (136-145); Total Protein 7.6 g/dL (6.4-8.2)
--- NOTE | 2024-05-22 09:00 | PM.PN ---
Progress Note: Subjective Subjective Interval history: Patient feels overall improved since yesterday. Less shortness of breath, cough is less, no fevers overnight. He did have a nose bleed. Patient has been off oxygen for several hours this morning and maintaining oxygen saturations >90%. No other issues or concerns today. Exam Narrative Exam Narrative: General: Patient is alert, and oriented to person, place and time with normal affect, proper hygiene Skin: no visible rashes, or ulcers Head: atraumatic, acephalic Neck: no masses palpated, normal thyroid Heart: Normal rate and rhythm, no murmurs/rubs/gallops Lungs: no audible wheezes, crackles and normal breath sounds all lung [place] Abdomen: Normal audible bowel sounds, no distension, No palpable masses, no organomegaly, no rebound/guarding/ or rigidity Musculoskeletal: no swelling bilateral lower extremities Neuro: CN II-X grossly intact Constitutional Vital Signs, click to edit/add: Last Vital Signs Temp 97.7 F 05/22/24 07:44 Pulse 96 H 05/22/24 07:44 Resp 18 05/22/24 07:44 BP 128/74 05/22/24 07:44 Pulse Ox 96 05/22/24 07:44 O2 Del Method Nasal Cannula 05/22/24 07:44 O2 Flow Rate 93 05/22/24 07:44 Progress Note: Objective Labs Labs: Short CBC 05/22/24 Range/Units 06:32 WBC 7.8 (4.0-11.0) 10^3/uL Hgb 13.5 L (14.0-18.0) g/dL Hct 40.9 L (42.0-54.0) % Plt Count 256 (150-450) 10^3/uL BMP 05/22/24 06:32 Sodium 144 Potassium 3.7 Chloride 105 Carbon Dioxide 26.2 BUN 3.0 L Creatinine 0.88 Glucose 172 H Calcium 9.2 Liver Function 05/22/24 Range/Units 06:32 Total Bilirubin 0.3 (0.2-1.0) mg/dL AST 27 (15-37) U/L ALT 40 (16-63) U/L Alkaline Phosphatase 135 H (46-116) U/L Albumin 3.1 L (3.4-5.0) g/dL Progress Note: A&P Assessment and Plan (1) Right lower lobe pneumonia: Assessment and Plan: will continue with azithromycin, rocephin IV, duonebs, OPEP. CXR consistent with RLL pneumonia. Monitor the need for oxygen. currently requiring 2L NC oxygen to maintain oxygen saturations >90%. CTA negative for PE. continue solumedrol with his history of Asthma Qualifiers: Pneumonia type: due to unspecified organism Qualified Code(s): J18.9 - Pneumonia, unspecified organism (2) Sinus tachycardia: Assessment and Plan: most likely secondary to fever and illness, no sign of PE on CTA (3) Elevated d-dimer: Assessment and Plan: CTA chest showed no PE, infectious cause Plan patient is a full code Lovenox for DVT prophylaxis walk test today, If still not requiring oxygen possible discharge today.
[2024-05-22] MEDS: LACTATED RINGER'S SOLUTION 1,000 ML 125 ML IV ×3 (09:08→19:43)
[2024-05-22] MEDS: ENOXAPARIN SODIUM 40 MG/0.4 ML SYRINGE SUBQ (09:08)
[2024-05-22] MEDS: CEFTRIAXONE 1,000 MG in 0.9 % SODIUM CHLORIDE 50 ML 100 MG IV (09:08)
[2024-05-22] MEDS: AZITHROMYCIN 500 MG in 0.9 % SODIUM CHLORIDE 250 ML 250 MG IV (09:43)
[2024-05-22] MEDS: MAGNESIUM SULFATE IN WATER 2 GM/50 ML PREMIX IV (10:55)
--- NOTE | 2024-05-22 11:20 | CM.NOTE ---
Rounds made with Dr. Harris, discussed with pt possible discharge this afternoon or evening if pt able to maintain on RA. Dr. Harris will order walk test to evaluate oxygen sat prior to discharge.
[2024-05-22 23:06] LABS: Amphetamine Screen Urine NEGATIVE (NEGATIVE); Barbiturates Screen Urine NEGATIVE (NEGATIVE); Benzodiazepines Screen Urine NEGATIVE (NEGATIVE); Buprenorphine Screen Urine NEGATIVE (NEGATIVE); Cannabinoid Screen Urine NEGATIVE (NEGATIVE); Cocaine Screen Urine NEGATIVE (NEGATIVE); Methadone Screen Urine NEGATIVE (NEGATIVE); Methamphetamines Screen Urine NEGATIVE (NEGATIVE); Opiate Screen Urine NEGATIVE (NEGATIVE); Oxycodone Screen Urine NEGATIVE (NEGATIVE); Phencyclidine Screen Urine NEGATIVE (NEGATIVE); Tricyclic Antidepressant Urine NEGATIVE (NEGATIVE)
[2024-05-23] VITALS (17 sets, daily range): BP systolic 123–127; BP diastolic 72–78; PULSE 82–120; TEMP 36.6–36.7; O2SAT 87–96
[2024-05-23] MEDS: LACTATED RINGER'S SOLUTION 1,000 ML 125 ML IV (03:42)
[2024-05-23] MEDS: IPRATROPIUM/ALBUTEROL SULFATE 3 ML AMPUL.NEB IH ×2 (05:25→11:16)
[2024-05-23] MEDS: METHYLPREDNISOLONE SOD SUCC PF 40 MG/ML VIAL IVP ×2 (05:35→13:12)
[2024-05-23] MEDS: ENOXAPARIN SODIUM 40 MG/0.4 ML SYRINGE SUBQ (08:58)
[2024-05-23] MEDS: CEFTRIAXONE 1,000 MG in 0.9 % SODIUM CHLORIDE 50 ML 100 MG IV (09:12)
--- NOTE | 2024-05-23 09:22 | PM.DS1 ---
DS: Providers Provider Date of admission: 05/21/24 08:57 Primary care physician: [facility] Attending physician on admission: Lisa Harris Discharging clinician: Lisa Harris DS: Diagnosis Discharge Diagnosis (1) Right lower lobe pneumonia: Qualifiers: Pneumonia type: due to unspecified organism Qualified Code(s): J18.9 - Pneumonia, unspecified organism (2) Sinus tachycardia: (3) Elevated d-dimer: DS: Summary Hospital Course Hospital Course: Patient is a 23 year old male with no past medical history other than childhood asthma, and recent palpitations that is in the process of being worked up had a normal 3 day holter monitor. He presented to the ER today with increased HR, shortness of breath, fever and chills that started a few days ago. Covid and flu testing was negative. Chest X-ray showed right lower lobe infiltrate. Patient was treated with IVF, Rocephin and Azithromycin. He has maintained oxygen saturations >90% on room air, HR has been 130's with increased respiratory rate 21 which have all normalized and he has been afebrile. Troponin normal 49. Patient also had elevated D-dimer so had a CTA which showed no acute PE. Patient required some oxygen of 1L at night time while sleeping. I have no documented oxygen saturations of <90% to indicate hypoxia, and patient had a walk test yesterday and did great on room air. It seems this was more for patient comfort per nursing. I did however mention possible outpatient sleep study. Patient feels much better today and will be discharged home with albuterol inhaler, Augmentin 875mg BID x 7 days and prednisone 40mg daily x 7 days and albuterol inhaler. He will have close outpatient follow up with his pcp. I have provided him a work note for 1 week or until he sees his PCP. He may return to the ER with any worsening signs or symptoms. Status at Discharge Functional status at discharge: independent ambulation Overall status at discharge: patient is back to baseline Time Spent with Patient Time attestation: Total time spent providing and/or coordinating discharge services: Time spent: greater than 30 minutes Exam Narrative Exam Narrative: General: Patient is alert, and oriented to person, place and time with normal affect, proper hygiene Skin: no visible rashes, or ulcers Head: atraumatic, acephalic Eyes: PERRLA, no nystagmus present, conjunctiva clear, no scleral icterus Heart: Normal rate and rhythm, no murmurs/rubs/gallops Lungs: no audible wheezes, no crackles Abdomen: Normal audible bowel sounds, no distension, No palpable masses, no organomegaly, no rebound/guarding/ or rigidity Musculoskeletal: no swelling bilateral lower extremities Neuro: CN II-X grossly intact Constitutional Vital Signs, click to edit/add: Last Vital Signs Temp 98 F 05/23/24 07:32 Pulse 98 H 05/23/24 08:00 Resp 20 05/23/24 07:32 BP 123/72 05/23/24 07:32 Pulse Ox 93 L 05/23/24 08:00 O2 Del Method Nasal Cannula 05/23/24 07:32 O2 Flow Rate 2 05/23/24 07:32 DS: Data Data Completed and Pending Labs on day of discharge: Labs from last 24 hours 05/22/24 22:33 Urine Opiates Screen Negative Ur Buprenorphine Scrn Negative Ur Oxycodone Screen Negative Urine Methadone Screen Negative Ur Barbiturates Screen Negative U Tricyclic Antidepress Negative Ur Phencyclidine Scrn Negative Ur Amphetamines Screen Negative U Methamphetamines Scrn Negative U Benzodiazepines Scrn Negative Urine Cocaine Screen Negative U Cannabinoids Screen Negative Discharge Plan Discharge Disposition: Home, Self-Care Condition: Fair Discharge Medications: New dextromethorphan-guaifenesin 10-100 mg/5 mL Syrup 10 ml PO Q6H PRN (Reason: Cough) 7 Days Qty: 280 0RF prednisone 20 mg tablet 20 mg PO BID 7 Days Qty: 14 0RF amoxicillin-pot clavulanate 875-125 mg tablet 1 tab PO Q12H 7 Days Qty: 14 0RF albuterol sulfate 90 mcg/actuation HFA aerosol inhaler 2 inh inhalation Q4H PRN (Reason: shortness of breath or wheezing) Qty: 8.5 0RF Activity: increase activity as tolerated Diet: advance to your usual diet Print Language: Pashto Patient Instructions: Pneumonia (DC), Tachycardia (GEN) Forms: Portal Instructions Follow Up Appointments: [facility] please give work excuse started on time of admission until his follow up with PCP, would encourage outpatient sleep study.
[2024-05-23] MEDS: AZITHROMYCIN 500 MG in 0.9 % SODIUM CHLORIDE 250 ML 250 MG IV (09:51)
--- NOTE | 2024-05-23 12:14 | CM.NOTE ---
Rounds made with Dr. Harris, pt will discharge to home today. Discussed with pt possible need for outpatient sleep study d/t oxygen sat dropping at night while sleeping. Pt verbalizes understanding, Dr. Harris will put recommendation in discharge note. Pt denies any discharge needs. Pt up ad radha in room.
--- NOTE | 2024-05-25 15:37 | CM.DCFOLLOWU ---
Person spoke with:patient How are you feeling?well How is your pain?none Did you understand your discharge instructions?yes Do you have any questions about your discharge instructions?no Were you given any prescriptions at discharge?yes Were you able to get your prescriptions filled?yes Do you understand how to take your medications as ordered?yes Do you have any questions about your follow up appointment and do you plan to keep your follow up appointment? no questions, follow up reviewed Is there anything else that you would like to discuss?no Questions/Comments/Concerns/Other:none
== END 2024-05-23 16:25 | disposition home or self-care (01) ==
LOC: ER 09:00 → MS 05-22 06:04
PROVIDERS: Admitting Provider Family Medicine; Emergency Provider Emergency Medicine; Visit Provider Family Medicine
DX: J18.9 Pneumonia, unspecified organism (principal); R00.0 Tachycardia, unspecified; R09.02 Hypoxemia; R50.9 Fever, unspecified; R79.89 Other specified abnormal findings of blood chemistry
CPT/HCPCS: 36415; 71045; 71275; 80048; 80053; 80307; 83605; 83735; 84484; 85025; 85378; 87040; 87070; 87205; 87804; 87811; 93005; 94640; 94667; 94668; 94761; 96365; 96366; 96367; 96368; 96372; 96375; 96376; 99285; G0378; J0456; J0696; J1650; J2919; J3475; Q9967